=== PATIENT | male | born 1960 | race Caucasian/White ===

== ENCOUNTER 2018-04-18 18:48 | Emergency (ER) | payer OTHER ==
--- OUTSIDE RECORDS SUMMARY | 2018-04-18 18:50 | XMS REPORT ---
:1960 [facility] Lam [address] [place] [id number] Care Team Providers Name Role Phone Unavailable Unavailable Unavailable Payers Payer Name Policy Type Policy Number Effective Date Expiration Date Problems This patient has no known problems. Allergies, Adverse Reactions, Alerts Allergy Allergy Status Severity Reaction(s) Onset Inactive Treating Comments Name Type Date Date Clinician No Known DA Active U 2018-02 Allergies -11 00:00:0 0 No Known DA Active U 2015-02 Allergies - 00:00:0 0 Medications This patient has no known medications.
[2018-04-18 19:52] LABS: Absolute Lymphocytes (CBC) 0.9 K/uL (0.7-4.9); Absolute Monocytes 0.6 K/uL (0.1-1.3); Absolute Neutrophil 1.5 K/uL (1.8-8.0); Basophils % 0.6 % (0-1.3); Hematocrit 43.5 % (39.6-49.0); Lymphocytes % 29.4 % (15.3-44.8); MPV 7.9 fL (7.6-11.3); Monocytes % 19.5 % (3.3-12.3)
[2018-04-18 19:55] LABS: Protime INR 1.61
[2018-04-18 20:22] LABS: ALT/SGPT 40 U/L (12-78); AST/SGOT 34 U/L (15-37); Albumin 3.8 g/dL (3.4-5.0); Alkaline Phosphatase 79 U/L (45-117); BUN Blood Urea Nitrogen 19 mg/dL (7-18); Bicarbonate 28 mmol/L (21-32); Bilirubin Direct 0.2 mg/dL (0-0.2); Bilirubin Total 0.5 mg/dL (0.2-1.0); Glucose Level 102 mg/dL (74-106); Magnesium 1.8 mg/dL (1.8-2.4); NT PRO-BNP 240 pg/mL (<125); Protein, Total 6.9 g/dL (6.4-8.2); Sodium Level 144 mmol/L (136-145); Troponin (Emerg Dept Use Only) < 0.02 ng/mL (0.0-0.045)
--- NOTE | 2018-04-18 20:25 | RAD REPORT ---
EXAM DESCRIPTION: Ry Pemberton (2 Views)04/18/2018 7:57 pm CLINICAL HISTORY: Cough COMPARISON: April 15, 2017 FINDINGS: The lungs appear clear of acute infiltrate. The heart is normal size IMPRESSION: No acute abnormalities displayed
--- NOTE | 2018-04-18 21:13 | EDPHYS ---
Physician Documentation [facility] Name: Shlomo Humphrey Age: 57 yrs Sex: Male : 1960 Arrival Date: 04/18/2018 Time: 18:52 Bed 24 Private MD: Edenilson NAVARRO ED Physician Rayshawn Carrera HPI: 04/18 19:35 This 57 yrs old Male presents to ER via Ambulatory with complaints of cp Productive Cough. 19:35 The patient or guardian reports cough, that is intermittent, with productive sputum, cp that is purulent, with small amount blood. Onset: The symptoms/episode began/occurred 4 day(s) ago. Severity of symptoms: in the emergency department the symptoms are unchanged, despite home interventions. Associated signs and symptoms: Pertinent negatives: chest pain, diarrhea, fever, sore throat, vomiting. Patient reports he was seen by PCP Saturday for similar symptoms and diagnosed with influenza. Patient was given RX for Zithromax if symptoms got worse and cough syrup. Patient concerned today after noticing small amount of blood in sputum after several episodes of coughing. Historical: - Allergies: 18:56 No Known Allergies; sv - Home Meds: 19:14 losartan-hydrochlorothiazide 50-12.5 mg Oral tab 1 tab once daily [Active]; metoprolol mg2 tartrate 25 mg Oral tab 1 tab once daily [Active]; Xarelto 20 mg Oral tab 1 tab once daily [Active]; - PMHx: 18:56 Atrial Fib; Hypertension; sv - PSHx: 18:56 Heart Ablation; Cholecystectomy; sv - Immunization history:: Flu vaccine status is unknown. - Social history:: Smoking status: unknown. - Ebola Screening: : No symptoms or risks identified at this time. ROS: 19:40 Constitutional: Negative for body aches, chills, fever, poor PO intake. cp 19:40 Eyes: Negative for injury, pain, redness, and discharge. cp 19:40 ENT: Negative for drainage from ear(s), ear pain, sore throat, difficulty swallowing, difficulty handling secretions. 19:40 Cardiovascular: Negative for chest pain, edema, palpitations. 19:40 Respiratory: Positive for cough, colored sputum with small amount of blood, Negative for shortness of breath, wheezing. 19:40 Abdomen/GI: Negative for abdominal pain, nausea, vomiting, and diarrhea, black/tarry stool, rectal bleeding. 19:40 Back: Negative for pain at rest, pain with movement, radiated pain. 19:40 : Negative for urinary symptoms. 19:40 Skin: Negative for cellulitis, rash. 19:40 Neuro: Negative for altered mental status, headache, weakness. 19:40 All other systems are negative. Exam: 19:46 Constitutional: The patient appears in no acute distress, alert, awake, cp non-diaphoretic, non-toxic, well developed, well nourished. 19:46 Head/Face: Normocephalic, atraumatic. cp 19:46 Eyes: Periorbital structures: appear normal, Conjunctiva: normal, no exudate, no injection, Sclera: no appreciated abnormality, Lids and lashes: appear normal, bilaterally. 19:46 ENT: External ear(s): are unremarkable, Ear canal(s): are normal, clear, TM's: bulging, is not appreciated, bilaterally, dullness, bilaterally, erythema, is not appreciated, bilaterally, Nose: is normal, Mouth: Lips: moist, Oral mucosa: moist, Posterior pharynx: Airway: no evidence of obstruction, patent, Tonsils: are normal in appearance, swelling, is not appreciated, erythema, that is mild, exudate, is not appreciated. 19:46 Neck: ROM/movement: is normal, is supple, without pain, no range of motions limitations, no meningismus, no nuchal rigidity. 19:46 Chest/axilla: Inspection: normal, Palpation: is normal, no crepitus, no tenderness. 19:46 Cardiovascular: Rate: normal, Rhythm: regular, Heart sounds: murmur, not appreciated, rub, not appreciated, gallop, not appreciated, Edema: is not appreciated, JVD: is not appreciated. 19:46 Respiratory: the patient does not display signs of respiratory distress, Respirations: normal, no use of accessory muscles, no retractions, no splinting, no tachypnea, labored breathing, is not present, Breath sounds: bronchial sounds, that are mild, are heard diffusely, decreased breath sounds, are not appreciated, stridor, is not appreciated, + upper airway congestion. wheezing: is not appreciated. 19:46 Abdomen/GI: Inspection: abdomen appears normal, Palpation: abdomen is soft and non-tender, in all quadrants. 19:46 Back: pain, is absent, ROM is normal. 19:46 Skin: cellulitis, is not appreciated, no rash present. 19:46 Neuro: Orientation: to person, place \T\ time. Mentation: is normal, Cerebellar function: is grossly normal, Motor: moves all fours, strength is normal, Sensation: is normal. 19:48 ECG was reviewed by the Attending Physician. cp Vital Signs: 18:57 BP 127 / 78; Pulse 64; Resp 18; Temp 98.1; Pulse Ox 99% ; Weight 113.4 kg; Height 5 ft. sv 10 in. (177.80 cm); Pain 0/10; 20:14 BP 111 / 94; Pulse 68; Resp 18; Pulse Ox 100% on R/A; Pain 0/10; mg2 18:57 Body Mass Index 35.87 (113.40 kg, 177.80 cm) sv MDM: 19:10 Patient medically screened. cp 20:00 Differential Diagnosis: Bronchitis Influenza Otitis Media Viral Syndrome Pneumonia. cp 21:10 Data reviewed: vital signs, nurses notes, lab test result(s), EKG, radiologic studies, cp plain films. 21:10 Test interpretation: by ED physician or midlevel provider: ECG, plain radiologic cp studies. Counseling: I had a detailed discussion with the patient and/or guardian regarding: the historical points, exam findings, and any diagnostic results supporting the discharge/admit diagnosis, lab results, radiology results, to return to the emergency department if symptoms worsen or persist or if there are any questions or concerns that arise at home. Response to treatment: the patient's symptoms have mildly improved after treatment, and as a result, I will discharge patient. ED course: VSS. Chest xray negative for pneumonia. Patient has prescribed Zithromax to take at home. Will discharge to home for continued monitoring. 04/18 19:32 Order name: Basic Metabolic Panel cp 04/18 19:32 Order name: CBC with Diff cp 04/18 19:32 Order name: LFT's cp 04/18 19:32 Order name: Magnesium cp 04/18 19:32 Order name: NT PRO-BNP cp 04/18 19:32 Order name: PT-INR cp 04/18 19:32 Order name: Troponin (emerg Dept Use Only) cp 04/18 20:06 Order name: Protime (+INR); Complete Time: 20:51 EDMS 04/18 20:51 Interpretation: Abnormal: PT 19.1. cp 04/18 20:12 Order name: CBC with Automated Diff; Complete Time: 20:51 EDMS 04/18 20:51 Interpretation: Normal except: WBC 3.1; PLT 149; MN% 19.5; NEUT A 1.5. cp 04/18 20:22 Order name: Basic Metabolic Panel; Complete Time: 20:51 EDMS 04/18 20:51 Interpretation: Normal except: BUN 19; GFR 63. cp 04/18 20:22 Order name: Liver (Hepatic) Function; Complete Time: 20:51 EDMS 04/18 20:22 Order name: Troponin (Emerg Dept Use Only); Complete Time: 20:51 EDMS 04/18 20:22 Order name: NT PRO-BNP; Complete Time: 20:51 EDMS 04/18 20:52 Interpretation: Abnormal: NT PRO-BNP 240. cp 04/18 20:22 Order name: Magnesium; Complete Time: 20:51 EDMS 04/18 19:32 Order name: EKG; Complete Time: 19:33 cp 04/18 19:32 Order name: Cardiac monitoring; Complete Time: 19:50 cp 04/18 19:32 Order name: EKG - Nurse/Tech; Complete Time: 19:50 cp 04/18 19:32 Order name: IV Saline Lock; Complete Time: 19:50 cp 04/18 19:32 Order name: Labs collected and sent; Complete Time: 19:51 cp 04/18 19:32 Order name: O2 Per Protocol; Complete Time: 19:51 cp 04/18 19:32 Order name: O2 Sat Monitoring; Complete Time: 19:51 cp 04/18 19:32 Order name: XRAY Chest Pa And Lat (2 Views) cp 04/18 20:26 Order name: RAD; Complete Time: 20:51 EDMS 04/18 20:52 Interpretation: Report reviewed. cp EC:48 Rate is 55 beats/min. Rhythm is regular. KS interval is normal. QRS interval is normal. cp QT interval is normal. Interpreted by me. Reviewed by me. Administered Medications: No medications were administered Disposition: 04/19 03:29 Co-signature as Attending Physician, Rayshawn Carrera MD. Disposition: 04/18/18 21:12 Discharged to Home. Impression: Acute bronchitis. - Condition is Stable. - Discharge Instructions: Acute Bronchitis, Adult. - Prescriptions for Guaifenesin AC 10- 100 mg/5 mL Oral Liquid - take 10 milliliters by ORAL route every 4 hours As needed; 180 milliliter. - Medication Reconciliation Form, Thank You Letter, Antibiotic Education, Prescription Opioid Use form. - Follow up: Edenilson NAVARRO; When: 2 - 3 days; Reason: Recheck today's complaints. - Problem is new. - Symptoms have improved. Signatures: Dispatcher [employer] EDMS Tania Ricci RN RN sv Isrrael Parra, LOS PA cp Rayshawn Carrera MD MD gs Gardose, Michele RN RN mg2 Corrections: (The following items were deleted from the chart) 04/18 21:29 21:12 04/18/2018 21:12 Discharged to Home. Impression: Acute bronchitis. Condition is mg2 Stable. Forms are Medication Reconciliation Form, Thank You Letter, Antibiotic Education, Prescription Opioid Use. Follow up: Edenilson NAVARRO; When: 2 - 3 days; Reason: Recheck today's complaints. Problem is new. Symptoms have improved. cp
--- NOTE | 2018-04-18 21:13 | ER ---
Nurse's Notes [facility] Name: Shlomo Humphrey Age: 57 yrs Sex: Male : 1960 Arrival Date: 04/18/2018 Time: 18:52 Bed 24 Private MD: Edenilson NAVARRO Diagnosis: Acute bronchitis Presentation: 04/18 18:53 Presenting complaint: Patient states: productive cough with intermittent blood streaked sv phlegm has increased over about 2 days. Seen his PCP and prescribed meds yesterday, tested flu positive. Denies SOB. Has had a CXR within this week. Transition of care: patient was not received from another setting of care. Onset of symptoms was April 14, 2018. Care prior to arrival: None. 18:53 Method Of Arrival: Ambulatory sv 18:53 Acuity: EBER 3 sv 19:13 Risk Assessment: Do you want to hurt yourself or someone else? Patient reports no mg2 desire to harm self or others. Initial Sepsis Screen: Does the patient meet any 2 criteria? No. Patient's initial sepsis screen is negative. Does the patient have a suspected source of infection? No. Patient's initial sepsis screen is negative. Triage Assessment: 18:58 General: Appears in no apparent distress. comfortable, Behavior is calm, cooperative, sv appropriate for age. Pain: Denies pain. Neuro: Level of Consciousness is awake, alert, obeys commands, Oriented to person, place, time, situation, Moves all extremities. Full function. Respiratory: Reports cough that is productive, Airway is patent Respiratory effort is even, unlabored, Respiratory pattern is regular, symmetrical. 19:15 Respiratory: Onset: The symptoms/episode began/occurred at an unknown time. the patient mg2 has mild shortness of breath. Historical: - Allergies: 18:56 No Known Allergies; sv - Home Meds: 19:14 losartan-hydrochlorothiazide 50-12.5 mg Oral tab 1 tab once daily [Active]; metoprolol mg2 tartrate 25 mg Oral tab 1 tab once daily [Active]; Xarelto 20 mg Oral tab 1 tab once daily [Active]; - PMHx: 18:56 Atrial Fib; Hypertension; sv - PSHx: 18:56 Heart Ablation; Cholecystectomy; sv - Immunization history:: Flu vaccine status is unknown. - Social history:: Smoking status: unknown. - Ebola Screening: : No symptoms or risks identified at this time. Screenin:12 Abuse screen: Denies threats or abuse. Denies injuries from another. Nutritional mg2 screening: No deficits noted. Tuberculosis screening: No symptoms or risk factors identified. Fall Risk None identified. Assessment: 19:09 General: Appears in no apparent distress. comfortable, Behavior is calm, cooperative. mg2 Pain: Denies pain. Neuro: Level of Consciousness is awake, alert, obeys commands, Oriented to person, place, time, situation. Cardiovascular: Capillary refill < 3 seconds Patient's skin is warm and dry. Respiratory: Airway is patent Respiratory effort is even, unlabored, Respiratory pattern is regular, symmetrical. Respiratory: Reports cough that is productive, with blood-streaked sputum. GI: No signs and/or symptoms were reported involving the gastrointestinal system. : No signs and/or symptoms were reported regarding the genitourinary system. EENT: No signs and/or symptoms were reported regarding the EENT system. Derm: Skin is intact, is healthy with good turgor, Skin is pink, warm \T\ dry. normal. Musculoskeletal: Circulation, motion, and sensation intact. Capillary refill < 3 seconds. 19:55 Cardiovascular: Rhythm is regular. mg2 19:55 Respiratory: Breath sounds are clear. mg2 19:56 Reassessment: patient sent to [facility]. mg2 Vital Signs: 18:57 BP 127 / 78; Pulse 64; Resp 18; Temp 98.1; Pulse Ox 99% ; Weight 113.4 kg; Height 5 ft. sv 10 in. (177.80 cm); Pain 0/10; 20:14 BP 111 / 94; Pulse 68; Resp 18; Pulse Ox 100% on R/A; Pain 0/10; mg2 18:57 Body Mass Index 35.87 (113.40 kg, 177.80 cm) sv ED Course: 18:52 Patient arrived in ED. sb2 18:52 Edenilson NAVARRO is Private Physician. sb2 18:56 Triage completed. sv 18:58 Arm band placed on. sv 19:05 Bry Dial, DHEERAJ is Primary Nurse. mg2 19:10 Isrrael Parra PA is PHCP. cp 19:10 Rayshawn Carrera MD is Attending Physician. cp 19:13 No provider procedures requiring assistance completed. mg2 19:14 Patient has correct armband on for positive identification. Bed in low position. Call mg2 light in reach. 19:30 Inserted saline lock: 20 gauge in right antecubital area, using aseptic technique. macho 21:11 Edenilson NAVARRO is Referral Physician. cp 21:27 IV discontinued, intact, bleeding controlled, No redness/swelling at site. Pressure mg2 dressing applied. Administered Medications: No medications were administered Outcome: 21:12 Discharge ordered by MD. cp 21:27 Discharged to home ambulatory. mg2 21: Condition: stable 21:27 Discharge instructions given to patient, Instructed on discharge instructions, follow up and referral plans. medication usage, Demonstrated understanding of instructions, follow-up care, medications, Prescriptions given X 1. 21:29 Patient left the ED. mg2 Signatures: Tania Ricci RN RN Isrrael Cortez PA PA cp Antunez, Elena, RN RN ea Billeau, Sheri sb2 Bry Dial RN RN mg2 Corrections: (The following items were deleted from the chart) 18:58 18:53 Presenting complaint: Patient states: productive cough with intermittent blood sv streaked phlegm has increased over about 2 days. Seen his PCP and prescribed meds yesterday, tested flu positive. sv 18:58 18:57 Pulse 64bpm; Resp 18bpm; Pulse Ox 99%; Temp 98.1F; 113.4 kg; Height 5 ft. 10 in.; sv BMI: 35.8; Pain 0/10; sv 19:01 18:53 Presenting complaint: Patient states: productive cough with intermittent blood sv streaked phlegm has increased over about 2 days. Seen his PCP and prescribed meds yesterday, tested flu positive. Denies SOB. sv 21: 19:55 Cardiovascular: Rhythm is mg2 mg2 : 19:13 Patient did not have IV access during this emergency room visit. mg2 mg2
--- NOTE | 2018-04-21 07:59 | EKG ---
Test Date: 2018-04-18 Test Time: 19:40:27 Sheriff Sergeant: 24 MEASUREMENT RESULTS: Intervals: Rate: 55 WY: 190 QRSD: 74 QT: 410 QTc: 392 Dewitt: P: 58 WY: 190 QRS: 58 T: 63 INTERPRETIVE STATEMENTS: Sinus bradycardia Otherwise normal ECG Compared to ECG 06/14/2016 22:31:24 Sinus rhythm no longer present Electronically Signed On 04-21-18 07:54:41 MEDICAL AFFAIRS LEADER by Jani Avalos
== END 2018-04-18 21:29 | disposition home or self-care (01) ==
LOC: ER 18:48
DX: J20.9 Acute bronchitis, unspecified (principal); I10 Essential (primary) hypertension; I48.91 Unspecified atrial fibrillation; Z79.01 Long term (current) use of anticoagulants
CPT/HCPCS: 36415; 71046; 80048; 80076; 83735; 83880; 84484; 85025; 85610; 93005; 99283

== ENCOUNTER 2019-05-30 16:03 | Emergency (ER) | payer OTHER ==
--- OUTSIDE RECORDS SUMMARY | 2019-05-30 16:04 | XMS REPORT ---
:1960 [facility] [address] [place] [address] Dr. Lam [address] [place] [id number] Care Team Providers Name Role Phone Unavailable [...]
--- NOTE | 2019-05-30 17:03 | RAD REPORT ---
EXAM DESCRIPTION: CT - Head Brain Wo Cont - 05/30/2019 4:50 pm CLINICAL HISTORY: Headache COMPARISON: December 2018 TECHNIQUE: Computed axial tomography of the head was obtained. IV contrast was not requested. All CT scans are performed using dose optimization technique as appropriate and may include automated exposure control or mA/KV adjustment according to patient size. FINDINGS: An intracranial bleed is not seen . The ventricles are normal in caliber. No extra-axial fluid collection is noted. Fluid within the sinuses/ mastoids is not seen. IMPRESSION: No acute intracranial abnormality is seen. If patient's symptoms persist MRI of the bra in would be recommended.
[2019-05-30 17:07] LABS: Absolute Lymphocytes (CBC) 1.3 K/uL (0.7-4.9); Basophils % 0.5 % (0-1.3); Hematocrit 44.9 % (39.6-49.0); Lymphocytes % 20.4 % (15.3-44.8); MPV 7.7 fL (7.6-11.3); RBC Red Blood Cell Count 5.04 M/uL (4.33-5.43)
[2019-05-30 17:24] LABS: Potassium 3.7 mmol/L (3.5-5.1)
[2019-05-30 17:47] LABS: Blood Morphology Comment NOT SEEN (NOT SEEN); Platelet Estimate ADEQ; White Blood Cell Scan OK
--- NOTE | 2019-05-30 17:58 | ER ---
Nurse's Notes [facility] Name: Shlomo Humphrey Age: 58 yrs Sex: Male : 1960 Arrival Date: 05/30/2019 Time: 16:05 Bed 5 Private MD: Wally Bhatia R Diagnosis: Headache;Anxiety disorder, unspecified Presentation: 05/29 16:14 Chief complaint: Patient states: my head didn't feel right, i havent felt right for tw2 over a week, it just feels like i jerked my brain too hard, its weird feeling, i feel numbness in the back of my head and it feels sore, i am just concerned something is wrong, earlier this morning i got lightheaded but it went away, i have been trying to straighten up or clean my house, i am under stress that's why i take that one medicine, well i guess it feels like a light headache. Coronavirus screen: The patient has NOT traveled to a country currently being monitored by the CDC within the last 14 days. Proceed with normal triage procedures. Ebola Screen: Patient denies travel to an Ebola-affected area in the 21 days before illness onset. Initial Sepsis Screen: Does the patient meet any 2 criteria? No. Patient's initial sepsis screen is negative. Does the patient have a suspected source of infection? No. Patient's initial sepsis screen is negative. Risk Assessment: Do you want to hurt yourself or someone else? Patient reports no desire to harm self or others. 16:14 Method Of Arrival: Ambulatory tw2 16:14 Acuity: EBER 2 tw2 Triage Assessment: 16:17 General: Appears in no apparent distress. Behavior is anxious. Pain: Complains of pain tw2 in right parietal area. Neuro: Reports headache parietal area, occipital area. Historical: - Allergies: 16:13 No Known Allergies; tw2 - Home Meds: 16:13 losartan-hydrochlorothiazide 50-12.5 mg Oral tab 1 tab once daily [Active]; metoprolol tw2 tartrate 25 mg Oral tab 1 tab once daily [Active]; atorvastatin 20 mg oral tab 1 tab once daily [Active]; losartan 50 mg oral tab 1 tab once daily [Active]; alprazolam 0.25 mg Oral TbDL 1 tab prn [Active]; - PMHx: 16:13 Atrial Fib; Hypertension; tw2 - PSHx: 16:13 Heart Ablation; Cholecystectomy; Hernia repair; perforated ear drums; tw2 - Immunization history:: Adult Immunizations. - Social history:: Smoking status: . - Family history:: not pertinent. - Hospitalizations: : No recent hospitalization is reported. Screenin:15 Abuse screen: Denies threats or abuse. Denies injuries from another. Nutritional bp screening: No deficits noted. Tuberculosis screening: No symptoms or risk factors identified. Fall Risk None identified. Assessment: 16:15 General: SEE TRIAGE NOTE. bp 16:56 Reassessment: PT RETURNED FROM CT. bp 17:57 Reassessment: ALL CURRENT ORDERS COMPLETED, RESULTS PENDING. VS STABLE, NO FOCAL NEURO bp DEFICITS NOTED. 18:26 Reassessment: PT D/C HOME AMBULATORY, DX WITH ANXIETY. bp Vital Signs: 16:14 BP 123 / 79; Pulse 74; Resp 17; Temp 97.8(TE); Pulse Ox 99% on R/A; Weight 113.4 kg tw2 (R); Height 5 ft. 11 in. (180.34 cm); Pain 1/10; 16:42 BP 139 / 76; Pulse 63; Resp 17; Pulse Ox 95% ; bp 17:56 BP 140 / 84; Pulse 61; Resp 16; Pulse Ox 96% ; bp 16:14 Body Mass Index 34.87 (113.40 kg, 180.34 cm) tw2 Renay Coma Score: 17:56 Eye Response: spontaneous(4). Verbal Response: oriented(5). Motor Response: obeys rn commands(6). Total: 15. ED Course: 16:05 Patient arrived in ED. ag5 16:06 Wally Bhatia MD is Private Physician. ag5 16:15 Patient has correct armband on for positive identification. Bed in low position. Call bp light in reach. Side rails up X2. 16:17 Triage completed. tw2 16:17 Arm band placed on. tw2 16:19 Rigo Escudero MD is Attending Physician. rn 16:19 Rashad Gore, DHEERAJ is Primary Nurse. bp 16:40 Inserted saline lock: 20 gauge in right forearm, using aseptic technique. Blood bp collected. 16:50 CT Head Brain wo Cont In Process Unspecified. EDMS 17:58 Tyrell Jean MD is Referral Physician. rn 18:26 No provider procedures requiring assistance completed. IV discontinued, intact, bp bleeding controlled, No redness/swelling at site. Pressure dressing applied. Administered Medications: No medications were administered Outcome: 17:58 Discharge ordered by . rn 18:26 Discharged to home ambulatory. bp 18:26 Condition: stable 18:26 Discharge instructions given to patient, Instructed on discharge instructions, follow up and referral plans. Demonstrated understanding of instructions, follow-up care. 18:28 Patient left the ED. bp Signatures: Dispatcher [employer] EDMS Rigo Escudero MD MD rn Maria Esther Richard RN RN tw2 Rashad Gore RN RN bp Park Weber ag5
--- NOTE | 2019-05-30 17:58 | EDPHYS ---
Physician Documentation [facility] Name: Shlomo Humphrey Age: 58 yrs Sex: Male : 1960 Arrival Date: 05/30/2019 Time: 16:05 Bed 5 Private MD: Wally Bahtia R ED Physician Rigo Escudero HPI: 05/29 16:38 This 58 yrs old Male presents to ER via Ambulatory with complaints of Doesn't rn Feel Right, headache. 16:38 The patient complains of pain to the right occipital area. The patient describes the rn headache as aching. Onset: The symptoms/episode began/occurred 1 week(s) ago. Associated signs and symptoms: Pertinent negatives: altered mental status, fever, neck stiffness, rash, vision changes, vision loss, vomiting, weakness, vertigo. Severity of symptoms: At its worst the pain was very mild, in the emergency department the pain is unchanged. Headache History: Denies prior headaches. The symptoms are alleviated by nothing. the symptoms are aggravated by nothing. The patient has not experienced similar symptoms in the past. Reports 1 week intermittent headache, reports is 1/10, no trauma, no previous headache, + head injury when young but no issues since. No focal neurological complaint. No vomiting. No chest pain. Reports pain right occipital region, reports anxiety about situation, and would like imaging of brain to make sure is ok. . Historical: - Allergies: 16:13 No Known Allergies; tw2 - Home Meds: 16:13 losartan-hydrochlorothiazide 50-12.5 mg Oral tab 1 tab once daily [Active]; metoprolol tw2 tartrate 25 mg Oral tab 1 tab once daily [Active]; atorvastatin 20 mg oral tab 1 tab once daily [Active]; losartan 50 mg oral tab 1 tab once daily [Active]; alprazolam 0.25 mg Oral TbDL 1 tab prn [Active]; - PMHx: 16:13 Atrial Fib; Hypertension; tw2 - PSHx: 16:13 Heart Ablation; Cholecystectomy; Hernia repair; perforated ear drums; tw2 - Immunization history:: Adult Immunizations. - Social history:: Smoking status: . - Family history:: not pertinent. - Hospitalizations: : No recent hospitalization is reported. ROS: 16:38 Constitutional: Negative for fever, chills, and weight loss, Eyes: Negative for injury, rn pain, redness, and discharge, Neck: Negative for injury, pain, and swelling, Cardiovascular: Negative for chest pain, palpitations, and edema, Respiratory: Negative for shortness of breath, cough, wheezing, and pleuritic chest pain, Abdomen/GI: Negative for abdominal pain, nausea, vomiting, diarrhea, and constipation, MS/Extremity: Negative for injury and deformity, Skin: Negative for injury, rash, and discoloration, Neuro: Negative for weakness, numbness, tingling, and seizure. Exam: 16:38 Constitutional: This is a well developed, well nourished patient who is awake, alert, rn and in no acute distress. Ambulatory to room without dififculty or assistance. Head/Face: Normocephalic, atraumatic. Eyes: Pupils equal round and reactive to light, extra-ocular motions intact. Lids and lashes normal. Conjunctiva and sclera are non-icteric and not injected. Cornea within normal limits. Periorbital areas with no swelling, redness, or edema. Cardiovascular: Regular rate and rhythm. No pulse deficits. Respiratory: Lungs have equal breath sounds bilaterally, clear to auscultation. No increased work of breathing, no retractions or nasal flaring. Abdomen/GI: soft, non-tender MS/ Extremity: Pulses equal, no cyanosis. Neurovascular intact. Full, normal range of motion. Equal circumference. Neuro: Awake and alert, GCS 15, oriented to person, place, time, and situation. Cranial nerves II-XII grossly intact. Motor strength 5/5 in all extremities. Sensory grossly intact. Cerebellar exam normal. Normal gait. 17:07 ECG was reviewed by the Attending Physician. rn Vital Signs: 16:14 BP 123 / 79; Pulse 74; Resp 17; Temp 97.8(TE); Pulse Ox 99% on R/A; Weight 113.4 kg tw2 (R); Height 5 ft. 11 in. (180.34 cm); Pain 1/10; 16:42 BP 139 / 76; Pulse 63; Resp 17; Pulse Ox 95% ; bp 17:56 BP 140 / 84; Pulse 61; Resp 16; Pulse Ox 96% ; bp 16:14 Body Mass Index 34.87 (113.40 kg, 180.34 cm) tw2 Tutor Key Coma Score: 17:56 Eye Response: spontaneous(4). Verbal Response: oriented(5). Motor Response: obeys rn commands(6). Total: 15. MDM: 16:19 Patient medically screened. rn 16:55 ED course: Pt reports intermittent headache that lasts for seconds, and only 1/10. . rn 17:56 Differential diagnosis: hypertensive headache, intracerebral hemorrhage, migraine, rn subarachnoid bleed, tension headache, vasomotor headache, anxiety. Data reviewed: vital signs, nurses notes, lab test result(s), EKG, radiologic studies, CT scan, and as a result, I will discharge patient. Counseling: I had a detailed discussion with the patient and/or guardian regarding: the historical points, exam findings, and any diagnostic results supporting the discharge/admit diagnosis, lab results, radiology results, the need for outpatient follow up, to return to the emergency department if symptoms worsen or persist or if there are any questions or concerns that arise at home. Response to treatment: the patient's symptoms have markedly improved after treatment, the patient's condition has returned to base line, the patient is now symptom free, and as a result, I will discharge patient. Special discussion: I discussed with the patient/guardian in detail that at this point there is no indication for admission to the hospital. It is understood, however, that if the symptoms persist or worsen the patient needs to return immediately for re-evaluation. Special discussion: Based on the history and exam findings, there is no indication for further emergent testing or inpatient evaluation. I discussed with the patient/guardian the need to see the neurologist for further evaluation of the symptoms. I discussed with the patient/guardian the need to see the primary care provider for further evaluation of the symptoms. ED course: No acute findings on ct, symptoms are seconds in length, and intermittent, ekg and bloodwork ok. feels better. Recommend neuro f/u if headaches persist and pcp f/u for BP management. . 05/29 16:27 Order name: CBC with Diff rn 05/29 16:27 Order name: Basic Metabolic Panel; Complete Time: 17:44 rn 05/29 16:27 Order name: IV Start; Complete Time: 16:41 rn 05/29 16:27 Order name: CT Head Brain wo Cont; Complete Time: 17:23 rn 05/29 16:27 Order name: EKG; Complete Time: 16:28 rn 05/29 17:13 Order name: CBC Smear Scan EDCO 05/29 16:27 Order name: EKG - Nurse/Tech; Complete Time: 16:41 rn EC: Rate is 70 beats/min. Rhythm is regular. QRS Harrison is Normal. PA interval is normal. QRS rn interval is normal. QT interval is normal. No Q waves. T waves are Normal. No ST changes noted. Clinical impression: Normal ECG. Interpreted by me. Reviewed by me. Administered Medications: No medications were administered Disposition: 05/30/19 17:58 Discharged to Home. Impression: Headache, Anxiety disorder, unspecified. - Condition is Stable. - Discharge Instructions: General Headache Without Cause, Hypertension, Generalized Anxiety Disorder. - Medication Reconciliation Form, Thank You Letter, Antibiotic Education, Prescription Opioid Use form. - Follow up: Tyrell Jean MD; When: As needed; Reason: Recheck today's complaints, Re-evaluation by your physician. - Problem is new. - Symptoms have improved. Signatures: Dispatcher [employer] [facility] Rigo Escudero MD MD rn Wise, Tara, RN RN tw2 Rashad Gore RN RN bp Corrections: (The following items were deleted from the chart) 18:28 17:58 05/30/2019 17:58 Discharged to Home. Impression: Headache; Anxiety disorder, bp unspecified. Condition is Stable. Forms are Medication Reconciliation Form, Thank You Letter, Antibiotic Education, Prescription Opioid Use. Follow up: Tyrell Jean; When: As needed; Reason: Recheck today's complaints, Re-evaluation by your physician. Problem is new. Symptoms have improved. rn
[2019-05-30 18:40] VITALS: TEMP 97.8
[2019-05-30 18:43] VITALS: BP 140/84; O2SAT 96
--- NOTE | 2019-05-31 06:26 | EKG ---
Test Date: 2019-05-30 Test Time: 16:46:34 Regional Engineer: MANN MEASUREMENT RESULTS: Intervals: Rate: 70 SD: 184 QRSD: 86 QT: 398 QTc: 429 [place]: P: 41 SD: 184 QRS: 43 T: 55 INTERPRETIVE STATEMENTS: Normal sinus rhythm Normal ECG Compared to ECG 04/18/2018 19:40:27 Sinus bradycardia no longer present Electronically Signed On 05-31-19 06:26:13 CDT by Vishal Ram
== END 2019-05-30 18:28 | disposition home or self-care (01) ==
LOC: ER 16:03
DX: F41.9 Anxiety disorder, unspecified (principal); I10 Essential (primary) hypertension; I48.91 Unspecified atrial fibrillation
CPT/HCPCS: 36415; 70450; 80048; 85025; 93005; 99283

== ENCOUNTER 2019-08-26 12:43 | Emergency (ER) | payer OTHER ==
--- OUTSIDE RECORDS SUMMARY | 2019-08-26 13:05 | XMS REPORT | Clinical Summary ---
:1960 Author Organization [facility] Address [address] [place] [address] Care Team Providers Name Role Phone Wally Pang MD Primary Care Provider Allergies No Known Allergies Medications Medication Sig Dispensed Refills Start Date End Date Status losartan-hydrochlorothi TK 1 T PO D 0 05/24/2018 Active azide (HYZAAR) 50-12.5 mg per tablet rivaroxaban (XARELTO) TK 1 T PO QD WF 0 12/31/2017 Active 20 mg tablet aspirin (ECOTRIN) 81 MG Take 81 mg by 0 Active enteric coated tablet mouth daily. Active Problems Problem Noted Date Acute pancreatitis 06/23/2018 Social History Tobacco Use Types Packs/Day Years Used Date Never Smoker Smokeless Tobacco: Never Used Alcohol Use Drinks/Week oz/Week Comments No Alcohol Habits Answer Date Recorded How often do you have a drink containing alcohol? Never 06/23/2018 How many drinks containing alcohol do you have on a typical Not asked day when you are drinking? How often do you have six or more drinks on one occasion? No t asked Sex Assigned at Date Recorded Not on file Job Start Date Occupation Industry Not on file Not on file Not on file Travel History Travel Start Travel End No recent travel history available. Last Filed Vital Signs Not on file Plan of Treatment Health Maintenance Due Date Last Done Comments COLONOSCOPY SCREENING 2008 SHINGLES VACCINES (#1) 2008 INFLUENZA VACCINE 10/24/2019 Results Not on fileafter 08/25/2018 Advance Directives For more information, please contact: [phone] Type Date Recorded Patient Dead Mail Checker Explanati on Advance Directives, Living Will 06/23/2018 1:10 PM and Medical Power of Air Conditioning Mechan[employer] Industrial Code Status Date Activated Date Inactivated Comments Full Code 06/23/2018 3:47 PM 06/26/2018 3:54 PM Code Status decision reached by: Patient
--- OUTSIDE RECORDS SUMMARY | 2019-08-26 13:05 | XMS REPORT | Continuity of Care Document ---
:1960 Author Organization [facility] Address [address] [place] [address] Care Team Providers Name Role Phone Poly CARIAS Primary Care Physician Payers Payer Name Policy Type Policy Number Effective Date Expiration Date S ource Problems Condition Condition Condition Status Onset Resolution Last Treating Co mments Source Name Details Category Date Date Treatment Clinician Date Acute Acute Disease Active [place] [facility] Allergies, Adverse Reactions, Alerts Allergy Allergy Status Severity Reaction(s) Onset Inactive Treating Comm ents Source Name Type Date Date Clinician No Known DA Active U 2017-03 [facility] Allergie 05-05 [facility] 00:00: [address] No Known DA Active U 2014-03 [facility] Allergie 04-25 [facility] 00:00: [address] Social History Social Habit Start Date Stop Date Quantity Comments Source History [facility] Meth odist Alcohol Std Drinks History [facility] odist Alcohol Binge Sex Assigned At [facility] ethodist Alcohol intake 2018-06-23 2018-06-23 [facility] non-drinker of alcohol (finding) History SDOH 2018-06-23 2018-06-23 1 [place] [facility] Alcohol Frequency 00:00:00 00:00:00 Smoking Status Start Date Stop Date Source Never smoker [place] Methodis t Medications Ordered Filled Start Stop Current Ordering Indication Dosage Frequency Signature Comments Components Source Medication Medication Date Date Medication? Clinician (SIG) Name Name aspirin Yes 81mg QD Take 81 mg [place] (ECOTRIN) 4-04 by mouth Method i 81 MG 11:53: daily. st enteric 58 coated tablet losartan-hy Yes TK 1 T PO [place] drochloroth 3-02 D Method[facility] iazide 00:00: st (HYZAAR) 00 50-12.5 mg per tablet rivaroxaban 2017-03 Yes TK 1 T PO [place] (XARELTO) 0-09 QD [facility] 20 mg 00:00: st tablet 00 Procedures This patient has no known procedures. Plan of Care Planned Activity Planned Date Details Comments Source Future Scheduled 2019-10-24 INFLUENZA VACCINE [facility] 00:00:00 [code = INFLUENZA VACCINE] Future Scheduled 2008 COLONOSCOPY SCREENING [place] [facility] 00:00:00 [code = COLONOSCOPY SCREENING] Future Scheduled 2008 SHINGLES VACCINES Maximino but[facility] 00:00:00 (#1) [code = SHINGLES VACCINES (#1)] Results This patient has no known results.
[2019-08-26 15:55] LABS: BUN Blood Urea Nitrogen 18 mg/dL (7-18); Bicarbonate 29 mmol/L (21-32); Glucose Level 95 mg/dL (74-106); Potassium 3.9 mmol/L (3.5-5.1); Sodium Level 140 mmol/L (136-145)
[2019-08-26 16:06] LABS: Absolute Lymphocytes (CBC) 1.3 K/uL (0.7-4.9); Hematocrit 43.6 % (39.6-49.0); Lymphocytes % 20.2 % (15.3-44.8); RBC Red Blood Cell Count 4.82 M/uL (4.33-5.43)
--- NOTE | 2019-08-26 16:18 | EDPHYS ---
Physician Documentation [facility] Name: Shlomo Humphrey Age: 59 yrs Sex: Male : 1960 Arrival Date: 08/26/2019 Time: 12:45 Bed 18 Private MD: Wally Bhatia R ED Physician Sathya Giron HPI: 08/25 16:00 This 59 yrs old Male presents to ER via Ambulatory with complaints of Rectal jmm Bleeding. 16:00 The patient presents to the emergency department with bleeding from the rectum/anus. jmm Onset: The symptoms/episode began/occurred gradually, 6 day(s) ago. Modifying factors: The symptoms are alleviated by The symptoms are aggravated by bowel movement. This is a 59 year old male with a history of atrial fib, htn that presents to the ED with complaints of rectal bleeding with bowel movements, denies weakness, shortness of breath. Symptoms began this past . . Historical: - Allergies: 12:58 No Known Allergies; sv - Home Meds: 12:58 losartan 50 mg Oral tab 1 tab once daily [Active]; hydrochlorothiazide 25 mg Oral tab 1 sv tab once daily [Active]; aspirin 81 mg Oral chew 1 tab once daily [Active]; metoprolol succinate 25 mg oral Tb24 1 tab once daily [Active]; atorvastatin 20 mg Oral tab 1 tab once daily [Active]; Proctozone-HC 2.5 % rectal crea [Active]; - PMHx: 12:58 Atrial Fib; Hypertension; sv - PSHx: 12:58 Heart Ablation; Cholecystectomy; Hernia repair; perforated ear drums; sv - Immunization history:: Adult Immunizations. - Social history:: Smoking status: Patient denies any tobacco usage or history of. ROS: 16:00 Constitutional: Negative for fever, chills, and weight loss, Cardiovascular: Negative jmm for chest pain, palpitations, and edema, Respiratory: Negative for shortness of breath, cough, wheezing, and pleuritic chest pain. 16:00 Abdomen/GI: Positive for rectal bleeding. 16:00 All other systems are negative. Exam: 16:00 Constitutional: This is a well developed, well nourished patient who is awake, alert, jmm and in no acute distress. Head/Face: atraumatic. Eyes: EOMI, no conjunctival erythema appreciated ENT: Moist Mucus Membranes Neck: Trachea midline, Supple Chest/axilla: Normal chest wall appearance and motion. Cardiovascular: Regular rate and rhythm. No edema appreciated Respiratory: Normal respirations, no respiratory distress appreciated Abdomen/GI: Non distended, soft 16:00 Skin: General appearance color normal MS/ Extremity: Moves all extremities, no obvious deformities appreciated, no edema noted to the lower extremities Neuro: Awake and alert, normal gait Psych: Behavior is normal, Mood is normal, Patient is cooperative and pleasant 16:00 Abdomen/GI: Inspection: abdomen appears normal, Bowel sounds: normal, Palpation: abdomen is soft and non-tender, in all quadrants, Rectal exam: hemorrhoid(s), external, with associated bleeding, with inflammation. Vital Signs: 13:00 BP 112 / 76; Pulse 71; Resp 16; Temp 99.8; Pulse Ox 96% ; Weight 119.29 kg; Height 5 sv ft. 11 in. (180.34 cm); 16:04 BP 110 / 60; Pulse 64; Resp 15 S; Pulse Ox 95% on R/A; ca1 13:00 Body Mass Index 36.68 (119.29 kg, 180.34 cm) sv MDM: 15:15 Patient medically screened. [facility] 16:16 Data reviewed: vital signs, nurses notes. Counseling: I had a detailed discussion with teresita the patient and/or guardian regarding: the historical points, exam findings, and any diagnostic results supporting the discharge/admit diagnosis, lab results, the need for outpatient follow up, to return to the emergency department if symptoms worsen or persist or if there are any questions or concerns that arise at home. ED course: No active bleeding appreciated, H/H normal. Patient is advised to return to the ED. Patient understood and agrees with the plan of care. . 08/25 15:16 Order name: CBC with Diff [facility] 08/25 15:16 Order name: BMP; Complete Time: 16:16 [facility] 08/25 15:02 Order name: Gown patient; Complete Time: 15:04 [facility] Administered Medications: No medications were administered Disposition: 08/26 09:08 Co-signature as Attending Physician, Sathya Giron MD I agree with the assessment and kdr plan of care. Disposition: 08/26/19 16:17 Discharged to Home. Impression: Hemorrhoids and perianal venous thrombosis. - Condition is Stable. - Discharge Instructions: Hemorrhoids, How to Take a Sitz Bath. - Prescriptions for Colace 100 mg Oral Tablet - take 1 tablet by ORAL route every 12 hours; 14 tablet. - Medication Reconciliation Form, Thank You Letter, Antibiotic Education, Prescription Opioid Use form. - Follow up: Franko Person MD; When: 2 - 3 days; Reason: Recheck today's complaints, Continuance of care, Re-evaluation by your physician. Signatures: Dispatcher [employer] EDTania Cagle, RN RN sv Sathya Giron MD MD kdr Mickail, Joel, PA PA [facility] Berkley Nevarez RN RN ca1 Corrections: (The following items were deleted from the chart) 08/25 16:42 16:17 08/26/2019 16:17 Discharged to Home. Impression: Hemorrhoids and perianal venous ca1 thrombosis. Condition is Stable. Forms are Medication Reconciliation Form, Thank You Letter, Antibiotic Education, Prescription Opioid Use. Follow up: Franko Person; When: 2 - 3 days; Reason: Recheck today's complaints, Continuance of care, Re-evaluation by your physician. anthony
--- NOTE | 2019-08-26 16:18 | ER ---
Nurse's Notes [facility] Name: Shlomo Humphrey Age: 59 yrs Sex: Male : 1960 Arrival Date: 08/26/2019 Time: 12:45 Bed 18 Private MD: Wally Bhatia R Diagnosis: Hemorrhoids and perianal venous thrombosis Presentation: 08/25 12:55 Chief complaint: Patient states: s/p BM about an hour ago and started having rectal sv bleeding Hx hemorrhoids. Reports has had the bleeding since and saw Dr Bhatia. Coronavirus screen: Proceed with normal triage. Patient denies a cough. Patient denies shortness of breath or difficulty breathing. Patient denies measured and/or subjective temperature greater than 100.4F prior to today's visit. Patient denies travel on a cruise ship or to a country the [facility] currently lists as an affected area. Patient denies contact with known and/or suspected case of COVID-19. Ebola Screen: No symptoms or risks identified at this time. Risk Assessment: Do you want to hurt yourself or someone else? Patient reports no desire to harm self or others. Onset of symptoms was August 26, 2019. 12:55 Method Of Arrival: Ambulatory sv 12:55 Acuity: EBER 3 sv 13:00 Initial Sepsis Screen: Does the patient meet any 2 criteria? No. Patient's initial sv sepsis screen is negative. Does the patient have a suspected source of infection? No. Patient's initial sepsis screen is negative. Triage Assessment: 13:00 General: Appears in no apparent distress. uncomfortable, Behavior is calm, cooperative, sv appropriate for age. Pain: Complains of pain in anus. Neuro: Level of Consciousness is awake, alert, obeys commands, Oriented to person, place, time, situation, Gait is steady. Respiratory: Respiratory effort is even, unlabored. Historical: - Allergies: 12:58 No Known Allergies; sv - Home Meds: 12:58 losartan 50 mg Oral tab 1 tab once daily [Active]; hydrochlorothiazide 25 mg Oral tab 1 sv tab once daily [Active]; aspirin 81 mg Oral chew 1 tab once daily [Active]; metoprolol succinate 25 mg oral Tb24 1 tab once daily [Active]; atorvastatin 20 mg Oral tab 1 tab once daily [Active]; Proctozone-HC 2.5 % rectal crea [Active]; - PMHx: 12:58 Atrial Fib; Hypertension; sv - PSHx: 12:58 Heart Ablation; Cholecystectomy; Hernia repair; perforated ear drums; sv - Immunization history:: Adult Immunizations. - Social history:: Smoking status: Patient denies any tobacco usage or history of. Screenin:06 Abuse screen: Denies threats or abuse. Denies injuries from another. Nutritional ca1 screening: No deficits noted. Tuberculosis screening: No symptoms or risk factors identified. Fall Risk None identified. Assessment: 15:06 General: Appears in no apparent distress. comfortable, Behavior is calm, cooperative, ca1 appropriate for age. Pain: Denies pain. Neuro: Level of Consciousness is awake, alert, obeys commands, Oriented to person, place, time, situation. Cardiovascular: Heart tones S1 S2 present Capillary refill < 3 seconds Patient's skin is warm and dry. Respiratory: Airway is patent Respiratory effort is even, unlabored, Respiratory pattern is regular, symmetrical, Breath sounds are clear bilaterally. GI: Abdomen is round non-distended, Bowel sounds present X 4 quads. Abd is soft and non tender X 4 quads. : No signs and/or symptoms were reported regarding the genitourinary system. EENT: No signs and/or symptoms were reported regarding the EENT system. Derm: Skin is intact, is healthy with good turgor, Skin is pink, warm \T\ dry. Musculoskeletal: Circulation, motion, and sensation intact. Capillary refill < 3 seconds. 16:04 Reassessment: Patient appears in no apparent distress at this time. Patient and/or ca1 family updated on plan of care and expected duration. Pain level reassessed. Patient is alert, oriented x 3, equal unlabored respirations, skin warm/dry/pink. 16:23 Reassessment: Patient appears in no apparent distress at this time. Patient is alert, ca1 oriented x 3, equal unlabored respirations, skin warm/dry/pink. Vital Signs: 13:00 BP 112 / 76; Pulse 71; Resp 16; Temp 99.8; Pulse Ox 96% ; Weight 119.29 kg; Height 5 sv ft. 11 in. (180.34 cm); 16:04 BP 110 / 60; Pulse 64; Resp 15 S; Pulse Ox 95% on R/A; ca1 13:00 Body Mass Index 36.68 (119.29 kg, 180.34 cm) sv ED Course: 12:45 Patient arrived in ED. ag5 12:45 Wally Bhatia MD is Private Physician. 5 12:56 Triage completed. sv 13:00 Arm band placed on. sv 14:49 Berkley Nevarez RN is Primary Nurse. ca1 15:01 [facility] Hogue [facility] 15:01 Sathya Giron MD is Attending Physician. [facility] 15:06 Patient has correct armband on for positive identification. Placed in gown. Bed in low ca1 position. Call light in reach. Side rails up X 1. Pulse ox on. NIBP on. Warm blanket given. 15:06 No provider procedures requiring assistance completed. ca1 15:36 Initial lab(s) drawn, by me, sent to lab. Inserted saline lock: 20 gauge in right ca1 antecubital area, using aseptic technique. Blood collected. 16:17 Franko Person MD is Referral Physician. [facility] 16:23 IV discontinued, intact, bleeding controlled, No redness/swelling at site. Pressure ca1 dressing applied. Administered Medications: No medications were administered Outcome: 16:17 Discharge ordered by MD. [facility] 16:42 Discharged to home ambulatory. ca1 16:42 Condition: stable 16:42 Discharge instructions given to patient, Instructed on discharge instructions, follow up and referral plans. medication usage, Demonstrated understanding of instructions, follow-up care, medications, Prescriptions given X 1. 16:42 Patient left the ED. [facility] Signatures: Tania Ricci RN RN Valeriy Hogue PA PA [facility] Berkley Nevarez RN RN [facility] [place] ag5 Corrections: (The following items were deleted from the chart) 13:01 13:00 Pulse 71bpm; Resp 16bpm; Pulse Ox 96%; Temp 99.8F; 119.29 kg; Height 5 ft. 11 sv in.; BMI: 36.6; sv
[2019-08-26 16:53] VITALS: TEMP 99.8
[2019-08-26 16:54] VITALS: BP 110/60; O2SAT 95
[2019-08-26 16:56] LABS: Blood Morphology Comment NOT SEEN (NOT SEEN); Platelet Estimate ADEQ; Urine White Blood Cell Casts OK
== END 2019-08-26 16:42 | disposition home or self-care (01) ==
LOC: ER 12:43
DX: K64.5 Perianal venous thrombosis (principal); I10 Essential (primary) hypertension; I48.91 Unspecified atrial fibrillation; Z79.82 Long term (current) use of aspirin
CPT/HCPCS: 36415; 80048; 85025; 99284

== ENCOUNTER 2022-05-25 13:51 | Emergency (ER) | payer OTHER ==
--- OUTSIDE RECORDS SUMMARY | 2022-05-25 13:58 | XMS REPORT | Continuity of Care Document ---
:1960 Author Organization [facility] t Address [address] [place] [address] Care Team Providers Name Role Phone Poly CARIAS, Wally Primary Care Physician [phone] Yandel Fernandez Attending Clinician Unavailable Duek Singh Attending Clinician Tanner Jaffe Attending Clinician Brian Saenz Attending Clinician Rayshawn Leon Admitting Clinician Unavailable Tanner Jaffe Admitting Clinician Brian Saenz Admitting Clinician Payers Payer Name Policy Type Policy Number Effective Date Expiration Date S ource Problems Condition Condition Condition Status Onset Resolution Last Treating Co mments Source Name Details Category Date Date Treatment Clinician Date Acute Acute Disease Active Methodi pancreatit pancreatit 06-23 [facility]: Hospita 00 l LOWER GI LOWER GI Diagnosis Active 2015-04-05 Memoria BLEED BLEED 03-31 21:58:00 l Active 00:00: Jose Manuel 03/31/2015 [facility] BILIARY BILIARY Diagnosis Active 2015-03-29 Memoria DYSKINESIA DYSKINESIA 03-26 11:22:00 l Active 00:00: Jose Manuel 03/26/2015 [facility] ACUTE ACUTE Diagnosis Active 2015-03-26 Mem oria CHOLECYSTI CHOLECYSTI 1-02 17:41:00 l TIS(ER TIS(ER 00:00: Jose Manuel EVAL) EVAL) 00 Active 03/26/2015 [facility] Atrial Atrial Problem Resolve 2021-12-02 Mem oria fibrillati fibrillati d 04:47:44 l on on Jose Manuel (disorder) (disorder) Resolved Problem 12/02/2021 [facility] Acute Acute Problem Resolve 2021-12-02 Mem oria cholecysti cholecysti d 04:47:44 l tis tis [place] (disorder) (disorder) Resolved Problem 12/02/2021 [facility] Gastric Gastric Problem Resolve 2021-12-02 M emoria reflux reflux d 04:47:44 l (finding) (finding) Herm michael Resolved Problem 12/02/2021 [facility] Placement Placement Problem Resolve 2021-12-02 Memoria of stents of stents d 04:47:44 l in in Jose Manuel coronary coronary artery artery (procedure (procedure ) ) Resolved Problem 12/02/2021 [facility] Coronary Coronary Problem Active 2022-04-16 Memoria arterioscl arterioscl 12:00:49 l erosis erosis [place] (disorder) (disorder) Active Problem 04/16/2022 [facility] [place] Dizziness Dizziness Problem Active 2022-04-16 Memoria (finding) (finding) 12:00:49 l Active Jose Manuel Problem 04/16/2022 [facility] [place] Hypertensi Hypertens Problem Active 2022-04-16 Memoria ve mily 12:00:49 l disorder, disorder, Herm michael systemic systemic arterial arterial (disorder) (disorder) Active Problem 04/16/2022 [facility] [place] Problem Active 2022-04-16 Memoria dness edness 12:00:49 l (finding) (finding) Herm michael Active Problem 04/16/2022 [facility] [place] GASTROINTE GASTROINT Diagnosis Active 2015-04-[address] HEMORR EST HEMORR 21:58:00 l NOS NOS Active Osvaldo n [facility] Allergies, Adverse Reactions, Alerts Allergy Allergy Status Severity Reaction(s) Onset Inactive Treating Comm ents Source Name Type Date Date Clinician No Known DA Active U 2017-03 [facility] s 00:[facility]: [address] No Known DA Active U 2017-03 [facility] [place] 00:00: [address] No Known DA Active U 2014-03 [facility] [place] 00:[facility]: [address] No Known No Known Active Memori a Medicati Medicati l on on [place] Allergie Allergie s s Social History Social Habit Start Date Stop Date Quantity Comments Source History [facility] Drinks [facility] SD[facility] Tobacco use and 2018-06-23 2018-06-23 Smokeless tobacco [facility] exposure 00:00:00 00:00:00 non-user Hospital Alcohol intake 2018-06-23 2018-06-23 Current [facility] 00:00:00 00:00:00 non-drinker of Hospital alcohol (finding) History SDOH 2018-06-23 2018-06-23 1 [facility] Frequency 00:00:00 00:00:00 Hospita l Social History 2015-03-27 2015-03-27 [facility] 00:43:06 00:43:06 Sex Ass[birth year] At [birth year] [facility] 00:00:[facility] 00:[facility]:00 Hospital Smoking Status Start Date Stop Date Source Tobacco smoking status 2022-04-13 19:06:32 2022-04-13 [facility]:06[facility] Medications Ordered Filled Start Stop Current Ordering Indication Dosage Frequency Signature Comments Components Source Medication Medication Date Date Medication? Clinician (SIG) Name Name magnesium Yes 0 Memoria citrate 1-20 Refill(s) l oral tablet 19:23: Osvaldo n 00 calcium 0 Yes 2,001 mg, Memor ia acetate 1-20 PO, 0 l 19:23: Refill(s) Jose Manuel magnesium Yes 0 Memoria citrate 1-20 Refill(s) l oral tablet 19:23: Osvaldo n 00 calcium Yes 2,001 mg, Memor ia acetate 1-20 PO, 0 l 19:23: Refill(s) Jose Manuel 1 0 Yes 0 Memoria oral 1-20 Refill(s) l capsule 19:22: Jose Manuel 00 1 Yes 0 Memoria oral 1-20 Refill(s) l capsule 19:22: [place] 00 amitriptyli 2021-03 Yes TAKE 1 Celio yennifer ne 10 mg 1-10 TABLET BY l oral tablet 16:47: MOUTH Elida nn 00 EVERY DAY AT BEDTIME FOR 30 DAYS amitriptyli 2021-03 Yes TAKE 1 Celio yennifer ne 10 mg 1-10 TABLET BY l oral tablet 16:47: MOUTH Elida nn 00 EVERY DAY AT BEDTIME FOR 30 DAYS metoprolol Yes 50 mg = 1 Me moria succinate 9-07 cap, PO, l 50 mg oral 14:45: Daily, 0 Her carias capsule, 00 Refill(s) extended release metoprolol Yes 50 mg = 1 Me moria succinate 9-07 cap, PO, l 50 mg oral 14:45: Daily, 0 Her carias capsule, 00 Refill(s) extended release atorvastati Yes TAKE 1 Celio yennifer n 20 mg 9-07 TABLET BY l oral tablet 14:25: MOUTH Elida nn 00 EVERY DAY IN THE MORNING tadalafil 5 Yes TAKE 1 Celio yennifer mg oral 9-07 TABLET BY l tablet 14:25: MOUTH [place] 00 EVERY MORNING atorvastati Yes TAKE 1 Celio yennifer n 20 mg 9-07 TABLET BY l oral tablet 14:25: MOUTH Elida nn 00 EVERY DAY IN THE MORNING tadalafil 5 Yes TAKE 1 Celio yennifer mg oral 9-07 TABLET BY l tablet 14:25: MOUTH [place] 00 EVERY MORNING aspirin Yes 81mg QD Take 81 mg Meth oneyda (ECOTRIN) 4-[address] 81 MG 11:53: daily. Hospita enteric 58 l coated tablet aspirin Yes 81mg QD Take 81 mg Meth oneyda (ECOTRIN) 4-[address] 81 MG 11:53: daily. Hospita enteric 58 l coated tablet losartan-hy Yes TK 1 T PO M ethodi drochloroth 3-[address] iazide 00:00: Hospita (HYZAAR) 00 l 50-12.5 mg per tablet losartan-hy Yes TK 1 T PO M ethodi drochloroth 3-[address] iazide 00:00: Hospita (HYZAAR) 00 l 50-12.5 mg per tablet rivaroxaban 2017-03 Yes TK 1 T PO M ethodi (XARELTO) 0-[address] 20 mg 00:00: Hospita tablet 00 l rivaroxaban 2017-03 Yes TK 1 T PO M ethodi (XARELTO) 0-[address] 20 mg 00:00: Hospita tablet 00 l POLYETHYLEN Yes 17 gm, PO, Memoria E GLYCOL 1-08 BID, PRN l [id number] 142 18:43: Constipati Her carias MG/ML Oral 00 on, X 31 Solution day, # [Miralax] 1054 gm, 0 Refill(s) POLYETHYLEN Yes 17 gm, PO, Memoria E GLYCOL 1-08 BID, PRN l [id number] 142 18:43: Constipati Her carias MG/ML Oral 00 on, X 31 Solution day, # [Miralax] 1054 gm, 0 Refill(s) pantoprazol No Notes: Celio yennifer e -08 Tablet l 15:00: should not Jose Manuel 00 be chewed or crushed. (Same as: Protonix) Lopressor No Notes: Memori a 08 (Same as: l 15:00: Lopressor) Jose Manuel 00 12.5mg=1/4 X 50 mg tab. Hydrochloro No 1 tab, Celio yennifer thiazide 08 Route: PO, l 12.5 MG / 15:00: Drug Form: rmann Losartan 00 TAB, Potassium Dosing 50 MG Oral Weight Tablet 110.455, kg, Daily, Start date: 04/01/15 9:00:00, Duration: 30 day, Stop date: 04/30/15 9:00:00 Amiodarone No Notes: Memor ia 08 (Same as: l 15:00: Cordarone) Jose Manuel 00 hydrochloro No Notes: Celio yennifer thiazide 25 -08 (Same as: l mg oral 15:00: Hydrodiuri Herm michael tablet 00 l) With food. Cozaar No Notes: Memoria 1-08 (Same as: l 15:00: Cozaar) [place] 00 pantoprazol No Notes: Cleio yennifer e 1-08 Tablet l 15:00: should not [place] 00 be chewed or crushed. (Same as: Protonix) Lopressor No Notes: Memori a 1-08 (Same as: l 15:00: Lopressor) [place] 00 12.5mg=1/4 X 50 mg tab. Hydrochloro No 1 tab, Celio yennifer thiazide -08 Route: PO, l 12.5 MG / 15:00: Drug Form: He rmann Losartan 00 TAB, Potassium Dosing 50 MG Oral Weight Tablet 110.455, kg, Daily, Start date: 04/01/15 9:00:00, Duration: 30 day, Stop date: 04/30/15 9:00:00 Amiodarone No Notes: Memor ia 1-08 (Same as: l 15:00: Cordarone) Jose Manuel 00 hydrochloro No Notes: Celio yennifer thiazide 25 1-08 (Same as: l mg oral 15:00: Hydrodiuri Herm michael tablet 00 l) With food. Cozaar No Notes: Memoria 1-08 (Same as: l 15:00: Cozaar) Jose Manuel 00 Miralax No Notes: Memoria 1-08 Dissolve l 03:50: in 8 oz of Jose Manuel 00 water or juice. (Same as: Miralax) Miralax No Notes: Memoria 1-08 Dissolve l 03:50: in 8 oz of [place] 00 water or juice. (Same as: Miralax) tramadol No Notes: Not Mem oria hydrochlori 1-08 to exceed l de 50 MG 03:35: 400mg/day. Her carias Oral Tablet 00 (Same As: Ultram) tramadol No Notes: Not Mem oria hydrochlori 1-08 to exceed l de 50 MG 03:35: 400mg/day. Her carias Oral Tablet 00 (Same As: Ultram) docusate No Notes: Memoria sodium 100 1-08 (Same as: l mg oral 03:34: Colace) Jose Manuel capsule 00 (Do Not Crush) docusate No Notes: Memoria sodium 100 1-08 (Same as: l mg oral 03:34: Colace) [place] capsule 00 (Do Not Crush) Acetaminoph No Notes: Do M emoria en 04-01 not exceed l 03:22: 4 gm/day. [place] 00 (Same as: Tylenol) Docusate No Notes: Memoria - (Same as: l 03:22: Colace) Jose Manuel 00 (Do Not Crush) Acetaminoph No Notes: Do M emoria en 04-01 not exceed l 03:22: 4 gm/day. Jose Manuel 00 (Same as: Tylenol) Docusate No Notes: Memoria - (Same as: l 03:22: Colace) Jose Manuel 00 (Do Not Crush) tramadol Yes 50 mg = 1 Celio yennifer hydrochlori 1-04 tab, PO, l de 50 MG 23:31: Q6H, PRN Elida nn Oral Tablet 00 Pain Score 1-3, not to exceed 400 mg/day, X 7 day, # 30 tab, 0 Refill(s) docusate Yes 100 mg = 1 Mem oria sodium 100 1-04 cap, PO, l mg oral 23:31: BID, PRN Osvaldo n capsule 00 Constipati on, -with plenty of water -take while using pain medication s, # 14 cap, 0 Refill(s) metoprolol Yes 12.5 mg = Me moria tartrate 25 1-04 0.5 tab, l mg oral 23:31: PO, Daily, Herm michael tablet 00 # 15 tab, 1 Refill(s) tramadol Yes 50 mg = 1 Celio yennifer hydrochlori 1-04 tab, PO, l de 50 MG 23:31: Q6H, PRN Elida nn Oral Tablet 00 Pain Score 1-3, not to exceed 400 mg/day, X 7 day, # 30 tab, 0 Refill(s) docusate Yes 100 mg = 1 Mem oria sodium 100 1-04 cap, PO, l mg oral 23:31: BID, PRN Osvaldo n capsule 00 Constipati on, -with plenty of water -take while using pain medication s, # 14 cap, 0 Refill(s) metoprolol Yes 12.5 mg = Me moria tartrate 25 03-28 0.5 tab, l mg oral 23:31: PO, Daily, michael # 15 tab, 1 Refill(s) Acetaminoph No Notes: Do M emoria en 03-28 not exceed l 20:00: 4 gm/day. (Same as: Tylenol) Acetaminoph No Notes: Do M emoria en 03-28 not exceed l 20:00: 4 gm/day. (Same as: Tylenol) Tramadol No Notes: Not Mem oria 03-28 to exceed l 18:00: 400mg/day. (Same As: Ultram) Tramadol No Notes: Not Mem oria 03-28 to exceed l 18:00: 400mg/day. Jose Manuel (Same As: Ultram) Tramadol No 50 mg, 1 Memor ia 03-28 tab, l 15:22: Route: PO, Drug form: TAB, Q6H, Dosing Weight 110, kg, PRN Pain Score 1-3, Start date: 03/28/15 9:22:00, Duration: 30 day, Stop date: 04/27/15 9:21:00 Tramadol No 50 mg, 1 Memor ia 03-28 tab, l 15:22: Route: PO, Drug form: TAB, Q6H, Dosing Weight 110, kg, PRN Pain Score 1-3, Start date: 03/28/15 9:22:00, Duration: 30 day, Stop date: 04/27/15 9:21:00 Promethazin No Notes: Do M emoria e 03-28 not give l 15:09: IV push. (Same as: Phenergan) Ondansetron No Notes: Celio yennifer 03-28 (Same as: l 15:09: Zofran) MEDICATION WASTE Product Size: 4 mg Product Wasted: _0__ mg Oxycodone No Notes: Memori a 1-04 (Same as: l 15:09: Roxicodone Jose Manuel ) Naloxone No Notes: Memoria 1-04 Same as l 15:09: Narcan Jose Manuel Flumazenil No Notes: Memor ia 1-04 (Same as: l 15:09: Romazicon) Jose Manuel Hydromorpho No Notes: Celio yennifer ne 1-04 Same as: l 15:09: Dilaudid [place] 00 Metoprolol No Notes: Memor ia 1-04 (Same as: l 15:09: Lopressor) Jose Manuel 00 Push over 2 minutes Labetalol No 10 mg, 2 Celio yennifer 1-04 mL, Route: l 15:09: IVP, Drug [place] 00 form: INJ, Q5Min, Dosing Weight 110, kg, PRN Elevated BP, Start date: 03/28/15 9:09:00, Duration: 5 doses or times, Stop date: Limited # of times Promethazin No Notes: Do M emoria e 03-28 not give l 15:09: IV push. Jose Manuel 00 (Same as: Phenergan) Ondansetron No Notes: Celio yennifer 1-04 (Same as: l 15:09: Zofran) [place] 00 MEDICATION WASTE Product Size: 4 mg Product Wasted: _0__ mg Oxycodone No Notes: Memori a 1-04 (Same as: l 15:09: Roxicodone [place] 00 ) Naloxone No Notes: Memoria 1-04 Same as l 15:09: Narcan [place] Flumazenil No Notes: Memor ia 1-04 (Same as: l 15:09: Romazicon) [place] Hydromorpho No Notes: Celio yennifer ne 1-04 Same as: l 15:09: Dilaudid Jose Manuel 00 Metoprolol No Notes: Memor ia 1-04 (Same as: l 15:09: Lopressor) Jose Manuel 00 Push over 2 minutes Labetalol No 10 mg, 2 Celio yennifer 1-04 mL, Route: l 15:09: IVP, Drug [place] 00 form: INJ, Q5Min, Dosing Weight 110, kg, PRN Elevated BP, Start date: 03/28/15 9:09:00, Duration: 5 doses or times, Stop date: Limited # of times metoprolol No Notes: Memor ia tartrate -04 (Same as: l 15:00: Lopressor) Jose Manuel 00 12.5mg=1/4 X 50 mg tab. metoprolol No Notes: Memor ia tartrate - (Same as: l 15:00: Lopressor) [place] 00 12.5mg=1/4 X 50 mg tab. Ancef No 2 gm, Memoria 03-28 Route: IV, l 13:44: ONCE, Jose Manuel 00 Dosing Weight 110, kg, Start date: 03/28/15 7:44:00, Duration: 1 doses or times, Stop date: 03/28/15 7:44:00, Surgical Prophylaxi s Only; For patients < 120 kg Ancef No 2 gm, Memoria 03-28 Route: IV, l 13:44: ONCE, Jose Manuel 00 Dosing Weight 110, kg, Start date: 03/28/15 7:44:00, Duration: 1 doses or times, Stop date: 03/28/15 7:44:00, Surgical Prophylaxi s Only; For patients < 120 kg Docusate No Notes: Memoria 1-03 (Same as: l 23:04: Colace) Jose Manuel 00 (Do Not Crush) Docusate No Notes: Memoria 1-03 (Same as: l 23:04: Colace) [place] 00 (Do Not Crush) Xarelto No Notes: Memoria 1-03 (Same as: l 23:00: Xarelto) Jose Manuel 00 Administer with food Xarelto No Notes: Memoria 1-03 (Same as: l 23:00: Xarelto) [place] 00 Administer with food Microzide No Notes: Memori a 1-03 (Same as: l 15:00: Microzide) [place] 00 With food. pantoprazol No Notes: Celio yennifer e 1-03 Tablet l 15:00: should not Jose Manuel 00 be chewed or crushed. (Same as: Protonix) Hydrochloro No 1 tab, Celio yennifer thiazide 1-03 Route: PO, l 12.5 MG / 15:00: Drug Form: He rmann Losartan 00 TAB, Potassium Dosing 50 MG Oral Weight Tablet 110, kg, Daily, Start date: 03/27/15 9:00:00, Duration: 30 day, Stop date: 04/25/15 9:00:00 Aspirin No Notes: Do Memor ia 1-03 not crush l 15:00: or chew. [place] 00 (Same As: Ecotrin) Amiodarone No Notes: Memor ia 1-03 (Same as: l 15:00: Cordarone) [place] 00 Cozaar No Notes: Memoria 1-03 (Same as: l 15:00: Cozaar) Microzide No Notes: Memori a 1-03 (Same as: l 15:00: Microzide) [place] 00 With food. pantoprazol No Notes: Celio yennifer e 1-03 Tablet l 15:00: should not be chewed or crushed. (Same as: Protonix) Hydrochloro No 1 tab, Celio yennifer thiazide 1-03 Route: PO, l 12.5 MG / 15:00: Drug Form: Pardeep rmann Losartan 00 TAB, Potassium Dosing 50 MG Oral Weight Tablet 110, kg, Daily, Start date: 03/27/15 9:00:00, Duration: 30 day, Stop date: 04/25/15 9:00:00 Aspirin No Notes: Do Memor ia 1-03 not crush l 15:00: or chew. [place] 00 (Same As: Ecotrin) Amiodarone No Notes: Memor ia 1-03 (Same as: l 15:00: Cordarone) Cozaar No Notes: Memoria 1-03 (Same as: l 15:00: Cozaar) AMIODarone Yes 200 mg = 1 M emoria 200 mg oral 1-03 tab, PO, l tablet 00:39: Daily, # Jose Manuel 00 90 tab, 3 Refill(s) pantoprazol 2016-0 Yes 40 mg = 1 M emoria e 40 mg 1-03 tab, PO, l oral 00:39: Daily, # Jose Manuel enteric 00 30 tab, 1 coated Refill(s) tablet Hydrochloro 2016-0 Yes 1 tab, PO, Memoria thiazide 03-27 Daily, # l 12.5 MG / 00:39: 30 tab, 0 Her carias Losartan 00 Refill(s) Potassium 50 MG Oral Tablet Aspirin Yes 81 mg, PO, Celio yennifer 03-27 Daily, 0 l 00:39: Refill(s) [place] 00 rivaroxaban Yes 20 mg = 1 M emoria 20 MG Oral -03 tab, PO, l Tablet 00:39: QPM, # 30 Osvaldo n [Xarelto] 00 tab, 3 Refill(s) aspirin Yes 81 mg, PO, Celio yennifer 03-27 Daily, 0 l 00:39: Refill(s) [place] 00 aspirin 2015- Yes 81 mg, PO, Celio yennifer 03-27 Daily, 0 l 00:39: Refill(s) [place] AMIODarone Yes 200 mg = 1 M emoria 200 mg oral -03 tab, PO, l tablet 00:39: Daily, # [place] 00 90 tab, 3 Refill(s) pantoprazol 2016 Yes 40 mg = 1 M emoria e 40 mg -03 tab, PO, l oral 00:39: Daily, # Jose Manuel enteric 00 30 tab, 1 coated Refill(s) tablet Hydrochloro 20160 Yes 1 tab, PO, Memoria thiazide 03-27 Daily, # l 12.5 MG / 00:39: 30 tab, 0 Her carias Losartan 00 Refill(s) Potassium 50 MG Oral Tablet Aspirin Yes 81 mg, PO, Celio yennifer 03-27 Daily, 0 l 00:39: Refill(s) Jose Manuel 00 rivaroxaban 0 Yes 20 mg = 1 M emoria 20 MG Oral -03 tab, PO, l Tablet 00:39: QPM, # 30 Osvaldo n [Xarelto] 00 tab, 3 Refill(s) tramadol No Notes: Not Mem oria hydrochlori 03-26 to exceed l de 50 MG 23:40: 400mg/day. Her carias Oral Tablet 00 (Same As: Ultram) Tylenol No Notes: Do Memor ia 03-26 not exceed l 23:40: 4 gm/day. Jose Manuel (Same as: Tylenol) tramadol No Notes: Not Mem oria hydrochlori 03-26 to exceed l de 50 MG 23:40: 400mg/day. Her carias Oral Tablet 00 (Same As: Ultram) Tylenol No Notes: Do Memor ia 03-26 not exceed l 23:40: 4 gm/day. Jose Manuel 00 (Same as: Tylenol) Zofran No Notes: Memoria 03-26 (Same as: l 23:38: Zofran) [place] 00 MEDICATION WASTE Product Size: 4 mg Product Wasted: 0 mg Lovenox No Notes: Memoria 03-26 (Same as: l 23:38: Lovenox) [place] 00 Zofran No Notes: Memoria 03-26 (Same as: l 23:38: Zofran) Jose Manuel 00 MEDICATION WASTE Product Size: 4 mg Product Wasted: 0 mg Lovenox No Notes: Memoria 03-26 (Same as: l 23:38: Lovenox) Jose Manuel 00 D5W 1/2NS + No Notes: Celio yennifer KCL 20mEq/L 03-26 PREMIX IV l 1000ml 15:36: - Do Not [place] (Premix) 00 Alter 1,000 mL D5W 1/2NS + No Notes: Celio yennifer KCL 20mEq/L 1- PREMIX IV l 1000ml 15:36: - Do Not [place] (Premix) 00 Alter 1,000 mL Vital Signs Vital Name Observation Time Observation Value Comments Source Systolic (mm Hg) 2022-04-13 19:06:00 Celio rial Jose Manuel Diastolic (mm Hg) 2022-04-13 19:06:00 [facility] orial Jose Manuel Heart Rate 2022-04-13 19:06:00 [facility] Height 2022-04-13 19:06:00 5 [ft_i] [facility] Weight 2022-04-13 19:06:00 [facility] BMI Calculated 2022-04-13 19:06:00 Memori al Jose Manuel Systolic (mm Hg) 2022-02-01 16:36:00 Celio rial Jose Manuel Diastolic (mm Hg) 2022-02-01 16:36:00 Mem orial [place] Heart Rate 2022-02-01 16:36:00 [facility] [place] Height 2022-02-01 16:36:00 5 [ft_i] [facility] Jose Manuel Weight 2022-02-01 16:36:00 [facility] Jose Manuel BMI Calculated 2022-02-01 16:36:00 Memori al Jose Manuel Systolic (mm Hg) 2021-11-29 14:20:00 Celio rial Jose Manuel Diastolic (mm Hg) 2021-11-29 14:20:00 Mem orial [place] Heart Rate 2021-11-29 14:20:00 [facility] [place] Respitory Rate 2021-11-29 14:20:00 Memori al [place] Height 2021-11-29 14:20:00 177.8 cm [facility] [place] Weight 2021-11-29 14:20:00 [facility] [place] BMI Calculated 2021-11-29 14:20:00 Memori al [place] Respitory Rate 2015-04-01 17:35:00 Memori al Jose Manuel Systolic (mm Hg) 2015-04-01 17:35:00 Celio rial [place] Diastolic (mm Hg) 2015-04-01 17:35:00 Mem orial Jose Manuel Heart Rate 2015-04-01 17:35:00 [facility] Jose Manuel Temperature Oral (F) 2015-04-01 17:35:00 97.6 F [facility] [place] Respitory Rate 2015-04-01 13:27:00 Memori al Jose Manuel Heart Rate 2015-04-01 13:27:00 [facility] [place] Temperature Oral (F) 2015-04-01 13:27:00 97.0 F [facility] Jose Manuel Systolic (mm Hg) 2015-04-01 13:27:00 Celio rial Jose Manuel Diastolic (mm Hg) 2015-04-01 13:27:00 Mem orial [place] Heart Rate 2015-04-01 10:33:00 [facility] [place] Systolic (mm Hg) 2015-04-01 10:33:00 Celio rial Jose Manuel Diastolic (mm Hg) 2015-04-01 10:33:00 Mem orial [place] Respitory Rate 2015-04-01 10:33:00 Memori al Jose Manuel Temperature Oral (F) 2015-04-01 10:33:00 97.3 F [facility] Jose Manuel BMI Calculated 2015-04-01 02:39:00 Memori al Jose Manuel Height 2015-04-01 02:39:00 180.34 cm [facility] Jose Manuel Weight 2015-04-01 02:39:00 [facility] [place] Systolic (mm Hg) 2015-03-28 21:13:00 Celio rial [place] Diastolic (mm Hg) 2015-03-28 21:13:00 Mem orial [place] Respitory Rate 2015-03-28 21:13:00 Memori al [place] Heart Rate 2015-03-28 21:13:00 [facility] Jose Manuel Respitory Rate 2015-03-28 21:10:00 Memori al Jose Manuel Systolic (mm Hg) 2015-03-28 21:10:00 Celio rial Jose Manuel Diastolic (mm Hg) 2015-03-28 21:10:00 Mem orial [place] Heart Rate 2015-03-28 21:10:00 [facility] Jose Manuel Temperature Oral (F) 2015-03-28 21:10:00 96.3 F [facility] Jose Manuel Respitory Rate 2015-03-28 17:49:00 Memori al Jose Manuel Systolic (mm Hg) 2015-03-28 17:38:00 Celio rial Jose Manuel Diastolic (mm Hg) 2015-03-28 17:38:00 Mem orial [place] Heart Rate 2015-03-28 17:38:00 [facility] [place] Temperature Oral (F) 2015-03-28 17:38:00 96.3 F [facility] Jose Manuel Weight 2015-03-28 12:08:00 [facility] Jose Manuel BMI Calculated 2015-03-28 12:08:00 Memori al Jose Manuel Height 2015-03-28 12:08:00 180.34 cm [facility] [place] Temperature Oral (F) 2015-03-28 08:49:00 98.8 F [facility] [place] Weight 2015-03-27 00:32:00 [facility] [place] BMI Calculated 2015-03-27 00:32:00 Memori al [place] Height 2015-03-27 00:32:00 180.34 cm [facility] [place] BMI Calculated 2015-03-26 15:12:00 Memori al Jose Manuel Weight 2015-03-26 15:12:00 [facility] Jose Manuel Height 2015-03-26 15:12:00 180.34 cm [facility] Procedures Procedure Date / Time Performing Clinician Source Performed Heart procedure [facility] Cholecystectomy [facility] Ear excision [facility] Tonsillectomy [facility] Catheter ablation for [facility] filemon cardiac arrhythmia [facility] [place] [facility] Plan of Care Planned Activity Planned Date Details Comments Source Future Scheduled 2022-03-08 COVID-19 VACCINE (#1) [facility] Test 02:19:08 [code = COVID-19 VACCINE (#1)] Future Scheduled 2022-03-08 COLONOSCOPY SCREENING [facility] Test 02:19:08 [code = COLONOSCOPY SCREENING] Future Scheduled 2022-03-08 SHINGLES VACCINES (1 [facility] Test 02:19:08 of 2) [code = SHINGLES VACCINES (1 of 2)] Future Scheduled 2022-03-08 [facility]ACCINE [facility] 02:19:08 [code = INFLUENZA VACCINE] Future Scheduled 2022-03-08 COVID-19 VACCINE (#1) [facility] Test 02:19:08 [code = COVID-19 VACCINE (#1)] Future Scheduled 2022-03-08 COLONOSCOPY SCREENING [facility] Test 02:19:08 [code = COLONOSCOPY SCREENING] Future Scheduled 2022-03-08 SHINGLES VACCINES (1 [facility] Test 02:19:08 of 2) [code = SHINGLES VACCINES (1 of 2)] Future Scheduled 2022-03-08 INFLUENZA VACCINE [facility] 02:19:08 [code = INFLUENZA VACCINE] Encounters Start End Encounter Admission Attending Care Care Encounter Source Date/Time Date/Time Type Type Clinicians Facility Department ID 2022-08-09 2022-08-09 Outpatient KILLIAN DAILY [id number] Memoria 09:45:00 09:45:00 05 chano Richard 2022-08-09 2022-08-09 Outpatient KILLIAN DAILY [id number] Memoria 09:45:00 09:45:00 05 chano Richard 2022-06-01 2022-06-01 Outpatient KILLIAN DAILY [id number] Memoria 10:30:00 10:30:00 03 chano Rcihard 2022-06-01 2022-06-01 Outpatient MHIE MHIE [id number] Memoria 10:30:00 10:30:00 03 chano Richard 2022-04-26 2022-04-26 Outpatient TEJAL Jose [facility] [id number] [facility] 11:57:00 11:57:00 Yandel Bennett [facility] 2022-04-13 2022-04-14 Outpatient MHIE MNA [id number] Memoria 19:15:00 05:59:59 Neurology 04 chano Christinaann 2022-04-13 2022-04-14 Outpatient MHIE MNA [id number] Memoria 19:15:00 05:59:59 Neurology 04 l Mignon Christinaann 2022-04-13 2022-04-13 Outpatient GLORIA Singh MISCHER [id number] 13:15:00 23:59:59 [facility] Brunilda Abdul 2022-04-13 2022-04-13 Outpatient MHIE MHIE [id number] Memoria 13:15:00 13:15:00 04 chano Cressona 2022-02-01 2022-02-02 Outpatient nullFlavo MNA [id number] Memoria 16:30:00 05:59:59 r Neurology 02 l Mignon Christinaann 2022-02-01 2022-02-02 Outpatient nullFlavo MNA [id number] Memoria 16:30:00 05:59:59 r Neurology 02 chano Christinaann 2022-02-01 2022-02-01 Outpatient GLORIA Singh CHANDLERSCHER [id number] 10:30:00 23:59:59 [facility] Scottie Franko 2022-02-01 2022-02-01 Outpatient MHIE MHIE [id number] Memoria 10:30:00 10:30:00 02 chano ChristinaCressona 2021-11-29 2021-11-30 Outpatient nullFlavo MNA [id number] Memoria 14:00:00 04:59:59 r Neurology 01 l [place] Jose Manuel 2021-11-29 2021-11-30 Outpatient nullFlavo MNA [id number] Memoria 14:00:00 04:59:59 r Neurology 01 l [place] Jose Manuel 2021-11-29 2021-11-29 Outpatient HERNAN SinghSCHCHARLI MISCHER [id number] 09:00:00 23:59:59 [facility] Franko 2021-11-29 2021-11-29 Outpatient KILLIAN BENITEZ [id number] Memoria 09:00:00 09:00:00 01 l Jose Manuel 2018-01-17 2018-01-17 Ambulatory nullFlavo MNA [id number] Memoria 14:00:00 14:00:00 Pre-Reg r Neurology 00 l Mignon Richard 2018-01-17 2018-01-17 Ambulatory nullFlavo MNA [id number] Memoria 14:00:00 14:00:00 Pre-Reg r Neurology 00 l Walthallnu Richard 2018-01-17 2018-01-17 [id number] 09:00:00 09:00:00 [facility] 00 Franko 2015-04-01 2015-04-01 OBS nullFlavo [facility] [id number] Memoria 02:27:00 19:50:00 Observatio r Jose Manuel 07 l n Patient Hospital [facility] 2015-04-01 2015-04-01 OBS nullFlavo [facility] [id number] Memoria 02:27:00 19:50:00 Observatio r Jose Manuel 07 l n Patient [facility] 2015-03-31 2015-04-01 Outpatient Ld [facility] [id number] 20:27:00 13:50:00 [facility] 2015-03-26 2015-03-29 OBS nullFlavo [facility] [id number] Memoria 15:12:00 00:09:00 Observatio r [place] 02 l n Patient [facility] 2015-03-26 2015-03-29 OBS nullFlavo [facility] [id number] Memoria 15:12:00 00:09:00 Observatio r [place] 02 l n Patient [facility] 2015-03-26 2015-03-28 Outpatient Letty [facility] [id number] 09:12:00 18:09:00 Brian 02 Ahmed Results Test Description Test Time Test Comments Results Result [facility] e Comments - CT 2022-04-26 ORBIT/SELLA/IAC WO 00:00:00 [facility] [place] D[place]II ST[place]Y : 1960 Sex: M Name: DANII STALEY [facility] Lyman : 1960 Age/S: 61 / M [address] [place] [address] Blvd Unit #: [id number] Loc: [place] [address] Phys: Yandel Fernandez MD Acct: [id number] Dis Date: Status: REG CLI PHONE #: [phone] Exam Date: 04/26/2022 1229 FAX #: [phone] Reason: 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 EXAMS: CPT CODE: [id number] CT ORBIT/SELLA/[place] [id number] PROCEDURE INFORMATION: Exam: CT Temporal Bones Without Contrast. Exam date and time: 04/26/2022 12:13 PM Age: 61 years old Clinical indication: Chronic serous otitis media, right ear; Additional info: H65.21, chronic serous otitis media, right ear. TECHNIQUE: Imaging protocol: Computed tomography of the temporal bones without contrast. Radiation optimization: All CT scans at this facility use at least one of these dose optimization techniques: automated exposure control; mA and/or kV adjustment per patient size (includes targeted exams where dose is matched to clinical indication); or iterative reconstruction. Other protocol: This patient has received 0 known CTs and 0 known cardiac nuclear medicine studies in the 12 months prior to the current study. COMPARISON: No relevant prior studies available. FINDINGS: Right inner ear: Normal. Right ossicles and middle ear: Normal. The middle ear ossicles are intact. Right external auditory canal: Normal. Right facial nerve canal: Normal. Right jugular foramen: No jugular dehiscence. Right carotid canal: No aberrant carotid canal. Right mastoid air cells: There is suspected right partial mastoidectomy. There is normal pneumatization of the mastoid air cells mastoid bowl and middle ear cavity. Left inner ear: Normal. Left ossicles and middle ear: Normal. The middle ear ossicles are intact. Left external auditory canal: Normal. Left facial nerve canal: Normal. Left jugular foramen: No jugular dehiscence. Left carotid canal: No aberrant carotid canal. Left mastoid air cells: There is a left mastoidectomy. There is normal pneumatization of mastoid air cells and mastoid bowl. Nasal cavity: There is left nasal septal deviation without nasal polyposis. There is minimal bari bullosa right middle turbinate. Bones/joints: There is limited evaluation of the brain parenchyma as the study is performed in a bone algorithm. There is no obvious CP angle mass. Soft tissues: Unremarkable. PAGE 1 Signed Report (CONTINUED) Name: DANII STALEY [facility] : 1960 Age/S: 61 / M [address] [place] [address] Bl Unit #: [id number] Loc: [place] [address] Phys: Yandel Fernandez MD Acct: [id number] Dis Date: Status: REG CLI PHONE #: [phone] Exam Date: 04/26/2022 1229 FAX #: [phone] Reason: 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 EXAMS: CPT CODE: [id number] CT ORBIT/SELLA/[place] [address] (Continued) IMPRESSION: There is normal pneumatization of bilateral middle ear cavity, antrum and mastoid air cells with a left mastoidectomy and and suspected right. at 1312 Reported and signed by: Tl Dacosta M.D. CC: Yandel Fernandez MD; Rayshawn Leon MD Technologist:Juliann Alberto, RT(MR)(CT) CTDI: DLP: Trnscb Date/Time: 04/26/2022 (131) [email or web address] Orig Print D/T: S: 04/26/2022 (131) PAGE 2 Signed Report HEMATOLOGY 2022-02-01 17:23:00 Test Item Value Reference Range Interpretation Comme nts Segs (test code = Segs) 64.2 [facility]weocndIDRFMYYNCZ2101-92-11 17:23:00 Test Item Value Reference Range Interpretation Comments Lymphocytes (test code = Lymphocytes) 21.6 [facility] HospitalJmngeaeLPBUASVITB3514-44-55 17:23:00 Test Item Value Reference Range Interpretation Comments Monocytes (test code = Monocytes) 10.1 [facility] HospitalLrvkuboWVBELPDLQQ8836-39-02 17:23:00 Test Item Value Reference Range Interpretation Comments Eosinophils (test code = Eosinophils) 3.0 [facility] HospitalYzezmtlFFITVYTBDC9520-44-37 17:23:00 Test Item Value Reference Range Interpretation Comments Basophils (test code = Basophils) 1.1 [facility] HospitalTobxkoaTGCSZPYRZA7531-17-54 17:23:00 Test Item Value Reference Range Interpretation Comments Diff Comment (test code = Diff SEE COMMENT Comment) [facility]icsPrfisgxFVRDQYKID9605-73-31 17:23:00 Test Item Value Reference Range Interpretation Comments TSH (test code = TSH) 2.01 0.40-4.50 [facility]icsXndgtveETNQADMGU5171-03-81 17:23:00 Test Item Value Reference Range Interpretation Comments Vitamin B12 Lvl (test code = Vitamin 938 534-5174 B12 Lvl) [facility] HospitalIqvyffvXXWPTDJJOA3096-88-08 17:23:00 Test Item Value Reference Range Interpretation Comments Sed Rate (test code = Sed Rate) 2 [facility] HospitalFpbbcuiQYLBLCTLCR5397-74-82 17:23:00 Test Item Value Reference Range Interpretation Comments WBC X 10x3 (test code = WBC X 10x3) 7.0 3.8-10.8 [facility] HospitalWmynwyvXNZVLGHMBT2980-78-59 17:23:00 Test Item Value Reference Range Interpretation Comments RBC X 10x6 (test code = RBC X 10x6) 5.48 4.20-5.80 [facility] HospitalHgoqoarHAKDCGUEII3173-47-19 17:23:00 Test Item Value Reference Range Interpretation Comments Hgb (test code = Hgb) 16.5 13.2-17.1 [facility] HospitalOnobysbHVYXOQJAYL7449-62-02 17:23:00 Test Item Value Reference Range Interpretation Comments Hct (test code = Hct) 48.7 38.5-50.0 [facility] HospitalNitinscSRAONOYVWF6853-53-12 17:23:00 Test Item Value Reference Range Interpretation Comments MCV (test code = MCV) 88.9 80.0-100.0 [facility] HospitalKmngpfvJNSVDKTBFP5151-17-25 17:23:00 Test Item Value Reference Range Interpretation Comments MCH (test code = MCH) 30.1 pg 27.0-33.0 [facility] HospitalOebtqnbYKKVQIIXCF1728-95-15 17:23:00 Test Item Value Reference Range Interpretation Comments MCHC (test code = MCHC) 33.9 32.0-36.0 [facility] HospitalMvtrnhsBGHBTLJXCP3017-80-84 17:23:00 Test Item Value Reference Range Interpretation Comments RDW (test code = RDW) 13.2 11.0-15.0 [facility] HospitalChfanyrTAFYJBPOWK7396-13-64 17:23:00 Test Item Value Reference Range Interpretation Comments Platelet (test code = Platelet) 204 140-400 [facility] HospitalDegqjfkIIMRXWJMYS4599-89-91 17:23:00 Test Item Value Reference Range Interpretation Comments MPV (test code = MPV) 9.8 7.5-12.5 [facility] HospitalBvqbynfKNSHPXHMHJ2255-10-13 17:23:00 Test Item Value Reference Range Interpretation Comments Neutrophils # (test code = Neutrophils 4494 2410-4021 #) [facility] HospitalPhysibaVSRHYDBXBN0073-42-84 17:23:00 Test Item Value Reference Range Interpretation Comments Lymphocytes # (test code = Lymphocytes 7747 475-3471 #) [facility] HospitalOhheeufCQYMPZJOOG7970-14-42 17:23:00 Test Item Value Reference Range Interpretation Comments Monocytes # (test code = Monocytes #) 707 200-950 [facility] HospitalBkzgafxVLLPXCULIT9347-05-77 17:23:00 Test Item Value Reference Range Interpretation Comments Eosinophils # (test code = Eosinophils 210 15-500 #) [facility] HospitalAlrwsgcOLWJFJDTGS2719-99-91 17:23:00 Test Item Value Reference Range Interpretation Comments Basophils # (test code 77 See_Comment [Aut omated message] The = Basophils #) system which generated this result tra nsmitted reference range : <=200. The reference r rafat was not used to int erpret this result as normal/abnormal . [facility] HospitalLzviozkAPNWMDNOTU8940-04-10 17:23:00 Test Item Value Reference Range Interpretation Comments Basophils (test code = Basophils) 1.1 [facility] HospitalLppcgnrPRUQDUJPBI0298-45-64 17:23:00 Test Item Value Reference Range Interpretation Comments Diff Comment (test code = Diff SEE COMMENT Comment) [facility]icsBorkkxpFNRVVELYN1295-15-73 17:23:00 Test Item Value Reference Range Interpretation Comments TSH (test code = TSH) 2.01 0.40-4.50 [facility] AustinZwychqmKBYSHGGND5878-77-18 17:23:00 Test Item Value Reference Range Interpretation Comments Vitamin B12 Lvl (test code = Vitamin 875 018-0590 B12 Lvl) [facility] HospitalUotbmxuTODPXJLEUA8440-09-34 17:23:00 Test Item Value Reference Range Interpretation Comments Sed Rate (test code = Sed Rate) 2 [facility] HospitalMxhakawMCUGRKQHRD0919-96-12 17:23:00 Test Item Value Reference Range Interpretation Comments WBC X 10x3 (test code = WBC X 10x3) 7.0 3.8-10.8 [facility] HospitalKbdrbceAJSYTSYDHU7800-85-48 17:23:00 Test Item Value Reference Range Interpretation Comments RBC X 10x6 (test code = RBC X 10x6) 5.48 4.20-5.80 [facility] HospitalLfbxuksQWMGUETPHA2876-77-46 17:23:00 Test Item Value Reference Range Interpretation Comments Hgb (test code = Hgb) 16.5 13.2-17.1 [facility] HospitalRmhouemKJBZFQHYPM2382-97-47 17:23:00 Test Item Value Reference Range Interpretation Comments Hct (test code = Hct) 48.7 38.5-50.0 [facility] HospitalSwxwhtoZOAJHKXPIK8011-95-91 17:23:00 Test Item Value Reference Range Interpretation Comments MCV (test code = MCV) 88.9 80.0-100.0 [facility] HospitalZlmrxgjUAPHQWAMFX1752-63-39 17:23:00 Test Item Value Reference Range Interpretation Comments MCH (test code = MCH) 30.1 pg 27.0-33.0 [facility] HospitalLqtimbiJRFGYVPWQH3077-02-58 17:23:00 Test Item Value Reference Range Interpretation Comments MCHC (test code = MCHC) 33.9 32.0-36.0 [facility] HospitalNkdnljuLNZJRQUMWH9418-34-53 17:23:00 Test Item Value Reference Range Interpretation Comments RDW (test code = RDW) 13.2 11.0-15.0 [facility] HospitalNmhmxvoOQFHUTFOBA3471-97-47 17:23:00 Test Item Value Reference Range Interpretation Comments Platelet (test code = Platelet) 204 140-400 [facility] HospitalGxzuyzoFNNXHFOGCP5019-77-98 17:23:00 Test Item Value Reference Range Interpretation Comments MPV (test code = MPV) 9.8 7.5-12.5 [facility] HospitalOjmyipeWGHQNBGUYW1026-14-47 17:23:00 Test Item Value Reference Range Interpretation Comments Neutrophils # (test code = Neutrophils 4494 5621-3981 #) [facility] HospitalCcfqprcWUMQMAGGEW1768-51-69 17:23:00 Test Item Value Reference Range Interpretation Comments Lymphocytes # (test code = Lymphocytes 7921 437-1661 #) [facility] HospitalTwmuuuxKKMFNFAQJJ7897-27-57 17:23:00 Test Item Value Reference Range Interpretation Comments Monocytes # (test code = Monocytes #) 707 200-950 [facility] HospitalZzvhjupUOGWBCUWHC9974-26-30 17:23:00 Test Item Value Reference Range Interpretation Comments Eosinophils # (test code = Eosinophils 210 15-500 #) [facility] HospitalVoutapbQRCPXRIDIR0330-02-14 17:23:00 Test Item Value Reference Range Interpretation Comments Basophils # (test code 77 See_Comment [Aut omated message] The = Basophils #) system which generated this result tra nsmitted reference range : <=200. The reference r rafat was not used to int erpret this result as normal/abnormal . [facility] HospitalQiageuvQYQEJVSKVB4853-32-13 17:23:00 Test Item Value Reference Range Interpretation Comments Segs (test code = Segs) 64.2 [facility] HospitalZjkmztdJADLZNNYOK2531-94-78 17:23:00 Test Item Value Reference Range Interpretation Comments Lymphocytes (test code = Lymphocytes) 21.6 [facility] HospitalWvzauzsTEZWNRHDLB9624-55-99 17:23:00 Test Item Value Reference Range Interpretation Comments Monocytes (test code = Monocytes) 10.1 [facility] HospitalPooxrvgSWPPAHVGAJ0525-89-19 17:23:00 Test Item Value Reference Range Interpretation Comments Eosinophils (test code = Eosinophils) 3.0 [facility] HospitalVdbqqgvDCOBZMGMBD7432-62-50 12:10:00 Test Item Value Reference Range Interpretation Comments Hct (test code = Hct) 35.8 42.0-54.0 [facility] HospitalUaflfygQYXCIRJLZZ6776-03-57 12:10:00 Test Item Value Reference Range Interpretation Comments Hgb (test code = Hgb) 11.9 14.0-18.0 [facility] HospitalZlptrizVGMFIPBDDA2697-39-98 12:10:00 Test Item Value Reference Range Interpretation Comments RBC (test code = RBC) 3.99 4.70-6.10 [facility] HospitalHiohfugRSAKPLRTJP1169-77-08 12:10:00 Test Item Value Reference Range Interpretation Comments WBC (test code = WBC) 4.6 3.7-10.4 [facility] HospitalFsrmpleJPJZSPMQQP1368-12-91 12:10:00 Test Item Value Reference Range Interpretation Comments MCHC (test code = MCHC) 33.2 32.0-36.0 [facility] HospitalCjwbnkdYSHHWVPCAL4520-05-02 12:10:00 Test Item Value Reference Range Interpretation Comments MPV (test code = MPV) 7.3 7.4-10.4 [facility] HospitalRvsiytvFCUKJFLNCC9092-26-42 12:10:00 Test Item Value Reference Range Interpretation Comments Platelet (test code = Platelet) 215 133-450 [facility] HospitalOfxovqnFKLCMYMLFK2116-81-72 12:10:00 Test Item Value Reference Range Interpretation Comments RDW (test code = RDW) 14.0 11.5-14.5 [facility] HospitalTzlbipeKNGCDZPERN6157-79-42 12:10:00 Test Item Value Reference Range Interpretation Comments MCH (test code = MCH) 29.9 pg 27.0-31.0 [facility] HospitalExqcdliMEHDECBMBQ6615-89-44 12:10:00 Test Item Value Reference Range Interpretation Comments MCV (test code = MCV) 89.9 80.0-94.0 [facility] HospitalAgqjfarPEYDPBLOKG9946-39-31 12:10:00 Test Item Value Reference Range Interpretation Comments RBC Morph (test code = Normal (04/01/15 6:10 AM) RBC Morph) [facility] HospitalVoucxseGETSCVZYRQ8032-33-99 12:10:00 Test Item Value Reference Range Interpretation Comments Segs (test code = Segs) 63.3 45.0-75.0 [facility] HospitalZdjinuxFEISGQZKEJ2320-12-98 12:10:00 Test Item Value Reference Range Interpretation Comments Plt Morph (test code = Normal (04/01/15 6:10 AM) Plt Morph) [facility] HospitalHssvkynFRIMCTXORM2641-47-53 12:10:00 Test Item Value Reference Range Interpretation Comments Lymphocytes (test code = Lymphocytes) 21.2 20.0-40.0 [facility] HospitalOvbosqxDLYQPKYGWM6919-86-34 12:10:00 Test Item Value Reference Range Interpretation Comments Eosinophils (test code = 3.3 See_Comment [A utomated message] The Eosinophils) system which ge nerated this result tra nsmitted reference range : <=4.0. The reference r rafat was not used to int erpret this result as normal/abnormal . [facility] HospitalJkcwbbuWCISHKPJUA8221-24-32 12:10:00 Test Item Value Reference Range Interpretation Comments Monocytes (test code = Monocytes) 11.5 2.0-12.0 [facility] HospitalVumutdaENZCXEAOYQ3999-21-03 12:10:00 Test Item Value Reference Range Interpretation Comments Basophils (test code = 0.7 See_Comment [Aut omated message] The Basophils) system which ge nerated this result tra nsmitted reference range : <=1.0. The reference r rafat was not used to int erpret this result as normal/abnormal . [facility] HospitalIxhyoruVPYLMBFQTY8920-82-78 12:10:00 Test Item Value Reference Range Interpretation Comments Lymphocytes # (test code = Lymphocytes 1.0 1.0-5.5 #) [facility] HospitalAhimavuPLTWMESPGL1101-43-38 12:10:00 Test Item Value Reference Range Interpretation Comments Monocytes # (test code 0.5 See_Comment [Aut omated message] The = Monocytes #) system which generated this result tra nsmitted reference range : <=0.8. The reference r rafat was not used to int erpret this result as normal/abnormal . [facility] HospitalBfrakybFAVBFJMLRG3955-68-45 12:10:00 Test Item Value Reference Range Interpretation Comments Eosinophils # (test code 0.1 See_Comment [A utomated message] The = Eosinophils #) system whic h generated this result tra nsmitted reference range : <=0.5. The reference r rafat was not used to int erpret this result as normal/abnormal . [facility] HospitalVoyxjkjWRRDNXSLES9686-02-82 12:10:00 Test Item Value Reference Range Interpretation Comments Segs-Bands # (test code = Segs-Bands #) 2.9 1.5-8.1 [facility] HospitalBczvzgwXHGJBAIRBB1510-25-75 12:10:00 Test Item Value Reference Range Interpretation Comments Hct (test code = Hct) 35.8 42.0-54.0 [facility] HospitalEmsmypuBOCYCAIAGG3004-25-88 12:10:00 Test Item Value Reference Range Interpretation Comments Hgb (test code = Hgb) 11.9 14.0-18.0 [facility] HospitalKffppiwRQAZJABYJC6472-72-08 12:10:00 Test Item Value Reference Range Interpretation Comments RBC (test code = RBC) 3.99 4.70-6.10 [facility] HospitalCarzusrLBDNYTTOTC1900-23-67 12:10:00 Test Item Value Reference Range Interpretation Comments WBC (test code = WBC) 4.6 3.7-10.4 [facility] HospitalJijgoufXNXPYZWHYD9013-73-61 12:10:00 Test Item Value Reference Range Interpretation Comments MCHC (test code = MCHC) 33.2 32.0-36.0 [facility] HospitalMhsorogMLFAFNZEQE6393-29-29 12:10:00 Test Item Value Reference Range Interpretation Comments MPV (test code = MPV) 7.3 7.4-10.4 [facility] HospitalSgbcfllCEBANQHQNE8308-01-13 12:10:00 Test Item Value Reference Range Interpretation Comments Platelet (test code = Platelet) 215 133-450 [facility] HospitalPntwgboWRJJGHAIKU1014-20-33 12:10:00 Test Item Value Reference Range Interpretation Comments RDW (test code = RDW) 14.0 11.5-14.5 [facility] HospitalKrklvooXVKYLJNOTM5084-09-46 12:10:00 Test Item Value Reference Range Interpretation Comments MCH (test code = MCH) 29.9 pg 27.0-31.0 [facility] HospitalGtscnjhKINNBIYIEW6166-69-43 12:10:00 Test Item Value Reference Range Interpretation Comments MCV (test code = MCV) 89.9 80.0-94.0 [facility] HospitalJzzbwwrRLTMRYKWLR1746-59-98 12:10:00 Test Item Value Reference Range Interpretation Comments RBC Morph (test code = Normal (04/01/15 6:10 AM) RBC Morph) [facility] HospitalIcqxvifQJPKBMSPVB8339-78-45 12:10:00 Test Item Value Reference Range Interpretation Comments Segs (test code = Segs) 63.3 45.0-75.0 [facility] HospitalNygovwfFHYQKHFNKZ2083-96-56 12:10:00 Test Item Value Reference Range Interpretation Comments Plt Morph (test code = Normal (04/01/15 6:10 AM) Plt Morph) [facility] HospitalBzwdhjkJZHLSKGAUO7233-44-98 12:10:00 Test Item Value Reference Range Interpretation Comments Lymphocytes (test code = Lymphocytes) 21.2 20.0-40.0 [facility] HospitalRjbjdcwCUQSAWYSTY7452-80-90 12:10:00 Test Item Value Reference Range Interpretation Comments Eosinophils (test code = 3.3 See_Comment [A utomated message] The Eosinophils) system which ge nerated this result tra nsmitted reference range : <=4.0. The reference r rafat was not used to int erpret this result as normal/abnormal . [facility] HospitalVagnbwpWXEQUGJNRK4154-44-36 12:10:00 Test Item Value Reference Range Interpretation Comments Monocytes (test code = Monocytes) 11.5 2.0-12.0 [facility] HospitalQytiahiUUAIFWTIZE1112-89-19 12:10:00 Test Item Value Reference Range Interpretation Comments Basophils (test code = 0.7 See_Comment [Aut omated message] The Basophils) system which ge nerated this result tra nsmitted reference range : <=1.0. The reference r rafat was not used to int erpret this result as normal/abnormal . [facility] HospitalCnbbjbqBGBUXPWABX1454-45-65 12:10:00 Test Item Value Reference Range Interpretation Comments Lymphocytes # (test code = Lymphocytes 1.0 1.0-5.5 #) [facility] HospitalVkciffrYOEXNWKDUF9670-02-22 12:10:00 Test Item Value Reference Range Interpretation Comments Monocytes # (test code 0.5 See_Comment [Aut omated message] The = Monocytes #) system which generated this result tra nsmitted reference range : <=0.8. The reference r rafat was not used to int erpret this result as normal/abnormal . [facility] HospitalYlcgmvgFACAMHKMYA8658-42-37 12:10:00 Test Item Value Reference Range Interpretation Comments Eosinophils # (test code 0.1 See_Comment [A utomated message] The = Eosinophils #) system whic h generated this result tra nsmitted reference range : <=0.5. The reference r rafat was not used to int erpret this result as normal/abnormal . [facility] HospitalEjwvezcPJORUKGZVP6462-35-92 12:10:00 Test Item Value Reference Range Interpretation Comments Segs-Bands # (test code = Segs-Bands #) 2.9 1.5-8.1 [facility] HospitalYajihpmYNLMIEUPLP3214-89-09 03:53:00 Test Item Value Reference Range Interpretation Comments Hgb (test code = Hgb) 12.0 14.0-18.0 [facility] HospitalGjnwdruWHCDISPVWP8146-37-67 03:53:00 Test Item Value Reference Range Interpretation Comments Hct (test code = Hct) 37.1 42.0-54.0 [facility] HospitalAfjdzsyWWRWVELERG8302-65-81 03:53:00 Test Item Value Reference Range Interpretation Comments Hgb (test code = Hgb) 12.0 14.0-18.0 [facility] HospitalZojqqbgKSISIFAIGO3062-49-06 03:53:00 Test Item Value Reference Range Interpretation Comments Hct (test code = Hct) 37.1 42.0-54.0 [place] 263656-01-04 09:46:00 Test Item Value Reference Range Interpretation Comments eGFR (test code = eGFR) 82 [facility]2016-01-04 09:46:00 Test Item Value Reference Range Interpretation Comments CO2 (test code = CO2) 26 24-32 [facility]2016-01-04 09:46:00 Test Item Value Reference Range Interpretation Comments Calcium Lvl (test code = Calcium Lvl) 8.1 8.5-10.5 [facility]2016-01-04 09:46:00 Test Item Value Reference Range Interpretation Comments Glucose Lvl (test code = Glucose Lvl) 97 70-99 [facility]2016-01-04 09:46:00 Test Item Value Reference Range Interpretation Comments Potassium Lvl (test code = Potassium 3.8 3.5-5.1 Lvl) [facility]2016-01-04 09:46:00 Test Item Value Reference Range Interpretation Comments Chloride Lvl (test code = Chloride Lvl) 107 95-109 [facility]2016-01-04 09:46:00 Test Item Value Reference Range Interpretation Comments BUN (test code = BUN) 14 7-22 [facility]2016-01-04 09:46:00 Test Item Value Reference Range Interpretation Comments Sodium Lvl (test code = Sodium Lvl) 141 135-145 [facility]2016-01-04 09:46:00 Test Item Value Reference Range Interpretation Comments Creatinine Lvl (test code = Creatinine 1.02 0.50-1.40 Lvl) [facility]2016-01-04 09:46:00 Test Item Value Reference Range Interpretation Comments AGAP (test code = AGAP) 11.8 10.0-20.0 [facility]2016-01-04 09:46:00 Test Item Value Reference Range Interpretation Comments Phosphorus (test code = Phosphorus) 3.3 2.5-4.5 [facility]2016-01-04 09:46:00 Test Item Value Reference Range Interpretation Comments Magnesium Lvl (test code = Magnesium 2.0 1.8-2.4 Lvl) [facility]WD[facility]YPZ9491[facility] 09:46:00 Test Item Value Reference Range Interpretation Comments Segs-Bands # (test code = Segs-Bands #) 2.3 1.5-8.1 [facility]WqetfkzZEHPMSPRGD7320-52-46 09:46:00 Test Item Value Reference Range Interpretation Comments Lymphocytes # (test code = Lymphocytes 1.2 1.0-5.5 #) [facility]MstesdnFQVKREBMZY7374-69-88 09:46:00 Test Item Value Reference Range Interpretation Comments Basophils (test code = 0.7 See_Comment [Aut omated message] The Basophils) system which ge nerated this result tra nsmitted reference range : <=1.0. The reference r rafat was not used to int erpret this result as normal/abnormal . [facility] HospitalCedxuxqAEBFREBSJP3108-05-02 09:46:00 Test Item Value Reference Range Interpretation Comments Eosinophils # (test code 0.1 See_Comment [A utomated message] The = Eosinophils #) system whic h generated this result tra nsmitted reference range : <=0.5. The reference r rafat was not used to int erpret this result as normal/abnormal . [facility] HospitalKzfplowHUFBTPMCGF7544-91-44 09:46:00 Test Item Value Reference Range Interpretation Comments Monocytes # (test code 0.4 See_Comment [Aut omated message] The = Monocytes #) system which generated this result tra nsmitted reference range : <=0.8. The reference r rafat was not used to int erpret this result as normal/abnormal . [facility] HospitalQlqskqwZXTKDUNRRP4989-56-69 09:46:00 Test Item Value Reference Range Interpretation Comments Lymphocytes (test code = Lymphocytes) 28.4 20.0-40.0 [facility] HospitalJxfkruhUUBALEPJLG4704-85-57 09:46:00 Test Item Value Reference Range Interpretation Comments Monocytes (test code = Monocytes) 11.0 2.0-12.0 [facility] HospitalRmjefccEWXVQNYNNT7309-86-49 09:46:00 Test Item Value Reference Range Interpretation Comments Eosinophils (test code = 3.4 See_Comment [A utomated message] The Eosinophils) system which ge nerated this result tra nsmitted reference range : <=4.0. The reference r rafat was not used to int erpret this result as normal/abnormal . [facility] HospitalJvflzlqAHZMZQEMWG5053-53-69 09:46:00 Test Item Value Reference Range Interpretation Comments Segs (test code = Segs) 56.5 45.0-75.0 [facility] HospitalUjhkapcYILOEMUURR5563-13-48 09:46:00 Test Item Value Reference Range Interpretation Comments MCH (test code = MCH) 29.7 pg 27.0-31.0 [facility] HospitalAeegarcMRGNGRWXYJ4236-07-73 09:46:00 Test Item Value Reference Range Interpretation Comments MCV (test code = MCV) 90.0 80.0-94.0 [facility] HospitalJbpvnsiMMMPCXRHUT1698-68-29 09:46:00 Test Item Value Reference Range Interpretation Comments Hct (test code = Hct) 39.2 42.0-54.0 [facility] HospitalEhivpzgJNDKWHTFJY4570-23-42 09:46:00 Test Item Value Reference Range Interpretation Comments Hgb (test code = Hgb) 12.9 14.0-18.0 [facility] HospitalFtpvqqpNCGVLKYPTH9546-19-47 09:46:00 Test Item Value Reference Range Interpretation Comments RBC (test code = RBC) 4.35 4.70-6.10 [facility] HospitalCuxkrinDWJZQWPSBQ6680-71-56 09:46:00 Test Item Value Reference Range Interpretation Comments MPV (test code = MPV) 7.7 7.4-10.4 [facility] HospitalGstjhduLOAMCDEBYP0360-53-63 09:46:00 Test Item Value Reference Range Interpretation Comments Platelet (test code = Platelet) 172 133-450 [facility] HospitalPxhlwxbAVRZQFHTFA4162-37-46 09:46:00 Test Item Value Reference Range Interpretation Comments MCHC (test code = MCHC) 32.9 32.0-36.0 [facility] HospitalXdhngmrNFGSJCAERF6747-78-59 09:46:00 Test Item Value Reference Range Interpretation Comments RDW (test code = RDW) 13.9 11.5-14.5 [facility] HospitalBrhedxdJNVXEVPHBW1473-44-24 09:46:00 Test Item Value Reference Range Interpretation Comments WBC (test code = WBC) 4.1 3.7-10.4 [facility]2016-01-04 09:46:00 Test Item Value Reference Range Interpretation Comments eGFR (test code = eGFR) 82 [facility]2016-01-04 09:46:00 Test Item Value Reference Range Interpretation Comments CO2 (test code = CO2) 26 24-32 [facility]2016-01-04 09:46:00 Test Item Value Reference Range Interpretation Comments Calcium Lvl (test code = Calcium Lvl) 8.1 8.5-10.5 [facility]2016-01-04 09:46:00 Test Item Value Reference Range Interpretation Comments Glucose Lvl (test code = Glucose Lvl) 97 70-99 [facility]2016-01-04 09:46:00 Test Item Value Reference Range Interpretation Comments Potassium Lvl (test code = Potassium 3.8 3.5-5.1 Lvl) [facility]2016-01-04 09:46:00 Test Item Value Reference Range Interpretation Comments Chloride Lvl (test code = Chloride Lvl) 107 95-109 [facility]2016-01-04 09:46:00 Test Item Value Reference Range Interpretation Comments BUN (test code = BUN) 14 7-22 [facility]2016-01-04 09:46:00 Test Item Value Reference Range Interpretation Comments Sodium Lvl (test code = Sodium Lvl) 141 135-145 [facility]2016-01-04 09:46:00 Test Item Value Reference Range Interpretation Comments Creatinine Lvl (test code = Creatinine 1.02 0.50-1.40 Lvl) [facility]2016-01-04 09:46:00 Test Item Value Reference Range Interpretation Comments AGAP (test code = AGAP) 11.8 10.0-20.0 [facility]2016-01-04 09:46:00 Test Item Value Reference Range Interpretation Comments Phosphorus (test code = Phosphorus) 3.3 2.5-4.5 [facility]2016-01-04 09:46:00 Test Item Value Reference Range Interpretation Comments Magnesium Lvl (test code = Magnesium 2.0 1.8-2.4 Lvl) [facility]180[facility] 09:46:00 Test Item Value Reference Range Interpretation Comments Segs-Bands # (test code = Segs-Bands #) 2.3 1.5-8.1 [facility] HospitalSomycbiIXUGDOBAQM6791-03-98 09:46:00 Test Item Value Reference Range Interpretation Comments Lymphocytes # (test code = Lymphocytes 1.2 1.0-5.5 #) [facility] HospitalXfwcemrYFVFSKFTBQ1258-64-63 09:46:00 Test Item Value Reference Range Interpretation Comments Basophils (test code = 0.7 See_Comment [Aut omated message] The Basophils) system which ge nerated this result tra nsmitted reference range : <=1.0. The reference r rafat was not used to int erpret this result as normal/abnormal . [facility] HospitalPcrvngoDFADKTJZPX2898-01-82 09:46:00 Test Item Value Reference Range Interpretation Comments Eosinophils # (test code 0.1 See_Comment [A utomated message] The = Eosinophils #) system whic h generated this result tra nsmitted reference range : <=0.5. The reference r rafat was not used to int erpret this result as normal/abnormal . [facility] HospitalSaptodjYTGHRYUBBO7109-02-12 09:46:00 Test Item Value Reference Range Interpretation Comments Monocytes # (test code 0.4 See_Comment [Aut omated message] The = Monocytes #) system which generated this result tra nsmitted reference range : <=0.8. The reference r rafat was not used to int erpret this result as normal/abnormal . [facility] HospitalAvkrxxqAGGKAFZGOW1714-26-76 09:46:00 Test Item Value Reference Range Interpretation Comments Lymphocytes (test code = Lymphocytes) 28.4 20.0-40.0 [facility] HospitalKgvvosfMVKRMLECTW2141-84-96 09:46:00 Test Item Value Reference Range Interpretation Comments Monocytes (test code = Monocytes) 11.0 2.0-12.0 [facility] HospitalEkkflypHRJCDSWAIP1466-26-24 09:46:00 Test Item Value Reference Range Interpretation Comments Eosinophils (test code = 3.4 See_Comment [A utomated message] The Eosinophils) system which ge nerated this result tra nsmitted reference range : <=4.0. The reference r rafat was not used to int erpret this result as normal/abnormal . [facility] HospitalErqhwnzVSHMSCLUZS8852-90-32 09:46:00 Test Item Value Reference Range Interpretation Comments Segs (test code = Segs) 56.5 45.0-75.0 [facility]XpbvhriLMKZCJAZOF2753-79-30 09:46:00 Test Item Value Reference Range Interpretation Comments MCH (test code = MCH) 29.7 pg 27.0-31.0 [facility]QurhrdwNGSXSLEMUS3579-80-63 09:46:00 Test Item Value Reference Range Interpretation Comments MCV (test code = MCV) 90.0 80.0-94.0 [facility] HospitalEwxfqtqGGSLZQSMGS1018-68-27 09:46:00 Test Item Value Reference Range Interpretation Comments Hct (test code = Hct) 39.2 42.0-54.0 [facility] HospitalXiaprqdWMITSKCIHZ6065-12-09 09:46:00 Test Item Value Reference Range Interpretation Comments Hgb (test code = Hgb) 12.9 14.0-18.0 [facility] HospitalOasjqgrKICFVZOIQB6815-09-39 09:46:00 Test Item Value Reference Range Interpretation Comments RBC (test code = RBC) 4.35 4.70-6.10 [facility] HospitalXzgcgchDGNYGNNHIA4463-08-54 09:46:00 Test Item Value Reference Range Interpretation Comments MPV (test code = MPV) 7.7 7.4-10.4 [facility] HospitalLqzkzazSNWPSOOYAC5664-06-11 09:46:00 Test Item Value Reference Range Interpretation Comments Platelet (test code = Platelet) 172 133-450 [facility] HospitalGauztokJAMWPNFHEE2846-76-84 09:46:00 Test Item Value Reference Range Interpretation Comments MCHC (test code = MCHC) 32.9 32.0-36.0 [facility] HospitalJumwfmhRPJLZXJAGP1643-22-24 09:46:00 Test Item Value Reference Range Interpretation Comments RDW (test code = RDW) 13.9 11.5-14.5 [facility]DcvuubaVSLGJBFATO9615-02-04 09:46:00 Test Item Value Reference Range Interpretation Comments WBC (test code = WBC) 4.1 3.7-10.4 [facility] WOBHL2814-04-25 08:13:00 Test Item Value Reference Range Interpretation Comments Phosphorus (test code = Phosphorus) 3.3 2.5-4.5 [facility] XNRUK5848-99-02 08:13:00 Test Item Value Reference Range Interpretation Comments Magnesium Lvl (test code = Magnesium 1.8 1.8-2.4 Lvl) [facility]2016-01-03 08:13:00 Test Item Value Reference Range Interpretation Comments BUN (test code = BUN) 13 7-22 [place] 263656-01-03 08:13:00 Test Item Value Reference Range Interpretation Comments Glucose Lvl (test code = Glucose Lvl) 98 70-99 [place] 263656-01-03 08:13:00 Test Item Value Reference Range Interpretation Comments Potassium Lvl (test code = Potassium 3.7 3.5-5.1 Lvl) [facility]2016-01-03 08:13:00 Test Item Value Reference Range Interpretation Comments Sodium Lvl (test code = Sodium Lvl) 140 135-145 [facility]2016-01-03 08:13:00 Test Item Value Reference Range Interpretation Comments Creatinine Lvl (test code = Creatinine 0.95 0.50-1.40 Lvl) [facility]2016-01-03 08:13:00 Test Item Value Reference Range Interpretation Comments CO2 (test code = CO2) 27 24-32 [facility]2016-01-03 08:13:00 Test Item Value Reference Range Interpretation Comments Chloride Lvl (test code = Chloride Lvl) 105 95-109 [facility]2016-01-03 08:13:00 Test Item Value Reference Range Interpretation Comments eGFR (test code = eGFR) 89 [facility]2016-01-03 08:13:00 Test Item Value Reference Range Interpretation Comments AGAP (test code = AGAP) 11.7 10.0-20.0 [facility]2016-01-03 08:13:00 Test Item Value Reference Range Interpretation Comments Calcium Lvl (test code = Calcium Lvl) 8.4 8.5-10.5 [facility] HospitalAuuusdiOKEOFHFMPC6352-97-13 08:13:00 Test Item Value Reference Range Interpretation Comments Basophils (test code = 0.7 See_Comment [Aut omated message] The Basophils) system which ge nerated this result tra nsmitted reference range : <=1.0. The reference r rafat was not used to int erpret this result as normal/abnormal . [facility] HospitalJojvxgmRPYTRMGGGY0815-18-36 08:13:00 Test Item Value Reference Range Interpretation Comments Monocytes (test code = Monocytes) 12.9 2.0-12.0 [facility] HospitalLevhhsqDCZIJYLBXP0140-70-36 08:13:00 Test Item Value Reference Range Interpretation Comments Segs-Bands # (test code = Segs-Bands #) 3.4 1.5-8.1 [facility] HospitalUihhpyuFQYTQSVRVD3688-70-13 08:13:00 Test Item Value Reference Range Interpretation Comments Eosinophils (test code = 1.7 See_Comment [A utomated message] The Eosinophils) system which ge nerated this result tra nsmitted reference range : <=4.0. The reference r rafat was not used to int erpret this result as normal/abnormal . [facility] HospitalDtcxsycROUZNCRABM7672-45-82 08:13:00 Test Item Value Reference Range Interpretation Comments Segs (test code = Segs) 65.8 45.0-75.0 [facility] HospitalHlcgammCECFEPZLKW8058-15-49 08:13:00 Test Item Value Reference Range Interpretation Comments Lymphocytes (test code = Lymphocytes) 18.9 20.0-40.0 [facility] HospitalNohysmyTQOFFOKGQX4764-45-54 08:13:00 Test Item Value Reference Range Interpretation Comments Monocytes # (test code 0.7 See_Comment [Aut omated message] The = Monocytes #) system which generated this result tra nsmitted reference range : <=0.8. The reference r rafat was not used to int erpret this result as normal/abnormal . [facility] HospitalQsfqftqQFANIFWUTA8962-42-72 08:13:00 Test Item Value Reference Range Interpretation Comments Eosinophils # (test code 0.1 See_Comment [A utomated message] The = Eosinophils #) system whic h generated this result tra nsmitted reference range : <=0.5. The reference r rafat was not used to int erpret this result as normal/abnormal . [facility] HospitalEhsiqrbPGFZLIDREV8997-71-66 08:13:00 Test Item Value Reference Range Interpretation Comments Lymphocytes # (test code = Lymphocytes 1.0 1.0-5.5 #) [facility] HospitalSuwkldiRBIOAEEWMQ4838-56-65 08:13:00 Test Item Value Reference Range Interpretation Comments Hgb (test code = Hgb) 13.0 14.0-18.0 [facility] HospitalGkdkvvkYWRXNIOQDE2921-16-88 08:13:00 Test Item Value Reference Range Interpretation Comments Hct (test code = Hct) 39.4 42.0-54.0 [facility] HospitalEmyagjeDPKSLTMCYP0738-94-72 08:13:00 Test Item Value Reference Range Interpretation Comments MPV (test code = MPV) 7.8 7.4-10.4 [facility] HospitalNinkamqXWSQCFQSAI9667-59-28 08:13:00 Test Item Value Reference Range Interpretation Comments RDW (test code = RDW) 14.2 11.5-14.5 [facility] HospitalSaewqmiHZXOSNOPZX7015-89-32 08:13:00 Test Item Value Reference Range Interpretation Comments Platelet (test code = Platelet) 168 133-450 [facility] HospitalUdhoophFWNIARLYWZ6060-02-56 08:13:00 Test Item Value Reference Range Interpretation Comments MCHC (test code = MCHC) 32.8 32.0-36.0 [facility] HospitalEmbqjmgENXUPHTEIR4464-54-38 08:13:00 Test Item Value Reference Range Interpretation Comments MCV (test code = MCV) 90.1 80.0-94.0 [facility] HospitalQlexsbeCHFHQIDJUV7672-25-67 08:13:00 Test Item Value Reference Range Interpretation Comments MCH (test code = MCH) 29.6 pg 27.0-31.0 [facility] HospitalRuhjzfpNSIXHOUOBG6332-90-84 08:13:00 Test Item Value Reference Range Interpretation Comments WBC (test code = WBC) 5.1 3.7-10.4 [facility] HospitalDspedqtQYWOSDBHMW4530-39-43 08:13:00 Test Item Value Reference Range Interpretation Comments RBC (test code = RBC) 4.38 4.70-6.10 [facility]2016-01-03 08:13:00 Test Item Value Reference Range Interpretation Comments Phosphorus (test code = Phosphorus) 3.3 2.5-4.5 [facility]2016-01-03 08:13:00 Test Item Value Reference Range Interpretation Comments Magnesium Lvl (test code = Magnesium 1.8 1.8-2.4 Lvl) [facility]2016-01-03 08:13:00 Test Item Value Reference Range Interpretation Comments BUN (test code = BUN) 13 7-22 [facility]2016-01-03 08:13:00 Test Item Value Reference Range Interpretation Comments Glucose Lvl (test code = Glucose Lvl) 98 70-99 [facility]2016-01-03 08:13:00 Test Item Value Reference Range Interpretation Comments Potassium Lvl (test code = Potassium 3.7 3.5-5.1 Lvl) [facility]2016-01-03 08:13:00 Test Item Value Reference Range Interpretation Comments Sodium Lvl (test code = Sodium Lvl) 140 135-145 [place] 263656-01-03 08:13:00 Test Item Value Reference Range Interpretation Comments Creatinine Lvl (test code = Creatinine 0.95 0.50-1.40 Lvl) [facility]2016-01-03 08:13:00 Test Item Value Reference Range Interpretation Comments CO2 (test code = CO2) 27 24-32 [place] 263656-01-03 08:13:00 Test Item Value Reference Range Interpretation Comments Chloride Lvl (test code = Chloride Lvl) 105 95-109 [place] 263656-01-03 08:13:00 Test Item Value Reference Range Interpretation Comments eGFR (test code = eGFR) 89 [facility]2016-01-03 08:13:00 Test Item Value Reference Range Interpretation Comments AGAP (test code = AGAP) 11.7 10.0-20.0 [facility]2016-01-03 08:13:00 Test Item Value Reference Range Interpretation Comments Calcium Lvl (test code = Calcium Lvl) 8.4 8.5-10.5 [facility] HospitalLxodvmiCOBWTFWGNT7924-88-21 08:13:00 Test Item Value Reference Range Interpretation Comments Basophils (test code = 0.7 See_Comment [Aut omated message] The Basophils) system which ge nerated this result tra nsmitted reference range : <=1.0. The reference r rafat was not used to int erpret this result as normal/abnormal . [facility] HospitalMogatpiTICILZPADF2919-36-31 08:13:00 Test Item Value Reference Range Interpretation Comments Monocytes (test code = Monocytes) 12.9 2.0-12.0 [facility] HospitalYkifynvUTTRXVYORB1967-72-12 08:13:00 Test Item Value Reference Range Interpretation Comments Segs-Bands # (test code = Segs-Bands #) 3.4 1.5-8.1 [facility] HospitalReyzuowCZICLXHWLB6910-89-67 08:13:00 Test Item Value Reference Range Interpretation Comments Eosinophils (test code = 1.7 See_Comment [A utomated message] The Eosinophils) system which ge nerated this result tra nsmitted reference range : <=4.0. The reference r rafat was not used to int erpret this result as normal/abnormal . [facility] HospitalReoozbeAUOUBEKFAF8917-69-86 08:13:00 Test Item Value Reference Range Interpretation Comments Segs (test code = Segs) 65.8 45.0-75.0 [facility] HospitalDazjksgSLUKFLKNST0948-07-04 08:13:00 Test Item Value Reference Range Interpretation Comments Lymphocytes (test code = Lymphocytes) 18.9 20.0-40.0 [facility] HospitalNprmvabMGKPVIGSRZ8765-04-17 08:13:00 Test Item Value Reference Range Interpretation Comments Monocytes # (test code 0.7 See_Comment [Aut omated message] The = Monocytes #) system which generated this result tra nsmitted reference range : <=0.8. The reference r rafat was not used to int erpret this result as normal/abnormal . [facility] HospitalNryzyfrVVZFDBJCTE5767-08-37 08:13:00 Test Item Value Reference Range Interpretation Comments Eosinophils # (test code 0.1 See_Comment [A utomated message] The = Eosinophils #) system whic h generated this result tra nsmitted reference range : <=0.5. The reference r rafat was not used to int erpret this result as normal/abnormal . [facility] HospitalZlnlbbjJIHPLGIESA9490-03-00 08:13:00 Test Item Value Reference Range Interpretation Comments Lymphocytes # (test code = Lymphocytes 1.0 1.0-5.5 #) [facility] HospitalAradpceMDTVGUWWNI0097-63-42 08:13:00 Test Item Value Reference Range Interpretation Comments Hgb (test code = Hgb) 13.0 14.0-18.0 [facility] HospitalPscykuxZTFKKEEOCA0540-79-78 08:13:00 Test Item Value Reference Range Interpretation Comments Hct (test code = Hct) 39.4 42.0-54.0 [facility] HospitalRahvtyyXUDYRRJCSX2777-08-69 08:13:00 Test Item Value Reference Range Interpretation Comments MPV (test code = MPV) 7.8 7.4-10.4 [facility] HospitalMatxmrtHCOZXKRKVD7009-92-64 08:13:00 Test Item Value Reference Range Interpretation Comments RDW (test code = RDW) 14.2 11.5-14.5 [facility] HospitalEvcgekuDRNXCVMAPO1826-36-94 08:13:00 Test Item Value Reference Range Interpretation Comments Platelet (test code = Platelet) 168 133-450 [facility] HospitalCbpoookAUPABTMZWB9141-30-64 08:13:00 Test Item Value Reference Range Interpretation Comments MCHC (test code = MCHC) 32.8 32.0-36.0 [facility] HospitalHinsnqwTJAALCKBHH7438-31-10 08:13:00 Test Item Value Reference Range Interpretation Comments MCV (test code = MCV) 90.1 80.0-94.0 [facility] HospitalWsqoxbyNHFXOILXQY3646-12-04 08:13:00 Test Item Value Reference Range Interpretation Comments MCH (test code = MCH) 29.6 pg 27.0-31.0 [facility] HospitalRlcmpqvILLYEPSKSF6081-77-52 08:13:00 Test Item Value Reference Range Interpretation Comments WBC (test code = WBC) 5.1 3.7-10.4 [facility] HospitalIbikpvsNYQMUFYDQZ4673-45-91 08:13:00 Test Item Value Reference Range Interpretation Comments RBC (test code = RBC) 4.38 4.70-6.10 [facility] AND [id number] 18:52:00 Test Item Value Reference Range Interpretation Comments Micro? (test code = Not Indicated *NA*(03/26/15 Micro?) 12:52 PM) [facility] AND [id number] 18:52:00 Test Item Value Reference Range Interpretation Comments UA Bili (test code = Negative *NA*(03/26/15 UA Bili) 12:52 PM) [facility] AND [id number] 18:52:00 Test Item Value Reference Range Interpretation Comments UA Nitrite (test code Negative (03/26/15 12:52 = UA Nitrite) PM) [facility] AND [id number] 18:52:00 Test Item Value Reference Range Interpretation Comments UA Leuk Est (test Negative (03/26/15 12:52 code = UA Leuk Est) PM) [facility] AND [id number] 18:52:00 Test Item Value Reference Range Interpretation Comments UA Urobilinogen (test code = UA 0.2 0.1-1.0 Urobilinogen) [facility] AND [id number] 18:52:00 Test Item Value Reference Range Interpretation Comments UA Blood (test code = Negative (03/26/15 12:52 UA Blood) PM) [facility] AND [id number] 18:52:00 Test Item Value Reference Range Interpretation Comments UA pH (test code = UA pH) 6.0 1 5.0-8.0 [facility] AND [id number] 18:52:00 Test Item Value Reference Range Interpretation Comments UA Protein (test code = UA Negative mg/dL Protein) [facility] AND [id number] 18:52:00 Test Item Value Reference Range Interpretation Comments UA Glucose (test code = UA Negative mg/dL Glucose) [facility] AND [id number] 18:52:00 Test Item Value Reference Range Interpretation Comments UA Ketones (test code = UA Trace mg/dL Ketones) [facility] AND [id number] 18:52:00 Test Item Value Reference Range Interpretation Comments UA Turbidity (test code = Clear (03/26/15 12:52 UA Turbidity) PM) [facility] AND [id number] 18:52:00 Test Item Value Reference Range Interpretation Comments UA Spec Grav (test code = UA Spec 1.010 1 Grav) [facility] AND [id number] 18:52:00 Test Item Value Reference Range Interpretation Comments UA Color (test code = Yellow *NA*(03/26/15 UA Color) 12:52 PM) [facility] [facility] AND [id number] 18:52:00 Test Item Value Reference Range Interpretation Comments Micro? (test code = Not Indicated *NA*(03/26/15 Micro?) 12:52 PM) [facility] AND [id number] 18:52:00 Test Item Value Reference Range Interpretation Comments UA Bili (test code = Negative *NA*(03/26/15 UA Bili) 12:52 PM) [facility] AND [id number] 18:52:00 Test Item Value Reference Range Interpretation Comments UA Nitrite (test code Negative (03/26/15 12:52 = UA Nitrite) PM) [facility] AND [id number] 18:52:00 Test Item Value Reference Range Interpretation Comments UA Leuk Est (test Negative (03/26/15 12:52 code = UA Leuk Est) PM) [facility] AND [id number] 18:52:00 Test Item Value Reference Range Interpretation Comments UA Urobilinogen (test code = UA 0.2 0.1-1.0 Urobilinogen) [facility] AND [id number] 18:52:00 Test Item Value Reference Range Interpretation Comments UA Blood (test code = Negative (03/26/15 12:52 UA Blood) PM) [facility] AND [id number] 18:52:00 Test Item Value Reference Range Interpretation Comments UA pH (test code = UA pH) 6.0 1 5.0-8.0 [facility] AND [id number] 18:52:00 Test Item Value Reference Range Interpretation Comments UA Protein (test code = UA Negative mg/dL Protein) [facility] AND [id number] 18:52:00 Test Item Value Reference Range Interpretation Comments UA Glucose (test code = UA Negative mg/dL Glucose) [facility] AND [id number] 18:52:00 Test Item Value Reference Range Interpretation Comments UA Ketones (test code = UA Trace mg/dL Ketones) [facility] AND [id number] 18:52:00 Test Item Value Reference Range Interpretation Comments UA Turbidity (test code = Clear (03/26/15 12:52 UA Turbidity) PM) [facility] AND [id number] 18:52:00 Test Item Value Reference Range Interpretation Comments UA Spec Grav (test code = UA Spec 1.010 1 Grav) [facility] AND [id number] 18:52:00 Test Item Value Reference Range Interpretation Comments UA Color (test code = Yellow *NA*(03/26/15 UA Color) 12:52 PM) [facility] [id number] 16:36:00 Test Item Value Reference Range Interpretation Comments Antibody Scrn (test Negative (03/26/15 10:36 code = Antibody Scrn) AM) [facility] [id number] 16:36:00 Test Item Value Reference Range Interpretation Comments ABO/Rh (test code = ABO/Rh) O POS [facility] [id number] 16:36:00 Test Item Value Reference Range Interpretation Comments ALT (test code = ALT) 26 See_Comment [Auto mated message] The system which ge nerated this result transmit nurys reference range : <=65. The reference range was not used to interpr et this result as sujey l/abnormal. [facility]2016-01-02 16:36:00 Test Item Value Reference Range Interpretation Comments AST (test code = AST) 19 See_Comment [Auto mated message] The system which ge nerated this result transmit nurys reference range : <=37. The reference range was not used to interpr et this result as sujey l/abnormal. [place] [id number] 16:36:00 Test Item Value Reference Range Interpretation Comments Bili Total (test code = Bili Total) 1.5 0.2-1.3 [facility]2016-01-02 16:36:00 Test Item Value Reference Range Interpretation Comments Alk Phos (test code = Alk Phos) 74 39-136 [facility]2016-01-02 16:36:00 Test Item Value Reference Range Interpretation Comments Bili Direct (test code 0.3 See_Comment [Aut omated message] The = Bili Direct) system which generated this result tra nsmitted reference range : <=0.3. The reference r rafat was not used to int erpret this result as sujey l/abnormal. [facility]2016-01-02 16:36:00 Test Item Value Reference Range Interpretation Comments Total Protein (test code = Total 7.2 6.4-8.4 Protein) [facility]2016-01-02 16:36:00 Test Item Value Reference Range Interpretation Comments Albumin Lvl (test code = Albumin Lvl) 3.9 3.5-5.0 [place] [id number] 16:36:00 Test Item Value Reference Range Interpretation Comments Bili Indirect (test 1.2 See_Comment [Automa nurys message] The code = Bili Indirect) system which generated this result tra nsmitted reference range : <=1.0. The reference r rafat was not used to int erpret this result as normal/abnormal . [place] [id number] 16:36:00 Test Item Value Reference Range Interpretation Comments A/G Ratio (test code = A/G Ratio) 1.2 0.7-1.6 [facility]2016-01-02 16:36:00 Test Item Value Reference Range Interpretation Comments Globulin (test code = Globulin) 3.3 2.0-4.0 [facility]2016-01-02 16:36:00 Test Item Value Reference Range Interpretation Comments Lipase Lvl (test code = Lipase Lvl) 178 73-393 [facility]2016-01-02 16:36:00 Test Item Value Reference Range Interpretation Comments eGFR (test code = eGFR) 71 [facility]2016-01-02 16:36:00 Test Item Value Reference Range Interpretation Comments Calcium Lvl (test code = Calcium Lvl) 9.2 8.5-10.5 [facility]2016-01-02 16:36:00 Test Item Value Reference Range Interpretation Comments CO2 (test code = CO2) 32 24-32 [facility]2016-01-02 16:36:00 Test Item Value Reference Range Interpretation Comments Chloride Lvl (test code = Chloride Lvl) 101 95-109 [facility]2016-01-02 16:36:00 Test Item Value Reference Range Interpretation Comments Potassium Lvl (test code = Potassium 3.7 3.5-5.1 Lvl) [facility]2016-01-02 16:36:00 Test Item Value Reference Range Interpretation Comments Sodium Lvl (test code = Sodium Lvl) 139 135-145 [facility]2016-01-02 16:36:00 Test Item Value Reference Range Interpretation Comments Creatinine Lvl (test code = Creatinine 1.15 0.50-1.40 Lvl) [facility]2016-01-02 16:36:00 Test Item Value Reference Range Interpretation Comments BUN (test code = BUN) 16 7-22 [facility]2016-01-02 16:36:00 Test Item Value Reference Range Interpretation Comments Glucose Lvl (test code = Glucose Lvl) 105 70-99 [facility]2016-01-02 16:36:00 Test Item Value Reference Range Interpretation Comments AGAP (test code = AGAP) 9.7 10.0-20.0 [id number] 16:36:00 Test Item Value Reference Range Interpretation Comments PTT (test code = PTT) 36.8 s 22.9-35.8 [id number] 16:36:00 Test Item Value Reference Range Interpretation Comments INR (test code = INR) 1.31 0.85-1.17 [id number] 16:36:00 Test Item Value Reference Range Interpretation Comments PT (test code = PT) 16.6 s 12.0-14.7 [facility]MbyvinzMVASLYVESQ6019-17-23 16:36:00 Test Item Value Reference Range Interpretation Comments RDW (test code = RDW) 14.3 11.5-14.5 [facility] HospitalUzdkmdjUDBTBNGTUK4518-04-31 16:36:00 Test Item Value Reference Range Interpretation Comments Platelet (test code = Platelet) 167 133-450 [facility] Hospit[id number] 16:36:00 Test Item Value Reference Range Interpretation Comments MPV (test code = MPV) 7.6 7.4-10.4 [facility] Hos[id number] 16:36:00 Test Item Value Reference Range Interpretation Comments MCV (test code = MCV) 90.5 80.0-94.0 [facility] HospitalNaqxtlvWHAGQRKFFF5645-98-81 16:36:00 Test Item Value Reference Range Interpretation Comments Hgb (test code = Hgb) 14.4 14.0-18.0 [facility] Hos[id number] 16:36:00 Test Item Value Reference Range Interpretation Comments Hct (test code = Hct) 43.5 42.0-54.0 [facility] HospitalIuyntvxPTWFVNMHLK4347-30-66 16:36:00 Test Item Value Reference Range Interpretation Comments MCH (test code = MCH) 30.0 pg 27.0-31.0 [facility] Hospit[id number] 16:36:00 Test Item Value Reference Range Interpretation Comments MCHC (test code = MCHC) 33.1 32.0-36.0 [facility] HospitalPccmifmNMQPYNWLOJ1805-92-53 16:36:00 Test Item Value Reference Range Interpretation Comments RBC (test code = RBC) 4.80 4.70-6.10 [facility] HospitalTqudiscYKDEMNSANJ7711-08-94 16:36:00 Test Item Value Reference Range Interpretation Comments WBC (test code = WBC) 6.0 3.7-10.4 [facility] Hospit[id number] 16:36:00 Test Item Value Reference Range Interpretation Comments Monocytes (test code = Monocytes) 11.9 2.0-12.0 [facility] HospitalBzfhbmpBZLALAMSNU8230-03-17 16:36:00 Test Item Value Reference Range Interpretation Comments Lymphocytes (test code = Lymphocytes) 14.9 20.0-40.0 [facility] H[id number] 16:36:00 Test Item Value Reference Range Interpretation Comments Segs (test code = Segs) 71.5 45.0-75.0 [facility] HospitalNlycxzoCSAFMGXBDT8707-79-04 16:36:00 Test Item Value Reference Range Interpretation Comments Lymphocytes # (test code = Lymphocytes 0.9 1.0-5.5 #) [facility] H[id number] 16:36:00 Test Item Value Reference Range Interpretation Comments Monocytes # (test code 0.7 See_Comment [Aut omated message] The = Monocytes #) system which generated this result tra nsmitted reference range : <=0.8. The reference r rafat was not used to int erpret this result as normal/abnormal . [facility] HospitalOldizdtVPCQRBCSRH0973-51-11 16:36:00 Test Item Value Reference Range Interpretation Comments Eosinophils # (test code 0.1 See_Comment [A utomated message] The = Eosinophils #) system wh h generated this result tra nsmitted reference range : <=0.5. The reference r rafat was not used to int erpret this result as normal/abnormal . [facility] Hos[id number] 16:36:00 Test Item Value Reference Range Interpretation Comments Eosinophils (test code = 1.2 See_Comment [A utomated message] The Eosinophils) system which ge nerated this result tra nsmitted reference range : <=4.0. The reference r rafat was not used to int erpret this result as normal/abnormal . [facility] H[id number] 16:36:00 Test Item Value Reference Range Interpretation Comments Basophils (test code = 0.5 See_Comment [Aut omated message] The Basophils) system which ge nerated this result tra nsmitted reference range : <=1.0. The reference r rafat was not used to int erpret this result as normal/abnormal . [facility] Hospit[id number] 16:36:00 Test Item Value Reference Range Interpretation Comments Segs-Bands # (test code = Segs-Bands #) 4.3 1.5-8.1 [id number] 16:36:00 Test Item Value Reference Range Interpretation Comments CDC HIV 4th GEN (test Negative (03/26/15 10:36 code = CDC HIV 4th AM) GEN) [facility] [id number] 16:36:00 Test Item Value Reference Range Interpretation Comments [place]-Hep C Ab (test Negative *NA*(03/26/15 code = [place]-Hep C 10:36 AM) Ab) [facility] [employer] [id number] 16:36:00 Test Item Value Reference Range Interpretation Comments Antibody Scrn (test Negative (03/26/15 10:36 code = Antibody Scrn) AM) [facility] [employer] [id number] 16:36:00 Test Item Value Reference Range Interpretation Comments ABO/Rh (test code = ABO/Rh) O POS [facility] [place] [id number] 16:36:00 Test Item Value Reference Range Interpretation Comments ALT (test code = ALT) 26 See_Comment [Auto mated message] The system which ge nerated this result transmit nurys reference range : <=65. The reference range was not used to interpr et this result as sujey l/abnormal. [facility] [place] [id number] 16:36:00 Test Item Value Reference Range Interpretation Comments AST (test code = AST) 19 See_Comment [Auto mated message] The system which ge nerated this result transmit nurys reference range : <=37. The reference range was not used to interpr et this result as sujey l/abnormal. [facility] [place] [id number] 16:36:00 Test Item Value Reference Range Interpretation Comments Bili Total (test code = Bili Total) 1.5 0.2-1.3 [facility] [place] [id number] 16:36:00 Test Item Value Reference Range Interpretation Comments Alk Phos (test code = Alk Phos) 74 39-136 [facility] [place] [id number] 16:36:00 Test Item Value Reference Range Interpretation Comments Bili Direct (test code 0.3 See_Comment [Aut omated message] The = Bili Direct) system which generated this result tra nsmitted reference range : <=0.3. The reference r rafat was not used to int erpret this result as sujey l/abnormal. [facility]2016-01-02 16:36:00 Test Item Value Reference Range Interpretation Comments Total Protein (test code = Total 7.2 6.4-8.4 Protein) [facility]2016-01-02 16:36:00 Test Item Value Reference Range Interpretation Comments Albumin Lvl (test code = Albumin Lvl) 3.9 3.5-5.0 [facility]2016-01-02 16:36:00 Test Item Value Reference Range Interpretation Comments Bili Indirect (test 1.2 See_Comment [Automa nurys message] The code = Bili Indirect) system which generated this result tra nsmitted reference range : <=1.0. The reference r rafat was not used to int erpret this result as normal/abnormal . [facility]2016-01-02 16:36:00 Test Item Value Reference Range Interpretation Comments A/G Ratio (test code = A/G Ratio) 1.2 0.7-1.6 [place] [id number] 16:36:00 Test Item Value Reference Range Interpretation Comments Globulin (test code = Globulin) 3.3 2.0-4.0 [facility]2016-01-02 16:36:00 Test Item Value Reference Range Interpretation Comments Lipase Lvl (test code = Lipase Lvl) 178 73-393 [facility]2016-01-02 16:36:00 Test Item Value Reference Range Interpretation Comments eGFR (test code = eGFR) 71 [facility]2016-01-02 16:36:00 Test Item Value Reference Range Interpretation Comments Calcium Lvl (test code = Calcium Lvl) 9.2 8.5-10.5 [facility]2016-01-02 16:36:00 Test Item Value Reference Range Interpretation Comments CO2 (test code = CO2) 32 24-32 [facility]2016-01-02 16:36:00 Test Item Value Reference Range Interpretation Comments Chloride Lvl (test code = Chloride Lvl) 101 95-109 [facility]2016-01-02 16:36:00 Test Item Value Reference Range Interpretation Comments Potassium Lvl (test code = Potassium 3.7 3.5-5.1 Lvl) [facility]2016-01-02 16:36:00 Test Item Value Reference Range Interpretation Comments Sodium Lvl (test code = Sodium Lvl) 139 135-145 [facility]2016-01-02 16:36:00 Test Item Value Reference Range Interpretation Comments Creatinine Lvl (test code = Creatinine 1.15 0.50-1.40 Lvl) [facility]2016-01-02 16:36:00 Test Item Value Reference Range Interpretation Comments BUN (test code = BUN) 16 7-22 [facility]2016-01-02 16:36:00 Test Item Value Reference Range Interpretation Comments Glucose Lvl (test code = Glucose Lvl) 105 70-99 [facility]2016-01-02 16:36:00 Test Item Value Reference Range Interpretation Comments AGAP (test code = AGAP) 9.7 10.0-20.0 [facility] HospitalGmqfoseIAMPRHSQTJ8226-10-02 16:36:00 Test Item Value Reference Range Interpretation Comments PTT (test code = PTT) 36.8 s 22.9-35.8 [facility] HospitalPxwhgvqHFZFAXNOOY9014-70-32 16:36:00 Test Item Value Reference Range Interpretation Comments INR (test code = INR) 1.31 0.85-1.17 [facility] Hospit[id number] 16:36:00 Test Item Value Reference Range Interpretation Comments PT (test code = PT) 16.6 s 12.0-14.7 [facility] HospitalVqgzxkbTROELUYWHB1780-97-54 16:36:00 Test Item Value Reference Range Interpretation Comments RDW (test code = RDW) 14.3 11.5-14.5 [facility] HospitalTtwokiaQKBNUCGXEC9924-60-27 16:36:00 Test Item Value Reference Range Interpretation Comments Platelet (test code = Platelet) 167 133-450 [facility] HospitalWmnpubvIAGVRPYBFC2197-00-26 16:36:00 Test Item Value Reference Range Interpretation Comments MPV (test code = MPV) 7.6 7.4-10.4 [facility] HospitalSvzioirJBFMKKEMLX6505-30-33 16:36:00 Test Item Value Reference Range Interpretation Comments MCV (test code = MCV) 90.5 80.0-94.0 [facility] HospitalKbgnretPLSAMHBOQD9485-63-46 16:36:00 Test Item Value Reference Range Interpretation Comments Hgb (test code = Hgb) 14.4 14.0-18.0 [facility] HospitalOylufjcJSNKSHVSHT9359-81-76 16:36:00 Test Item Value Reference Range Interpretation Comments Hct (test code = Hct) 43.5 42.0-54.0 [facility] HospitalMyglzjgHDKWMOTHCP9422-07-49 16:36:00 Test Item Value Reference Range Interpretation Comments MCH (test code = MCH) 30.0 pg 27.0-31.0 [facility] HospitalEzpdniwZFUYAYCWNO1078-29-18 16:36:00 Test Item Value Reference Range Interpretation Comments MCHC (test code = MCHC) 33.1 32.0-36.0 [facility] HospitalVeilyftUSRWVNYPEM9810-84-51 16:36:00 Test Item Value Reference Range Interpretation Comments RBC (test code = RBC) 4.80 4.70-6.10 [facility] HospitalEnxfmuaZEWLXFPYYJ6484-76-38 16:36:00 Test Item Value Reference Range Interpretation Comments WBC (test code = WBC) 6.0 3.7-10.4 [facility] HospitalDnopbckTJERWNZANV2734-64-10 16:36:00 Test Item Value Reference Range Interpretation Comments Monocytes (test code = Monocytes) 11.9 2.0-12.0 [facility] HospitalNrljpdvLYRWXHIRSD4887-26-41 16:36:00 Test Item Value Reference Range Interpretation Comments Lymphocytes (test code = Lymphocytes) 14.9 20.0-40.0 [facility] HospitalXkmrepzJOSXSRUIED5020-28-17 16:36:00 Test Item Value Reference Range Interpretation Comments Segs (test code = Segs) 71.5 45.0-75.0 [facility] HospitalBmpebikPZLBWOYQCL7243-35-39 16:36:00 Test Item Value Reference Range Interpretation Comments Lymphocytes # (test code = Lymphocytes 0.9 1.0-5.5 #) [facility] HospitalPwwtzcoPNWAKJRADR4264-66-79 16:36:00 Test Item Value Reference Range Interpretation Comments Monocytes # (test code 0.7 See_Comment [Aut omated message] The = Monocytes #) system which generated this result tra nsmitted reference range : <=0.8. The reference r rafat was not used to int erpret this result as normal/abnormal . [facility] HospitalFicsidnLGWYPIVQNJ4365-14-89 16:36:00 Test Item Value Reference Range Interpretation Comments Eosinophils # (test code 0.1 See_Comment [A utomated message] The = Eosinophils #) system whic h generated this result tra nsmitted reference range : <=0.5. The reference r rafat was not used to int erpret this result as normal/abnormal . [facility] HospitalEiixisdXARHGNGHYJ3847-79-98 16:36:00 Test Item Value Reference Range Interpretation Comments Eosinophils (test code = 1.2 See_Comment [A utomated message] The Eosinophils) system which ge nerated this result tra nsmitted reference range : <=4.0. The reference r rafat was not used to int erpret this result as normal/abnormal . [facility] HospitalYwahxerQLUMBMZSUZ5830-32-49 16:36:00 Test Item Value Reference Range Interpretation Comments Basophils (test code = 0.5 See_Comment [Aut omated message] The Basophils) system which ge nerated this result tra nsmitted reference range : <=1.0. The reference r rafat was not used to int erpret this result as normal/abnormal . [facility] HospitalGiklicwQZTQMIDPJQ8078-13-76 16:36:00 Test Item Value Reference Range Interpretation Comments Segs-Bands # (test code = Segs-Bands #) 4.3 1.5-8.1 [facility]xbxWJXBTKDREE3849-29-89 16:36:00 Test Item Value Reference Range Interpretation Comments CDC HIV 4th GEN (test Negative (03/26/15 10:36 code = CDC HIV 4th AM) GEN) [facility]WfdkelkKKSHFQZJOH1007-33-26 16:36:00 Test Item Value Reference Range Interpretation Comments [place]-Hep C Ab (test Negative *NA*(03/26/15 code = [place]-Hep C 10:36 AM) Ab) [facility]
--- NOTE | 2022-05-25 14:48 | RAD REPORT ---
EXAM DESCRIPTION: Ry Pemberton (2 Views)05/25/2022 2:40 pm CLINICAL HISTORY: Chest pain COMPARISON: 2019 FINDINGS: The lungs appear clear of acute infiltrate. The heart is normal size IMPRESSION: No acute abnormalities displayed
--- NOTE | 2022-05-25 15:30 | ER ---
Nurse's Notes [facility] Name: Shlomo Humphrey Age: 61 yrs Sex: Male : 1960 Arrival Date: 05/25/2022 Time: 13:53 Bed Treatment Private MD: Ramonita Jarrett Diagnosis: right sided chest pain Presentation: 05/25 14:01 Chief complaint: Patient states: Pt c/o pain to right collar bone when taking a deep ld1 breath since 0230 this morning. Pt reports having tubes put in right ear last week. Coronavirus screen: At this time, the client does not indicate any symptoms associated with coronavirus-19. Ebola Screen: No symptoms or risks identified at this time. Initial Sepsis Screen: Does the patient meet any 2 criteria? No. Patient's initial sepsis screen is negative. Does the patient have a suspected source of infection? No. Patient's initial sepsis screen is negative. Risk Assessment: Do you want to hurt yourself or someone else? Patient reports no desire to harm self or others. Onset of symptoms was May 25, 2022. 14:01 Method Of Arrival: Ambulatory ld1 14:01 Acuity: EBER 3 ld1 Triage Assessment: 14:01 General: Appears in no apparent distress. comfortable, Behavior is calm, cooperative, ld1 appropriate for age. Pain: Complains of pain in right supraclavicular area and right clavicle Pain does not radiate. Pain currently is 5 out of 10 on a pain scale. Quality of pain is described as throbbing, Pain began suddenly. EENT: No signs and/or symptoms were reported regarding the EENT system. Neuro: Level of Consciousness is awake, alert, obeys commands, Oriented to person, place, time, situation. Cardiovascular: Capillary refill < 3 seconds Patient's skin is warm and dry. Respiratory: Airway is patent Respiratory effort is even, unlabored. GI: Abdomen is round non-distended. Historical: - Allergies: 14: No Known Allergies; ld1 - PMHx: 14: Atrial Fib; Hypertension; pleurisy; ld1 - PSHx: 14:01 Heart surgery; Cholecystectomy; ld1 - Immunization history:: Adult Immunizations up to date, Client reports having NOT received the Covid vaccine. - Social history:: Smoking status: Patient denies any tobacco usage or history of. Patient/guardian denies using alcohol. Screenin:47 [facility] ED Fall Risk Assessment (Adult) History of falling in the last 3 months, mb9 including since admission No falls in past 3 months (0 pts) Confusion or Disorientation No (0 pts) Intoxicated or Sedated No (0 pts) Impaired Gait No (0 pts) Mobility Assist Device Used No (0 pt) Altered Elimination No (0 pt) Score/Fall Risk Level 0 - 2 = Low Risk Oriented to surroundings, Maintained a safe environment, Educated pt \T\ family on fall prevention, incl call for assistance when getting out of bed. Abuse screen: Denies threats or abuse. Nutritional screening: No deficits noted. Tuberculosis screening: No symptoms or risk factors identified. Assessment: 14:18 General: Appears in no apparent distress. Behavior is calm, cooperative, appropriate mb9 for age. Pain: Complains of pain in right clavicle Pain radiates to chest Pain currently is 0 out of 10 on a pain scale. Quality of pain is described as sharp, Pain began suddenly. Neuro: Level of Consciousness is awake, alert, obeys commands, Oriented to person, place, time, situation, Appropriate for age. Cardiovascular: Heart tones S1 S2 present Capillary refill < 3 seconds is brisk Rhythm is regular. Respiratory: Reports cough that is non-productive, Airway is patent Respiratory effort is even, unlabored, Respiratory pattern is regular, symmetrical, Breath sounds are clear bilaterally. GI: No signs and/or symptoms were reported involving the gastrointestinal system. Derm: Skin is pink, warm \T\ dry. Musculoskeletal: Range of motion: intact in all extremities. 15:54 Reassessment: No changes from previously documented assessment. Patient and/or family mb9 updated on plan of care and expected duration. Pain level reassessed. Patient is alert, oriented x 3, equal unlabored respirations, skin warm/dry/pink. Patient states feeling better. Patient states symptoms have improved. Vital Signs: 14:01 BP 157 / 92; Pulse 66; Resp 18; Temp 97.9(O); Pulse Ox 97% on R/A; Weight 120.2 kg; ld1 Height 5 ft. 10 in. (177.80 cm); Pain 5/10; 15:46 BP 153 / 91; Pulse 78; Resp 18; Pulse Ox 100% on R/A; mb9 14:01 Body Mass Index 38.02 (120.20 kg, 177.80 cm) ld1 ED Course: 13:53 Patient arrived in ED. am2 13:53 Ramonita Jarrett DO is Private Physician. am2 13:58 Yariel Chairez DO is Attending Physician. ms3 14:01 Arm band placed on right wrist. ld1 14:04 Triage completed. ld1 14:14 Blessing Patel, RN is Primary Nurse. mb9 15:47 No provider procedures requiring assistance completed. Patient did not have IV access mb9 during this emergency room visit. Administered Medications: 15:46 Drug: Ibuprofen 600 mg Route: PO; mb9 Medication: 15:47 VIS not applicable for this client. mb9 Outcome: 15:30 Discharge ordered by MD. ms3 15:47 Discharged to home ambulatory. mb9 15:47 Condition: stable 15:47 Discharge instructions given to patient, Instructed on discharge instructions, follow up and referral plans. Demonstrated understanding of instructions, follow-up care, medications, Prescriptions given X 1. 15:55 Patient left the ED. mb9 Signatures: Xin Brown am2 Yariel Chairez DO DO ms3 Azul Michel RN RN ld1 Blessing Patel, DHEERAJ RN mb9 Corrections: (The following items were deleted from the chart) 14:05 14:01 Chief complaint: Patient states: Pt c/o pain to right collar bone when taking a ld1 deep breath since 0230 this morning. ld1
--- NOTE | 2022-05-25 15:30 | EDPHYS ---
Physician Documentation [facility] Name: Shlomo Humphrey Age: 61 yrs Sex: Male : 1960 Arrival Date: 05/25/2022 Time: 13:53 Bed Treatment Private MD: Ramonita Jarrett ED Physician Yariel Chairez HPI: 05/25 14:21 This 61 yrs old Male presents to ER via Ambulatory with complaints of Chest Pain - ms3 right side when taking a deep breath. 14:21 61-year-old male with past medical history of atrial fibrillation, hypertension, ms3 pleurisy presents for pain with breathing and located in his right upper anterior chest. Patient denies tenderness palpation. Patient states he does not have pain unless he takes a deep breath. Patient denies shortness of breath, nausea, vomiting.. Historical: - Allergies: 14:01 No Known Allergies; ld1 - PMHx: 14:01 Atrial Fib; Hypertension; pleurisy; ld1 - PSHx: 14:01 Heart surgery; Cholecystectomy; ld1 - Immunization history:: Adult Immunizations up to date, Client reports having NOT received the Covid vaccine. - Social history:: Smoking status: Patient denies any tobacco usage or history of. Patient/guardian denies using alcohol. ROS: 14:21 Constitutional: Negative for fever, and chills. Neck: Negative for injury, pain, and ms3 swelling. 14:21 Respiratory: Negative for shortness of breath, cough, wheezing, and pleuritic chest pain, Abdomen/GI: Negative for abdominal pain, nausea, vomiting, diarrhea, and constipation, MS/Extremity: Negative for injury and deformity, Skin: Negative for injury, rash, and discoloration. 14:21 Cardiovascular: Positive for chest pain. 14:21 All other systems are negative. Exam: 14:21 Constitutional: This is a well developed, well nourished patient who is awake, alert, ms3 and in no acute distress. Head/Face: Normocephalic, atraumatic. Neck: Trachea midline, no cervical lymphadenopathy. Supple, full range of motion without nuchal rigidity, or vertebral point tenderness. No Meningismus. Chest/axilla: Normal chest wall appearance and motion. Nontender with no deformity. Cardiovascular: Regular rate and rhythm with a normal S1 and S2. No gallops, murmurs, or rubs. Normal PMI, no JVD. No pulse deficits. Respiratory: Lungs have equal breath sounds bilaterally, clear to auscultation and percussion. No rales, rhonchi or wheezes noted. No increased work of breathing, no retractions or nasal flaring. Abdomen/GI: Soft, non-tender, with normal bowel sounds. No distension or tympany. No guarding or rebound. No evidence of tenderness throughout. Skin: Warm, dry with normal turgor. Normal color with no rashes, no lesions, and no evidence of cellulitis. MS/ Extremity: Pulses equal, no cyanosis. Neurovascular intact. Full, normal range of motion. Vital Signs: 14:01 BP 157 / 92; Pulse 66; Resp 18; Temp 97.9(O); Pulse Ox 97% on R/A; Weight 120.2 kg; ld1 Height 5 ft. 10 in. (177.80 cm); Pain 5/10; 15:46 BP 153 / 91; Pulse 78; Resp 18; Pulse Ox 100% on R/A; mb9 14:01 Body Mass Index 38.02 (120.20 kg, 177.80 cm) ld1 MDM: 14:20 Patient medically screened. ms3 14:21 Differential diagnosis: pleurisy, pneumonia, pneumothorax. ms3 15:30 Data reviewed: vital signs, nurses notes, and as a result, I will discharge patient. ms3 Independent interpretation of the following test(s) in the Emergency Department X-Ray: My interpretation is X-ray image reviewed by me: Negative. Counseling: I had a detailed discussion with the patient and/or guardian regarding: the historical points, exam findings, and any diagnostic results supporting the discharge/admit diagnosis, radiology results, the need for outpatient follow up, to return to the emergency department if symptoms worsen or persist or if there are any questions or concerns that arise at home. ED course: Patient states pain is improved at this time. Patient to follow-up with primary care physician in 2 to 3 days for reevaluation. Patient stands agrees to plan. All questions were answered. Return precautions discussed include shortness of breath, diaphoresis, vomiting, worsening symptoms, or any other concerns. 05/25 14:21 Order name: Chest Pa And Lat (2 Views) XRAY ms3 05/25 14:49 Order name: RAD; Complete Time: 15:22 EDMS Administered Medications: 15:46 Drug: Ibuprofen 600 mg Route: PO; mb9 Disposition Summary: 05/25/22 15:30 Discharge Ordered Location: Home ms3 Condition: Stable ms3 Diagnosis - right sided chest pain ms3 Discharge Instructions: - Discharge Summary Sheet ms3 - Chest Wall Pain, [id number] ms3 Forms: - Medication Reconciliation Form ms3 - Thank You Letter ms3 - Antibiotic Education ms3 - Prescription Opioid Use ms3 Prescriptions: - Ibuprofen 600 mg Oral Tablet - take 1 tablet by ORAL route every 6 hours As needed take with food; 30 tablet; ms3 Refills: 0, Product Selection Permitted Signatures: Dispatcher [employer] EDMS Yariel Chairez DO DO ms3 Azul Michel, RN RN ld1 Blessing Patel RN RN mb9
[2022-05-25] MEDS ORDERED: IBUPROFEN 400 MG TAB ONE (15:49)
[2022-05-25] MEDS ORDERED: IBUPROFEN 200 MG TAB PO ONE (15:49)
[2022-05-25 16:23] VITALS: TEMP 97.9
[2022-05-25 16:24] VITALS: BP 153/91; O2SAT 100
== END 2022-05-25 15:55 | disposition home or self-care (01) ==
LOC: ER 13:51
DX: R07.89 Other chest pain (principal); I10 Essential (primary) hypertension; I48.91 Unspecified atrial fibrillation
CPT/HCPCS: 71046; 99283

== ENCOUNTER 2022-09-06 13:32 | Emergency (ER) | payer OTHER ==
--- OUTSIDE RECORDS SUMMARY | 2022-09-06 13:42 | XMS REPORT | Continuity of Care Document ---
:1960 Author Organization [facility] t Address [address] [place] [place] [address] Care Team Providers Name Role Phone Poly CARIAS, Wally Primary Care Physician [phone] Duke Singh Attending Clinician Yandel Fernandez Attending Clinician Unavailable Tanner Jaffe Attending Clinician Brian Saenz Attending [...] BLEED BLEED 03-31 21:58:00 l Active 00:00: Odell 03/31/2015 00 [facility] BILIARY BILIARY Diagnosis Active 2015-03-29 Memoria DYSKINESIA DYSKINESIA 03-26 11:22:00 l Active 00:00: Odell 03/26/2015 00 [facility] ACUTE ACUTE Diagnosis Active 2015-2015-03-26 Mem oria CHOLECYSTI CHOLECYSTI - 17:41:00 l TIS(ER TIS(ER 00:00: Jose Manuel EVAL) EVAL) 00 Active 03/26/2015 [facility] Atrial Atrial Problem Resolve 2021-12-02 Me moria fibrillati fibrillati d 04:47:44 l on on Odell (disorder) (disorder) Resolved Problem 12/02/2021 [facility] Acute Acute Problem Resolve 2021-12-02 Celio yennifer cholecysti cholecysti d 04:47:44 l tis tis Odell (disorder) (disorder) Resolved Problem 12/02/2021 [facility] Gastric Gastric Problem Resolve 2021-12-02 M emoria reflux reflux d 04:47:44 l (finding) (finding) Herm michael Resolved Problem 12/02/2021 [facility] Placement Placement Problem Resolve 2021-12-02 Memoria of stents of stents d 04:47:44 l in in Odell coronary coronary artery artery (procedure (procedure ) ) Resolved Problem 12/02/2021 [facility] GASTROINTE GASTROINT Diagnosis Active 2015-04-[address] HEMORR EST HEMORR 21:58:00 l NOS NOS Active Osvaldo n [facility] Coronary Coronary Problem Active 2022-08-11 Memoria arterioscl arterioscl 22:41:58 l erosis erosis Jose Manuel (disorder) (disorder) Active Problem 08/11/2022 [facility] [place] Dizziness Problem Active 2022-08-11 [facility] moria (finding) Dizziness 22:41:58 l (finding) Jose Manuel Active Problem 08/11/2022 [facility] [place] Hypertensi Hypertens Problem Active 2022-08-11 Memoria ve mily 22:41:58 l disorder, disorder, Herm michael systemic systemic arterial arterial (disorder) (disorder) Active Problem 08/11/2022 [facility] [place] Problem Active 2022-08-11 M emoria dness [place] 22:41:58 l (finding) dness Jose Manuel (finding) Active Problem 08/11/2022 [facility] [place] Allergies, Adverse Reactions, Alerts Allergy Allergy Status Severity Reaction(s) Onset Inactive Treating Comm ents Source Name Type Date Date Clinician No Known DA Active U 2017-03 [facility] 00:[facility]: [address] No Known DA Active U 2017-03 [facility] 05[facility]05 Clear s 00:00: [address] No Known DA Active U 2014-03 [facility]ie 04-25 [facility] 00:[facility]: [address] No Known No Known Active Memori a Medicati Medicati l on on Jose Manuel Allergie Allergie s s Social History Social Habit Start Date Stop Date Quantity Comments Source History [facility] History [facility] History of Social 2018-11-09 2018-11-[address] function 00:00:00 00:00:00 Hospital Tobacco use and 2018-06-23 2018-06-23 Smokeless [facility] exposure 00:00:00 00:00:00 tobacco non-user Hospital History SDOH 2018-06-23 2018-06-23 1 [facility] Frequency 00:00:00 00:00:00 Hospita l Alcohol intake 2018-06-23 2018-06-23 Current [facility] 00:00:00 00:00:00 non-drinker of Hospital alcohol (finding) Social History 2015-03-27 2015-03-27 [facility] filemon 00:43:06 00:43:06 Sex [birth year] [facility] 00:00:[facility]00:00 Hospital Smoking Status Start Date Stop Date Source Tobacco smoking status 2022-04-13 19:06:32 2022-04-13 19:06:32 M bandar Richard Never smoked tobacco [facility] Medications Ordered Filled Start Stop Current Ordering Indication Dosage Frequency Signature Comments Components Source Medication Medication Date Date Medication? Clinician (SIG) Name Name magnesium Yes 0 Memoria citrate 1-20 Refill(s) l oral tablet 19:23: Osvaldo n 00 calcium Yes 2,001 mg, Memor ia acetate 1-20 PO, 0 l 19:23: Refill(s) Odell magnesium Yes 0 Memoria citrate 1-20 Refill(s) l oral tablet 19:23: Osvaldo n calcium Yes 2,001 mg, Memor ia acetate 1-20 PO, 0 l 19:23: Refill(s) Odell magnesium Yes 0 Memoria citrate 1-20 Refill(s) l oral tablet 19:23: Osvaldo n calcium Yes 2,001 mg, Memor ia acetate 1-20 PO, 0 l 19:23: Refill(s) Jose Manuel Yes 0 Memoria oral 1-20 Refill(s) l capsule 19:22: Jose Manuel Yes 0 Memoria oral 1-20 Refill(s) l capsule 19:22: Jose Manuel Yes 0 Memoria oral 1-20 Refill(s) l capsule 19:22: Odell amitriptyli 2021-03 Yes TAKE 1 Celio yennifer [...] 50 mg = 1 Me moria succinate -07 cap, PO, l 50 mg oral 14:45: Daily, 0 Her carias capsule, 00 Refill(s) extended release metoprolol Yes 50 mg = 1 Me moria succinate 9-07 cap, PO, l 50 mg oral 14:45: Daily, 0 Her carias capsule, 00 Refill(s) extended release metoprolol Yes 50 mg = 1 Me moria succinate -07 cap, PO, l 50 mg oral 14:45: Daily, 0 Her carias capsule, 00 Refill(s) extended release atorvastati Yes TAKE 1 Celio yennifer n 20 mg 9-07 TABLET BY l oral tablet 14:25: MOUTH Elida nn 00 EVERY DAY IN THE MORNING tadalafil 5 Yes TAKE 1 Celio yennifer mg oral 9-07 TABLET BY l tablet 14:25: MOUTH Odell 00 EVERY MORNING atorvastati Yes TAKE 1 Celio yennifer n 20 mg 9-07 TABLET BY l oral tablet 14:25: MOUTH Elida nn 00 EVERY DAY IN THE MORNING tadalafil 5 Yes TAKE 1 Celio yennifer mg oral 9-07 TABLET BY l tablet 14:25: MOUTH Jose Manuel 00 EVERY MORNING atorvastati Yes TAKE 1 Celio yennifer n 20 mg 9-07 TABLET BY l oral tablet 14:25: MOUTH Elida nn 00 EVERY DAY IN THE MORNING tadalafil 5 Yes TAKE 1 Celio yennifer mg oral 9-07 TABLET BY l tablet 14:25: MOUTH Odell 00 EVERY MORNING aspirin Yes 81mg QD [...] Refill(s) pantoprazol No Notes: Celio yennifer e 1-08 Tablet l 15:00: should not Odell 00 be chewed or crushed. (Same as: Protonix) pantoprazol No Notes: Celio yennifer e 1-08 Tablet l 15:00: should not Jose Manuel 00 be chewed or crushed. (Same as: Protonix) Lopressor No Notes: Memori a -08 (Same as: l 15:00: Lopressor) Jose Manuel 00 12.5mg=1/4 X 50 mg tab. Hydrochloro No 1 tab, Celio yennifer thiazide 08 Route: PO, l 12.5 MG / 15:00: Drug Form: He rmann Losartan 00 TAB, Potassium Dosing 50 MG Oral Weight Tablet 110.455, kg, Daily, Start date: 04/01/15 9:00:00, Duration: 30 day, Stop date: 04/30/15 9:00:00 Amiodarone No Notes: Memor ia -08 (Same as: l 15:00: Cordarone) Odell 00 hydrochloro No Notes: Celio yennifer thiazide 25 1-08 (Same as: l mg oral 15:00: Hydrodiuri Herm michael tablet 00 l) With food. Cozaar No Notes: Memoria 1-08 (Same as: l 15:00: Cozaar) Odell 00 Lopressor No Notes: Memori a 1-08 (Same as: l 15:00: Lopressor) Jose Manuel 00 12.5mg=1/4 X 50 mg tab. Hydrochloro No 1 tab, Celio yennifer thiazide 1-08 Route: PO, l 12.5 MG / 15:00: Drug Form: He rmann Losartan 00 TAB, Potassium Dosing 50 MG Oral Weight Tablet 110.455, kg, Daily, Start date: 04/01/15 9:00:00, Duration: 30 day, Stop date: 04/30/15 9:00:00 Amiodarone No Notes: Memor ia 1-08 (Same as: l 15:00: Cordarone) Jose Manuel hydrochloro No Notes: Celio yennifer thiazide 25 1-08 (Same as: l mg oral 15:00: Hydrodiuri Herm michael tablet 00 l) With food. Cozaar No Notes: Memoria 1-08 (Same as: l 15:00: Cozaar) Odell 00 pantoprazol No Notes: Celio yennifer e 1-08 Tablet l 15:00: should not Odell 00 be chewed or crushed. (Same as: Protonix) Lopressor No Notes: Memori a 1-08 (Same as: l 15:00: Lopressor) Jose Manuel 00 12.5mg=1/4 X 50 mg tab. Hydrochloro No 1 tab, Celio yennifer thiazide 1-08 Route: PO, l 12.5 MG / 15:00: [...] Memoria 1-08 (Same as: l 15:00: Cozaar) Odell 00 Miralax No Notes: Memoria 1-08 Dissolve l 03:50: in 8 oz of Odell 00 water or juice. (Same as: Miralax) Miralax No Notes: Memoria 1-08 Dissolve l 03:50: in 8 oz of Odell 00 water or juice. (Same as: Miralax) [...] Jose Manuel capsule 00 (Do Not Crush) Acetaminoph No Notes: Do M emoria en 1-08 not exceed l 03:22: 4 gm/day. Odell 00 (Same as: Tylenol) Docusate No Notes: Memoria 1-08 (Same as: l 03:22: Colace) Jose Manuel 00 (Do Not Crush) Acetaminoph No Notes: Do M emoria en 04-01 not exceed l 03:22: 4 gm/day. Odell (Same as: Tylenol) Docusate No Notes: Memoria 04-01 (Same as: l 03:22: Colace) Jose Manuel 00 (Do Not Crush) Acetaminoph No Notes: Do M emoria en 04-01 not exceed l 03:22: 4 gm/day. Odell (Same as: Tylenol) Docusate No Notes: Memoria 04-01 (Same as: l 03:22: Colace) Odell (Do Not Crush) tramadol Yes 50 mg [...] s, # 14 cap, 0 Refill(s) metoprolol 2016-0 Yes 12.5 mg = Me moria tartrate [...] tablet 00 # 15 tab, 1 Refill(s) Acetaminoph No [...] 18:00: 400mg/day. (Same As: Ultram) Tramadol No 50 mg, 1 Memor ia 04 tab, l 15:22: Route: PO, Jose Manuel Drug form: TAB, Q6H, Dosing Weight 110, kg, PRN Pain Score 1-3, Start date: 03/28/15 9:22:00, Duration: 30 day, Stop date: 04/27/15 9:21:00 Tramadol 0 No 50 mg, 1 Memor ia 1-04 tab, l 15:22: Route: PO, Jose Manuel 00 Drug form: TAB, Q6H, Dosing Weight 110, kg, PRN Pain Score 1-3, Start date: 03/28/15 9:22:00, Duration: 30 day, Stop date: 04/27/15 9:21:00 Tramadol No 50 mg, 1 Memor ia 1-04 tab, l 15:22: Route: PO, Drug form: TAB, Q6H, Dosing Weight 110, kg, PRN Pain Score 1-3, Start date: 03/28/15 9:22:00, Duration: 30 day, Stop date: 04/27/15 9:21:00 Promethazin No Notes: Do M emoria e 03-28 not give l 15:09: IV push. (Same as: Phenergan) Ondansetron No Notes: Celio yennifer - (Same as: l 15:09: Zofran) MEDICATION WASTE Product Size: 4 mg Product Wasted: _0__ mg Oxycodone No Notes: Memori a - (Same as: l 15:09: Roxicodone ) Naloxone No Notes: Memoria - Same as l 15:09: Narcan Flumazenil No Notes: Memor ia -04 (Same as: l 15:09: Romazicon) Hydromorpho No Notes: Celio yennifer ne - Same as: l 15:09: Dilaudid Metoprolol No Notes: Memor ia -04 (Same as: l 15:09: Lopressor) Push over 2 minutes Labetalol No 10 mg, 2 Celio yennifer 1-04 mL, Route: l 15:09: IVP, Drug Jose Manuel 00 form: INJ, Q5Min, Dosing Weight 110, kg, PRN Elevated BP, Start date: 03/28/15 9:09:00, Duration: 5 doses or times, Stop date: Limited # of times Promethazin No Notes: Do Luis emoria e 03-28 not give l 15:09: IV push. Jose Manuel 00 (Same as: Phenergan) Ondansetron No Notes: Celio yennifer 1-04 (Same as: l 15:09: Zofran) 00 MEDICATION WASTE Product Size: 4 mg Product Wasted: _0__ mg Oxycodone No Notes: Memori a - (Same as: l 15:09: Roxicodone ) Naloxone No Notes: Memoria 03-28 Same as l 15:09: Narcan Flumazenil No Notes: Memor ia 1-04 (Same as: l 15:09: Romazicon) Hydromorpho No Notes: Celio yennifer ne - Same as: l 15:09: Dilaudid Metoprolol No Notes: Memor ia 1-04 (Same as: l 15:09: Lopressor) Push over 2 minutes Labetalol No 10 mg, 2 Celio yennifer 1-04 mL, Route: l 15:09: IVP, Drug form: INJ, Q5Min, Dosing Weight 110, kg, PRN Elevated BP, Start date: 03/28/15 9:09:00, Duration: 5 doses or times, Stop date: Limited # of times Promethazin No Notes: Do Luis emoria e 03-28 not give l 15:09: IV push. Odell 00 (Same as: Phenergan) Ondansetron No Notes: Celio yennifer 1-04 (Same as: l 15:09: Zofran) 00 MEDICATION WASTE Product Size: 4 mg Product Wasted: _0__ mg Oxycodone No Notes: Memori a -04 (Same as: l 15:09: Roxicodone ) Naloxone No Notes: Memoria 1-04 Same as l 15:09: Narcan Flumazenil No Notes: Memor ia 1-04 (Same as: l 15:09: Romazicon) Hydromorpho No Notes: Celio yennifer ne 1-04 Same as: l 15:09: Dilaudid Metoprolol No Notes: Memor ia 1-04 (Same as: l 15:09: Lopressor) Push over 2 minutes Labetalol No 10 mg, 2 Celio yennifer 1-04 mL, Route: l 15:09: IVP, Drug form: INJ, Q5Min, Dosing Weight 110, kg, PRN Elevated BP, Start date: 03/28/15 9:09:00, Duration: 5 doses or times, Stop date: Limited # of times metoprolol No Notes: Memor ia tartrate 1-04 (Same as: l 15:00: Lopressor) Jose Manuel 00 12.5mg=1/4 X 50 mg tab. metoprolol No Notes: Memor ia tartrate 1-04 (Same as: l 15:00: Lopressor) Jose Manuel 00 12.5mg=1/4 X 50 mg tab. metoprolol No Notes: Memor ia tartrate 1-04 (Same as: l 15:00: Lopressor) Odell 00 12.5mg=1/4 X 50 mg tab. Ancef No 2 gm, Memoria 104 Route: IV, l 13:44: ONCE, Dosing Weight 110, kg, Start date: 03/28/15 7:44:00, Duration: 1 doses or times, Stop date: 03/28/15 7:44:00, Surgical Prophylaxi s Only; For patients < 120 kg Ancef 0 No 2 gm, Memoria 1-04 Route: IV, l 13:44: ONCE, Jose Manuel 00 Dosing Weight 110, kg, Start date: 03/28/15 7:44:00, Duration: 1 doses or times, Stop date: 03/28/15 7:44:00, Surgical Prophylaxi s Only; For patients < 120 kg Ancef 2016-0 No 2 gm, Memoria 1- Route: IV, l 13:44: ONCE, Odell 00 Dosing Weight 110, kg, Start date: 03/28/15 7:44:00, Duration: 1 doses or times, Stop date: 03/28/15 7:44:00, Surgical Prophylaxi s Only; For patients < 120 kg Docusate No Notes: Memoria 1-03 (Same as: l 23:04: Colace) Odell (Do Not Crush) Docusate No Notes: Memoria 1-03 (Same as: l 23:04: Colace) Jose Manuel (Do Not Crush) Docusate No Notes: Memoria 1-03 (Same as: l 23:04: Colace) Jose Manuel (Do Not Crush) Xarelto No Notes: Memoria 1-03 (Same as: l 23:00: Xarelto) Jose Manuel Administer with food Xarelto No Notes: Memoria 1-03 (Same as: l 23:00: Xarelto) Jose Manuel Administer with food Xarelto No Notes: Memoria 1-03 (Same as: l 23:00: Xarelto) Jose Manuel Administer with food Microzide No Notes: Memori a 1-03 (Same as: l 15:00: Microzide) Odell 00 With food. pantoprazol No Notes: Celio yennifer e 1-03 Tablet l 15:00: should not Jose Manuel 00 be chewed or crushed. (Same as: Protonix) Hydrochloro No 1 tab, Celio yennifer thiazide - Route: PO, l 12.5 MG / 15:00: Drug Form: He rmann Losartan 00 TAB, Potassium Dosing 50 MG Oral Weight Tablet 110, kg, Daily, Start date: 03/27/15 9:00:00, Duration: 30 day, Stop date: 04/25/15 9:00:00 Aspirin No Notes: Do Memor ia 1-03 not crush l 15:00: or chew. Jose Manuel 00 (Same As: Ecotrin) Amiodarone No Notes: Memor ia 1-03 (Same as: l 15:00: Cordarone) Jose Manuel 00 Cozaar No Notes: Memoria 1-03 (Same as: l 15:00: Cozaar) Odell 00 Microzide No Notes: Memori a 1-03 (Same as: l 15:00: Microzide) Odell 00 With food. pantoprazol No Notes: Celio [...] 1-03 not crush l 15:00: or chew. Jose Manuel (Same As: Ecotrin) Amiodarone No Notes: Memor ia 1-03 (Same as: l 15:00: Cordarone) Jose Manuel 00 Cozaar No Notes: Memoria 1-03 (Same as: l 15:00: Cozaar) Jose Manuel 00 Microzide No Notes: Memori a 1-03 (Same as: l 15:00: Microzide) Jose Manuel 00 With food. pantoprazol No Notes: Celio [...] 1-03 not crush l 15:00: or chew. Jose Manuel (Same As: Ecotrin) Amiodarone 2016-0 No Notes: Memor ia 1-03 (Same as: l 15:00: Cordarone) Cozaar [id number] No Notes: Memoria 03-27 (Same as: l 15:00: Cozaar) aspirin 2015-0 Yes 81 mg, PO, Celio yennifer 03-27 Daily, 0 l 00:39: Refill(s) AMIODarone 2015- Yes 200 mg = 1 M emoria 200 mg oral 1-03 tab, PO, l tablet 00:39: Daily, # Odell 00 90 tab, 3 Refill(s) pantoprazol Yes 40 mg = 1 M emoria e 40 mg -03 tab, PO, l oral 00:39: Daily, # Odell enteric 00 30 tab, 1 coated Refill(s) tablet Hydrochloro 2015-0 Yes 1 tab, PO, Memoria thiazide 03-27 Daily, # l 12.5 MG / 00:39: 30 tab, 0 Her carias Losartan 00 Refill(s) Potassium 50 MG Oral Tablet Aspirin Yes 81 mg, PO, Celio yennifer 03-27 Daily, 0 l 00:39: Refill(s) rivaroxaban Yes 20 mg = 1 M emoria 20 MG Oral 1-03 tab, PO, l Tablet 00:39: QPM, # 30 Osvaldo n [Xarelto] 00 tab, 3 Refill(s) AMIODarone Yes 200 mg = 1 M emoria 200 mg oral -03 tab, PO, l tablet 00:39: Daily, # Odell 00 90 tab, 3 Refill(s) pantoprazol Yes 40 mg = 1 M emoria e 40 mg -03 tab, PO, l oral 00:39: Daily, # Odell enteric 00 30 tab, 1 coated Refill(s) tablet Hydrochloro 2016-0 Yes 1 tab, PO, Memoria thiazide 03-27 Daily, # l 12.5 MG / 00:39: 30 tab, 0 Her carias Losartan 00 Refill(s) Potassium 50 MG Oral Tablet Aspirin Yes 81 mg, PO, Celio yennifer 03 Daily, 0 l 00:39: Refill(s) rivaroxaban Yes 20 mg = 1 M emoria 20 MG Oral 1-03 tab, PO, l Tablet 00:39: QPM, # 30 Osvaldo n [Xarelto] 00 tab, 3 Refill(s) aspirin Yes 81 mg, PO, Celio yennifer -03 Daily, 0 l 00:39: Refill(s) Jose Manuel 00 aspirin Yes 81 mg, PO, Celio yennifer 03 Daily, 0 l 00:39: Refill(s) Odell 00 AMIODarone Yes 200 mg = 1 M emoria 200 mg oral 03 tab, PO, l tablet 00:39: Daily, # Jose Manuel 00 90 tab, 3 Refill(s) pantoprazol Yes 40 mg = 1 M emoria e 40 mg - tab, PO, l oral 00:39: Daily, # Jose Manuel enteric 00 30 tab, 1 coated Refill(s) tablet Hydrochloro Yes 1 tab, PO, Memoria thiazide 03 Daily, # l 12.5 MG / 00:39: 30 tab, 0 Her carias Refill(s) Potassium 50 MG Oral Tablet Aspirin Yes 81 mg, PO, Celio yennifer 03-27 Daily, 0 l 00:39: Refill(s) rivaroxaban Yes 20 mg = 1 M [...] 03-26 not exceed l 23:40: 4 gm/day. Odell (Same as: Tylenol) Zofran No Notes: Memoria 03-26 (Same as: l 23:38: Zofran) Jose Manuel 00 MEDICATION WASTE Product Size: 4 mg Product Wasted: 0 mg Lovenox No Notes: Memoria 03-26 (Same as: l 23:38: Lovenox) Jose Manuel Zofran No Notes: Memoria 03-26 (Same as: l 23:38: Zofran) Jose Manuel 00 MEDICATION WASTE Product Size: 4 mg Product Wasted: 0 mg Lovenox No Notes: Memoria 03-26 (Same as: l 23:38: Lovenox) Odell Zofran No Notes: Memoria 03-26 (Same as: l 23:38: Zofran) Jose Manuel 00 MEDICATION WASTE Product Size: 4 mg Product Wasted: 0 mg Lovenox No Notes: Memoria 03-26 (Same as: l 23:38: Lovenox) Jose Manuel 00 D5W 1/2NS + No Notes: Celio yennifer KCL 20mEq/L 1-02 PREMIX IV l 1000ml 15:36: - Do Not Jose Manuel (Premix) 00 Alter 1,000 mL D5W 1/2NS + No Notes: Celio yennifer KCL 20mEq/L 1-02 PREMIX IV l 1000ml 15:36: - Do Not Jose Manuel (Premix) 00 Alter 1,000 mL D5W 1/2NS + No Notes: Celio yennifer KCL 20mEq/L 1-02 PREMIX IV l 1000ml 15:36: - Do Not Jose Manuel (Premix) 00 Alter 1,000 mL Vital Signs Vital Name Observation Time Observation Value Comments Source Systolic (mm Hg) 2022-04-13 19:06:00 Celio rial Odell Diastolic (mm Hg) 2022-04-13 19:06:00 Mem orial Odell Heart Rate 2022-04-13 19:06:00 [facility] Jose Manuel Height 2022-04-13 19:06:00 5 [ft_i] [facility] [place] Weight 2022-04-13 19:06:00 [facility] Jose Manuel BMI Calculated 2022-04-13 19:06:00 Memori al Jose Manuel Systolic (mm Hg) 2022-02-01 16:36:00 Celio rial Jose Manuel Diastolic (mm Hg) 2022-02-01 16:36:00 Mem orial Jose Manuel Heart Rate 2022-02-01 16:36:00 [facility] Odell Height 2022-02-01 16:36:00 5 [ft_i] [facility] [place] Weight 2022-02-01 16:36:00 [facility] [place] BMI Calculated 2022-02-01 16:36:00 Memori al [place] Systolic (mm Hg) 2021-11-29 14:20:00 Celio rial Odell Diastolic (mm Hg) 2021-11-29 14:20:00 Mem orial Jose Manuel Heart Rate 2021-11-29 14:20:00 [facility] Jose Manuel Respitory Rate 2021-11-29 14:20:00 Memori al Jose Manuel Height 2021-11-29 14:20:00 177.8 cm [facility] [place] Weight 2021-11-29 14:20:00 [facility] Jose Manuel BMI Calculated 2021-11-29 14:20:00 Memori al Jose Manuel Respitory Rate 2015-04-01 17:35:00 Memori al Jose Manuel Systolic (mm Hg) 2015-04-01 17:35:00 Celio rial Odell Diastolic (mm Hg) 2015-04-01 17:35:00 Mem orial Odell Heart Rate 2015-04-01 17:35:00 [facility] Jose Manuel Temperature Oral (F) 2015-04-01 17:35:00 97.6 F [facility] Jose Manuel Respitory Rate 2015-04-01 13:27:00 Memori al Od[place] Heart Rate 2015-04-01 13:27:00 [facility] Jose Manuel Temperature Oral (F) 2015-04-01 13:27:00 97.0 F [facility] [place] Systolic (mm Hg) 2015-04-01 13:27:00 Celio rial Jose Manuel Diastolic (mm Hg) 2015-04-01 13:27:00 Mem orial Odell Heart Rate 2015-04-01 10:33:00 [facility] [place] Systolic (mm Hg) 2015-04-01 10:33:00 Celio rial Odell Diastolic (mm Hg) 2015-04-01 10:33:00 Mem orial Jose Manuel Respitory Rate 2015-04-01 10:33:00 Memori al Jose Manuel Temperature Oral (F) 2015-04-01 10:33:00 97.3 F [facility] Jose Manuel BMI Calculated 2015-04-01 02:39:00 Memori al Jose Manuel Height 2015-04-01 02:39:00 180.34 cm [facility] [place] Weight 2015-04-01 02:39:00 [facility] [place] Systolic (mm Hg) 2015-03-28 21:13:00 Celio rial Jose Manuel Diastolic (mm Hg) 2015-03-28 21:13:00 Mem orial Odell Respitory Rate 2015-03-28 21:13:00 Memori al Jose Manuel Heart Rate 2015-03-28 21:13:00 [facility] Jose Manuel Respitory Rate 2015-03-28 21:10:00 Memori al Jose Manuel Systolic (mm Hg) 2015-03-28 21:10:00 Celio rial Odell Diastolic (mm Hg) 2015-03-28 21:10:00 Mem orial Jose Manuel Heart Rate 2015-03-28 21:10:00 [facility] [place]ell Temperature Oral (F) 2015-03-28 21:10:00 96.3 F [facility] [place] Respitory Rate 2015-03-28 17:49:00 Memori al [place]ell Systolic (mm Hg) 2015-03-28 17:38:00 Celio rial Jose Manuel Diastolic (mm Hg) 2015-03-28 17:38:00 Mem orial Odell Heart Rate 2015-03-28 17:38:00 [facility] Jose Manuel Temperature Oral (F) 2015-03-28 17:38:00 96.3 F [facility] Jose Manuel Weight 2015-03-28 12:08:00 [facility] [place] BMI Calculated 2015-03-28 12:08:00 Memori al Jose Manuel Height 2015-03-28 12:08:00 180.34 cm [facility] [place]ell Temperature Oral (F) 2015-03-28 08:49:00 98.8 F [facility] Jose Manuel Weight 2015-03-27 00:32:00 [facility] Jose Manuel BMI Calculated 2015-03-27 00:32:00 Mckay lomeli Jose Manuel Height 2015-03-27 00:32:00 180.34 cm [facility] Jose Manuel BMI Calculated 2015-03-26 15:12:00 Mckay lomeli Odell Weight 2015-03-26 15:12:00 [facility] [place] Height 2015-03-26 15:12:00 180.34 cm [facility] Jose Manuel Procedures Procedure Date / Time Performing Clinician Source Performed Heart procedure [facility] Jose Manuel Cholecystectomy [facility] Jose Manuel [facility] Odell Catheter ablation for [facility] ermann cardiac arrhythmia Bilateral inguinal hernia [facility] al Jose Manuel repair Plan of Care Planned Activity Planned Date Details Comments Source Future Scheduled 2022-09-06 [facility] Test 13:35:33 malignant neoplasm of colon (procedure) [code = 320966420] Future Scheduled 2022-09-06 [facility] Test 13:35:33 malignant neoplasm of colon (procedure) [code = 510445955] Future Scheduled 2022-09-06 [facility] Test 13:35:33 malignant neoplasm of colon (procedure) [code = 754014767] Future Scheduled 2022-09-06 COVID-19 VACCINE (#1) [facility] Test 13:35:33 [code = COVID-19 VACCINE (#1)] Future Scheduled 2022-09-06 [facility] Test 13:35:33 malignant neoplasm of colon (procedure) [code = 116832480] Future Scheduled 2022-09-06 [facility] Test 13:35:33 malignant neoplasm of colon (procedure) [code = 038288512] Future Scheduled 2022-09-06 SHINGLES VACCINES (1 [facility] 13:35:33 of 2) [code = SHINGLES VACCINES (1 of 2)] Future Scheduled 2022-09-06 INFLUENZA VACCINE [facility] 13:35:33 [code = INFLUENZA VACCINE] Future Scheduled 2022-03-08 COVID-19 VACCINE (#1) [facility] Test 02:19:08 [code = COVID-19 VACCINE (#1)] Future Scheduled 2022-03-08 COLONOSCOPY SCREENING [facility] Test 02:19:08 [code = COLONOSCOPY SCREENING] Future Scheduled 2022-03-08 SHINGLES VACCINES (1 Met [facility] Test 02:19:08 of 2) [code = SHINGLES VACCINES (1 of 2)] Future Scheduled 2022-03-08 INFLUENZA VACCINE Method [facility] Test 02:19:08 [code = INFLUENZA VACCINE] Future Scheduled 2022-03-08 COVID-19 VACCINE (#1) [facility] Test 02:19:08 [code = COVID-19 VACCINE (#1)] Future Scheduled 2022-03-08 COLONOSCOPY SCREENING [facility] Test 02:19:08 [code = COLONOSCOPY SCREENING] Future Scheduled 2022-03-08 SHINGLES VACCINES (1 Met [facility] Test 02:19:08 of 2) [code = SHINGLES VACCINES (1 of 2)] Future Scheduled 2022-03-08 INFLUENZA VACCINE [facility] Test 02:19:08 [code = INFLUENZA VACCINE] Encounters Start End Encounter Admission Attending Care Care Encounter Source Date/Time Date/Time Type Type Clinicians Facility Department ID 2022-08-09 2022-08-09 Ambulatory IE GISEL [id number] Memoria 14:45:00 14:45:00 Pre-Reg Neurology 05 l Mignon Richard 2022-08-09 2022-08-09 Outpatient IE BENITEZ [id number] Memoria 09:45:00 09:45:00 05 chano ChristinaJose Manuel 2022-08-09 2022-08-09 Outpatient IE BENITEZ [id number] Memoria 09:45:00 09:45:00 05 chano Jose Manuel 2022-08-09 2022-08-09 [id number] 09:45:00 09:45:00 [facility] Abdul 2022-06-01 2022-06-01 Ambulatory MHIE MNA [id number] Memoria 16:30:00 16:30:00 Pre-Reg Neurology 03 chano Mignon Richard 2022-06-01 2022-06-01 Outpatient IE BENITEZ [id number] Memoria 10:30:00 10:30:00 03 chano Richard 2022-06-01 2022-06-01 Outpatient IE BENITEZ [id number] Memoria 10:30:00 10:30:00 03 chano Richard 2022-06-01 2022-06-01 Outpatient BELIA SinghSDSCHER MHMISCHER [id number] 10:30:00 10:30:00 [facility] 03 Franko 2022-04-26 2022-04-26 Outpatient TEJAL Jose [facility] [id number] [facility] 11:57:00 11:57:[address] [place] [address] 2022-04-13 2022-04-14 Outpatient MHIE MNA [id number] Memoria 19:15:00 05:59:59 Neurology 04 l Mginon Christinaann 2022-04-13 2022-04-14 Outpatient MHIE MNA [id number] Memoria 19:15:00 05:59:59 Neurology 04 chano Christinaann 2022-04-13 2022-04-13 Outpatient BELIA SinghMISCHER MHMISCHER [id number] 13:15:00 23:59:59 [facility] 04 Franko 2022-04-13 2022-04-13 Outpatient MHIE MHIE [id number] Memoria 13:15:00 13:15:00 04 chano Richard 2022-02-01 2022-02-02 Outpatient nullFlavo MNA [id number] [facility] 16:30:00 05:59:59 r Neurology 02 chano Bradford Jose Manuel 2022-02-01 2022-02-02 Outpatient nullFlavo MNA [id number] [facility] 16:30:00 05:59:59 r Neurology 02 chano Bradford Jose Manuel 2022-02-01 2022-02-01 Outpatient HERNAN SinghSCHER MHMISCHER [id number] 10:30:00 23:59:59 [facility] 02 Franko 2022-02-01 2022-02-01 Outpatient MHIE MHIE [id number] Memoria 10:30:00 10:30:00 02 chano Odell 2021-11-29 2021-11-30 Outpatient nullFlavo MNA [id number] [facility] 14:00:00 04:59:59 r Neurology 01 l Bradford Jose Manuel 2021-11-29 2021-11-30 Outpatient nullFlavo MNA [id number] [facility] 14:00:00 04:59:59 r Neurology 01 l Mignon Richard 2021-11-29 2021-11-29 [facility] [id number] 09:00:00 23:59:59 [facility] Franko 2021-11-29 2021-11-29 Outpatient BENITEZ BENITEZ [id number] Memoria 09:00:00 09:00:00 01 l Jose Manuel 2018-01-17 2018-01-17 Ambulatory nullFlavo MNA [id number] [facility] 14:00:00 14:00:00 Pre-Reg r Neurology 00 l Mignon Richard 2018-01-17 2018-01-17 Ambulatory nullFlavo MNA [id number] [facility] 14:00:00 14:00:00 Pre-Reg r Neurology 00 l Mignon Richard 2018-01-17 2018-01-17 [facility] [id number] 09:00:00 09:00:00 [facility] Franko 2015-04-01 2015-04-01 OBS nullFlavo [facility] [id number] Memoria 02:27:00 19:50:00 Observatio r Odell 07 l n Patient [facility] 2015-04-01 2015-04-01 OBS nullFlavo [facility] [id number] Memoria 02:27:00 19:50:00 Observatio r Jose Manuel 07 l n Patient [facility] 2015-03-31 2015-04-01 Outpatient Ld [facility] [id number] 20:27:00 13:50:00 [facility]2015-03-26 2015-03-29 OBS nullFlavo [facility] [id number] Memoria 15:12:00 00:09:00 Observatio r Jose Manuel 02 l n Patient [facility] 2015-03-26 2015-03-29 OBS nullFlavo [facility] [id number] Memoria 15:12:00 00:09:00 Observatio r Odell 02 l n Patient [facility] 2015-03-26 2015-03-28 Outpatient Letty [facility] [id number] 09:12:00 18:09:00 Brian 02 Ahmed Results Test Description Test Time Test Comments Results Result [facility] e Comments - [place] 2022-04-26 ORBIT/SELLA/IAC WO 00:00:00 [facility] MAGNUS TEIXEIRAName: DANII STALEY : 1960 Sex: M Name: DANII STALEY [facility] [place] : 1960 Age/S: 61 / M [address] [place] [address] Unit #: [id number] Loc: [place] [address] Phys: Yandel Fernandez MD Acct: [id number] Dis Date: Status: REG CLI PHONE #: [phone] Exam Date: 04/26/2022 1229 FAX #: [phone] Reason: 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 EXAMS: CPT CODE: [id number] CT ORBIT/SELLA/I[place] [address] PROCEDURE INFORMATION: Exam: CT Temporal Bones Without [...] 1 Signed Report (CONTINUED) Name: DANII STALEY [facility] : 1960 Age/S: 61 / M [address] [place] [address] Blvd Unit #: [id number] Loc: [place] [address] Phys: Yandel Fernandez MD Acct: [id number] Dis Date: Status: REG CLI PHONE #: [phone] Exam Date: 04/26/2022 1229 FAX #: [phone] Reason: 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 EXAMS: CPT CODE: [id number] CT ORBIT/SELLA/[place] [address] (Continued) IMPRESSION: There is normal pneumatization of bilateral middle ear cavity, antrum and mastoid air cells with a left mastoidectomy and and suspected right. at 1312 Reported and signed by: Tl Dacosta M.D. CC: Yandel Fernandez MD; Rayshawn Leon MD Technologist:RT Smiley(MR)(CT) CTDI: DLP: Trnscb Date/Time: 04/26/2022 (1312) [email or web address] Orig Print D/T: S: 04/26/2022 (1312) PAGE 2 Signed Report HEMATOLOGY 2022-02-01 17:23:00 Test Item Value Reference Range Interpretation Comme nts Monocytes # (test code = Monocytes #) 707 200-950 [facility]KhbzdeuPGHSZWTMPL0412-57-65 17:23:00 Test Item Value Reference Range Interpretation Comments Eosinophils # (test code = Eosinophils 210 15-500 #) [facility] CenterLfqngdwWLJXDFIFKR3274-31-33 17:23:00 Test Item Value Reference Range Interpretation Comments Basophils # (test code 77 See_Comment [Aut omated message] The = Basophils #) system which generated this result tra nsmitted reference range : <=200. The reference r rafat was not used to int erpret this result as normal/abnormal . [facility] CenterCdbikdrJXGXYUDDVS4365-61-29 17:23:00 Test Item Value Reference Range Interpretation Comments Segs (test code = Segs) 64.2 [facility] CenterOtuifzoGFWPDMYWHZ2345-48-45 17:23:00 Test Item Value Reference Range Interpretation Comments Lymphocytes (test code = Lymphocytes) 21.6 [facility] CenterNsapbobPEMCEMONFI7961-09-27 17:23:00 Test Item Value Reference Range Interpretation Comments Monocytes (test code = Monocytes) 10.1 [facility] CenterWhkmuhaRQOLPDLUWX5994-81-65 17:23:00 Test Item Value Reference Range Interpretation Comments Eosinophils (test code = Eosinophils) 3.0 [facility] CenterGngtvafLMUGSTXKND7682-63-68 17:23:00 Test Item Value Reference Range Interpretation Comments Basophils (test code = Basophils) 1.1 [facility] CenterOqhohawXIZTSVNKGC9560-84-00 17:23:00 Test Item Value Reference Range Interpretation Comments Diff Comment (test code = Diff SEE COMMENT Comment) [facility]udaEfsudprEELYNEHFO7678-27-03 17:23:00 Test Item Value Reference Range Interpretation Comments TSH (test code = TSH) 2.01 0.40-4.50 [facility] BudaSxihhhkFKJNAWVRL1557-20-21 17:23:00 Test Item Value Reference Range Interpretation Comments Vitamin B12 Lvl (test code = Vitamin [phone] B12 Lvl) [facility] CenterAnglvkgIXFMLDVXBN4350-10-47 17:23:00 Test Item Value Reference Range Interpretation Comments Sed Rate (test code = Sed Rate) 2 [facility] CenterJcukjlqSZEGJLJBKQ1907-45-02 17:23:00 Test Item Value Reference Range Interpretation Comments WBC X 10x3 (test code = WBC X 10x3) 7.0 3.8-10.8 [facility] CenterIgbdhhkFIBUFQEOMH9845-09-70 17:23:00 Test Item Value Reference Range Interpretation Comments RBC X 10x6 (test code = RBC X 10x6) 5.48 4.20-5.80 [facility] CenterAlgvivoSJPYKZTLAX2448-03-69 17:23:00 Test Item Value Reference Range Interpretation Comments Hgb (test code = Hgb) 16.5 13.2-17.1 [facility] CenterWsjakzsUMAKACEUDH3444-47-66 17:23:00 Test Item Value Reference Range Interpretation Comments Hct (test code = Hct) 48.7 38.5-50.0 [facility] CenterXdaavufRCCZFQLDDX3944-18-79 17:23:00 Test Item Value Reference Range Interpretation Comments MCV (test code = MCV) 88.9 80.0-100.0 [facility] CenterRgnqqedKQQWZOHIGV3629-16-51 17:23:00 Test Item Value Reference Range Interpretation Comments MCH (test code = MCH) 30.1 pg 27.0-33.0 [facility] CenterSfzqpdxJYGDGDZVTZ0180-47-38 17:23:00 Test Item Value Reference Range Interpretation Comments MCHC (test code = MCHC) 33.9 32.0-36.0 [facility] CenterMpfnrjaVXOOZQIRWD2693-48-27 17:23:00 Test Item Value Reference Range Interpretation Comments RDW (test code = RDW) 13.2 11.0-15.0 [facility] CenterFwfdylbSEKIKVDIYK1662-55-55 17:23:00 Test Item Value Reference Range Interpretation Comments Platelet (test code = Platelet) 204 140-400 [facility] CenterAduyqqsSYVPKUAPJZ3245-78-66 17:23:00 Test Item Value Reference Range Interpretation Comments MPV (test code = MPV) 9.8 7.5-12.5 [facility] CenterZpfhkmqXHRZINGMSN4728-33-47 17:23:00 Test Item Value Reference Range Interpretation Comments Neutrophils # (test code = Neutrophils 4494 4502-2095 #) [facility] CenterNvpvaleDZYBCGPDSQ2639-82-33 17:23:00 Test Item Value Reference Range Interpretation Comments Lymphocytes # (test code = Lymphocytes 9861 501-8203 #) [facility] CenterTpjljnjGAAHGAXPQQ2306-83-54 17:23:00 Test Item Value Reference Range Interpretation Comments Monocytes # (test code = Monocytes #) 707 200-950 [facility] CenterYsazfbdWLFSPPLJLW4797-80-84 17:23:00 Test Item Value Reference Range Interpretation Comments Eosinophils # (test code = Eosinophils 210 15-500 #) [facility] CenterFyxowgjDXNWQLDNUO7260-33-61 17:23:00 Test Item Value Reference Range Interpretation Comments Basophils # (test code 77 See_Comment [Aut omated message] The = Basophils #) system which generated this result tra nsmitted reference range : <=200. The reference r rafat was not used to int erpret this result as normal/abnormal . [facility] CenterWsustrsNTCBPMGNSZ2600-80-85 17:23:00 Test Item Value Reference Range Interpretation Comments Segs (test code = Segs) 64.2 [facility] CenterHyyglaaOSAMIMNRTH2075-92-03 17:23:00 Test Item Value Reference Range Interpretation Comments Lymphocytes (test code = Lymphocytes) 21.6 [facility] CenterIlhfhitFYTHCGDCXQ7319-11-11 17:23:00 Test Item Value Reference Range Interpretation Comments Monocytes (test code = Monocytes) 10.1 [facility] CenterMlelzpeORCWDTUAPL4329-74-55 17:23:00 Test Item Value Reference Range Interpretation Comments Eosinophils (test code = Eosinophils) 3.0 [facility] CenterIlnlcitVANUCPQPKJ2496-46-79 17:23:00 Test Item Value Reference Range Interpretation Comments Eosinophils # (test code = Eosinophils 210 15-500 #) [facility] CenterWwrgfskESOYQCUNPS0855-72-81 17:23:00 Test Item Value Reference Range Interpretation Comments Basophils # (test code 77 See_Comment [Aut omated message] The = Basophils #) system which generated this result tra nsmitted reference range : <=200. The reference r rafat was not used to int erpret this result as normal/abnormal . [facility] CenterSfceouwVKOHMINKGR2549-86-19 17:23:00 Test Item Value Reference Range Interpretation Comments Segs (test code = Segs) 64.2 [facility] CenterDmzapioAHURWVNFXR1970-33-61 17:23:00 Test Item Value Reference Range Interpretation Comments Lymphocytes (test code = Lymphocytes) 21.6 [facility] CenterQkjrohiJNZHDJBVLW4005-13-06 17:23:00 Test Item Value Reference Range Interpretation Comments Monocytes (test code = Monocytes) 10.1 [facility] CenterFopwsdqGSBCRLFQAQ0465-50-55 17:23:00 Test Item Value Reference Range Interpretation Comments Eosinophils (test code = Eosinophils) 3.0 [facility] CenterVraagpxMKWRNMXZSA2606-21-08 17:23:00 Test Item Value Reference Range Interpretation Comments Basophils (test code = Basophils) 1.1 [facility] CenterHkuyqhuRZNGYWSHHH4838-76-74 17:23:00 Test Item Value Reference Range Interpretation Comments Diff Comment (test code = Diff SEE COMMENT Comment) [facility]udaGsszucxDQARQEETW8974-68-31 17:23:00 Test Item Value Reference Range Interpretation Comments TSH (test code = TSH) 2.01 0.40-4.50 [facility] BudaYjaypubXHKBBAPQC1490-67-63 17:23:00 Test Item Value Reference Range Interpretation Comments Vitamin B12 Lvl (test code = Vitamin 668 765-4942 B12 Lvl) [facility] CenterGbdqzmiYKXSILIAPR1047-72-22 17:23:00 Test Item Value Reference Range Interpretation Comments Sed Rate (test code = Sed Rate) 2 [facility] CenterYzsbvovPZPTCCYNIB0704-83-35 17:23:00 Test Item Value Reference Range Interpretation Comments WBC X 10x3 (test code = WBC X 10x3) 7.0 3.8-10.8 [facility] CenterKwfnzazGWSZITMSEN2841-56-02 17:23:00 Test Item Value Reference Range Interpretation Comments RBC X 10x6 (test code = RBC X 10x6) 5.48 4.20-5.80 [facility] CenterSmlagtmGUGOPZYZIE4479-54-41 17:23:00 Test Item Value Reference Range Interpretation Comments Hgb (test code = Hgb) 16.5 13.2-17.1 [facility] CenterTfaxllyDBPRVHATTJ8156-19-46 17:23:00 Test Item Value Reference Range Interpretation Comments Hct (test code = Hct) 48.7 38.5-50.0 [facility] CenterFbjxjghBJRDLVFXQC7739-60-97 17:23:00 Test Item Value Reference Range Interpretation Comments MCV (test code = MCV) 88.9 80.0-100.0 [facility] CenterHdbgovoOBOGSQSYCT0975-29-93 17:23:00 Test Item Value Reference Range Interpretation Comments MCH (test code = MCH) 30.1 pg 27.0-33.0 [place] 756332-11-10 17:23:00 Test Item Value Reference Range Interpretation Comments MCHC (test code = MCHC) 33.9 32.0-36.0 [place] 756332-11-10 17:23:00 Test Item Value Reference Range Interpretation Comments RDW (test code = RDW) 13.2 11.0-15.0 [facility] CenterLadjtkqLXSQCDKJRM1515-25-90 17:23:00 Test Item Value Reference Range Interpretation Comments Platelet (test code = Platelet) 204 140-400 [facility] CenterUnqlhkfIVWEOKRUEM7755-33-10 17:23:00 Test Item Value Reference Range Interpretation Comments MPV (test code = MPV) 9.8 7.5-12.5 [facility] CenterIuodvyiUOTLFMHRKX4800-91-99 17:23:00 Test Item Value Reference Range Interpretation Comments Neutrophils # (test code = Neutrophils 4494 2329-1332 #) [facility] CenterVqsprpgFZHOZVDZBM2478-81-88 17:23:00 Test Item Value Reference Range Interpretation Comments Lymphocytes # (test code = Lymphocytes 4989 396-4658 #) [facility] CenterRployusPRLHOCXOWT7521-31-95 17:23:00 Test Item Value Reference Range Interpretation Comments Monocytes # (test code = Monocytes #) 707 200-950 [facility] CenterTrzqlmrLKVRAVCPTX0988-84-11 17:23:00 Test Item Value Reference Range Interpretation Comments Basophils (test code = Basophils) 1.1 [facility] CenterLjpqxuqDYHMCUGWTM5987-28-50 17:23:00 Test Item Value Reference Range Interpretation Comments Diff Comment (test code = Diff SEE COMMENT Comment) [facility] BudaVmtagvoDCFNDVKEB2949-58-77 17:23:00 Test Item Value Reference Range Interpretation Comments TSH (test code = TSH) 2.01 0.40-4.50 [facility] BudaOltwojsQDZIIDSMN4453-63-48 17:23:00 Test Item Value Reference Range Interpretation Comments Vitamin B12 Lvl (test code = Vitamin 601 634-4607 B12 Lvl) [facility] CenterKmozqzgWPHBANOWNO9465-78-35 17:23:00 Test Item Value Reference Range Interpretation Comments Sed Rate (test code = Sed Rate) 2 [facility] CenterUisxixkVIUGNDYKXF7522-57-57 17:23:00 Test Item Value Reference Range Interpretation Comments WBC X 10x3 (test code = WBC X 10x3) 7.0 3.8-10.8 [facility] CenterTvfwfmmPBXQYPVRFP1878-70-48 17:23:00 Test Item Value Reference Range Interpretation Comments RBC X 10x6 (test code = RBC X 10x6) 5.48 4.20-5.80 [facility] CenterAnkegzjXOJXWWQWPJ0902-32-94 17:23:00 Test Item Value Reference Range Interpretation Comments Hgb (test code = Hgb) 16.5 13.2-17.1 [facility] CenterXqxeeuuJARWFQLPCQ6006-38-51 17:23:00 Test Item Value Reference Range Interpretation Comments Hct (test code = Hct) 48.7 38.5-50.0 [facility] CenterRotpneaCDRUBLKQRZ2500-70-22 17:23:00 Test Item Value Reference Range Interpretation Comments MCV (test code = MCV) 88.9 80.0-100.0 [facility] CenterHtbfncdIMLCEUYRXJ5892-84-49 17:23:00 Test Item Value Reference Range Interpretation Comments MCH (test code = MCH) 30.1 pg 27.0-33.0 [facility] CenterElgbqdbEJNBYKEPNV7618-65-69 17:23:00 Test Item Value Reference Range Interpretation Comments MCHC (test code = MCHC) 33.9 32.0-36.0 [facility] CenterSfvpoxrSQPMDXGRWR6225-02-25 17:23:00 Test Item Value Reference Range Interpretation Comments RDW (test code = RDW) 13.2 11.0-15.0 [facility] CenterAchnlrbFXRDMFZZYI6299-58-75 17:23:00 Test Item Value Reference Range Interpretation Comments Platelet (test code = Platelet) 204 140-400 [facility] CenterKxoxknsCEIHXOIHWY0825-70-77 17:23:00 Test Item Value Reference Range Interpretation Comments MPV (test code = MPV) 9.8 7.5-12.5 [facility] CenterWplowxpUNVAJUGHVT5598-02-45 17:23:00 Test Item Value Reference Range Interpretation Comments Neutrophils # (test code = Neutrophils 4494 7933-3980 #) [facility] CenterVvuydzmKQOUBNFOMJ9338-25-04 17:23:00 Test Item Value Reference Range Interpretation Comments Lymphocytes # (test code = Lymphocytes 5307 495-1115 #) [facility] CenterLyrctgnMWJALJTNPL8724-51-34 12:10:00 Test Item Value Reference Range Interpretation Comments Hct (test code = Hct) 35.8 42.0-54.0 [facility] CenterFhlhyopJNAWJLODMG8220-24-47 12:10:00 Test Item Value Reference Range Interpretation Comments Hgb (test code = Hgb) 11.9 14.0-18.0 [facility] CenterMzrvcqbPVQBPTMDOZ9565-95-92 12:10:00 Test Item Value Reference Range Interpretation Comments RBC (test code = RBC) 3.99 4.70-6.10 [facility] CenterOsfgspoPSXTSXVENJ8620-09-84 12:10:00 Test Item Value Reference Range Interpretation Comments WBC (test code = WBC) 4.6 3.7-10.4 [facility] CenterUetyfgpKWIUQBVZKI4444-09-80 12:10:00 Test Item Value Reference Range Interpretation Comments MCHC (test code = MCHC) 33.2 32.0-36.0 [facility] CenterCmsjwkaKKPKQTTVHO5835-96-67 12:10:00 Test Item Value Reference Range Interpretation Comments MPV (test code = MPV) 7.3 7.4-10.4 [facility] CenterZbjiitlHVQFBZCQPK4247-29-70 12:10:00 Test Item Value Reference Range Interpretation Comments Platelet (test code = Platelet) 215 133-450 [facility] CenterQhamcmtNBIXIOYUMI4327-47-00 12:10:00 Test Item Value Reference Range Interpretation Comments RDW (test code = RDW) 14.0 11.5-14.5 [facility] CenterHolqtzaOZRGLEMNCK9498-84-03 12:10:00 Test Item Value Reference Range Interpretation Comments MCH (test code = MCH) 29.9 pg 27.0-31.0 [facility] CenterTftqroaMSAEPCQTPE7084-64-44 12:10:00 Test Item Value Reference Range Interpretation Comments MCV (test code = MCV) 89.9 80.0-94.0 [facility] CenterStzoofvVDKEZGATKG0664-78-72 12:10:00 Test Item Value Reference Range Interpretation Comments RBC Morph (test code = Normal (04/01/15 6:10 AM) RBC Morph) [facility] CenterYradwbgIVURDJMSXL2072-95-87 12:10:00 Test Item Value Reference Range Interpretation Comments Segs (test code = Segs) 63.3 45.0-75.0 [facility] CenterQiukbloHJOGSATNRY9139-41-55 12:10:00 Test Item Value Reference Range Interpretation Comments Plt Morph (test code = Normal (04/01/15 6:10 AM) Plt Morph) [facility] CenterPhaqbanUVTQMCPRRB6010-78-38 12:10:00 Test Item Value Reference Range Interpretation Comments Lymphocytes (test code = Lymphocytes) 21.2 20.0-40.0 [facility] CenterQwpjrfaMYXIJJBOHQ1774-01-73 12:10:00 Test Item Value Reference Range Interpretation Comments Eosinophils (test code = 3.3 See_Comment [A utomated message] The Eosinophils) system which ge nerated this result tra nsmitted reference range : <=4.0. The reference r rafat was not used to int erpret this result as normal/abnormal . [facility] CenterAgamqtuQPXIAPMJWZ6653-41-83 12:10:00 Test Item Value Reference Range Interpretation Comments Monocytes (test code = Monocytes) 11.5 2.0-12.0 [facility] CenterFhcfrdbPNDNGWVVSS3713-90-61 12:10:00 Test Item Value Reference Range Interpretation Comments Basophils (test code = 0.7 See_Comment [Aut omated message] The Basophils) system which ge nerated this result tra nsmitted reference range : <=1.0. The reference r rafat was not used to int erpret this result as normal/abnormal . [facility] CenterLenmrnwZJNMWRTOEH0333-72-56 12:10:00 Test Item Value Reference Range Interpretation Comments Lymphocytes # (test code = Lymphocytes 1.0 1.0-5.5 #) [facility] CenterUqsseauIYJZUTFQQE7429-25-16 12:10:00 Test Item Value Reference Range Interpretation Comments Monocytes # (test code 0.5 See_Comment [Aut omated message] The = Monocytes #) system which generated this result tra nsmitted reference range : <=0.8. The reference r rafat was not used to int erpret this result as normal/abnormal . [facility] CenterTounkyuSNTPTWMCXW8821-19-09 12:10:00 Test Item Value Reference Range Interpretation Comments Eosinophils # (test code 0.1 See_Comment [A utomated message] The = Eosinophils #) system whic h generated this result tra nsmitted reference range : <=0.5. The reference r rafat was not used to int erpret this result as normal/abnormal . [facility] CenterSsxxlisVUSVKCYJPA6361-38-86 12:10:00 Test Item Value Reference Range Interpretation Comments Segs-Bands # (test code = Segs-Bands #) 2.9 1.5-8.1 [facility] CenterPjthswgKUETDMPMEP6109-88-57 12:10:00 Test Item Value Reference Range Interpretation Comments Hct (test code = Hct) 35.8 42.0-54.0 [facility] CenterQpaxnimRRHVUTWATM3520-61-79 12:10:00 Test Item Value Reference Range Interpretation Comments Hgb (test code = Hgb) 11.9 14.0-18.0 [facility] CenterSohcaccQBQRIUSPFR9665-25-41 12:10:00 Test Item Value Reference Range Interpretation Comments RBC (test code = RBC) 3.99 4.70-6.10 [facility] CenterFtgawthAWGXWRPOOS4070-33-67 12:10:00 Test Item Value Reference Range Interpretation Comments WBC (test code = WBC) 4.6 3.7-10.4 [facility] CenterUqpbvgaBQGMYWNKPZ3077-57-85 12:10:00 Test Item Value Reference Range Interpretation Comments MCHC (test code = MCHC) 33.2 32.0-36.0 [facility] CenterBgedkdtLBMRZQFIMD3967-18-76 12:10:00 Test Item Value Reference Range Interpretation Comments MPV (test code = MPV) 7.3 7.4-10.4 [facility] CenterXfbihkdFAXQFWVTLK8062-36-18 12:10:00 Test Item Value Reference Range Interpretation Comments Platelet (test code = Platelet) 215 133-450 [facility] CenterUvwtijhSNWURNLWZR8870-46-52 12:10:00 Test Item Value Reference Range Interpretation Comments RDW (test code = RDW) 14.0 11.5-14.5 [facility] CenterQzrduxyUNYTWWBXNZ2176-20-57 12:10:00 Test Item Value Reference Range Interpretation Comments MCH (test code = MCH) 29.9 pg 27.0-31.0 [facility] CenterPnzyemnSCDEPXKZCB4309-91-84 12:10:00 Test Item Value Reference Range Interpretation Comments MCV (test code = MCV) 89.9 80.0-94.0 [facility] CenterOhfuwzpJTOFPXLICU1908-46-43 12:10:00 Test Item Value Reference Range Interpretation Comments RBC Morph (test code = Normal (04/01/15 6:10 AM) RBC Morph) [facility] CenterUgsuxicXUNGZYXJNP8999-24-03 12:10:00 Test Item Value Reference Range Interpretation Comments Segs (test code = Segs) 63.3 45.0-75.0 [facility] CenterVoeidjxWKGXEKFRTU4485-96-96 12:10:00 Test Item Value Reference Range Interpretation Comments Plt Morph (test code = Normal (04/01/15 6:10 AM) Plt Morph) [facility] CenterRopsnmxMVVMTQUJCW1424-88-12 12:10:00 Test Item Value Reference Range Interpretation Comments Lymphocytes (test code = Lymphocytes) 21.2 20.0-40.0 [facility] CenterLmtlsiuQTBUAAXPGZ1892-34-11 12:10:00 Test Item Value Reference Range Interpretation Comments Eosinophils (test code = 3.3 See_Comment [A utomated message] The Eosinophils) system which ge nerated this result tra nsmitted reference range : <=4.0. The reference r rafat was not used to int erpret this result as normal/abnormal . [facility] CenterNttufqfTRFDSZUJRJ4545-78-67 12:10:00 Test Item Value Reference Range Interpretation Comments Monocytes (test code = Monocytes) 11.5 2.0-12.0 [facility] CenterBalteoqJACYTKHSDL6112-21-14 12:10:00 Test Item Value Reference Range Interpretation Comments Basophils (test code = 0.7 See_Comment [Aut omated message] The Basophils) system which ge nerated this result tra nsmitted reference range : <=1.0. The reference r rafat was not used to int erpret this result as normal/abnormal . [facility] CenterMdfxyolHCSSSLNRXI8713-10-26 12:10:00 Test Item Value Reference Range Interpretation Comments Lymphocytes # (test code = Lymphocytes 1.0 1.0-5.5 #) [facility] CenterNbvtoswHDQYRAVKJO1161-40-63 12:10:00 Test Item Value Reference Range Interpretation Comments Monocytes # (test code 0.5 See_Comment [Aut omated message] The = Monocytes #) system which generated this result tra nsmitted reference range : <=0.8. The reference r rafat was not used to int erpret this result as normal/abnormal . [facility] CenterVtaejubNZKCHSPLWX8098-16-77 12:10:00 Test Item Value Reference Range Interpretation Comments Eosinophils # (test code 0.1 See_Comment [A utomated message] The = Eosinophils #) system whic h generated this result tra nsmitted reference range : <=0.5. The reference r rafat was not used to int erpret this result as normal/abnormal . [facility] CenterNativiqDIACPAOLGZ3532-01-70 12:10:00 Test Item Value Reference Range Interpretation Comments Segs-Bands # (test code = Segs-Bands #) 2.9 1.5-8.1 [facility] CenterQivwqzgCFXYSAUQVU4736-08-01 12:10:00 Test Item Value Reference Range Interpretation Comments Hct (test code = Hct) 35.8 42.0-54.0 [facility] CenterFlvgdfeZOIBQISFRH5275-58-60 12:10:00 Test Item Value Reference Range Interpretation Comments Hgb (test code = Hgb) 11.9 14.0-18.0 [facility] CenterYaaxumeXDMICCPINS4079-46-17 12:10:00 Test Item Value Reference Range Interpretation Comments RBC (test code = RBC) 3.99 4.70-6.10 [facility] CenterNffzzxdZEJBNLXYJU1015-49-67 12:10:00 Test Item Value Reference Range Interpretation Comments WBC (test code = WBC) 4.6 3.7-10.4 [facility] CenterUwtgbhaQQZPTPQASK7166-95-72 12:10:00 Test Item Value Reference Range Interpretation Comments MCHC (test code = MCHC) 33.2 32.0-36.0 [facility] CenterPlkkyhvTIHGZUFAKB6778-87-64 12:10:00 Test Item Value Reference Range Interpretation Comments MPV (test code = MPV) 7.3 7.4-10.4 [facility] CenterDapchoeGQSZWWWCND2801-46-52 12:10:00 Test Item Value Reference Range Interpretation Comments Platelet (test code = Platelet) 215 133-450 [facility] CenterHwkeibeZMRDGXSAXQ5604-29-45 12:10:00 Test Item Value Reference Range Interpretation Comments RDW (test code = RDW) 14.0 11.5-14.5 [facility] CenterCfjswjzRPGEWNTTOH1948-74-49 12:10:00 Test Item Value Reference Range Interpretation Comments MCH (test code = MCH) 29.9 pg 27.0-31.0 [facility] CenterTzuakpaXSLRTRUVCI3016-97-52 12:10:00 Test Item Value Reference Range Interpretation Comments MCV (test code = MCV) 89.9 80.0-94.0 [facility] CenterAjiiunbEPUTWHKRVL9942-14-18 12:10:00 Test Item Value Reference Range Interpretation Comments RBC Morph (test code = Normal (04/01/15 6:10 AM) RBC Morph) [facility] CenterYxusmdvVXUTTAOWJJ1307-37-26 12:10:00 Test Item Value Reference Range Interpretation Comments Segs (test code = Segs) 63.3 45.0-75.0 [facility] CenterCjrdmemKREKTHOOKY2343-71-03 12:10:00 Test Item Value Reference Range Interpretation Comments Plt Morph (test code = Normal (04/01/15 6:10 AM) Plt Morph) [facility] CenterZtswzwfLMBOFWBVOT3220-16-92 12:10:00 Test Item Value Reference Range Interpretation Comments Lymphocytes (test code = Lymphocytes) 21.2 20.0-40.0 [facility] CenterYyakqfrFBLBYBOVWE2759-21-94 12:10:00 Test Item Value Reference Range Interpretation Comments Eosinophils (test code = 3.3 See_Comment [A utomated message] The Eosinophils) system which ge nerated this result tra nsmitted reference range : <=4.0. The reference r rafat was not used to int erpret this result as normal/abnormal . [facility] CenterBeuyjmvLNDVHKRYJN0844-43-88 12:10:00 Test Item Value Reference Range Interpretation Comments Monocytes (test code = Monocytes) 11.5 2.0-12.0 [facility] CenterPypqphqRBLGGHMKEF8500-28-25 12:10:00 Test Item Value Reference Range Interpretation Comments Basophils (test code = 0.7 See_Comment [Aut omated message] The Basophils) system which ge nerated this result tra nsmitted reference range : <=1.0. The reference r rafat was not used to int erpret this result as normal/abnormal . [facility] CenterQyekviiMMYHKABRQC2143-53-80 12:10:00 Test Item Value Reference Range Interpretation Comments Lymphocytes # (test code = Lymphocytes 1.0 1.0-5.5 #) [facility] CenterXdaesmvENWUQJPCUF8093-68-50 12:10:00 Test Item Value Reference Range Interpretation Comments Monocytes # (test code 0.5 See_Comment [Aut omated message] The = Monocytes #) system which generated this result tra nsmitted reference range : <=0.8. The reference r rafat was not used to int erpret this result as normal/abnormal . [facility] CenterFhexmvrIHSPPYLESH5572-18-86 12:10:00 Test Item Value Reference Range Interpretation Comments Eosinophils # (test code 0.1 See_Comment [A utomated message] The = Eosinophils #) system whic h generated this result tra nsmitted reference range : <=0.5. The reference r rafat was not used to int erpret this result as normal/abnormal . [facility] CenterIegjmwrIKECNLOSVZ1794-32-82 12:10:00 Test Item Value Reference Range Interpretation Comments Segs-Bands # (test code = Segs-Bands #) 2.9 1.5-8.1 [facility] CenterHuzzxkrOUSNMSIKPP8613-61-57 03:53:00 Test Item Value Reference Range Interpretation Comments Hgb (test code = Hgb) 12.0 14.0-18.0 [facility] CenterKtoinzyHYINRZCSOR5211-92-97 03:53:00 Test Item Value Reference Range Interpretation Comments Hct (test code = Hct) 37.1 42.0-54.0 [facility] CenterNvywawiCWVXKCAKOW0345-70-16 03:53:00 Test Item Value Reference Range Interpretation Comments Hgb (test code = Hgb) 12.0 14.0-18.0 [facility] CenterEuacirfERJXOFGNAA1010-55-52 03:53:00 Test Item Value Reference Range Interpretation Comments Hct (test code = Hct) 37.1 42.0-54.0 [facility] CenterEveomcqKHSNZSLACI1952-43-55 03:53:00 Test Item Value Reference Range Interpretation Comments Hgb (test code = Hgb) 12.0 14.0-18.0 [facility] CenterBafwkanTVTNLWFXZD2344-60-87 03:53:00 Test Item Value Reference Range Interpretation Comments Hct (test code = Hct) 37.1 42.0-54.0 [facility]2016-01-04 09:46:00 Test Item Value Reference Range Interpretation Comments eGFR (test code = eGFR) 82 [facility]2016-01-04 09:46:00 Test Item Value Reference Range Interpretation Comments CO2 (test code = CO2) 26 24-32 [facility]2016-01-04 09:46:00 Test Item Value Reference Range Interpretation Comments Calcium Lvl (test code = Calcium Lvl) 8.1 8.5-10.5 [facility]2016-01-04 09:46:00 Test Item Value Reference Range Interpretation Comments Glucose Lvl (test code = Glucose Lvl) 97 70-99 [facility]2016-01-04 09:46:00 Test Item Value Reference Range Interpretation Comments Potassium Lvl (test code = Potassium 3.8 3.5-5.1 Lvl) [facility]2016-01-04 09:46:00 Test Item Value Reference Range Interpretation Comments Chloride Lvl (test code = Chloride Lvl) 107 95-109 [facility]2016-01-04 09:46:00 Test Item Value Reference Range Interpretation Comments BUN (test code = BUN) 14 7-22 [facility]2016-01-04 09:46:00 Test Item Value Reference Range Interpretation Comments Sodium Lvl (test code = Sodium Lvl) 141 135-145 [facility]2016-01-04 09:46:00 Test Item Value Reference Range Interpretation Comments Creatinine Lvl (test code = Creatinine 1.02 0.50-1.40 Lvl) [facility]2016-01-04 09:46:00 Test Item Value Reference Range Interpretation Comments AGAP (test code = AGAP) 11.8 10.0-20.0 [facility]2016-01-04 09:46:00 Test Item Value Reference Range Interpretation Comments Phosphorus (test code = Phosphorus) 3.3 2.5-4.5 [facility]2016-01-04 09:46:00 Test Item Value Reference Range Interpretation Comments Magnesium Lvl (test code = Magnesium 2.0 1.8-2.4 Lvl) [facility] CenterNzlyxueLXGRWFTTFT8841-08-06 09:46:00 Test Item Value Reference Range Interpretation Comments Segs-Bands # (test code = Segs-Bands #) 2.3 1.5-8.1 [place] 073496-01-04 09:46:00 Test Item Value Reference Range Interpretation Comments Lymphocytes # (test code = Lymphocytes 1.2 1.0-5.5 #) [facility] CenterSaxrjrcOTLNWVOVRP6979-82-58 09:46:00 Test Item Value Reference Range Interpretation Comments Basophils (test code = 0.7 See_Comment [Aut omated message] The Basophils) system which ge nerated this result tra nsmitted reference range : <=1.0. The reference r rafat was not used to int erpret this result as normal/abnormal . [facility] CenterMptkqomVASDOBEWQL8083-42-57 09:46:00 Test Item Value Reference Range Interpretation Comments Eosinophils # (test code 0.1 See_Comment [A utomated message] The = Eosinophils #) system whic h generated this result tra nsmitted reference range : <=0.5. The reference r rafat was not used to int erpret this result as normal/abnormal . [facility] CenterHzqwmhkTNOTRFQYSS5037-48-75 09:46:00 Test Item Value Reference Range Interpretation Comments Monocytes # (test code 0.4 See_Comment [Aut omated message] The = Monocytes #) system which generated this result tra nsmitted reference range : <=0.8. The reference r rafat was not used to int erpret this result as normal/abnormal . [facility] CenterFlmhrgbWXVAHZZCPU2826-44-06 09:46:00 Test Item Value Reference Range Interpretation Comments Lymphocytes (test code = Lymphocytes) 28.4 20.0-40.0 [facility] CenterQufhblpMQRYAACPZB4000-31-76 09:46:00 Test Item Value Reference Range Interpretation Comments Monocytes (test code = Monocytes) 11.0 2.0-12.0 [facility] CenterNkjxyddAGUEMNBBJB0103-93-47 09:46:00 Test Item Value Reference Range Interpretation Comments Eosinophils (test code = 3.4 See_Comment [A utomated message] The Eosinophils) system which ge nerated this result tra nsmitted reference range : <=4.0. The reference r rafat was not used to int erpret this result as normal/abnormal . [facility] CenterTluggwdUGGCAYMLTH7695-70-64 09:46:00 Test Item Value Reference Range Interpretation Comments Segs (test code = Segs) 56.5 45.0-75.0 [facility] CenterTyenqwdYFCFKDYUMJ3223-96-67 09:46:00 Test Item Value Reference Range Interpretation Comments MCH (test code = MCH) 29.7 pg 27.0-31.0 [facility] CenterWyxmbbtOJDITAFXRH2067-45-62 09:46:00 Test Item Value Reference Range Interpretation Comments MCV (test code = MCV) 90.0 80.0-94.0 [facility] CenterInrnsyjFQLGMEHMLW3515-80-67 09:46:00 Test Item Value Reference Range Interpretation Comments Hct (test code = Hct) 39.2 42.0-54.0 [facility] CenterEkqzdcmWOHRYOEZSS2070-55-53 09:46:00 Test Item Value Reference Range Interpretation Comments Hgb (test code = Hgb) 12.9 14.0-18.0 [facility] CenterWynfgjlYHVHBAJGIH8595-27-03 09:46:00 Test Item Value Reference Range Interpretation Comments RBC (test code = RBC) 4.35 4.70-6.10 [facility] CenterMnsbspcJDFDZEPDAD6977-06-12 09:46:00 Test Item Value Reference Range Interpretation Comments MPV (test code = MPV) 7.7 7.4-10.4 [facility] CenterLmiirfqEPZMVRXAMZ1298-12-95 09:46:00 Test Item Value Reference Range Interpretation Comments Platelet (test code = Platelet) 172 133-450 [facility] CenterTtylpliTOZEFXCYYC8664-26-96 09:46:00 Test Item Value Reference Range Interpretation Comments MCHC (test code = MCHC) 32.9 32.0-36.0 [facility] CenterQktyofgSDZBKUVXZN3556-48-89 09:46:00 Test Item Value Reference Range Interpretation Comments RDW (test code = RDW) 13.9 11.5-14.5 [facility] CenterNhbebyqCLLDRZQBKL9600-68-13 09:46:00 Test Item Value Reference Range Interpretation Comments WBC (test code = WBC) 4.1 3.7-10.4 [facility]2016-01-04 09:46:00 Test Item Value Reference Range Interpretation Comments eGFR (test code = eGFR) 82 [facility]2016-01-04 09:46:00 Test Item Value Reference Range Interpretation Comments CO2 (test code = CO2) 26 24-32 [facility]2016-01-04 09:46:00 Test Item Value Reference Range Interpretation Comments Calcium Lvl (test code = Calcium Lvl) 8.1 8.5-10.5 [facility]2016-01-04 09:46:00 Test Item Value Reference Range Interpretation Comments Glucose Lvl (test code = Glucose Lvl) 97 70-99 [facility]2016-01-04 09:46:00 Test Item Value Reference Range Interpretation Comments Potassium Lvl (test code = Potassium 3.8 3.5-5.1 Lvl) [facility]2016-01-04 09:46:00 Test Item Value Reference Range Interpretation Comments Chloride Lvl (test code = Chloride Lvl) 107 95-109 [facility]2016-01-04 09:46:00 Test Item Value Reference Range Interpretation Comments BUN (test code = BUN) 14 7-22 [facility]2016-01-04 09:46:00 Test Item Value Reference Range Interpretation Comments Sodium Lvl (test code = Sodium Lvl) 141 135-145 [facility]2016-01-04 09:46:00 Test Item Value Reference Range Interpretation Comments Creatinine Lvl (test code = Creatinine 1.02 0.50-1.40 Lvl) [facility]2016-01-04 09:46:00 Test Item Value Reference Range Interpretation Comments AGAP (test code = AGAP) 11.8 10.0-20.0 [facility]2016-01-04 09:46:00 Test Item Value Reference Range Interpretation Comments Phosphorus (test code = Phosphorus) 3.3 2.5-4.5 [facility]2016-01-04 09:46:00 Test Item Value Reference Range Interpretation Comments Magnesium Lvl (test code = Magnesium 2.0 1.8-2.4 Lvl) [facility] CenterRhmapphAPNGPMJBSP0597-89-12 09:46:00 Test Item Value Reference Range Interpretation Comments Segs-Bands # (test code = Segs-Bands #) 2.3 1.5-8.1 [facility] CenterZmtloqdNMAOPYAYNW0495-78-55 09:46:00 Test Item Value Reference Range Interpretation Comments Lymphocytes # (test code = Lymphocytes 1.2 1.0-5.5 #) [facility] CenterVnxxqdnLFXCNFFTWR2814-69-69 09:46:00 Test Item Value Reference Range Interpretation Comments Basophils (test code = 0.7 See_Comment [Aut omated message] The Basophils) system which ge nerated this result tra nsmitted reference range : <=1.0. The reference r rafat was not used to int erpret this result as normal/abnormal . [facility] CenterAplbohhJQXPSLOAUN8774-12-15 09:46:00 Test Item Value Reference Range Interpretation Comments Eosinophils # (test code 0.1 See_Comment [A utomated message] The = Eosinophils #) system whic h generated this result tra nsmitted reference range : <=0.5. The reference r rafat was not used to int erpret this result as normal/abnormal . [facility] CenterPjgixsnZSPJPVNZIA5619-21-96 09:46:00 Test Item Value Reference Range Interpretation Comments Monocytes # (test code 0.4 See_Comment [Aut omated message] The = Monocytes #) system which generated this result tra nsmitted reference range : <=0.8. The reference r rafat was not used to int erpret this result as normal/abnormal . [facility] CenterZdwntmnMFOGCCKNDX2822-42-03 09:46:00 Test Item Value Reference Range Interpretation Comments Lymphocytes (test code = Lymphocytes) 28.4 20.0-40.0 [facility] CenterRjjtezkQEWYRXXMCX5434-94-77 09:46:00 Test Item Value Reference Range Interpretation Comments Monocytes (test code = Monocytes) 11.0 2.0-12.0 [facility] CenterJvcmskjFUPDOATBGX2817-37-82 09:46:00 Test Item Value Reference Range Interpretation Comments Eosinophils (test code = 3.4 See_Comment [A utomated message] The Eosinophils) system which ge nerated this result tra nsmitted reference range : <=4.0. The reference r rafat was not used to int erpret this result as normal/abnormal . [facility] CenterSkdutaaJXNMKRPWIU3645-10-89 09:46:00 Test Item Value Reference Range Interpretation Comments Segs (test code = Segs) 56.5 45.0-75.0 [facility] CenterXasdvhxPBGAQCRRCC1625-00-43 09:46:00 Test Item Value Reference Range Interpretation Comments MCH (test code = MCH) 29.7 pg 27.0-31.0 [facility] CenterGfvohjlQPMFTLSKNC9307-79-84 09:46:00 Test Item Value Reference Range Interpretation Comments MCV (test code = MCV) 90.0 80.0-94.0 [facility] CenterWgugedmAFNDDNBUAT0116-35-23 09:46:00 Test Item Value Reference Range Interpretation Comments Hct (test code = Hct) 39.2 42.0-54.0 [facility] CenterPtvbbqeUOVECIUWVA3613-68-08 09:46:00 Test Item Value Reference Range Interpretation Comments Hgb (test code = Hgb) 12.9 14.0-18.0 [facility] CenterVsmjllcWQXBDPIIIH4191-30-14 09:46:00 Test Item Value Reference Range Interpretation Comments RBC (test code = RBC) 4.35 4.70-6.10 [facility] CenterRpmuqxmAASWRKMYUN1870-06-93 09:46:00 Test Item Value Reference Range Interpretation Comments MPV (test code = MPV) 7.7 7.4-10.4 [facility] CenterWtgpijxENTQJVXAPE8060-17-52 09:46:00 Test Item Value Reference Range Interpretation Comments Platelet (test code = Platelet) 172 133-450 [facility] CenterRbysqdyIYYGWBLKTC0950-88-25 09:46:00 Test Item Value Reference Range Interpretation Comments MCHC (test code = MCHC) 32.9 32.0-36.0 [facility] CenterGgtzsfcWASEUBHYMT9549-97-26 09:46:00 Test Item Value Reference Range Interpretation Comments RDW (test code = RDW) 13.9 11.5-14.5 [facility] CenterVpnhfybMVWJYFKJGZ3941-07-30 09:46:00 Test Item Value Reference Range Interpretation Comments WBC (test code = WBC) 4.1 3.7-10.4 [facility]2016-01-04 09:46:00 Test Item Value Reference Range Interpretation Comments eGFR (test code = eGFR) 82 [facility]2016-01-04 09:46:00 Test Item Value Reference Range Interpretation Comments CO2 (test code = CO2) 26 24-32 [facility]2016-01-04 09:46:00 Test Item Value Reference Range Interpretation Comments Calcium Lvl (test code = Calcium Lvl) 8.1 8.5-10.5 [facility]2016-01-04 09:46:00 Test Item Value Reference Range Interpretation Comments Glucose Lvl (test code = Glucose Lvl) 97 70-99 [facility]2016-01-04 09:46:00 Test Item Value Reference Range Interpretation Comments Potassium Lvl (test code = Potassium 3.8 3.5-5.1 Lvl) [facility]2016-01-04 09:46:00 Test Item Value Reference Range Interpretation Comments Chloride Lvl (test code = Chloride Lvl) 107 95-109 [facility]2016-01-04 09:46:00 Test Item Value Reference Range Interpretation Comments BUN (test code = BUN) 14 7-22 [facility]2016-01-04 09:46:00 Test Item Value Reference Range Interpretation Comments Sodium Lvl (test code = Sodium Lvl) 141 135-145 [facility]2016-01-04 09:46:00 Test Item Value Reference Range Interpretation Comments Creatinine Lvl (test code = Creatinine 1.02 0.50-1.40 Lvl) [facility]2016-01-04 09:46:00 Test Item Value Reference Range Interpretation Comments AGAP (test code = AGAP) 11.8 10.0-20.0 [facility]2016-01-04 09:46:00 Test Item Value Reference Range Interpretation Comments Phosphorus (test code = Phosphorus) 3.3 2.5-4.5 [facility]2016-01-04 09:46:00 Test Item Value Reference Range Interpretation Comments Magnesium Lvl (test code = Magnesium 2.0 1.8-2.4 Lvl) [facility] CenterLmgcwleXWRGBUGQLY2752-31-26 09:46:00 Test Item Value Reference Range Interpretation Comments Segs-Bands # (test code = Segs-Bands #) 2.3 1.5-8.1 [facility] CenterRvqeeneUIJMIYXGVQ3477-05-32 09:46:00 Test Item Value Reference Range Interpretation Comments Lymphocytes # (test code = Lymphocytes 1.2 1.0-5.5 #) [facility] CenterGprxlrqVGEVUGRZXI3599-59-51 09:46:00 Test Item Value Reference Range Interpretation Comments Basophils (test code = 0.7 See_Comment [Aut omated message] The Basophils) system which ge nerated this result tra nsmitted reference range : <=1.0. The reference r rafat was not used to int erpret this result as normal/abnormal . [facility] CenterSedkwyfZRCNFUKXTY8279-49-11 09:46:00 Test Item Value Reference Range Interpretation Comments Eosinophils # (test code 0.1 See_Comment [A utomated message] The = Eosinophils #) system whic h generated this result tra nsmitted reference range : <=0.5. The reference r rafat was not used to int erpret this result as normal/abnormal . [facility] CenterEalbeheWHPDFHOWLB2448-63-20 09:46:00 Test Item Value Reference Range Interpretation Comments Monocytes # (test code 0.4 See_Comment [Aut omated message] The = Monocytes #) system which generated this result tra nsmitted reference range : <=0.8. The reference r rafat was not used to int erpret this result as normal/abnormal . [facility] CenterDzfzqwqLERMABIGYG6853-68-26 09:46:00 Test Item Value Reference Range Interpretation Comments Lymphocytes (test code = Lymphocytes) 28.4 20.0-40.0 [facility] CenterLbtlljhMPFTCDOFKC0205-11-54 09:46:00 Test Item Value Reference Range Interpretation Comments Monocytes (test code = Monocytes) 11.0 2.0-12.0 [facility] CenterJstfbmbNGDAJMXVKS8616-42-47 09:46:00 Test Item Value Reference Range Interpretation Comments Eosinophils (test code = 3.4 See_Comment [A utomated message] The Eosinophils) system which ge nerated this result tra nsmitted reference range : <=4.0. The reference r rafat was not used to int erpret this result as normal/abnormal . [facility] CenterPbwjmigEBBJYDJTMQ4744-91-73 09:46:00 Test Item Value Reference Range Interpretation Comments Segs (test code = Segs) 56.5 45.0-75.0 [facility] CenterOpwzucfKVYUIKVKYF7595-69-26 09:46:00 Test Item Value Reference Range Interpretation Comments MCH (test code = MCH) 29.7 pg 27.0-31.0 [facility] CenterKfrshalRGDQHNJJHV6804-17-52 09:46:00 Test Item Value Reference Range Interpretation Comments MCV (test code = MCV) 90.0 80.0-94.0 [facility] CenterXjuwfkjDCPUHMSKQZ3046-06-03 09:46:00 Test Item Value Reference Range Interpretation Comments Hct (test code = Hct) 39.2 42.0-54.0 [facility] CenterHgtavbuCUBEZLHXFU8269-08-51 09:46:00 Test Item Value Reference Range Interpretation Comments Hgb (test code = Hgb) 12.9 14.0-18.0 [facility] CenterCzyvfiaQVHWSYFNRB9424-59-46 09:46:00 Test Item Value Reference Range Interpretation Comments RBC (test code = RBC) 4.35 4.70-6.10 [facility] CenterUbsnnrcTYISLQDHZU6110-09-12 09:46:00 Test Item Value Reference Range Interpretation Comments MPV (test code = MPV) 7.7 7.4-10.4 [facility] CenterLvrwsruUSEDXJDYYM2166-71-72 09:46:00 Test Item Value Reference Range Interpretation Comments Platelet (test code = Platelet) 172 133-450 [facility] CenterUewtfdgNWUJJCKJAM1469-29-98 09:46:00 Test Item Value Reference Range Interpretation Comments MCHC (test code = MCHC) 32.9 32.0-36.0 [facility] CenterYrbmnygTRMYKSUUXR7814-65-57 09:46:00 Test Item Value Reference Range Interpretation Comments RDW (test code = RDW) 13.9 11.5-14.5 [facility]WsnqrzwYQEZOVBMMR6867-73-27 09:46:00 Test Item Value Reference Range Interpretation Comments WBC (test code = WBC) 4.1 3.7-10.4 [facility] AGLMK3735-81-58 08:13:00 Test Item Value Reference Range Interpretation Comments Phosphorus (test code = Phosphorus) 3.3 2.5-4.5 [facility] MHHSQ0532-89-49 08:13:00 Test Item Value Reference Range Interpretation Comments Magnesium Lvl (test code = Magnesium 1.8 1.8-2.4 Lvl) [facility]2016-01-03 08:13:00 Test Item Value Reference Range Interpretation Comments BUN (test code = BUN) 13 7-22 [place] [id number] 08:13:00 Test Item Value Reference Range Interpretation Comments Glucose Lvl (test code = Glucose Lvl) 98 70-99 [facility]2016-01-03 08:13:00 Test Item Value Reference Range Interpretation Comments Potassium Lvl (test code = Potassium 3.7 3.5-5.1 Lvl) [facility]2016-01-03 08:13:00 Test Item Value Reference Range Interpretation Comments Sodium Lvl (test code = Sodium Lvl) 140 135-145 [place] [id number] 08:13:00 Test Item Value Reference Range Interpretation Comments Creatinine Lvl (test code = Creatinine 0.95 0.50-1.40 Lvl) [facility]2016-01-03 08:13:00 Test Item Value Reference Range Interpretation Comments CO2 (test code = CO2) 27 24-32 [place] 903466-01-03 08:13:00 Test Item Value Reference Range Interpretation Comments Chloride Lvl (test code = Chloride Lvl) 105 95-109 [facility]2016-01-03 08:13:00 Test Item Value Reference Range Interpretation Comments eGFR (test code = eGFR) 89 [facility]2016-01-03 08:13:00 Test Item Value Reference Range Interpretation Comments AGAP (test code = AGAP) 11.7 10.0-20.0 [facility]2016-01-03 08:13:00 Test Item Value Reference Range Interpretation Comments Calcium Lvl (test code = Calcium Lvl) 8.4 8.5-10.5 [facility]vtrnpxIIZISMIIKI5998[facility]37-[facility]:13:00 Test Item Value Reference Range Interpretation Comments Basophils (test code = 0.7 See_Comment [Aut omated message] The Basophils) system which ge nerated this result tra nsmitted reference range : <=1.0. The reference r rafat was not used to int erpret this result as normal/abnormal . [facility] CenterDspwigoRLUMOGZOLO3521-74-66 08:13:00 Test Item Value Reference Range Interpretation Comments Monocytes (test code = Monocytes) 12.9 2.0-12.0 [facility] CenterSbkftudVIPYJYZEGA4117-78-63 08:13:00 Test Item Value Reference Range Interpretation Comments Segs-Bands # (test code = Segs-Bands #) 3.4 1.5-8.1 [facility] CenterEjxoqigVVYVIXTGEK2884-09-81 08:13:00 Test Item Value Reference Range Interpretation Comments Eosinophils (test code = 1.7 See_Comment [A utomated message] The Eosinophils) system which ge nerated this result tra nsmitted reference range : <=4.0. The reference r rafat was not used to int erpret this result as normal/abnormal . [facility] CenterFkdzktgOFZRYXABAL8180-47-85 08:13:00 Test Item Value Reference Range Interpretation Comments Segs (test code = Segs) 65.8 45.0-75.0 [facility] CenterNncdinpOMATXALXVY3214-79-37 08:13:00 Test Item Value Reference Range Interpretation Comments Lymphocytes (test code = Lymphocytes) 18.9 20.0-40.0 [facility] CenterMdwrxxkZNVFCLPQUA6141-89-21 08:13:00 Test Item Value Reference Range Interpretation Comments Monocytes # (test code 0.7 See_Comment [Aut omated message] The = Monocytes #) system which generated this result tra nsmitted reference range : <=0.8. The reference r rafat was not used to int erpret this result as normal/abnormal . [facility] CenterFcytllpGDJBHMLLEH7450-66-52 08:13:00 Test Item Value Reference Range Interpretation Comments Eosinophils # (test code 0.1 See_Comment [A utomated message] The = Eosinophils #) system whic h generated this result tra nsmitted reference range : <=0.5. The reference r rafat was not used to int erpret this result as normal/abnormal . [facility] CenterGqtixigPHJGHQLNAK7490-97-97 08:13:00 Test Item Value Reference Range Interpretation Comments Lymphocytes # (test code = Lymphocytes 1.0 1.0-5.5 #) [facility] CenterIorktjbPCLMPHNNDV8971-06-57 08:13:00 Test Item Value Reference Range Interpretation Comments Hgb (test code = Hgb) 13.0 14.0-18.0 [facility] CenterGlbzaonLFLDCHCORG2320-44-08 08:13:00 Test Item Value Reference Range Interpretation Comments Hct (test code = Hct) 39.4 42.0-54.0 [facility] CenterWftmwsuGULRZRVNGK6782-94-68 08:13:00 Test Item Value Reference Range Interpretation Comments MPV (test code = MPV) 7.8 7.4-10.4 [place] 073496-01-03 08:13:00 Test Item Value Reference Range Interpretation Comments RDW (test code = RDW) 14.2 11.5-14.5 [facility] CenterDkovefbMDIGACOTUC2514-59-86 08:13:00 Test Item Value Reference Range Interpretation Comments Platelet (test code = Platelet) 168 133-450 [facility] CenterEaqmbmcINQWGBMHBM4457-58-48 08:13:00 Test Item Value Reference Range Interpretation Comments MCHC (test code = MCHC) 32.8 32.0-36.0 [facility] CenterKuezokhJDDNNQLQCM3426-37-36 08:13:00 Test Item Value Reference Range Interpretation Comments MCV (test code = MCV) 90.1 80.0-94.0 [facility] CenterMnrlujcFAYLMVOKUW8953-61-29 08:13:00 Test Item Value Reference Range Interpretation Comments MCH (test code = MCH) 29.6 pg 27.0-31.0 [facility] CenterZnpiqgbSHTLNABRDJ0126-14-66 08:13:00 Test Item Value Reference Range Interpretation Comments WBC (test code = WBC) 5.1 3.7-10.4 [facility] CenterOubeuxmJAZJZKGFVL9872-85-56 08:13:00 Test Item Value Reference Range Interpretation Comments RBC (test code = RBC) 4.38 4.70-6.10 [facility]2016-01-03 08:13:00 Test Item Value Reference Range Interpretation Comments Phosphorus (test code = Phosphorus) 3.3 2.5-4.5 [facility]2016-01-03 08:13:00 Test Item Value Reference Range Interpretation Comments Magnesium Lvl (test code = Magnesium 1.8 1.8-2.4 Lvl) [facility]2016-01-03 08:13:00 Test Item Value Reference Range Interpretation Comments BUN (test code = BUN) 13 7-22 [facility]2016-01-03 08:13:00 Test Item Value Reference Range Interpretation Comments Glucose Lvl (test code = Glucose Lvl) 98 70-99 [facility]2016-01-03 08:13:00 Test Item Value Reference Range Interpretation Comments Potassium Lvl (test code = Potassium 3.7 3.5-5.1 Lvl) [facility]2016-01-03 08:13:00 Test Item Value Reference Range Interpretation Comments Sodium Lvl (test code = Sodium Lvl) 140 135-145 [place] 903466-01-03 08:13:00 Test Item Value Reference Range Interpretation Comments Creatinine Lvl (test code = Creatinine 0.95 0.50-1.40 Lvl) [facility]2016-01-03 08:13:00 Test Item Value Reference Range Interpretation Comments CO2 (test code = CO2) 27 24-32 [place] 903466-01-03 08:13:00 Test Item Value Reference Range Interpretation Comments Chloride Lvl (test code = Chloride Lvl) 105 95-109 [place] 903466-01-03 08:13:00 Test Item Value Reference Range Interpretation Comments eGFR (test code = eGFR) 89 [facility]2016-01-03 08:13:00 Test Item Value Reference Range Interpretation Comments AGAP (test code = AGAP) 11.7 10.0-20.0 [facility]2016-01-03 08:13:00 Test Item Value Reference Range Interpretation Comments Calcium Lvl (test code = Calcium Lvl) 8.4 8.5-10.5 [facility] CenterQugaqwyJESESRPTXE6221-89-08 08:13:00 Test Item Value Reference Range Interpretation Comments Basophils (test code = 0.7 See_Comment [Aut omated message] The Basophils) system which ge nerated this result tra nsmitted reference range : <=1.0. The reference r rafat was not used to int erpret this result as normal/abnormal . [facility] CenterCeipbskFKGZHCBLTL1710-91-21 08:13:00 Test Item Value Reference Range Interpretation Comments Monocytes (test code = Monocytes) 12.9 2.0-12.0 [facility] CenterObvbyeqWOXAONKZRR4071-16-39 08:13:00 Test Item Value Reference Range Interpretation Comments Segs-Bands # (test code = Segs-Bands #) 3.4 1.5-8.1 [facility] CenterHcbrlqfPHTEFKBIYD3212-56-82 08:13:00 Test Item Value Reference Range Interpretation Comments Eosinophils (test code = 1.7 See_Comment [A utomated message] The Eosinophils) system which ge nerated this result tra nsmitted reference range : <=4.0. The reference r rafat was not used to int erpret this result as normal/abnormal . [facility] CenterKfpeyvkSGZQJSDDSB6338-06-46 08:13:00 Test Item Value Reference Range Interpretation Comments Segs (test code = Segs) 65.8 45.0-75.0 [facility] CenterMxseimyWQPLXYYGGP6226-31-30 08:13:00 Test Item Value Reference Range Interpretation Comments Lymphocytes (test code = Lymphocytes) 18.9 20.0-40.0 [facility] CenterEfedoniXYJXSJDWCY9841-67-30 08:13:00 Test Item Value Reference Range Interpretation Comments Monocytes # (test code 0.7 See_Comment [Aut omated message] The = Monocytes #) system which generated this result tra nsmitted reference range : <=0.8. The reference r rafat was not used to int erpret this result as normal/abnormal . [facility] CenterZpkspuvURXBQYEFVU5779-68-38 08:13:00 Test Item Value Reference Range Interpretation Comments Eosinophils # (test code 0.1 See_Comment [A utomated message] The = Eosinophils #) system whic h generated this result tra nsmitted reference range : <=0.5. The reference r rafat was not used to int erpret this result as normal/abnormal . [facility] CenterXxhhbkyKETLIRGTEW8452-88-47 08:13:00 Test Item Value Reference Range Interpretation Comments Lymphocytes # (test code = Lymphocytes 1.0 1.0-5.5 #) [facility] CenterSgqzmpaIWRFWNKYAT1066-27-20 08:13:00 Test Item Value Reference Range Interpretation Comments Hgb (test code = Hgb) 13.0 14.0-18.0 [facility] CenterSraiqkjZYOEYFFQQR2237-54-94 08:13:00 Test Item Value Reference Range Interpretation Comments Hct (test code = Hct) 39.4 42.0-54.0 [facility] CenterAyuatywFUZNRLZRAS9815-80-86 08:13:00 Test Item Value Reference Range Interpretation Comments MPV (test code = MPV) 7.8 7.4-10.4 [facility] CenterXhwbfleKUKFSBKESB1425-59-52 08:13:00 Test Item Value Reference Range Interpretation Comments RDW (test code = RDW) 14.2 11.5-14.5 [facility] CenterZdbiguaCQDMPNTDAH0426-21-38 08:13:00 Test Item Value Reference Range Interpretation Comments Platelet (test code = Platelet) 168 133-450 [facility] CenterAshztlpGDFTFHELZZ1149-54-86 08:13:00 Test Item Value Reference Range Interpretation Comments MCHC (test code = MCHC) 32.8 32.0-36.0 [facility] CenterRdnnkmhTRYBHXBDIL8185-36-55 08:13:00 Test Item Value Reference Range Interpretation Comments MCV (test code = MCV) 90.1 80.0-94.0 [facility] CenterFtmcgwuWHBZBQNBMN7907-56-99 08:13:00 Test Item Value Reference Range Interpretation Comments MCH (test code = MCH) 29.6 pg 27.0-31.0 [facility] CenterIoibwdmWPSBYHUCNL6790-04-28 08:13:00 Test Item Value Reference Range Interpretation Comments WBC (test code = WBC) 5.1 3.7-10.4 [facility] CenterAagbihwQMGUKGFSEB3022-68-30 08:13:00 Test Item Value Reference Range Interpretation Comments RBC (test code = RBC) 4.38 4.70-6.10 [facility]2016-01-03 08:13:00 Test Item Value Reference Range Interpretation Comments Phosphorus (test code = Phosphorus) 3.3 2.5-4.5 [facility]2016-01-03 08:13:00 Test Item Value Reference Range Interpretation Comments Magnesium Lvl (test code = Magnesium 1.8 1.8-2.4 Lvl) [facility]2016-01-03 08:13:00 Test Item Value Reference Range Interpretation Comments BUN (test code = BUN) 13 7-22 [facility]2016-01-03 08:13:00 Test Item Value Reference Range Interpretation Comments Glucose Lvl (test code = Glucose Lvl) 98 70-99 [facility]2016-01-03 08:13:00 Test Item Value Reference Range Interpretation Comments Potassium Lvl (test code = Potassium 3.7 3.5-5.1 Lvl) [facility]2016-01-03 08:13:00 Test Item Value Reference Range Interpretation Comments Sodium Lvl (test code = Sodium Lvl) 140 135-145 [facility]2016-01-03 08:13:00 Test Item Value Reference Range Interpretation Comments Creatinine Lvl (test code = Creatinine 0.95 0.50-1.40 Lvl) [facility]2016-01-03 08:13:00 Test Item Value Reference Range Interpretation Comments CO2 (test code = CO2) 27 24-32 [place] 903466-01-03 08:13:00 Test Item Value Reference Range Interpretation Comments Chloride Lvl (test code = Chloride Lvl) 105 95-109 [place] 903466-01-03 08:13:00 Test Item Value Reference Range Interpretation Comments eGFR (test code = eGFR) 89 [facility]2016-01-03 08:13:00 Test Item Value Reference Range Interpretation Comments AGAP (test code = AGAP) 11.7 10.0-20.0 [facility]2016-01-03 08:13:00 Test Item Value Reference Range Interpretation Comments Calcium Lvl (test code = Calcium Lvl) 8.4 8.5-10.5 [facility] CenterNopokkaXPMBHKZQLH8692-36-93 08:13:00 Test Item Value Reference Range Interpretation Comments Basophils (test code = 0.7 See_Comment [Aut omated message] The Basophils) system which ge nerated this result tra nsmitted reference range : <=1.0. The reference r rafat was not used to int erpret this result as normal/abnormal . [facility] CenterEflbfdqMGJFKMKTBF3914-06-13 08:13:00 Test Item Value Reference Range Interpretation Comments Monocytes (test code = Monocytes) 12.9 2.0-12.0 [facility] CenterOsyfuuxGTVGXPXGJX3548-18-25 08:13:00 Test Item Value Reference Range Interpretation Comments Segs-Bands # (test code = Segs-Bands #) 3.4 1.5-8.1 [facility] CenterBscwwspRLVEUDTAGM3812-48-60 08:13:00 Test Item Value Reference Range Interpretation Comments Eosinophils (test code = 1.7 See_Comment [A utomated message] The Eosinophils) system which ge nerated this result tra nsmitted reference range : <=4.0. The reference r rafat was not used to int erpret this result as normal/abnormal . [place] 073496-01-03 08:13:00 Test Item Value Reference Range Interpretation Comments Segs (test code = Segs) 65.8 45.0-75.0 [facility] CenterMyzevkkPANGBXKLWC3759-00-40 08:13:00 Test Item Value Reference Range Interpretation Comments Lymphocytes (test code = Lymphocytes) 18.9 20.0-40.0 [facility] CenterBwvamiyNXEZHDOFUN5415-87-59 08:13:00 Test Item Value Reference Range Interpretation Comments Monocytes # (test code 0.7 See_Comment [Aut omated message] The = Monocytes #) system which generated this result tra nsmitted reference range : <=0.8. The reference r rafat was not used to int erpret this result as normal/abnormal . [facility] CenterFynjxupINLWPUYGGQ4138-87-25 08:13:00 Test Item Value Reference Range Interpretation Comments Eosinophils # (test code 0.1 See_Comment [A utomated message] The = Eosinophils #) system whic h generated this result tra nsmitted reference range : <=0.5. The reference r rafat was not used to int erpret this result as normal/abnormal . [facility] CenterCnzkctyZQXYTVDPAG2951-70-97 08:13:00 Test Item Value Reference Range Interpretation Comments Lymphocytes # (test code = Lymphocytes 1.0 1.0-5.5 #) [facility] CenterBfdkhcdWQKIFGJYIV9430-22-08 08:13:00 Test Item Value Reference Range Interpretation Comments Hgb (test code = Hgb) 13.0 14.0-18.0 [facility] CenterGibxgviVKEEQXBQUP3557-21-11 08:13:00 Test Item Value Reference Range Interpretation Comments Hct (test code = Hct) 39.4 42.0-54.0 [facility] CenterEhjqnjyAMVZBBSJJX0622-45-77 08:13:00 Test Item Value Reference Range Interpretation Comments MPV (test code = MPV) 7.8 7.4-10.4 [facility] CenterYpzgzpaFQKQNCWEKR1071-40-62 08:13:00 Test Item Value Reference Range Interpretation Comments RDW (test code = RDW) 14.2 11.5-14.5 [facility] CenterZcairhhQOXQFSQUTP4521-89-36 08:13:00 Test Item Value Reference Range Interpretation Comments Platelet (test code = Platelet) 168 133-450 [facility] CenterOqeuwrhFRXGBBUFSD8599-46-25 08:13:00 Test Item Value Reference Range Interpretation Comments MCHC (test code = MCHC) 32.8 32.0-36.0 [facility] CenterActpwpaBLUJOLNGBN2187-94-10 08:13:00 Test Item Value Reference Range Interpretation Comments MCV (test code = MCV) 90.1 80.0-94.0 [facility] CenterSoiezliQPWVZFFZEQ2290-06-81 08:13:00 Test Item Value Reference Range Interpretation Comments MCH (test code = MCH) 29.6 pg 27.0-31.0 [facility] CenterVubwuvgBEQAPPWEQH2199-80-96 08:13:00 Test Item Value Reference Range Interpretation Comments WBC (test code = WBC) 5.1 3.7-10.4 [facility] CenterZcsctuqKHZJCXYNYB8637-38-00 08:13:00 Test Item Value Reference Range Interpretation Comments RBC (test code = RBC) 4.38 4.70-6.10 [facility] AND [id number] 18:52:00 Test Item Value Reference Range Interpretation Comments Micro? (test code = Not Indicated *NA*(03/26/15 Micro?) 12:52 PM) [facility] AND [id number] 18:52:00 Test Item Value Reference Range Interpretation Comments UA Bili (test code = Negative *NA*(03/26/15 UA Bili) 12:52 PM) [facility] AND [id number] 18:52:00 Test Item Value Reference Range Interpretation Comments UA Nitrite (test code Negative (03/26/15 12:52 = UA Nitrite) PM) [facility] AND [id number] 18:52:00 Test Item Value Reference Range Interpretation Comments UA Leuk Est (test Negative (03/26/15 12:52 code = UA Leuk Est) PM) [facility] AND [id number] 18:52:00 Test Item Value Reference Range Interpretation Comments UA Urobilinogen (test code = UA 0.2 0.1-1.0 Urobilinogen) [facility] AND [id number] 18:52:00 Test Item Value Reference Range Interpretation Comments UA Blood (test code = Negative (03/26/15 12:52 UA Blood) PM) [facility] AND [id number] 18:52:00 Test Item Value Reference Range Interpretation Comments UA pH (test code = UA pH) 6.0 1 5.0-8.0 [facility] AND [id number] 18:52:00 Test Item Value Reference Range Interpretation Comments UA Protein (test code = UA Negative mg/dL Protein) [facility] AND [id number] 18:52:00 Test Item Value Reference Range Interpretation Comments UA Glucose (test code = UA Negative mg/dL Glucose) [facility] AND [id number] 18:52:00 Test Item Value Reference Range Interpretation Comments UA Ketones (test code = UA Trace mg/dL Ketones) [facility] AND [id number] 18:52:00 Test Item Value Reference Range Interpretation Comments UA Turbidity (test code = Clear (03/26/15 12:52 UA Turbidity) PM) [facility] AND [id number] 18:52:00 Test Item Value Reference Range Interpretation Comments UA Spec Grav (test code = UA Spec 1.010 1 Grav) [facility] AND [id number] 18:52:00 Test Item Value Reference Range Interpretation Comments UA Color (test code = Yellow *NA*(03/26/15 UA Color) 12:52 PM) [facility] AND [id number] 18:52:00 Test Item Value Reference Range Interpretation Comments Micro? (test code = Not Indicated *NA*(03/26/15 Micro?) 12:52 PM) [facility] AND [id number] 18:52:00 Test Item Value Reference Range Interpretation Comments UA Bili (test code = Negative *NA*(03/26/15 UA Bili) 12:52 PM) [facility] AND [id number] 18:52:00 Test Item Value Reference Range Interpretation Comments UA Nitrite (test code Negative (03/26/15 12:52 = UA Nitrite) PM) [facility] AND [id number] 18:52:00 Test Item Value Reference Range Interpretation Comments UA Leuk Est (test Negative (03/26/15 12:52 code = UA Leuk Est) PM) [facility] AND [id number] 18:52:00 Test Item Value Reference Range Interpretation Comments UA Urobilinogen (test code = UA 0.2 0.1-1.0 Urobilinogen) [facility] AND [id number] 18:52:00 Test Item Value Reference Range Interpretation Comments UA Blood (test code = Negative (03/26/15 12:52 UA Blood) PM) [facility] AND [id number] 18:52:00 Test Item Value Reference Range Interpretation Comments UA pH (test code = UA pH) 6.0 1 5.0-8.0 [facility] AND [id number] 18:52:00 Test Item Value Reference Range Interpretation Comments UA Protein (test code = UA Negative mg/dL Protein) [facility] AND [id number] 18:52:00 Test Item Value Reference Range Interpretation Comments UA Glucose (test code = UA Negative mg/dL Glucose) [facility] AND [id number] 18:52:00 Test Item Value Reference Range Interpretation Comments UA Ketones (test code = UA Trace mg/dL Ketones) [facility] AND [id number] 18:52:00 Test Item Value Reference Range Interpretation Comments UA Turbidity (test code = Clear (03/26/15 12:52 UA Turbidity) PM) [facility] AND [id number] 18:52:00 Test Item Value Reference Range Interpretation Comments UA Spec Grav (test code = UA Spec 1.010 1 Grav) [facility] AND [id number] 18:52:00 Test Item Value Reference Range Interpretation Comments UA Color (test code = Yellow *NA*(03/26/15 UA Color) 12:52 PM) [facility] AND [id number] 18:52:00 Test Item Value Reference Range Interpretation Comments Micro? (test code = Not Indicated *NA*(03/26/15 Micro?) 12:52 PM) [facility] AND [id number] 18:52:00 Test Item Value Reference Range Interpretation Comments UA Bili (test code = Negative *NA*(03/26/15 UA Bili) 12:52 PM) [facility] AND [id number] 18:52:00 Test Item Value Reference Range Interpretation Comments UA Nitrite (test code Negative (03/26/15 12:52 = UA Nitrite) PM) [facility] AND [id number] 18:52:00 Test Item Value Reference Range Interpretation Comments UA Leuk Est (test Negative (03/26/15 12:52 code = UA Leuk Est) PM) [facility] AND [id number] 18:52:00 Test Item Value Reference Range Interpretation Comments UA Urobilinogen (test code = UA 0.2 0.1-1.0 Urobilinogen) [facility] AND [id number] 18:52:00 Test Item Value Reference Range Interpretation Comments UA Blood (test code = Negative (03/26/15 12:52 UA Blood) PM) [facility] AND [id number] 18:52:00 Test Item Value Reference Range Interpretation Comments UA pH (test code = UA pH) 6.0 1 5.0-8.0 [facility] AND [id number] 18:52:00 Test Item Value Reference Range Interpretation Comments UA Protein (test code = UA Negative mg/dL Protein) [facility] AND [id number] 18:52:00 Test Item Value Reference Range Interpretation Comments UA Glucose (test code = UA Negative mg/dL Glucose) [facility] AND [id number] 18:52:00 Test Item Value Reference Range Interpretation Comments UA Ketones (test code = UA Trace mg/dL Ketones) [facility] AND [id number] 18:52:00 Test Item Value Reference Range Interpretation Comments UA Turbidity (test code = Clear (03/26/15 12:52 UA Turbidity) PM) [facility] AND [id number] 18:52:00 Test Item Value Reference Range Interpretation Comments UA Spec Grav (test code = UA Spec 1.010 1 Grav) [facility] AND [id number] 18:52:00 Test Item Value Reference Range Interpretation Comments UA Color (test code = Yellow *NA*(03/26/15 UA Color) 12:52 PM) [facility] [employer] [id number] 16:36:00 Test Item Value Reference Range Interpretation Comments Antibody Scrn (test Negative (03/26/15 10:36 code = Antibody Scrn) AM) [facility] [email or web address] [id number] 16:36:00 Test Item Value Reference Range Interpretation Comments ABO/Rh (test code = ABO/Rh) O POS [facility] [employer] [facility] [id number] 16:36:00 Test Item Value Reference Range Interpretation Comments ALT (test code = ALT) 26 See_Comment [Auto mated message] The system which ge nerated this result transmit nurys reference range : <=65. The reference range was not used to interpr et this result as sujey l/abnormal. [facility]2016-01-02 16:36:00 Test Item Value Reference Range Interpretation Comments AST (test code = AST) 19 See_Comment [Auto mated message] The system which ge nerated this result transmit nurys reference range : <=37. The reference range was not used to interpr et this result as sujey l/abnormal. [facility]2016-01-02 16:36:00 Test Item Value Reference Range Interpretation Comments Bili Total (test code = Bili Total) 1.5 0.2-1.3 [place] [id number] 16:36:00 Test Item Value Reference Range Interpretation Comments Alk Phos (test code = Alk Phos) 74 39-136 [facility]2016-01-02 16:36:00 Test Item Value Reference Range Interpretation Comments Bili Direct (test code 0.3 See_Comment [Aut omated message] The = Bili Direct) system which generated this result tra nsmitted reference range : <=0.3. The reference r rafat was not used to int erpret this result as sujey l/abnormal. [facility]2016-01-02 16:36:00 Test Item Value Reference Range Interpretation Comments Total Protein (test code = Total 7.2 6.4-8.4 Protein) [facility]2016-01-02 16:36:00 Test Item Value Reference Range Interpretation Comments Albumin Lvl (test code = Albumin Lvl) 3.9 3.5-5.0 [facility]2016-01-02 16:36:00 Test Item Value Reference Range Interpretation Comments Bili Indirect (test 1.2 See_Comment [Automa nurys message] The code = Bili Indirect) system which generated this result tra nsmitted reference range : <=1.0. The reference r rafat was not used to int erpret this result as normal/abnormal . [facility]2016-01-02 16:36:00 Test Item Value Reference Range Interpretation Comments A/G Ratio (test code = A/G Ratio) 1.2 0.7-1.6 [facility]2016-01-02 16:36:00 Test Item Value Reference Range Interpretation Comments Globulin (test code = Globulin) 3.3 2.0-4.0 [facility]2016-01-02 16:36:00 Test Item Value Reference Range Interpretation Comments Lipase Lvl (test code = Lipase Lvl) 178 73-393 [facility]2016-01-02 16:36:00 Test Item Value Reference Range Interpretation Comments eGFR (test code = eGFR) 71 [facility]2016-01-02 16:36:00 Test Item Value Reference Range Interpretation Comments Calcium Lvl (test code = Calcium Lvl) 9.2 8.5-10.5 [facility]2016-01-02 16:36:00 Test Item Value Reference Range Interpretation Comments CO2 (test code = CO2) 32 24-32 [facility]2016-01-02 16:36:00 Test Item Value Reference Range Interpretation Comments Chloride Lvl (test code = Chloride Lvl) 101 95-109 [facility]2016-01-02 16:36:00 Test Item Value Reference Range Interpretation Comments Potassium Lvl (test code = Potassium 3.7 3.5-5.1 Lvl) [facility]2016-01-02 16:36:00 Test Item Value Reference Range Interpretation Comments Sodium Lvl (test code = Sodium Lvl) 139 135-145 [facility]2016-01-02 16:36:00 Test Item Value Reference Range Interpretation Comments Creatinine Lvl (test code = Creatinine 1.15 0.50-1.40 Lvl) [facility]2016-01-02 16:36:00 Test Item Value Reference Range Interpretation Comments BUN (test code = BUN) 16 7-22 [facility]2016-01-02 16:36:00 Test Item Value Reference Range Interpretation Comments Glucose Lvl (test code = Glucose Lvl) 105 70-99 [facility]2016-01-02 16:36:00 Test Item Value Reference Range Interpretation Comments AGAP (test code = AGAP) 9.7 10.0-20.0 [facility]lBJGCUNCPEP0667-26-84 16:36:00 Test Item Value Reference Range Interpretation Comments PTT (test code = PTT) 36.8 s 22.9-35.8 [facility]ydxqpxWLXWEXOTOW5428-85-80 16:36:00 Test Item Value Reference Range Interpretation Comments INR (test code = INR) 1.31 0.85-1.17 [facility] CenterEgiyblxSCFDRJKCKP7429-11-72 16:36:00 Test Item Value Reference Range Interpretation Comments PT (test code = PT) 16.6 s 12.0-14.7 [facility] CenterRwtdilaMPYOVSVKDE2481-29-09 16:36:00 Test Item Value Reference Range Interpretation Comments RDW (test code = RDW) 14.3 11.5-14.5 [facility] CenterIolsshpWLZNJVTSCH1544-81-20 16:36:00 Test Item Value Reference Range Interpretation Comments Platelet (test code = Platelet) 167 133-450 [facility] CenterWxvbfkwUBZNEIBSYP2315-02-97 16:36:00 Test Item Value Reference Range Interpretation Comments MPV (test code = MPV) 7.6 7.4-10.4 [facility] CenterVsgmsxrMIPQGYMRPY7527-71-24 16:36:00 Test Item Value Reference Range Interpretation Comments MCV (test code = MCV) 90.5 80.0-94.0 [facility] CenterHwcalryJGGUBWWKRE3276-47-16 16:36:00 Test Item Value Reference Range Interpretation Comments Hgb (test code = Hgb) 14.4 14.0-18.0 [facility] CenterXedwmalLSCTIUZAIZ8898-08-17 16:36:00 Test Item Value Reference Range Interpretation Comments Hct (test code = Hct) 43.5 42.0-54.0 [facility] CenterPwtxtqfMCTQHMYSET2100-93-08 16:36:00 Test Item Value Reference Range Interpretation Comments MCH (test code = MCH) 30.0 pg 27.0-31.0 [facility] CenterJfcfanzHAINDMZEWI8703-51-28 16:36:00 Test Item Value Reference Range Interpretation Comments MCHC (test code = MCHC) 33.1 32.0-36.0 [facility] CenterYnffaozMTZIYUMMHS6477-03-73 16:36:00 Test Item Value Reference Range Interpretation Comments RBC (test code = RBC) 4.80 4.70-6.10 [facility] CenterVvqztesCFTBLWATLX9912-23-24 16:36:00 Test Item Value Reference Range Interpretation Comments WBC (test code = WBC) 6.0 3.7-10.4 [place] 073496-01-02 16:36:00 Test Item Value Reference Range Interpretation Comments Monocytes (test code = Monocytes) 11.9 2.0-12.0 [facility] CenterIcrcnftHNCQYZCWMD1271-66-85 16:36:00 Test Item Value Reference Range Interpretation Comments Lymphocytes (test code = Lymphocytes) 14.9 20.0-40.0 [facility] CenterKfnrynvKGHQKLQEFL1288-19-91 16:36:00 Test Item Value Reference Range Interpretation Comments Segs (test code = Segs) 71.5 45.0-75.0 [facility] CenterDzmvcdoETMHPVJLFK8550-28-18 16:36:00 Test Item Value Reference Range Interpretation Comments Lymphocytes # (test code = Lymphocytes 0.9 1.0-5.5 #) [facility] CenterJwndlcrMJXUIOHMKR2183-96-39 16:36:00 Test Item Value Reference Range Interpretation Comments Monocytes # (test code 0.7 See_Comment [Aut omated message] The = Monocytes #) system which generated this result tra nsmitted reference range : <=0.8. The reference r rafat was not used to int erpret this result as normal/abnormal . [facility] CenterWqwpmmyBOGOQGROTG2017-45-46 16:36:00 Test Item Value Reference Range Interpretation Comments Eosinophils # (test code 0.1 See_Comment [A utomated message] The = Eosinophils #) system [facility] generated this result tra nsmitted reference range : <=0.5. The reference r rafat was not used to int erpret this result as normal/abnormal . [facility] CenterRswfejsNMQRBEHMIH1720-45-77 16:36:00 Test Item Value Reference Range Interpretation Comments Eosinophils (test code = 1.2 See_Comment [A utomated message] The Eosinophils) system which ge nerated this result tra nsmitted reference range : <=4.0. The reference r rafat was not used to int erpret this result as normal/abnormal . [facility] CenterGrrgrjdMWGQNXNEXG4290-01-65 16:36:00 Test Item Value Reference Range Interpretation Comments Basophils (test code = 0.5 See_Comment [Aut omated message] The Basophils) system which ge nerated this result tra nsmitted reference range : <=1.0. The reference r rafat was not used to int erpret this result as normal/abnormal . [facility] CenterTlaqxahWKDKVCHEPS7139-80-08 16:36:00 Test Item Value Reference Range Interpretation Comments Segs-Bands # (test code = Segs-Bands #) 4.3 1.5-8.1 [facility]GgfuswiXCSFNTNGOP2485-98-02 16:36:00 Test Item Value Reference Range Interpretation Comments CDC HIV 4th GEN (test Negative (03/26/15 10:36 code = CDC HIV 4th AM) GEN) [facility]ieIsvhbhxUSNEFIDDVH6719-77-02 16:36:00 Test Item Value Reference Range Interpretation Comments Uriah-Hep C Ab (test Negative *NA*(03/26/15 code = Uriah-Hep C 10:36 AM) Ab) [facility] [employer] [id number] 16:36:00 Test Item Value Reference Range Interpretation Comments Antibody Scrn (test Negative (03/26/15 10:36 code = Antibody Scrn) AM) [facility] [employer] [id number] 16:36:00 Test Item Value Reference Range Interpretation Comments ABO/Rh (test code = ABO/Rh) O POS [facility] [employer] [id number] 16:36:00 Test Item Value Reference Range Interpretation Comments ALT (test code = ALT) 26 See_Comment [Auto mated message] The system which ge nerated this result transmit nurys reference range : <=65. The reference range was not used to interpr et this result as sujey l/abnormal. [employer] [id number] 16:36:00 Test Item Value Reference Range Interpretation Comments AST (test code = AST) 19 See_Comment [Auto mated message] The system which ge nerated this result transmit nurys reference range : <=37. The reference range was not used to interpr et this result as sujey l/abnormal. [employer] [id number] 16:36:00 Test Item Value Reference Range Interpretation Comments Bili Total (test code = Bili Total) 1.5 0.2-1.3 [facility] [employer] [id number] 16:36:00 Test Item Value Reference Range Interpretation Comments Alk Phos (test code = Alk Phos) 74 39-136 [facility] [employer] [id number] 16:36:00 Test Item Value Reference Range Interpretation Comments Bili Direct (test code 0.3 See_Comment [Aut omated message] The = Bili Direct) system which generated this result tra nsmitted reference range : <=0.3. The reference r rafat was not used to int erpret this result as sujey l/abnormal. [facility]2016-01-02 16:36:00 Test Item Value Reference Range Interpretation Comments Total Protein (test code = Total 7.2 6.4-8.4 Protein) [facility]2016-01-02 16:36:00 Test Item Value Reference Range Interpretation Comments Albumin Lvl (test code = Albumin Lvl) 3.9 3.5-5.0 [facility]2016-01-02 16:36:00 Test Item Value Reference Range Interpretation Comments Bili Indirect (test 1.2 See_Comment [Automa nurys message] The code = Bili Indirect) system which generated this result tra nsmitted reference range : <=1.0. The reference r rafat was not used to int erpret this result as normal/abnormal . [facility]2016-01-02 16:36:00 Test Item Value Reference Range Interpretation Comments A/G Ratio (test code = A/G Ratio) 1.2 0.7-1.6 [facility]2016-01-02 16:36:00 Test Item Value Reference Range Interpretation Comments Globulin (test code = Globulin) 3.3 2.0-4.0 [facility]2016-01-02 16:36:00 Test Item Value Reference Range Interpretation Comments Lipase Lvl (test code = Lipase Lvl) 178 73-393 [facility]2016-01-02 16:36:00 Test Item Value Reference Range Interpretation Comments eGFR (test code = eGFR) 71 [facility]2016-01-02 16:36:00 Test Item Value Reference Range Interpretation Comments Calcium Lvl (test code = Calcium Lvl) 9.2 8.5-10.5 [facility]2016-01-02 16:36:00 Test Item Value Reference Range Interpretation Comments CO2 (test code = CO2) 32 24-32 [facility]2016-01-02 16:36:00 Test Item Value Reference Range Interpretation Comments Chloride Lvl (test code = Chloride Lvl) 101 95-109 [facility]2016-01-02 16:36:00 Test Item Value Reference Range Interpretation Comments Potassium Lvl (test code = Potassium 3.7 3.5-5.1 Lvl) [facility]2016-01-02 16:36:00 Test Item Value Reference Range Interpretation Comments Sodium Lvl (test code = Sodium Lvl) 139 135-145 [facility]2016-01-02 16:36:00 Test Item Value Reference Range Interpretation Comments Creatinine Lvl (test code = Creatinine 1.15 0.50-1.40 Lvl) [facility]2016-01-02 16:36:00 Test Item Value Reference Range Interpretation Comments BUN (test code = BUN) 16 7-22 [facility]2016-01-02 16:36:00 Test Item Value Reference Range Interpretation Comments Glucose Lvl (test code = Glucose Lvl) 105 70-99 [facility]2016-01-02 16:36:00 Test Item Value Reference Range Interpretation Comments AGAP (test code = AGAP) 9.7 10.0-20.0 [facility] CenterBxcyhoiZTSJUSCZHF2466-56-48 16:36:00 Test Item Value Reference Range Interpretation Comments PTT (test code = PTT) 36.8 s 22.9-35.8 [facility] CenterEifjujgQIIATBJINP6232-35-92 16:36:00 Test Item Value Reference Range Interpretation Comments INR (test code = INR) 1.31 0.85-1.17 [facility] CenterQtnocucFYLYRBUCYW8927-77-76 16:36:00 Test Item Value Reference Range Interpretation Comments PT (test code = PT) 16.6 s 12.0-14.7 [facility] CenterQodvolwVGJMAKYXDB8469-83-97 16:36:00 Test Item Value Reference Range Interpretation Comments RDW (test code = RDW) 14.3 11.5-14.5 [facility] CenterYusehkvNUKSOHJVHY8543-15-94 16:36:00 Test Item Value Reference Range Interpretation Comments Platelet (test code = Platelet) 167 133-450 [facility] CenterZnwadifAVWIHQZCQR9607-34-94 16:36:00 Test Item Value Reference Range Interpretation Comments MPV (test code = MPV) 7.6 7.4-10.4 [facility] CenterSdzdfmrYRIXABSYIJ1713-94-82 16:36:00 Test Item Value Reference Range Interpretation Comments MCV (test code = MCV) 90.5 80.0-94.0 [facility] CenterOjjwjomNNUCEXZUWF5255-63-64 16:36:00 Test Item Value Reference Range Interpretation Comments Hgb (test code = Hgb) 14.4 14.0-18.0 [facility] CenterUfxityeGRELRQUDUM9435-94-01 16:36:00 Test Item Value Reference Range Interpretation Comments Hct (test code = Hct) 43.5 42.0-54.0 [facility] CenterGvlachhNCFPNVOOHX3177-51-84 16:36:00 Test Item Value Reference Range Interpretation Comments MCH (test code = MCH) 30.0 pg 27.0-31.0 [facility] CenterQtsruqpUSJYOEIDOD8064-79-58 16:36:00 Test Item Value Reference Range Interpretation Comments MCHC (test code = MCHC) 33.1 32.0-36.0 [facility] CenterQenbpljKVVSCAEAXM0794-93-79 16:36:00 Test Item Value Reference Range Interpretation Comments RBC (test code = RBC) 4.80 4.70-6.10 [facility] CenterGwihxxoARIHRLIBZC6580-14-53 16:36:00 Test Item Value Reference Range Interpretation Comments WBC (test code = WBC) 6.0 3.7-10.4 [facility] CenterLezeikvSLYSQDABTJ0957-91-87 16:36:00 Test Item Value Reference Range Interpretation Comments Monocytes (test code = Monocytes) 11.9 2.0-12.0 [facility] CenterAhkficxRRMYLMCPGA3280-10-46 16:36:00 Test Item Value Reference Range Interpretation Comments Lymphocytes (test code = Lymphocytes) 14.9 20.0-40.0 [facility] CenterKmqcvjeWYHMJIYSMZ4644-19-31 16:36:00 Test Item Value Reference Range Interpretation Comments Segs (test code = Segs) 71.5 45.0-75.0 [facility] CenterAlksvmsZNBYQDIAPS3126-69-75 16:36:00 Test Item Value Reference Range Interpretation Comments Lymphocytes # (test code = Lymphocytes 0.9 1.0-5.5 #) [facility] CenterMgutctzRUJJCTDIIA2970-85-34 16:36:00 Test Item Value Reference Range Interpretation Comments Monocytes # (test code 0.7 See_Comment [Aut omated message] The = Monocytes #) system which generated this result tra nsmitted reference range : <=0.8. The reference r rafat was not used to int erpret this result as normal/abnormal . [facility] CenterGariebxEYQXZVNTJO7161-00-16 16:36:00 Test Item Value Reference Range Interpretation Comments Eosinophils # (test code 0.1 See_Comment [A utomated message] The = Eosinophils #) system whic h generated this result tra nsmitted reference range : <=0.5. The reference r rafat was not used to int erpret this result as normal/abnormal . [facility]QfklnfhYCGWXSGYCG2140-20-28 16:36:00 Test Item Value Reference Range Interpretation Comments Eosinophils (test code = 1.2 See_Comment [A utomated message] The Eosinophils) system which ge nerated this result tra nsmitted reference range : <=4.0. The reference r rafat was not used to int erpret this result as normal/abnormal . [facility]ieEcezoncUDMEWFCDWP2086-28-82 16:36:00 Test Item Value Reference Range Interpretation Comments Basophils (test code = 0.5 See_Comment [Aut omated message] The Basophils) system which ge nerated this result tra nsmitted reference range : <=1.0. The reference r rafat was not used to int erpret this result as normal/abnormal . [facility] HospitalFqszlilADHQVCVWSA3385-24-53 16:36:00 Test Item Value Reference Range Interpretation Comments Segs-Bands # (test code = Segs-Bands #) 4.3 1.5-8.1 [facility] HospitalWytcsuyJHPVAITFDK0022-33-19 16:36:00 Test Item Value Reference Range Interpretation Comments CDC HIV 4th GEN (test Negative (03/26/15 10:36 code = CDC HIV 4th AM) GEN) [facility] HospitalKaylqboLFPIMVKMSR4982-03-12 16:36:00 Test Item Value Reference Range Interpretation Comments Uriah-Hep C Ab (test Negative *NA*(03/26/15 code = Uriah-Hep C 10:36 AM) Ab) [facility] [employer] [id number] 16:36:00 Test Item Value Reference Range Interpretation Comments Antibody Scrn (test Negative (03/26/15 10:36 code = Antibody Scrn) AM) [facility] [employer] [id number] 16:36:00 Test Item Value Reference Range Interpretation Comments ABO/Rh (test code = ABO/Rh) O POS [facility] [employer] [id number] 16:36:00 Test Item Value Reference Range Interpretation Comments ALT (test code = ALT) 26 See_Comment [Auto mated message] The system which ge nerated this result transmit nurys reference range : <=65. The reference range was not used to interpr et this result as sujey l/abnormal. [facility]2016-01-02 16:36:00 Test Item Value Reference Range Interpretation Comments AST (test code = AST) 19 See_Comment [Auto mated message] The system which ge nerated this result transmit nurys reference range : <=37. The reference range was not used to interpr et this result as sujey l/abnormal. [place] 903466-01-02 16:36:00 Test Item Value Reference Range Interpretation Comments Bili Total (test code = Bili Total) 1.5 0.2-1.3 [facility]2016-01-02 16:36:00 Test Item Value Reference Range Interpretation Comments Alk Phos (test code = Alk Phos) 74 39-136 [facility]2016-01-02 16:36:00 Test Item Value Reference Range Interpretation Comments Bili Direct (test code 0.3 See_Comment [Aut omated message] The = Bili Direct) system which generated this result tra nsmitted reference range : <=0.3. The reference r rafat was not used to int erpret this result as sujey l/abnormal. [facility]2016-01-02 16:36:00 Test Item Value Reference Range Interpretation Comments Total Protein (test code = Total 7.2 6.4-8.4 Protein) [facility]2016-01-02 16:36:00 Test Item Value Reference Range Interpretation Comments Albumin Lvl (test code = Albumin Lvl) 3.9 3.5-5.0 [place] 903466-01-02 16:36:00 Test Item Value Reference Range Interpretation Comments Bili Indirect (test 1.2 See_Comment [Automa nurys message] The code = Bili Indirect) system which generated this result tra nsmitted reference range : <=1.0. The reference r rafat was not used to int erpret this result as normal/abnormal . [place] 903466-01-02 16:36:00 Test Item Value Reference Range Interpretation Comments A/G Ratio (test code = A/G Ratio) 1.2 0.7-1.6 [facility]2016-01-02 16:36:00 Test Item Value Reference Range Interpretation Comments Globulin (test code = Globulin) 3.3 2.0-4.0 [facility]2016-01-02 16:36:00 Test Item Value Reference Range Interpretation Comments Lipase Lvl (test code = Lipase Lvl) 178 73-393 [facility]2016-01-02 16:36:00 Test Item Value Reference Range Interpretation Comments eGFR (test code = eGFR) 71 [facility]2016-01-02 16:36:00 Test Item Value Reference Range Interpretation Comments Calcium Lvl (test code = Calcium Lvl) 9.2 8.5-10.5 [facility]2016-01-02 16:36:00 Test Item Value Reference Range Interpretation Comments CO2 (test code = CO2) 32 24-32 [facility]2016-01-02 16:36:00 Test Item Value Reference Range Interpretation Comments Chloride Lvl (test code = Chloride Lvl) 101 95-109 [facility]2016-01-02 16:36:00 Test Item Value Reference Range Interpretation Comments Potassium Lvl (test code = Potassium 3.7 3.5-5.1 Lvl) [facility]2016-01-02 16:36:00 Test Item Value Reference Range Interpretation Comments Sodium Lvl (test code = Sodium Lvl) 139 135-145 [facility]2016-01-02 16:36:00 Test Item Value Reference Range Interpretation Comments Creatinine Lvl (test code = Creatinine 1.15 0.50-1.40 Lvl) [facility]2016-01-02 16:36:00 Test Item Value Reference Range Interpretation Comments BUN (test code = BUN) 16 7-22 [facility]2016-01-02 16:36:00 Test Item Value Reference Range Interpretation Comments Glucose Lvl (test code = Glucose Lvl) 105 70-99 [facility]2016-01-02 16:36:00 Test Item Value Reference Range Interpretation Comments AGAP (test code = AGAP) 9.7 10.0-20.0 [facility]YoymgmkDFCGLENTYU2472-54-92 16:36:00 Test Item Value Reference Range Interpretation Comments PTT (test code = PTT) 36.8 s 22.9-35.8 [facility] CenterUiotymvWURLQFQVIB2910-32-64 16:36:00 Test Item Value Reference Range Interpretation Comments INR (test code = INR) 1.31 0.85-1.17 [facility] CenterXhjvclfBJKNIZFKVK3627-27-82 16:36:00 Test Item Value Reference Range Interpretation Comments PT (test code = PT) 16.6 s 12.0-14.7 [facility] CenterKmgkjtzEYSLIXDUXH3930-36-04 16:36:00 Test Item Value Reference Range Interpretation Comments RDW (test code = RDW) 14.3 11.5-14.5 [facility] CenterTuqcjxfIXYJAZITSQ7427-53-85 16:36:00 Test Item Value Reference Range Interpretation Comments Platelet (test code = Platelet) 167 133-450 [facility] CenterBkaazeyUMEZEUCIRZ0225-74-35 16:36:00 Test Item Value Reference Range Interpretation Comments MPV (test code = MPV) 7.6 7.4-10.4 [facility] CenterMrneyjfEHGUFYQBIO5433-11-32 16:36:00 Test Item Value Reference Range Interpretation Comments MCV (test code = MCV) 90.5 80.0-94.0 [facility] CenterPlhparrXFMSDEKRQD8275-95-54 16:36:00 Test Item Value Reference Range Interpretation Comments Hgb (test code = Hgb) 14.4 14.0-18.0 [facility] CenterEjlmbwcLUOLNLWKFI9012-61-61 16:36:00 Test Item Value Reference Range Interpretation Comments Hct (test code = Hct) 43.5 42.0-54.0 [facility] CenterOxydozkEJTPKMZKAI7614-59-48 16:36:00 Test Item Value Reference Range Interpretation Comments MCH (test code = MCH) 30.0 pg 27.0-31.0 [facility] CenterQgyabocNIHOKTOTQJ8561-17-49 16:36:00 Test Item Value Reference Range Interpretation Comments MCHC (test code = MCHC) 33.1 32.0-36.0 [facility] CenterGlbhizdWHDBYPBUBB3966-42-25 16:36:00 Test Item Value Reference Range Interpretation Comments RBC (test code = RBC) 4.80 4.70-6.10 [facility] CenterVogachmDAIICBIDSP1094-78-79 16:36:00 Test Item Value Reference Range Interpretation Comments WBC (test code = WBC) 6.0 3.7-10.4 [facility] CenterTcqojqcMTWUNAKUEQ5077-35-27 16:36:00 Test Item Value Reference Range Interpretation Comments Monocytes (test code = Monocytes) 11.9 2.0-12.0 [facility] CenterLwhzsvlURAPGYXGMQ2310-42-97 16:36:00 Test Item Value Reference Range Interpretation Comments Lymphocytes (test code = Lymphocytes) 14.9 20.0-40.0 [facility] [id number] 16:36:00 Test Item Value Reference Range Interpretation Comments Segs (test code = Segs) 71.5 45.0-75.0 [id number] 16:36:00 Test Item Value Reference Range Interpretation Comments Lymphocytes # (test code = Lymphocytes 0.9 1.0-5.5 #) [facility] [id number] 16:36:00 Test Item Value Reference Range Interpretation Comments Monocytes # (test code 0.7 See_Comment [Aut omated message] The = Monocytes #) system which generated this result tra nsmitted reference range : <=0.8. The reference r rafat was not used to int erpret this result as normal/abnormal . [facility] [id number] 16:36:00 Test Item Value Reference Range Interpretation Comments Eosinophils # (test code 0.1 See_Comment [A utomated message] The = Eosinophils #) system wh h generated this result tra nsmitted reference range : <=0.5. The reference r rafat was not used to int erpret this result as normal/abnormal . [facility] [id number] 16:36:00 Test Item Value Reference Range Interpretation Comments Eosinophils (test code = 1.2 See_Comment [A utomated message] The Eosinophils) system which ge nerated this result tra nsmitted reference range : <=4.0. The reference r rafat was not used to int erpret this result as normal/abnormal . [facility] [id number] 16:36:00 Test Item Value Reference Range Interpretation Comments Basophils (test code = 0.5 See_Comment [Aut omated message] The Basophils) system which ge nerated this result tra nsmitted reference range : <=1.0. The reference r rafat was not used to int erpret this result as normal/abnormal . [facility] [id number] 16:36:00 Test Item Value Reference Range Interpretation Comments Segs-Bands # (test code = Segs-Bands #) 4.3 1.5-8.1 [id number] 16:36:00 Test Item Value Reference Range Interpretation Comments CDC HIV 4th GEN (test Negative (03/26/15 10:36 code = CDC HIV 4th AM) GEN) [id number] 16:36:00 Test Item Value Reference Range Interpretation Comments Uriah-Hep C Ab (test Negative *NA*(03/26/15 code = Uriah-Hep C 10:36 AM) Ab) [facility] Notes Date/Time Note Provider Source 2015-03-26 10:10:00-00:00 EXAM: Gall Bladder [facility] DATE: Mar 26, 2015 09:36:00 AM INDICATION: Abdominal pain, acute COMPARISON: Abdomen pelvis CT 03/26/2015. TECHNIQUE: Real-time graysca le and color Doppler imaging of the gallbladder right upper quadrant was done per. DISCUSSION: Gallbladder. Measures 11.3 c m in length and 5 cm in width consistent with mild hydrops. No gallstones are seen. There is layering sludge. The gallbladder wall measure 0.6 cm in thickness. Other areas measure 0.3 cm. Liver. Measures 15.2 cm in l ength. There are multiple hepatic cysts the largest measuring 5.4 x 4.8 x 5.0 cm that are simple in appearance. There is mild diffuse increased hepatic echotexture. CBD. Measures 0.2 cm and is normal. Main portal vein. Measures 0.9 cm with appropria te directional flow. IMPRESSION: 1. Hydropic gallbladder with sludge with areas of focal thickening measuring up to 0.6 cm. The differential includes a calculus cholecystitis and further evaluation with HIDA scan can be done. 2. Multiple hepatic cysts.
[2022-09-06 14:16] LABS: Absolute Lymphocytes (CBC) 1.4 K/uL (0.7-4.9); Hematocrit 45.6 % (39.6-49.0); Lymphocytes % 20.8 % (15.3-44.8); MCV 89.3 fL (80-100); RBC Red Blood Cell Count 5.11 M/uL (4.33-5.43)
--- NOTE | 2022-09-06 14:21 | RAD REPORT ---
EXAM DESCRIPTION: CT - Head Brain Wo Cont - 09/06/2022 2:14 pm CLINICAL HISTORY: HEADACHE Headache, drowsiness COMPARISON: Sinus Wo Cont dated 09/06/2022; Head Brain Wo Cont dated 05/30/2019 TECHNIQUE: All CT scans are performed using dose optimization technique as appropriate and may inclu de automated exposure control or mA/KV adjustment according to patient size. FINDINGS: No intracranial hemorrhage, hydrocephalus or extra-axial fluid collection.No areas of brai n edema or evidence of midline shift. The paranasal sinuses and mastoids are clear. The calvarium is intact. IMPRESSION: No acute intracranial abnormality.
--- NOTE | 2022-09-06 14:22 | RAD REPORT ---
EXAM DESCRIPTION: CT - Sinus Wo Cont - 09/06/2022 2:14 pm CLINICAL HISTORY: HEADACHE Headache, drowsiness, facial pain and swelling COMPARISON: Head Brain Wo Cont dated 05/30/2019; Head Brain Wo Cont dated 01/02/2019 TECHNIQUE: Axial 1 mm thick images of the paranasal sinuses were obtained. Coronal and sagittal refo rmatted images were reviewed. All CT scans are performed using dose optimization technique as appropriate and may include automated exposure control or mA/KV adjustment according to patient size. FINDINGS: The paranasal sinuses and mastoids are clear. The ostiomeatal units are patent. The frontal recesses are patent. No significant skull-base finding. IMPRESSION: Unremarkable examination.
--- NOTE | 2022-09-06 14:34 | EDPHYS ---
Physician Documentation [facility] Name: Shlomo Humphrey Age: 62 yrs Sex: Male : 1960 Arrival Date: 09/06/2022 Time: 13:32 Bed 16 Private MD: Ramonita Jarrett ED Physician Terra Dupree HPI: 09/06 13:53 This 62 yrs old Male presents to ER via Ambulatory with complaints of Headache, sp3 Dizziness. 13:53 62-year-old male with history of A-fib, hypertension, longstanding episodes of sp3 lightheadedness/headache now presents to the ED with slightly worsening headache over the weekend that comes and goes with coughing and sinus pressure. Patient has had this worked up with neurology, cardiology in the past and he states that there has been no resolution or etiology identified. He denies neck pain, chest pain, shortness of breath, numbness or tingling, abdominal pain, nausea, vomiting, diarrhea, fever, or any other signs or symptoms on ROS at this time. He has a mild cough other than that no other's URI symptoms.. Historical: - Allergies: 13:44 No Known Allergies; ll1 - PMHx: 13:44 Atrial Fib; Hypertension; pleurisy; ll1 - PSHx: 13:44 Cholecystectomy; heart surgery; Cholecystectomy; double hernia repair; ll1 - Immunization history:: Client reports having NOT received the Covid vaccine. - Social history:: Smoking status: Patient/guardian denies using tobacco, the patient reports quitting approximately 20 years ago. ROS: 13:54 Constitutional: Negative for fever, chills, and weight loss, Eyes: Negative for injury, sp3 pain, redness, and discharge, ENT: Negative for injury, pain, and discharge, Neck: Negative for injury, pain, and swelling, Cardiovascular: Negative for chest pain, palpitations, and edema, Abdomen/GI: Negative for abdominal pain, nausea, vomiting, diarrhea, and constipation, Back: Negative for injury and pain, MS/Extremity: Negative for injury and deformity, Skin: Negative for injury, rash, and discoloration, Psych: Negative for depression, anxiety, suicide ideation, homicidal ideation, and hallucinations, Allergy/Immunology: Negative for hives, rash, and allergies, Endocrine: Negative for neck swelling, polydipsia, polyuria, polyphagia, and marked weight changes. 13:54 All other systems are negative. Exam: 13:54 Constitutional: This is a well developed, well nourished patient who is awake, alert, sp3 and in no acute distress. Head/Face: Normocephalic, atraumatic. Eyes: Pupils equal round and reactive to light, extra-ocular motions intact. Lids and lashes normal. Conjunctiva and sclera are non-icteric and not injected. Cornea within normal limits. Periorbital areas with no swelling, redness, or edema. ENT: Nares patent. No nasal discharge, no septal abnormalities noted. External auditory canals are clear. Oropharynx with no redness, swelling, or masses, exudates, or evidence of obstruction, uvula midline. Mucous membranes moist. Neck: Trachea midline, no thyromegaly or masses palpated, and no cervical lymphadenopathy. Supple, full range of motion without nuchal rigidity, or vertebral point tenderness. No Meningismus. Chest/axilla: Normal chest wall appearance and motion. Nontender with no deformity. No lesions are appreciated. Cardiovascular: Regular rate and rhythm with a normal S1 and S2. No gallops, murmurs, or rubs. Normal PMI, no JVD. No pulse deficits. Respiratory: Lungs have equal breath sounds bilaterally, clear to auscultation and percussion. No rales, rhonchi or wheezes noted. No increased work of breathing, no retractions or nasal flaring. Abdomen/GI: Soft, non-tender, with normal bowel sounds. No distension or tympany. No guarding or rebound. No evidence of tenderness throughout. Back: No spinal tenderness. No costovertebral tenderness. Full range of motion. Skin: Warm, dry with normal turgor. Normal color with no rashes, no lesions, and no evidence of cellulitis. MS/ Extremity: Pulses equal, no cyanosis. Neurovascular intact. Full, normal range of motion. Neuro: Awake and alert, GCS 15, oriented to person, place, time, and situation. Cranial nerves II-XII grossly intact. Motor strength 5/5 in all extremities. Sensory grossly intact. Cerebellar exam normal. Normal gait. Psych: Awake, alert, with orientation to person, place and time. Behavior, mood, and affect are within normal limits. 14:04 ECG was reviewed by the Attending Physician. EKG demonstrates normal sinus rhythm at 80 sp3 bpm with normal intervals, normal QRS, normal axis, nonspecific inferior T wave abnormalities without any reciprocal changes or any evidence of ischemia. Vital Signs: 13:45 BP 140 / 93; Pulse 86; Resp 18; Temp 97.9; Pulse Ox 97% on R/A; Weight 113.4 kg; Height ll1 5 ft. 10 in. ; Pain 0/10; 14:21 BP 117 / 78; Pulse 75; Resp 18 S; Pulse Ox 95% on R/A; kc6 13:45 Body Mass Index 35.87 (113.40 kg, 177.8 cm) ll1 13:45 Pain Scale: Adult ll1 MDM: 13:46 Patient medically screened. sp3 13:55 Data reviewed: vital signs, nurses notes, lab test result(s), EKG, radiologic studies. sp3 ED course: 62-year-old male with PMH documented above now presents with episodic mild headache and sinus pressure. Will obtain CT scan of the head and sinuses and laboratory work-up including EKG and troponin. I am not highly suspicious for CVA, ACS, vascular pathology including dissection, any other concerning findings at this time. This appears to be an exacerbation of his longstanding disease process which is still unidentified. We will ensure no acute emergency, reassured patient and ensure that he follows back up with his normal team of physicians.. 14:32 ED course: Work-up was negative including CT scan of the head and sinuses as well as sp3 laboratory values. At this time we will reassure patient and safely discharge him home with continued treatment with this PCP.. 09/06 13:57 Order name: Basic Metabolic Panel; Complete Time: 14:32 sp3 09/06 13:57 Order name: CBC with Diff; Complete Time: 14:32 sp3 09/06 13:57 Order name: PT-INR; Complete Time: 14:32 sp3 09/06 13:57 Order name: Troponin HS; Complete Time: 14:32 sp3 09/06 13:57 Order name: CT Head Brain wo Cont; Complete Time: 14:32 sp3 09/06 13:57 Order name: CT Sinus Wo Cont; Complete Time: 14:32 sp3 09/06 13:57 Order name: EKG; Complete Time: 13:57 sp3 09/06 13:57 Order name: Cardiac monitoring; Complete Time: 14:04 sp3 09/06 13:57 Order name: EKG - Nurse/Tech; Complete Time: 14:04 sp3 09/06 13:57 Order name: IV Saline Lock; Complete Time: 14:15 sp3 09/06 13:57 Order name: Labs collected and sent; Complete Time: 14:04 sp3 09/06 13:57 Order name: O2 Sat Monitoring; Complete Time: 14:04 sp3 Administered Medications: No medications were administered Disposition Summary: 09/06/22 14:33 Discharge Ordered Location: Home sp3 Condition: Stable sp3 Diagnosis - Headache, lightheadedness sp3 Followup: sp3 - With: Private Physician - When: Upon discharge from the Emergency Department - Reason: Continuance of care Discharge Instructions: - Discharge Summary Sheet sp3 - General Headache Without Cause sp3 Forms: - Medication Reconciliation Form sp3 - Thank You Letter sp3 - Antibiotic Education sp3 - Prescription Opioid Use sp3 Signatures: Dispatcher [employer] Lesley Burgos RN RN ll1 Terra Dupree MD MD sp3
--- NOTE | 2022-09-06 14:34 | ER ---
Nurse's Notes [facility] Name: Shlomo Humphrey Age: 62 yrs Sex: Male : 1960 Arrival Date: 09/06/2022 Time: 13:32 Bed 16 Private MD: Ramonita Jarrett Diagnosis: Headache, lightheadedness Presentation: 09/06 13:45 Chief complaint: Patient states: VIRK and lightheaded after sneezing and coughing since ll1 last week. PCP informed, told to go get checked in ED. Coronavirus screen: Vaccine status: Patient reports being unvaccinated. Client denies travel out of the [place] in the last 14 days. congestion, cough unrelated to allergies, fatigue, Client presents with at least one sign or symptom that may indicate coronavirus-19. Standard/surgical mask placed on the client. Ebola Screen: Patient denies travel to an Ebola-affected area in the 21 days before illness onset. Initial Sepsis Screen: Does the patient meet any 2 criteria? No. Patient's initial sepsis screen is negative. Does the patient have a suspected source of infection? Yes: Productive cough/pneumonia. Risk Assessment: Do you want to hurt yourself or someone else? Patient reports no desire to harm self or others. Onset of symptoms was August 30, 2022. 13:45 Method Of Arrival: Ambulatory ll1 13:45 Acuity: EBER 3 ll1 Historical: - Allergies: 13:44 No Known Allergies; ll1 - PMHx: 13:44 Atrial Fib; Hypertension; pleurisy; ll1 - PSHx: 13:44 Cholecystectomy; heart surgery; Cholecystectomy; double hernia repair; ll1 - Immunization history:: Client reports having NOT received the Covid vaccine. - Social history:: Smoking status: Patient/guardian denies using tobacco, the patient reports quitting approximately 20 years ago. Screenin:45 [facility] ED Fall Risk Assessment (Adult) History of falling in the last 3 months, kc6 including since admission No falls in past 3 months (0 pts) Confusion or Disorientation No (0 pts) Intoxicated or Sedated No (0 pts) Impaired Gait No (0 pts) Mobility Assist Device Used No (0 pt) Altered Elimination No (0 pt) Score/Fall Risk Level 0 - 2 = Low Risk Oriented to surroundings, Maintained a safe environment, Educated pt \T\ family on fall prevention, incl call for assistance when getting out of bed, Assessed \T\ reinforced patient's understanding of fall precautions, Hourly rounding (assess needs \T\ fall precautionary measures) done. Abuse screen: Denies threats or abuse. Denies injuries from another. Nutritional screening: No deficits noted. Tuberculosis screening: No symptoms or risk factors identified. Assessment: 13:45 General: Appears in no apparent distress. comfortable, Behavior is calm, cooperative, kc6 appropriate for age. Neuro: Mcelroy Agitation-Sedation Scale (RASS): 0 - Alert and Calm Level of Consciousness is awake, alert, obeys commands, Oriented to person, place, time, situation, Appropriate for age Reports dizziness. Cardiovascular: Capillary refill < 3 seconds. Respiratory: Airway is patent Trachea midline Respiratory effort is even, unlabored, Respiratory pattern is regular, symmetrical. Derm: No signs and/or symptoms reported regarding the dermatologic system. Skin is intact, Skin is pink, warm \T\ dry. Vital Signs: 13:45 BP 140 / 93; Pulse 86; Resp 18; Temp 97.9; Pulse Ox 97% on R/A; Weight 113.4 kg; Height ll1 5 ft. 10 in. ; Pain 0/10; 14:21 BP 117 / 78; Pulse 75; Resp 18 S; Pulse Ox 95% on R/A; kc6 13:45 Body Mass Index 35.87 (113.40 kg, 177.8 cm) ll1 13:45 Pain Scale: Adult ll1 ED Course: 13:37 Patient arrived in ED. im 13:37 Ramonita Jarrett DO is Private Physician. im 13:39 Eleanor Najera, DHEERAJ is Primary Nurse. kc6 13:39 Terra Dupree MD is Attending Physician. sp3 13:44 Arm band placed on Patient placed in an exam room, on a stretcher. ll1 13:45 Patient has correct armband on for positive identification. Bed in low position. Call kc6 light in reach. Side rails up X 1. 13:46 Triage completed. ll1 14:16 CT Head Brain wo Cont In Process Unspecified. EDMS 14:16 CT Sinus Wo Cont In Process Unspecified. EDMS 14:46 No provider procedures requiring assistance completed. IV discontinued, intact, kc6 bleeding controlled, No redness/swelling at site. Pressure dressing applied. Administered Medications: No medications were administered Medication: 14:46 VIS not applicable for this client. kc6 Outcome: 14:33 Discharge ordered by . sp3 14:46 Discharged to home ambulatory. kc6 14:46 Condition: stable 14:46 Discharge instructions given to patient, Instructed on discharge instructions, follow up and referral plans. Demonstrated understanding of instructions, follow-up care. 14:46 Patient left the ED. kc6 Signatures: Dispatcher [employer] Lesley Burgos, RN RN ll1 Terra Dupree MD MD sp3 Eleanor Najera RN RN kc6 Magda Anton
[2022-09-06 14:51] VITALS: TEMP 97.9
[2022-09-06 14:52] VITALS: BP 117/78; O2SAT 95
--- NOTE | 2022-09-10 17:58 | EKG ---
Test Date: 2022-09-06 Test Time: 13:51:51 Actuarial Assistant: VIANCA MEASUREMENT RESULTS: Intervals: Rate: 80 CO: 182 QRSD: 80 QT: 362 QTc: 417 Welches: P: 39 CO: 182 QRS: 52 T: 53 INTERPRETIVE STATEMENTS: Normal sinus rhythm Normal ECG Compared to ECG 05/30/2019 16:46:34 No significant changes Electronically Signed On 09-10-22 17:52:51 CDT by Brian Franco
== END 2022-09-06 14:46 | disposition home or self-care (01) ==
LOC: ER 13:32
DX: R51.9 Headache, unspecified (principal); R42 Dizziness and giddiness; I10 Essential (primary) hypertension; I48.91 Unspecified atrial fibrillation
CPT/HCPCS: 36415; 70450; 70486; 80048; 84484; 85025; 85610; 93005; 99283

== ENCOUNTER 2022-11-26 12:56 | Emergency (ER) | payer OTHER ==
--- OUTSIDE RECORDS SUMMARY | 2022-11-26 13:05 | XMS REPORT | Continuity of Care Document ---
:1960 Author Organization [facility] t Address [address] [place] [address] Care Team Providers Name Role Phone PCP, PATIENT DOES NOT HAVE A Primary Care Physician UnavailDuke Gabriel Attending Clinician YOEL SHIN Attending Clinician Unavailable YOEL SHIN Attending Clinician Unavailable Yandel Fernandez Attending Clinician Unavailable Tanner Jaffe [...] Acute Disease Active Methodi pancreatit pancreatit 06-23 is is 00:00: Hospita 00 l LOWER GI LOWER GI Diagnosis Active 2015-04-05 Memoria BLEED BLEED 03-31 21:58:00 l Active 00:00: Jose Manuel 03/31/2015 00 [facility] BILIARY BILIARY Diagnosis Active 2015-03-29 Memoria DYSKINESIA DYSKINESIA 03-26 11:22:00 l Active 00:00: Jose Manuel 03/26/2015 00 [facility] ACUTE ACUTE Diagnosis Active 2015-0 2015-03-[address] [facility] oria CHOLECYSTI CHOLECYSTI - 17:41:00 l TIS(ER TIS(ER 00:00: Jose Manuel EVAL) EVAL) 00 Active 03/26/2015 [facility] Coronary Coronary Problem Active 2022-10-14 Memoria arterioscl arterioscl 12:17:49 l erosis erosis Jose Manuel (disorder) (disorder) Active Problem 10/14/[address] [facility] [place] Dizziness Dizziness Problem Active 2022-10-14 Memoria (finding) (finding) 12:17:49 l Active [place] Problem 10/14/[address] [facility] [place] Hypertensi Hypertens Problem Active 2022-10-14 Memoria ve mily 12:17:49 l disorder, disorder, Herm michael systemic systemic arterial arterial (disorder) (disorder) Active Problem 10/14/2022 [facility] [place] Problem Active 2022-10-14 Memoria dness edness 12:17:49 l (finding) (finding) Herm michael Active Problem 10/14/[address] [facility] [place] Headache Headache Problem Active 2022-10-14 Memoria (finding) (finding) 12:17:49 l Active [place] Problem 10/14/2022 [facility] [place] Migraine Migraine Problem Active 2022-10-14 Memoria variant variant 12:17:49 l with with [place] headache headache (disorder) (disorder) Active Problem 10/14/2022 [facility] [place] Atrial Atrial Problem Resolve 2021-12-02 Me moria fibrillati fibrillati d 04:47:44 l on on Jose Manuel (disorder) (disorder) Resolved Problem 12/02/2021 [facility] Acute Acute Problem Resolve 2021-12-02 Celio yennifer cholecysti cholecysti d 04:47:44 l tis tis [place] (disorder) (disorder) Resolved Problem 12/02/2021 [facility] Gastric Gastric Problem Resolve 2021-12-02 M emoria reflux reflux d 04:47:44 l (finding) (finding) Herm michael Resolved Problem 12/02/2021 [facility] Placement Placement Problem Resolve 2021-12-02 Memoria of stents of stents d 04:47:44 l in in [place] coronary coronary artery artery (procedure (procedure ) ) Resolved Problem 12/02/2021 [facility] GASTROINTE GASTROINT Diagnosis Active 2015-04-[address] HEMORR EST HEMORR 21:58:00 l NOS NOS Active Osvaldo n [facility] Allergies, Adverse Reactions, Alerts Allergy Allergy Status Severity Reaction(s) Onset Inactive Treating Comm ents Source Name Type Date Date Clinician No Known DA Active U 2017-03 [facility] [place] 00:[facility]: [address] No Known DA Active U 2017-03 [facility] Allergie 05-05 [place] 00:00: [address] No Known DA Active U 2014-03 [facility] Allergie 04-25 [place] [facility] 00:00: [address] NO KNOWN Drug Active Univers ALLERGIE Class ity of S [facility] No Known No Known Active Memori a Medicati Medicati l on on [place] Allergie Allergie s s Social History Social Habit Start Date Stop Date Quantity Comments Source History SDOH [facility] History SD[facility] History of Social 2018-11-09 2018-11-[address] function 00:00:00 00:00:00 Hospital Tobacco use and 2018-06-23 2018-06-23 Smokeless [facility] 00:00:00 00:00:00 tobacco non-user Hospital History SDOH 2018-06-23 2018-06-23 1 [facility] Frequency 00:00:00 00:00:00 Hospita l Alcohol intake 2018-06-23 2018-06-23 Current [facility] 00:[facility] 00:00:00 non-drinker of Hospital alcohol (finding) Social History 2015-03-27 2015-03-27 Vero colbert 00:43:06 00:43:06 Sex Ass[birth year] At [birth year] [facility] Smoking Status Start Date Stop Date Source Tobacco smoking status 2022-10-11 18:43:21 2022-10-11 18:43:21 [facility] [place] Never smoked tobacco [facility] Medications Ordered Filled Start Stop Current Ordering Indication Dosage Frequency Signature Comments Components Source Medication Medication Date Date Medication? Clinician (SIG) Name Name Harjit 20 Yes 20 mg = 1 Mem oria mg oral 7-21 tab, PO, l tablet 18:02: BID, # 60 Osvaldo n 00 tab, 3 Refill(s), Pharmacy: [id number], 177.8, cm, 10/11/22 14:35:00 CDT, Height, 116.364, kg, 10/11/22 14:35:00 CDT, Weight indomethaci Yes 25 mg = 1 M emoria n 25 mg 7-20 cap, PO, l oral 20:31: BID, # 60 Jose Manuel capsule 00 cap, 3 Refill(s), Pharmacy: [id number], 177.8, cm, 10/11/22 14:35:00 CDT, Height, 116.364, kg, 10/11/22 14:35:00 CDT, Weight Nurtec ODT Yes TAKE 1 Memor ia 75 mg oral 6-28 TABLET l tablet, 18:37: ORALLY Jose Manuel disintegrat 00 DAILY ing NEEDED FOR HEADACHE/M IGRAINE amitriptyli Yes TAKE 1 Celio yennifer ne 25 mg 6-28 TABLET BY l oral tablet 18:21: MOUTH Elida nn 00 EVERYDAY AT BEDTIME losartan 50 2022-0 Yes TAKE 1 Celio yennifer mg oral 6-28 TABLET BY l tablet 18:21: MOUTH Jose Manuel 00 EVERY DAY IN THE MORNING cetirizine 0 Yes 0 Memoria 6-28 Refill(s) l 18:20: [place] 00 magnesium 2022-0 Yes PO, 0 Memoria oxide 6-28 Refill(s) l 18:20: Jose Manuel 00 doxycycline 2022-0 Yes 100 mg = 1 Memoria monohydrate 6-28 cap, PO, l 100 mg oral 18:19: Q12H, # 20 Jose Manuel capsule 00 cap, 0 Refill(s) magnesium 2022-0 Yes 0 Memoria citrate 1-20 Refill(s) l oral tablet 19:23: Osvaldo n 00 calcium 2022-0 Yes 2,001 mg, Memor ia acetate 1-20 PO, 0 l 19:23: Refill(s) magnesium Yes 0 Memoria citrate 1-20 Refill(s) l oral tablet 19:23: calcium Yes 2,001 mg, Memor ia acetate 1-20 PO, 0 l 19:23: Refill(s) magnesium Yes 0 Memoria citrate 1-20 Refill(s) l oral tablet 19:23: calcium Yes 2,001 mg, Memor ia acetate 1-20 PO, 0 l 19:23: Refill(s) magnesium Yes 0 Memoria citrate 1-20 Refill(s) l oral tablet 19:23: calcium Yes 2,001 mg, Memor ia acetate 1-20 PO, 0 l 19:23: Refill(s) 1 Yes 0 Memoria oral 1-20 Refill(s) l capsule 19:22: Yes 0 Memoria oral 1-20 Refill(s) l capsule 19:22: Jose Manuel 00 0 Yes 0 Memoria oral 1-20 Refill(s) l capsule 19:22: Yes 0 Memoria oral 1-20 Refill(s) l capsule 19:22: [place] 00 amitriptyli 2021-03 Yes TAKE 1 Celio [...] 9-07 TABLET BY l tablet 14:25: MOUTH [place] 00 EVERY MORNING atorvastati Yes TAKE 1 Celio yennifer n 20 mg 9-07 TABLET BY l oral tablet 14:25: MOUTH Elida nn 00 EVERY DAY IN THE MORNING tadalafil 5 Yes TAKE 1 Celio yennifer mg oral 9-07 TABLET BY l tablet 14:25: MOUTH [place] 00 EVERY MORNING atorvastati Yes TAKE 1 Celio yennifer n 20 mg 9-07 TABLET BY l oral tablet 14:25: MOUTH Elida nn 00 EVERY DAY IN THE MORNING tadalafil 5 Yes TAKE 1 Celio yennifer mg oral 9-07 TABLET BY l tablet 14:25: MOUTH Jose Manuel 00 EVERY MORNING aspirin 2018- Yes 81mg QD Take 81 mg Meth oneyda (ECOTRIN) 4-[address] 81 MG 11:53: daily. Hospita enteric 58 l coated tablet aspirin 2018- Yes 81mg QD Take 81 mg Meth oneyda (ECOTRIN) 4-[address] 81 MG 11:53: daily. Hospita enteric 58 l coated tablet aspirin 2018-0 Yes 81mg QD Take 81 mg Meth oneyda (ECOTRIN) 4-[address] 81 MG 11:53: daily. Hospita enteric 58 l coated tablet aspirin 2018- Yes 81mg QD Take 81 mg Meth [...] carias MG/ML Oral 00 on, X 31 day, # [Miralax] 1054 gm, 0 Refill(s) [...] Hydrochloro No 1 tab, Celio yennifer thiazide 04-01 Route: PO, l 12.5 MG / 15:00: Drug Form: Pardeep rmann Losartan 00 TAB, Potassium Dosing 50 MG Oral Weight Tablet 110.455, kg, Daily, Start date: 04/01/15 9:00:00, Duration: 30 day, Stop date: 04/30/15 9:00:00 Amiodarone No Notes: Memor ia -08 (Same as: l 15:00: Cordarone) [place] 00 hydrochloro No Notes: Celio yennifer thiazide 25 -08 (Same as: l mg oral 15:00: Hydrodiuri Herm michael tablet 00 l) With food. Cozaar No Notes: Memoria 1-08 (Same as: l 15:00: Cozaar) [place] 00 pantoprazol No Notes: Celio yennifer e [...] ia 1-08 (Same as: l 15:00: Cordarone) [place] hydrochloro No Notes: Celio yennifer thiazide 25 1-08 (Same as: l mg oral 15:00: Hydrodiuri Herm michael tablet 00 l) With food. Cozaar No Notes: Memoria 1-08 (Same as: l 15:00: Cozaar) Jose Manuel 00 Lopressor No Notes: Memori a 1-08 [...] ia 1-08 (Same as: l 15:00: Cordarone) [place] 00 hydrochloro No Notes: Celio yennifer thiazide 25 1-08 (Same as: l mg oral 15:00: Hydrodiuri Herm michael tablet 00 l) With food. Cozaar No Notes: Memoria 1-08 (Same as: l 15:00: Cozaar) Jose Manuel 00 pantoprazol No Notes: Celio yennifer e 1-08 Tablet l 15:00: should not [place] 00 be chewed or crushed. (Same as: Protonix) Lopressor No Notes: Memori a 1-08 (Same as: l 15:00: Lopressor) [place] 00 12.5mg=1/4 X 50 mg tab. Hydrochloro [...] Memoria 1-08 (Same as: l 15:00: Cozaar) [place] 00 Miralax No Notes: Memoria 1-08 Dissolve l 03:50: in 8 oz of Jose Manuel 00 water or juice. (Same as: Miralax) Miralax No Notes: Memoria 1-08 Dissolve l 03:50: in 8 oz of [place] 00 water or juice. (Same as: Miralax) Miralax No Notes: Memoria 1-08 Dissolve l 03:50: in 8 oz of [place] 00 water or juice. (Same as: Miralax) Miralax No Notes: Memoria 1-08 Dissolve l 03:50: in 8 oz of [place] 00 water or juice. (Same as: Miralax) tramadol No Notes: Not Mem oria hydrochlori -08 to exceed l de 50 MG 03:35: [...] (Same as: l mg oral 03:34: Colace) [place] capsule 00 (Do Not Crush) docusate No Notes: Memoria sodium 100 1-08 (Same as: l mg oral 03:34: Colace) [place] capsule 00 (Do Not Crush) docusate No Notes: Memoria sodium 100 1-08 (Same as: l mg oral 03:34: Colace) [place] capsule 00 (Do Not Crush) docusate No Notes: Memoria sodium 100 1-08 (Same as: l mg oral 03:34: Colace) [place] capsule 00 (Do Not Crush) Acetaminoph No Notes: Do M emoria en 1-08 not exceed l 03:22: 4 gm/day. Jose Manuel 00 (Same as: Tylenol) Docusate No Notes: Memoria 1-08 (Same as: l 03:22: Colace) [place] 00 (Do Not Crush) Acetaminoph No Notes: Do M emoria en 1-08 not exceed l 03:22: 4 gm/day. [place] 00 (Same as: Tylenol) Docusate No Notes: Memoria 1-08 (Same as: l 03:22: Colace) Jose Manuel 00 (Do Not Crush) Acetaminoph No Notes: Do M emoria en 1-08 not exceed l 03:22: 4 gm/day. [place] 00 (Same as: Tylenol) Docusate No Notes: Memoria 1-08 (Same as: l 03:22: Colace) [place] 00 (Do Not Crush) Acetaminoph No Notes: Do M emoria en 04-01 not exceed l 03:22: 4 gm/day. [place] 00 (Same as: Tylenol) Docusate No Notes: Memoria 04-01 (Same as: l 03:22: Colace) (Do Not Crush) tramadol Yes 50 mg [...] 03-28 not exceed l 20:00: 4 gm/day. Jose Manuel 00 (Same as: Tylenol) Acetaminoph No Notes: Do M emoria en 03-28 not exceed l 20:00: 4 gm/day. [place] (Same as: Tylenol) Acetaminoph No Notes: Do M emoria en 03-28 not exceed l 20:00: 4 gm/day. [place] 00 (Same as: Tylenol) Acetaminoph No Notes: Do M emoria en 03-28 not exceed l 20:00: 4 gm/day. Jose Manuel 00 (Same as: Tylenol) Tramadol 2016-0 No Notes: Not Mem oria 1-04 to exceed l 18:00: 400mg/day. [place] 00 (Same As: Ultram) Tramadol 2016-0 No Notes: Not Mem oria 1-04 to exceed l 18:00: 400mg/day. [place] (Same As: Ultram) Tramadol 2016-0 No Notes: Not Mem oria 1-04 to exceed l 18:00: 400mg/day. [place] 00 (Same As: Ultram) Tramadol 2016-0 No Notes: Not Mem oria 1-04 to exceed l 18:00: 400mg/day. Jose Manuel 00 (Same As: Ultram) Tramadol 2016-0 No 50 mg, 1 Memor ia 1-04 tab, l 15:22: Route: PO, [place] 00 Drug form: TAB, Q6H, Dosing Weight 110, kg, PRN Pain Score 1-3, Start date: 03/28/15 9:22:00, Duration: 30 day, Stop date: 04/27/15 9:21:00 Tramadol 2016-0 No 50 mg, 1 Memor ia 1-04 tab, l 15:22: Route: PO, Drug form: TAB, Q6H, Dosing Weight 110, kg, PRN Pain Score 1-3, Start date: 03/28/15 9:22:00, Duration: 30 day, Stop date: 04/27/15 9:21:00 Tramadol 2016-0 No 50 mg, 1 Memor ia 1-04 tab, l 15:22: Route: PO, Drug form: TAB, Q6H, Dosing Weight 110, kg, PRN Pain Score 1-3, Start date: 03/28/15 9:22:00, Duration: 30 day, Stop date: 04/27/15 9:21:00 Tramadol 2016-0 No 50 mg, 1 Memor ia 1-04 tab, l 15:22: Route: PO, Jose Manuel 00 Drug form: TAB, Q6H, Dosing Weight 110, kg, PRN Pain Score 1-3, Start date: 03/28/15 9:22:00, Duration: 30 day, Stop date: 04/27/15 9:21:00 Promethazin 2016-0 No Notes: Do M emoria e 1-04 not give l 15:09: IV push. Jose Manuel 00 (Same as: Phenergan) Ondansetron No Notes: Celio yennifer 1-04 (Same as: l 15:09: Zofran) [place] 00 MEDICATION WASTE Product Size: 4 mg Product Wasted: _0__ mg Oxycodone No Notes: Memori a 1-04 (Same as: l 15:09: Roxicodone Jose Manuel 00 ) Naloxone No Notes: Memoria 03-28 Same [...] Promethazin No Notes: Do M emoria e 1- not give l 15:09: IV push. [place] 00 (Same as: Phenergan) Ondansetron No Notes: Celio yennifer 1-04 (Same as: l 15:09: Zofran) Jose Manuel 00 MEDICATION WASTE Product Size: 4 mg Product Wasted: _0__ mg Oxycodone No Notes: Memori a 1-04 (Same as: l 15:09: Roxicodone [place] 00 ) Naloxone No Notes: Memoria 1-04 Same as l 15:09: Narcan [place] 00 Flumazenil No Notes: Memor ia 1-04 (Same as: l 15:09: Romazicon) [place] 00 Hydromorpho No Notes: Celio yennifer ne 1-04 Same as: l 15:09: Dilaudid [place] 00 Metoprolol No Notes: Memor ia 1-04 (Same as: l 15:09: Lopressor) [place] 00 Push over 2 minutes Labetalol No 10 mg, 2 Celio yennifer 1-04 mL, Route: l 15:09: IVP, Drug [place] 00 form: INJ, Q5Min, Dosing Weight 110, kg, PRN Elevated BP, Start date: 03/28/15 9:09:00, Duration: 5 doses or times, Stop date: Limited # of times Promethazin No Notes: Do M emoria e 03-28 not give l 15:09: IV push. Jose Manuel (Same as: Phenergan) Ondansetron No Notes: Celio yennifer 1-04 (Same as: l 15:09: Zofran) Jose Manuel 00 MEDICATION WASTE Product Size: 4 mg Product Wasted: _0__ mg Oxycodone No Notes: Memori a 1-04 (Same as: l 15:09: Roxicodone ) Naloxone No Notes: Memoria 1-04 Same as l 15:09: Narcan Jose Manuel 00 Flumazenil No Notes: Memor ia 1-04 (Same as: l 15:09: Romazicon) [place] Hydromorpho No Notes: Celio yennifer ne 1-04 Same as: l 15:09: Dilaudid Jose Manuel Metoprolol No Notes: Memor ia 1-04 (Same as: l 15:09: Lopressor) [place] 00 Push over 2 minutes Labetalol No [...] yennifer 1-04 (Same as: l 15:09: Zofran) MEDICATION WASTE Product Size: 4 mg Product Wasted: _0__ mg Oxycodone No Notes: Memori a 1- (Same as: l 15:09: Roxicodone ) Naloxone No Notes: Memoria 1- Same as l 15:09: Narcan Flumazenil No Notes: Memor ia - (Same as: l 15:09: Romazicon) Hydromorpho No Notes: Celio yennifer ne - Same as: l 15:09: Dilaudid Metoprolol No Notes: Memor ia - (Same as: l 15:09: Lopressor) Push over 2 minutes Labetalol No 10 mg, 2 Celio yennifer 1-04 mL, Route: l 15:09: IVP, Drug form: INJ, Q5Min, Dosing Weight 110, kg, PRN Elevated BP, Start date: 03/28/15 9:09:00, Duration: 5 doses or times, Stop date: Limited # of times metoprolol No Notes: Memor ia tartrate - (Same as: l 15:00: Lopressor) 12.5mg=1/4 X 50 mg tab. metoprolol No Notes: Memor ia tartrate 1- (Same as: l 15:00: Lopressor) 12.5mg=1/4 X 50 mg tab. metoprolol No Notes: Memor ia tartrate 1- (Same as: l 15:00: Lopressor) 12.5mg=1/4 X 50 mg tab. metoprolol No Notes: Memor ia tartrate -04 (Same as: l 15:00: Lopressor) 12.5mg=1/4 X 50 mg tab. Ancef No 2 gm, Memoria 03-28 Route: IV, l 13:44: ONCE, [place] 00 Dosing Weight 110, kg, Start date: 03/28/15 7:44:00, Duration: 1 doses or times, Stop date: 03/28/15 7:44:00, Surgical Prophylaxi s Only; For patients < 120 kg Ancef 2016-0 No 2 gm, Memoria 1-04 Route: IV, l 13:44: ONCE, [place] 00 Dosing Weight 110, kg, Start date: 03/28/15 7:44:00, Duration: 1 doses or times, Stop date: 03/28/15 7:44:00, Surgical Prophylaxi s Only; For patients < 120 kg Ancef 2015-0 No 2 gm, Memoria 1-04 Route: IV, l 13:44: ONCE, [place] 00 Dosing Weight 110, kg, Start date: 03/28/15 7:44:00, Duration: 1 doses or times, Stop date: 03/28/15 7:44:00, Surgical Prophylaxi s Only; For patients < 120 kg Ancef 0 No 2 gm, Memoria 1 Route: IV, l 13:44: ONCE, Jose Manuel [...] Memoria 1-03 (Same as: l 23:04: Colace) [place] 00 (Do Not Crush) Docusate No Notes: Memoria 1-03 (Same as: l 23:04: Colace) Jose Manuel 00 (Do Not Crush) Xarelto No Notes: Memoria 1-03 (Same as: l 23:00: Xarelto) [place] 00 Administer with food Xarelto No Notes: Memoria 1-03 (Same as: l 23:00: Xarelto) [place] 00 Administer with food Xarelto No Notes: Memoria 1-03 (Same as: l 23:00: Xarelto) Jose Manuel 00 Administer with food Xarelto No Notes: Memoria 1-03 (Same as: l 23:00: Xarelto) [place] Administer with food Microzide No Notes: Memori a 1-03 (Same as: l 15:00: Microzide) Jose Manuel 00 With food. pantoprazol No Notes: Celio yennifer e 1-03 Tablet l 15:00: should not [place] 00 be chewed or crushed. (Same as: [...] ia 1-03 (Same as: l 15:00: Cordarone) [place] 00 Cozaar No Notes: Memoria 1-03 (Same as: l 15:00: Cozaar) [place] 00 Microzide No Notes: Memori a 1-03 [...] 30 day, Stop date: 04/25/15 9:00:00 Aspirin 0 No Notes: Do Memor ia 1-03 not crush l 15:00: or chew. Jose Manuel 00 (Same As: Ecotrin) Amiodarone No Notes: Memor ia 1-03 (Same as: l 15:00: Cordarone) [place] Cozaar No Notes: Memoria 1-03 (Same as: l 15:00: Cozaar) [place] Microzide No Notes: Memori a 1-03 (Same as: l 15:00: Microzide) [place] With food. pantoprazol No Notes: Celio yennifer e 1-03 Tablet l 15:00: should not [place] 00 be chewed or crushed. (Same as: [...] 1-03 not crush l 15:00: or chew. [place] (Same As: Ecotrin) Amiodarone No Notes: Memor ia 1-03 (Same as: l 15:00: Cordarone) [place] Cozaar No Notes: Memoria 1-03 (Same as: l 15:00: Cozaar) Jose Manuel Microzide No Notes: Memori a 1-03 (Same as: l 15:00: Microzide) Jose Manuel With food. pantoprazol No Notes: Celio yennifer [...] 9:00:00 Aspirin No Notes: Do Memor ia 03-27 not crush l 15:00: or chew. (Same As: Ecotrin) Amiodarone No Notes: Memor ia 03-27 (Same as: l 15:00: Cordarone) Cozaar No Notes: Memoria 03-27 (Same as: l 15:00: Cozaar) aspirin Yes 81 mg, PO, Celio yennifer 03-27 Daily, 0 l 00:39: Refill(s) AMIODarone Yes 200 mg = 1 M emoria 200 mg oral - tab, PO, l tablet 00:39: Daily, # [place] 00 90 tab, 3 Refill(s) pantoprazol Yes 40 mg = 1 M emoria e 40 mg - tab, PO, l oral 00:39: Daily, # [place] enteric 00 30 tab, 1 coated Refill(s) tablet Hydrochloro Yes 1 tab, PO, Memoria thiazide 03-27 [...] 03-27 Daily, 0 l 00:39: Refill(s) AMIODarone Yes 200 mg = 1 M emoria 200 mg oral 1-03 tab, PO, l tablet 00:39: Daily, # Jose Manuel 00 90 tab, 3 Refill(s) pantoprazol Yes 40 mg = 1 M emoria e 40 mg 1-03 tab, PO, l oral 00:39: Daily, # [place] enteric 00 30 tab, 1 coated Refill(s) tablet Hydrochloro 2015-0 Yes 1 tab, PO, Memoria thiazide 1-03 Daily, # l 12.5 MG / 00:39: 30 tab, 0 Her carias Losartan 00 Refill(s) Potassium 50 MG Oral Tablet Aspirin 2015- Yes 81 mg, PO, Celio yennifer 03-27 Daily, 0 l 00:39: Refill(s) rivaroxaban Yes 20 mg = 1 M emoria 20 MG Oral -03 tab, PO, l Tablet 00:39: QPM, # 30 Osvaldo n [Xarelto] 00 tab, 3 Refill(s) aspirin 2015- Yes 81 mg, PO, Celio yennifer 03-27 Daily, 0 l 00:39: Refill(s) AMIODarone 2015- Yes 200 mg = 1 M emoria 200 mg oral -03 tab, PO, l tablet 00:39: Daily, # [place] 00 90 tab, 3 Refill(s) pantoprazol Yes [...] 03-27 Daily, 0 l 00:39: Refill(s) rivaroxaban 2015- Yes 20 mg = 1 M emoria 20 MG Oral -03 tab, PO, l Tablet 00:39: QPM, # 30 Osvaldo n [Xarelto] 00 tab, 3 Refill(s) AMIODarone 2015- Yes 200 mg = 1 M emoria 200 mg oral -03 tab, PO, l tablet 00:39: Daily, # [place] 00 90 tab, 3 Refill(s) pantoprazol 2015-0 Yes 40 mg = 1 M emoria e 40 mg 1-03 tab, PO, l oral 00:39: Daily, # Jose Manuel enteric 00 30 tab, 1 coated Refill(s) tablet Hydrochloro 2016-0 Yes 1 tab, PO, Memoria thiazide 1-03 Daily, # l 12.5 MG / 00:39: 30 tab, 0 Her carias Losartan 00 Refill(s) Potassium 50 MG Oral Tablet Aspirin Yes 81 mg, PO, Celio yennifer 1-03 Daily, 0 l 00:39: Refill(s) rivaroxaban Yes 20 mg = 1 M emoria 20 MG Oral 03 tab, PO, l Tablet 00:39: QPM, # 30 Osvaldo n [Xarelto] 00 tab, 3 Refill(s) aspirin Yes 81 mg, PO, Celio yennifer 1 Daily, 0 l 00:39: Refill(s) tramadol No Notes: Not Mem oria hydrochlori 03-26 to exceed l de 50 MG 23:40: 400mg/day. Her carias Oral Tablet 00 (Same As: Ultram) Tylenol No Notes: Do Memor ia 03-26 not exceed l 23:40: 4 gm/day. (Same as: Tylenol) tramadol No Notes: Not Mem oria hydrochlori 03-26 to exceed l de 50 MG 23:40: 400mg/day. Her carias Oral Tablet 00 (Same As: Ultram) Tylenol No Notes: Do Memor ia 03-26 not exceed l 23:40: 4 gm/day. (Same as: Tylenol) tramadol No Notes: Not Mem oria hydrochlori 03-26 to exceed l de 50 MG 23:40: 400mg/day. Her carias Oral Tablet 00 (Same As: Ultram) Tylenol No Notes: Do Memor ia 03-26 not exceed l 23:40: 4 gm/day. (Same as: Tylenol) tramadol No Notes: Not Mem oria hydrochlori 03-26 to exceed l de 50 MG 23:40: 400mg/day. Her carias Oral Tablet 00 (Same As: Ultram) Tylenol No Notes: Do Memor ia 03-26 not exceed l 23:40: 4 gm/day. (Same as: Tylenol) Zofran No Notes: Memoria 03-26 (Same as: l 23:38: Zofran) [place] 00 MEDICATION WASTE Product Size: 4 mg Product Wasted: 0 mg Lovenox 2015-0 No Notes: Memoria 03-26 (Same as: l 23:38: Lovenox) [place] Zofran No Notes: Memoria 03-26 (Same as: l 23:38: Zofran) [place] 00 MEDICATION WASTE Product Size: 4 mg Product Wasted: 0 mg Lovenox 2015-0 No Notes: Memoria 03-26 (Same as: l 23:38: Lovenox) Jose Manuel Zofran No Notes: Memoria 03-26 (Same as: l 23:38: Zofran) [place] 00 MEDICATION WASTE Product Size: 4 mg Product Wasted: 0 mg Lovenox 2015-0 No Notes: Memoria 03-26 (Same as: l 23:38: Lovenox) Jose Manuel Zofran No Notes: Memoria 03-26 (Same as: l 23:38: Zofran) Jose Manuel 00 MEDICATION WASTE Product Size: 4 mg Product Wasted: 0 mg Lovenox 0 No Notes: Memoria 03-26 (Same as: l 23:38: Lovenox) [place] 00 D5W 1/2NS + No Notes: Celio yennifer KCL 20mEq/L 1-02 PREMIX IV l 1000ml 15:36: - Do Not [place] (Premix) 00 Alter 1,000 mL D5W 1/2NS + No Notes: Celio yenniefr KCL 20mEq/L 1-02 PREMIX IV l 1000ml 15:36: - Do Not Jose Manuel (Premix) 00 Alter 1,000 mL D5W 1/2NS + No Notes: Celio yeninfer KCL 20mEq/L 1-02 PREMIX IV l 1000ml 15:36: - Do Not Jose Manuel (Premix) 00 Alter 1,000 mL D5W 1/2NS + No Notes: Celio yennifer KCL 20mEq/L 1-02 PREMIX IV l 1000ml 15:36: - Do Not Jose Manuel (Premix) 00 Alter 1,000 mL Vital Signs Vital Name Observation Time Observation Value Comments Source Systolic (mm Hg) 2022-10-11 18:42:00 Celio rial [place] Diastolic (mm Hg) 2022-10-11 18:42:00 Mem orial [place] Heart Rate 2022-10-11 18:42:00 [facility] [place] Manuel Height 2022-10-11 18:42:00 5 [ft_i] [facility] [place] Weight 2022-10-11 18:42:00 [facility] BMI Calculated 2022-10-11 18:42:00 [facility] Systolic (mm Hg) 2022-09-19 18:10:00 [facility] Diastolic (mm Hg) 2022-09-19 18:10:00 [facility] Heart Rate 2022-09-19 18:10:00 [facility] Height 2022-09-19 18:10:00 5 [ft_i] [facility] Weight 2022-09-19 18:10:00 [facility] BMI Calculated 2022-09-19 18:10:00 [facility] Systolic (mm Hg) 2022-04-13 19:06:00 [facility] Diastolic (mm Hg) 2022-04-13 19:06:00 [facility] Heart Rate 2022-04-13 19:06:00 [facility] Height 2022-04-13 19:06:00 5 [ft_i] [facility] Weight 2022-04-13 19:06:00 [facility] BMI Calculated 2022-04-13 19:06:00 [facility] Systolic (mm Hg) 2022-02-01 16:36:00 [facility] Diastolic (mm Hg) 2022-02-01 16:36:00 [facility] Heart Rate 2022-02-01 16:36:00 [facility] Height 2022-02-01 16:36:00 5 [ft_i] [facility] Weight 2022-02-01 16:36:00 [facility] BMI Calculated 2022-02-01 16:36:00 [facility] Systolic (mm Hg) 2021-11-29 14:20:00 [facility] Diastolic (mm Hg) 2021-11-29 14:20:00 [facility] Heart Rate 2021-11-29 14:20:00 [facility] Respitory Rate 2021-11-29 14:20:00 [facility] Height 2021-11-29 14:20:00 177.8 cm [facility] Weight 2021-11-29 14:20:00 [facility] BMI Calculated 2021-11-29 14:20:00 [facility] Respitory Rate 2015-04-01 17:35:00 [facility] [place] Systolic (mm Hg) 2015-04-01 17:35:00 Celio rial [place] Diastolic (mm Hg) 2015-04-01 17:35:00 Mem orial Jose Manuel Heart Rate 2015-04-01 17:35:00 [facility] [place] Temperature Oral (F) 2015-04-01 17:35:00 97.6 F [facility] Respitory Rate 2015-04-01 13:27:00 [facility] [place] Heart Rate 2015-04-01 13:27:00 [facility] Temperature Oral (F) 2015-04-01 13:27:00 97.0 F [facility] Systolic (mm Hg) 2015-04-01 13:27:00 Celio [facility] [place] Diastolic (mm Hg) 2015-04-01 13:27:00 Mem [facility] [place] Heart Rate 2015-04-01 10:33:00 [facility] [place] Systolic (mm Hg) 2015-04-01 10:33:00 Celio [facility] [place] Diastolic (mm Hg) 2015-04-01 10:33:00 Mem orial Jose Manuel Respitory Rate 2015-04-01 10:33:00 [facility] [place] Temperature Oral (F) 2015-04-01 10:33:00 97.3 F [facility] BMI Calculated 2015-04-01 02:39:00 [facility] [place] Height 2015-04-01 02:39:00 180.34 cm [facility] Weight 2015-04-01 02:39:00 [facility] [place] Systolic (mm Hg) 2015-03-28 21:13:00 Celio rial Jose Manuel Diastolic (mm Hg) 2015-03-28 21:13:00 [facility] [place] Respitory Rate 2015-03-28 21:13:00 [facility] Heart Rate 2015-03-28 21:13:00 [facility] Respitory Rate 2015-03-28 21:10:00 [facility] Systolic (mm Hg) 2015-03-28 21:10:00 Celio [facility] [place] Diastolic (mm Hg) 2015-03-28 21:10:00 Mem [facility] [place] Heart Rate 2015-03-28 21:10:00 [facility] Temperature Oral (F) 2015-03-28 21:10:00 96.3 F [facility] [place] Respitory Rate 2015-03-28 17:49:00 [facility] [place] Systolic (mm Hg) 2015-03-28 17:38:00 Celio rial Jose Manuel Diastolic (mm Hg) 2015-03-28 17:38:00 Mem o[facility] Jose Manuel Heart Rate 2015-03-28 17:38:00 [facility] [place] Temperature Oral (F) 2015-03-28 17:38:00 96.3 F [facility] Weight 2015-03-28 12:08:00 [facility] BMI Calculated 2015-03-28 12:08:00 [facility] [place] Height 2015-03-28 12:08:00 180.34 cm [facility] Temperature Oral (F) 2015-03-28 08:49:00 98.8 F [facility] Weight 2015-03-27 00:32:00 [facility] BMI Calculated 2015-03-27 00:32:00 [facility] Height 2015-03-27 00:32:00 180.34 cm [facility] BMI Calculated 2015-03-26 15:12:00 [facility] Weight 2015-03-26 15:12:00 [facility] Height 2015-03-26 15:12:00 180.34 cm [facility] [place] Procedures Procedure Date / Time Performing Clinician Source Performed Heart procedure [facility] Cholecystectomy [facility] Ear excision [facility] [place] Tonsillectomy [facility] [place] Catheter ablation for [facility] cardiac arrhythmia Bilateral inguinal hernia [facility] repair Plan of Care Planned Activity Planned Date Details Comments Source Future Scheduled 2022-11-25 [facility] Test 01:09:38 malignant neoplasm of colon (procedure) [code = 386843974] Future Scheduled 2022-11-25 [facility] Test 01:09:38 malignant neoplasm of colon (procedure) [code = 383422773] Future Scheduled 2022-11-25 [facility] Test 01:09:38 malignant neoplasm of colon (procedure) [code = 450173101] Future Scheduled 2022-11-25 COVID-19 VACCINE (#1) [facility] Test 01:09:38 [code = COVID-19 VACCINE (#1)] Future Scheduled 2022-11-25 [facility] Test 01:09:38 malignant neoplasm of colon (procedure) [code = 243718347] Future Scheduled 2022-11-25 [facility] Test 01:09:38 malignant neoplasm of colon (procedure) [code = 122121244] Future Scheduled 2022-11-25 [facility]INGLES [facility]ACCINES ([facility] 01:09:38 of 2) [code = SHINGLES VACCINES (1 of 2)] Future Scheduled 2022-11-25 INFLUENZA VACCINE [facility] 01:09:38 (#1) [code = INFLUENZA VACCINE (#1)] Future Scheduled 2022-09-06 [facility] Test 13:35:33 malignant neoplasm of colon (procedure) [code = 290837531] Future Scheduled 2022-09-06 [facility] Test 13:35:33 malignant neoplasm of colon (procedure) [code = 565458836] Future Scheduled 2022-09-06 [facility] Test 13:35:33 malignant neoplasm of colon (procedure) [code = 465616260] Future Scheduled 2022-09-06 COVID[facility]19 [facility] Test 13:35:33 [code = COVID-19 VACCINE (#1)] Future Scheduled 2022-09-06 [facility] Test 13:35:33 malignant neoplasm of colon (procedure) [code = 222190206] Future Scheduled 2022-09-06 [facility] Test 13:35:33 malignant neoplasm of colon (procedure) [code = 234078810] Future Scheduled 2022-09-06 SHINGLES VACCINES (1 [facility] 13:35:33 of 2) [code = SHINGLES VACCINES (1 of 2)] Future Scheduled 2022-09-06 [facility] VACCINE [facility] 13:35:33 [code = INFLUENZA VACCINE] Future Scheduled 2022-03-08 COVID-19 VACCINE (#1) [facility] Test 02:19:08 [code = COVID-19 VACCINE (#1)] Future Scheduled 2022-03-08 COLONOSCOPY SCREENING [facility] Test 02:19:08 [code = COLONOSCOPY SCREENING] Future Scheduled 2022-03-08 SHINGLES VACCINES (1 [facility] Test 02:19:08 of 2) [code = SHINGLES VACCINES (1 of 2)] Future Scheduled 2022-03-08 INFLUENZA VACCINE [facility] Test 02:19:08 [code = INFLUENZA VACCINE] Future Scheduled 2022-03-08 COVID-19 VACCINE (#1) [facility] Test 02:19:08 [code = COVID-19 VACCINE (#1)] Future Scheduled 2022-03-08 COLONOSCOPY SCREENING [facility] Test 02:19:08 [code = COLONOSCOPY SCREENING] Future Scheduled 2022-03-08 SHINGLES VACCINES (1 [facility] Test 02:19:08 of 2) [code = SHINGLES VACCINES (1 of 2)] Future Scheduled 2022-03-08 INFLUENZA VACCINE [facility] Test 02:19:08 [code = INFLUENZA VACCINE] Encounters Start End Encounter Admission Attending Care Care Encounter Source Date/Time Date/Time Type Type Clinicians Facility Department ID 2022-12-07 2022-12-07 Outpatient KILLIAN DAILY [id number] [facility] 15:15:00 15:15:00 08 chano Jose Manuel 2022-10-11 2022-10-12 Outpatient MHBENITEZ BATRES [id number] [facility]oria 19:00:00 04:59:59 Neurology 07 chano Mignon Richard 2022-10-11 2022-10-11 Outpatient GLORIA Singh [id number] 14:00:00 23:59:59 [facility] 07 Franko 2022-10-11 2022-10-11 Outpatient KILLIAN DAILY [id number] Memoria 14:00:00 14:00:00 07 chano Jose Manuel 2022-09-19 2022-09-20 Outpatient KILLIAN BATRES [id number] [facility]oria 18:30:00 04:59:59 Neurology 06 chano [place] Jose Manuel 2022-09-19 2022-09-19 Outpatient GLORIA Singh [id number] 13:30:00 23:59:59 [facility] 06 Franko 2022-09-19 2022-09-19 Outpatient MHIE MHIE [id number] Memoria 13:30:00 13:30:00 06 chano Richard 2022-08-09 2022-08-09 Ambulatory MHIE MNA [id number] Memoria 14:45:00 14:45:00 Pre-Reg Neurology 05 chano Richard 2022-08-09 2022-08-09 Ambulatory MHIE MNA [id number] Memoria 14:45:00 14:45:00 Pre-Reg Neurology 05 chano Richard 2022-08-09 2022-08-09 Outpatient MHIE MHIE [id number] Memoria 09:45:00 09:45:00 05 chano Richard 2022-08-09 2022-08-09 Outpatient GLORIA Singh MHMISCHER [id number] 09:45:00 09:45:00 [facility] Dk Abdul 2022-06-01 2022-06-01 Ambulatory MHIE MNA [id number] Memoria 16:30:00 16:30:00 Pre-Reg Neurology 03 chano Richard 2022-06-01 2022-06-01 Ambulatory MHIE MNA [id number] Memoria 16:30:00 16:30:00 Pre-Reg Neurology 03 chano Richard 2022-06-01 2022-06-01 Outpatient MHIE MHIE [id number] [facility]oria 10:30:00 10:30:00 03 chano Richard 2022-06-01 2022-06-01 Outpatient GLORIA SinghMISCHER [id number] 10:30:00 10:30:00 [facility] 03 Franko 2022-04-26 2022-04-26 Outpatient TE[facility]AL [facility] [id number] [facility] 11:57:00 11:57:[address] [place] [address] 2022-04-13 2022-04-14 Outpatient MHIE MNA [id number] Memoria 19:15:00 05:59:59 Neurology 04 chano Richard 2022-04-13 2022-04-14 Outpatient MHIE MNA [id number] Memoria 19:15:00 05:59:59 Neurology 04 chano Richard 2022-04-13 2022-04-13 [id number] 13:15:00 23:59:59 [facility] 04 [facility]o 2022-04-13 2022-04-13 Outpatient MHIE IE [id number] Memoria 13:15:00 13:15:00 04 chano Richard 2022-02-01 2022-02-02 Outpatient nullFlavo MNA [id number] [facility] 16:30:00 05:59:59 r Neurology 02 l Mignon Richard 2022-02-01 2022-02-02 Outpatient nullFlavo MNA [id number] [facility] 16:30:00 05:59:59 r Neurology 02 l Mignon Richard 2022-02-01 2022-02-01 [id number] 10:30:00 23:59:59 [facility] 02 [facility]o 2022-02-01 2022-02-01 Outpatient MHIE IE [id number] Memoria 10:30:00 10:30:00 02 chano Richard 2021-11-29 2021-11-30 Outpatient nullFlavo MNA [id number] [facility] 14:00:00 04:59:59 r Neurology 01 l Mignon Richard 2021-11-29 2021-11-30 Outpatient nullFlavo MNA [id number] [facility] 14:00:00 04:59:59 r Neurology 01 l Mignon Richard 2021-11-29 2021-11-29 [id number] 09:00:00 23:59:59 [facility] 01 [facility]o 2021-11-29 2021-11-29 Outpatient MHIE IE [id number] Memoria 09:00:00 09:00:00 01 chano ChristinaJose Manuel 2018-01-17 2018-01-17 Ambulatory nullFlavo MNA [id number] Mem[facility] 14:00:00 14:00:00 Pre-Reg r Neurology 00 l Mignon [place] 2018-01-17 2018-01-17 Ambulatory nullFlavo MNA [id number] [facility] 14:00:00 14:00:00 Pre-Reg r Neurology 00 l [place] Jose Manuel 2018-01-17 2018-01-[address] [id number] 09:00:00 09:00:00 [facility] Nadine Abdul 2015-04-01 2015-04-01 OBS nullFlavo [facility] [id number] Memoria 02:27:00 19:50:00 Observatio r [place] 07 l n Patient Hospital [facility] 2015-04-01 2015-04-01 OBS nullFlavo [facility] [id number] Memoria 02:27:00 19:50:00 Observatio r Jose Manuel 07 l n Patient [facility] 2015-03-31 2015-04-01 Outpatient Ld, [facility] [id number] 20:27:00 13:50:00 [facility] 2015-03-26 2015-03-29 OBS nullFlavo [facility] [id number] Memoria 15:12:00 00:09:00 Observatio r [place] 02 l n Patient [facility] 2015-03-26 2015-03-29 OBS nullFlavo [facility] [id number] Memoria 15:12:00 00:09:00 Observatio r [place] 02 l n Patient Hospital [facility] 2015-03-26 2015-03-28 Outpatient Letty, [facility] [id number] 09:12:00 18:09:00 Brian 02 Ahmed Results Test Description Test Time Test Comments Results Result [facility] e Comments - [place] 2022-04-26 ORBIT/SELLA/IAC WO 00:00:00 [facility] 1960 Sex: M Name: DANII STALEY [facility] : 1960 Age/S: 61 / M [address] [place] [address] Unit #: [id number] Loc: [place] [address] Phys: Yandel Fernandez MD Acct: [id number] Dis Date: Status: REG CLI PHONE #: [phone] Exam Date: 04/26/2022 1229 FAX #: [phone] Reason: 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 EXAMS: CPT CODE: [id number] CT ORBIT/SELLA/[place] [address] PROCEDURE INFORMATION: Exam: CT Temporal Bones Without [...] 1 Signed Report (CONTINUED) Name: DANII STALEY [facility] [place] : 1960 Age/S: 61 / M [address] [place] [address] Blvd Unit #: [id number] Loc: [place] [address] Phys: Yandel Fernandez MD Acct: [id number] Dis Date: Status: REG CLI PHONE #: [phone] Exam Date: 04/26/2022 1229 FAX #: [phone] Reason: 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 EXAMS: CPT CODE: [id number] CT ORBIT/SELLA/[place] [address] (Continued) IMPRESSION: There is normal pneumatization of bilateral middle ear cavity, antrum and mastoid air cells with a left mastoidectomy and and suspected right. at 1312 Reported and signed by: Tl Dacosta M.D. CC: Yandel Fernandez MD; Rayshawn Leon MD Technologist:Juliann Alberto, RT(MR)(CT) CTDI: DLP: Trnscb Date/Time: 04/26/2022 (1312) [email or web address] Orig Print D/T: S: 04/26/2022 (1312) PAGE 2 Signed Report HEMATOLOGY 2022-02-01 17:23:00 Test Item Value Reference Range Interpretation Comme nts Basophils (test code = Basophils) 1.1 [facility]qbktppWBTMFJAHPQ4748-89-86 17:23:00 Test Item Value Reference Range Interpretation Comments Diff Comment (test code = Diff SEE COMMENT Comment) [facility]mpaqidWEKMGUHMD3115-19-33 17:23:00 Test Item Value Reference Range Interpretation Comments TSH (test code = TSH) 2.01 0.40-4.50 [facility] IrvingZgvqfqdBHWROJOME5359-13-67 17:23:00 Test Item Value Reference Range Interpretation Comments Vitamin B12 Lvl (test code = Vitamin 323 976-7505 B12 Lvl) [facility] CenterHqxzjnxHQMGJZDNSE7623-65-39 17:23:00 Test Item Value Reference Range Interpretation Comments Sed Rate (test code = Sed Rate) 2 [facility] CenterTgrovucJBEIJSMBPM3374-06-45 17:23:00 Test Item Value Reference Range Interpretation Comments WBC X 10x3 (test code = WBC X 10x3) 7.0 3.8-10.8 [facility] CenterBsvtbkbBMKKXNUKQP2593-82-75 17:23:00 Test Item Value Reference Range Interpretation Comments RBC X 10x6 (test code = RBC X 10x6) 5.48 4.20-5.80 [facility] CenterAapvdnjKNYPBQZKJU8231-53-04 17:23:00 Test Item Value Reference Range Interpretation Comments Hgb (test code = Hgb) 16.5 13.2-17.1 [facility] CenterNmfjghmHVLKZGWFOK5859-52-23 17:23:00 Test Item Value Reference Range Interpretation Comments Hct (test code = Hct) 48.7 38.5-50.0 [facility] CenterXbcwvfiXYTJJMJHWV6874-75-92 17:23:00 Test Item Value Reference Range Interpretation Comments MCV (test code = MCV) 88.9 80.0-100.0 [facility] CenterNaupgtfXTRGAAOPAF3902-39-69 17:23:00 Test Item Value Reference Range Interpretation Comments MCH (test code = MCH) 30.1 pg 27.0-33.0 [facility] CenterBhjahggHWFXUXNSBY5769-99-67 17:23:00 Test Item Value Reference Range Interpretation Comments MCHC (test code = MCHC) 33.9 32.0-36.0 [facility] CenterOktlwcpBNQWCQIZTF6097-17-46 17:23:00 Test Item Value Reference Range Interpretation Comments RDW (test code = RDW) 13.2 11.0-15.0 [facility] CenterRgulonjVRBKNWQHTG1049-07-07 17:23:00 Test Item Value Reference Range Interpretation Comments Platelet (test code = Platelet) 204 140-400 [facility] CenterPxgrhdgINYBUIDFCP6398-13-80 17:23:00 Test Item Value Reference Range Interpretation Comments MPV (test code = MPV) 9.8 7.5-12.5 [facility] CenterIluhrmuHLGTUKWHDR0517-44-35 17:23:00 Test Item Value Reference Range Interpretation Comments Neutrophils # (test code = Neutrophils 6164 3355-0493 #) [facility] CenterVekexnbWEEKJCAAEM9514-33-63 17:23:00 Test Item Value Reference Range Interpretation Comments Lymphocytes # (test code = Lymphocytes 3580 315-1856 #) [facility] CenterWqdjvknDSKYDCUNNL4677-54-01 17:23:00 Test Item Value Reference Range Interpretation Comments Monocytes # (test code = Monocytes #) 707 200-950 [facility] CenterEivsnssWCJFMHVQSA1246-71-21 17:23:00 Test Item Value Reference Range Interpretation Comments Eosinophils # (test code = Eosinophils 210 15-500 #) [facility] CenterZcstilwUALZPNJIIS7914-79-18 17:23:00 Test Item Value Reference Range Interpretation Comments Basophils # (test code 77 See_Comment [Aut omated message] The = Basophils #) system which generated this result tra nsmitted reference range : <=200. The reference r rafat was not used to int erpret this result as normal/abnormal . [facility] CenterPqxffpnVUVVAJTHXX1890-26-47 17:23:00 Test Item Value Reference Range Interpretation Comments Segs (test code = Segs) 64.2 [facility] CenterKehirpaLQXULIGEFA7940-98-62 17:23:00 Test Item Value Reference Range Interpretation Comments Lymphocytes (test code = Lymphocytes) 21.6 [facility] CenterXxrgehnZUJMPXXSNA2749-21-63 17:23:00 Test Item Value Reference Range Interpretation Comments Monocytes (test code = Monocytes) 10.1 [facility] CenterEjodrvgHQMLEMQKOB7701-27-07 17:23:00 Test Item Value Reference Range Interpretation Comments Eosinophils (test code = Eosinophils) 3.0 [facility] CenterPvgyeduYQHUJMOQPZ7992-28-42 17:23:00 Test Item Value Reference Range Interpretation Comments Basophils (test code = Basophils) 1.1 [facility] CenterCzkslhiRJIUIMQBBS4184-39-49 17:23:00 Test Item Value Reference Range Interpretation Comments Diff Comment (test code = Diff SEE COMMENT Comment) [facility] IrvingKyjrwlxCKIPTOCES5046-02-73 17:23:00 Test Item Value Reference Range Interpretation Comments TSH (test code = TSH) 2.01 0.40-4.50 [facility] IrvingZqfikgaFZDVGEBGT9096-60-00 17:23:00 Test Item Value Reference Range Interpretation Comments Vitamin B12 Lvl (test code = Vitamin 922 018-0417 B12 Lvl) [facility] CenterGcjxijoEPFZNGQXLD9030-34-62 17:23:00 Test Item Value Reference Range Interpretation Comments Sed Rate (test code = Sed Rate) 2 [facility] CenterPnaialhNDAPWVDNEX1550-30-85 17:23:00 Test Item Value Reference Range Interpretation Comments WBC X 10x3 (test code = WBC X 10x3) 7.0 3.8-10.8 [facility] CenterOroqchaYMWSWQERBG8472-37-67 17:23:00 Test Item Value Reference Range Interpretation Comments RBC X 10x6 (test code = RBC X 10x6) 5.48 4.20-5.80 [facility] CenterKfgowibFXVYPXZPHB7277-04-02 17:23:00 Test Item Value Reference Range Interpretation Comments Hgb (test code = Hgb) 16.5 13.2-17.1 [facility] CenterGxovketRJKUWOXPEG6337-54-17 17:23:00 Test Item Value Reference Range Interpretation Comments Hct (test code = Hct) 48.7 38.5-50.0 [facility] CenterKtssqnvSEHHMTIPOS9334-39-52 17:23:00 Test Item Value Reference Range Interpretation Comments MCV (test code = MCV) 88.9 80.0-100.0 [facility] CenterAudjvkoNYENIRNXYW3205-68-60 17:23:00 Test Item Value Reference Range Interpretation Comments MCH (test code = MCH) 30.1 pg 27.0-33.0 [facility] CenterXvrjzpwTDGHXCXCQH1122-03-54 17:23:00 Test Item Value Reference Range Interpretation Comments MCHC (test code = MCHC) 33.9 32.0-36.0 [facility] CenterGqcceqiZIIUPDBOCV0709-58-74 17:23:00 Test Item Value Reference Range Interpretation Comments RDW (test code = RDW) 13.2 11.0-15.0 [facility] CenterRieojmdIZHRARCTJE7680-16-86 17:23:00 Test Item Value Reference Range Interpretation Comments Platelet (test code = Platelet) 204 140-400 [facility] CenterHlxvvcbPGIMNCXXPN7629-43-56 17:23:00 Test Item Value Reference Range Interpretation Comments MPV (test code = MPV) 9.8 7.5-12.5 [facility] CenterUtpvxfoYUUMYLUJFV9735-84-73 17:23:00 Test Item Value Reference Range Interpretation Comments Neutrophils # (test code = Neutrophils 2904 7845-5689 #) [facility] CenterYeqnbssWPUYMBSQZQ7067-26-16 17:23:00 Test Item Value Reference Range Interpretation Comments Lymphocytes # (test code = Lymphocytes 7517 364-4793 #) [facility] CenterCoehlsdYNGCPVQQZL8329-59-84 17:23:00 Test Item Value Reference Range Interpretation Comments Monocytes # (test code = Monocytes #) 707 200-950 [facility] CenterSffoyweSXZVFLQVQL2945-65-72 17:23:00 Test Item Value Reference Range Interpretation Comments Eosinophils # (test code = Eosinophils 210 15-500 #) [facility] CenterOnoirgrCHMBWNQWBC3244-32-70 17:23:00 Test Item Value Reference Range Interpretation Comments Basophils # (test code 77 See_Comment [Aut omated message] The = Basophils #) system which generated this result tra nsmitted reference range : <=200. The reference r rafat was not used to int erpret this result as normal/abnormal . [facility] CenterWvuwvksNZTPOKJZOX1268-64-34 17:23:00 Test Item Value Reference Range Interpretation Comments Segs (test code = Segs) 64.2 [facility] CenterZwnzydzVUWMBNJYMD7316-75-71 17:23:00 Test Item Value Reference Range Interpretation Comments Lymphocytes (test code = Lymphocytes) 21.6 [facility] CenterCywkckkXNOSIABDYL7822-90-90 17:23:00 Test Item Value Reference Range Interpretation Comments Monocytes (test code = Monocytes) 10.1 [facility] CenterZfyunwfUGAHOADFOY6318-46-44 17:23:00 Test Item Value Reference Range Interpretation Comments Eosinophils (test code = Eosinophils) 3.0 [facility] CenterJbschgbXQIOQBEWID5712-31-00 17:23:00 Test Item Value Reference Range Interpretation Comments Basophils (test code = Basophils) 1.1 [facility] CenterKcxwhygUNCCDTJLVN8156-98-53 17:23:00 Test Item Value Reference Range Interpretation Comments Diff Comment (test code = Diff SEE COMMENT Comment) [facility] IrvingKevcjbwWRQFLGZCT3199-78-16 17:23:00 Test Item Value Reference Range Interpretation Comments TSH (test code = TSH) 2.01 0.40-4.50 [facility] IrvingCsofemfMLLTBJIYY8396-55-32 17:23:00 Test Item Value Reference Range Interpretation Comments Vitamin B12 Lvl (test code = Vitamin 939 938-7009 B12 Lvl) [facility] CenterUzmdtfrJAVVYTSLCN5849-18-88 17:23:00 Test Item Value Reference Range Interpretation Comments Sed Rate (test code = Sed Rate) 2 [facility] CenterKgtysaoLTUUAZLYTZ1337-39-43 17:23:00 Test Item Value Reference Range Interpretation Comments WBC X 10x3 (test code = WBC X 10x3) 7.0 3.8-10.8 [facility] CenterNovpmbwZTFSQTNRNN7358-47-98 17:23:00 Test Item Value Reference Range Interpretation Comments RBC X 10x6 (test code = RBC X 10x6) 5.48 4.20-5.80 [facility] CenterAslvefeFLOPDEMCOJ1021-96-93 17:23:00 Test Item Value Reference Range Interpretation Comments Hgb (test code = Hgb) 16.5 13.2-17.1 [facility] CenterOzyikvsTIDUDNPEYQ8399-38-08 17:23:00 Test Item Value Reference Range Interpretation Comments Hct (test code = Hct) 48.7 38.5-50.0 [facility] CenterChoeizyVGXUTMGYFV9752-91-85 17:23:00 Test Item Value Reference Range Interpretation Comments MCV (test code = MCV) 88.9 80.0-100.0 [facility] CenterHrwnrerOIWFHKJHLW8359-94-07 17:23:00 Test Item Value Reference Range Interpretation Comments MCH (test code = MCH) 30.1 pg 27.0-33.0 [facility] CenterDjkmuhmXFWSSXXFZS3538-86-82 17:23:00 Test Item Value Reference Range Interpretation Comments MCHC (test code = MCHC) 33.9 32.0-36.0 [facility] CenterPinkuygKGNWORJSRB9025-88-88 17:23:00 Test Item Value Reference Range Interpretation Comments RDW (test code = RDW) 13.2 11.0-15.0 [facility] CenterLbgcoisKIWZTEZFKS6539-72-98 17:23:00 Test Item Value Reference Range Interpretation Comments Platelet (test code = Platelet) 204 140-400 [facility] CenterOlbibpuFHFCEWZZFG9548-92-94 17:23:00 Test Item Value Reference Range Interpretation Comments MPV (test code = MPV) 9.8 7.5-12.5 [facility] CenterRlnadfuRNXTCWOFPF2408-72-36 17:23:00 Test Item Value Reference Range Interpretation Comments Neutrophils # (test code = Neutrophils 4494 3567-3270 #) [facility] CenterKnmxdqgHSDDNZHOVI2033-29-83 17:23:00 Test Item Value Reference Range Interpretation Comments Lymphocytes # (test code = Lymphocytes 2057 662-7822 #) [facility] CenterQfbxwaiIHMHFBYKGN9684-82-35 17:23:00 Test Item Value Reference Range Interpretation Comments Monocytes # (test code = Monocytes #) 707 200-950 [facility] CenterVzdtbkzQTOPCWPUIG7477-69-95 17:23:00 Test Item Value Reference Range Interpretation Comments Eosinophils # (test code = Eosinophils 210 15-500 #) [facility] CenterWunxvuwEIETJWJPQD7349-89-31 17:23:00 Test Item Value Reference Range Interpretation Comments Basophils # (test code 77 See_Comment [Aut omated message] The = Basophils #) system which generated this result tra nsmitted reference range : <=200. The reference r rafat was not used to int erpret this result as normal/abnormal . [facility] CenterBtazyhqKOGHGAUDJG1539-42-26 17:23:00 Test Item Value Reference Range Interpretation Comments Segs (test code = Segs) 64.2 [place] 872692-11-10 17:23:00 Test Item Value Reference Range Interpretation Comments Lymphocytes (test code = Lymphocytes) 21.6 [facility] CenterAetlyqjWMFKAUNYQW0341-97-26 17:23:00 Test Item Value Reference Range Interpretation Comments Monocytes (test code = Monocytes) 10.1 [place] 872692-11-10 17:23:00 Test Item Value Reference Range Interpretation Comments Eosinophils (test code = Eosinophils) 3.0 [facility]TcwydokRLNVBWSVD1965-65-26 17:23:00 Test Item Value Reference Range Interpretation Comments Vitamin B12 Lvl (test code = Vitamin 345 175-6204 B12 Lvl) [facility] CenterHrjvqdpEXRZYVEBDR4306-61-72 17:23:00 Test Item Value Reference Range Interpretation Comments Sed Rate (test code = Sed Rate) 2 [facility] CenterHcbhqcjOXRLWZYCGZ4519-96-11 17:23:00 Test Item Value Reference Range Interpretation Comments WBC X 10x3 (test code = WBC X 10x3) 7.0 3.8-10.8 [facility] CenterChffjikBRAMZYUJEH9844-30-76 17:23:00 Test Item Value Reference Range Interpretation Comments RBC X 10x6 (test code = RBC X 10x6) 5.48 4.20-5.80 [facility] CenterIeenzuwHSQWYWUGDN9331-37-61 17:23:00 Test Item Value Reference Range Interpretation Comments Hgb (test code = Hgb) 16.5 13.2-17.1 [place] 872692-11-10 17:23:00 Test Item Value Reference Range Interpretation Comments Hct (test code = Hct) 48.7 38.5-50.0 [facility] CenterHbgvdboFKTRVGBWSJ3058-02-03 17:23:00 Test Item Value Reference Range Interpretation Comments MCV (test code = MCV) 88.9 80.0-100.0 [place] 872692-11-10 17:23:00 Test Item Value Reference Range Interpretation Comments MCH (test code = MCH) 30.1 pg 27.0-33.0 [facility] CenterGkvxqzeJCWGJHIESJ2182-28-46 17:23:00 Test Item Value Reference Range Interpretation Comments MCHC (test code = MCHC) 33.9 32.0-36.0 [facility] CenterKthmkoaCGECLWMYQB6860-56-60 17:23:00 Test Item Value Reference Range Interpretation Comments RDW (test code = RDW) 13.2 11.0-15.0 [facility] CenterGdqtluwENHCNGAUEP9535-43-84 17:23:00 Test Item Value Reference Range Interpretation Comments Platelet (test code = Platelet) 204 140-400 [facility] CenterBeyfeyuPHPZLIYGKT8394-68-75 17:23:00 Test Item Value Reference Range Interpretation Comments MPV (test code = MPV) 9.8 7.5-12.5 [facility] CenterJfxgtimNZMQUWGOKG2799-44-57 17:23:00 Test Item Value Reference Range Interpretation Comments Neutrophils # (test code = Neutrophils 4494 4263-7025 #) [facility] CenterHstpkmsWSLKLGGCXA1847-99-83 17:23:00 Test Item Value Reference Range Interpretation Comments Lymphocytes # (test code = Lymphocytes 2709 820-7249 #) [facility] CenterJximzfaGKNVJQFOCS9312-62-79 17:23:00 Test Item Value Reference Range Interpretation Comments Monocytes # (test code = Monocytes #) 707 200-950 [facility] CenterOrqgxctKGRZFXVLTV9261-93-77 17:23:00 Test Item Value Reference Range Interpretation Comments Eosinophils # (test code = Eosinophils 210 15-500 #) [facility] CenterUwjnvzdRCPUTGCWOM4331-29-34 17:23:00 Test Item Value Reference Range Interpretation Comments Basophils # (test code 77 See_Comment [Aut omated message] The = Basophils #) system which generated this result tra nsmitted reference range : <=200. The reference r rafat was not used to int erpret this result as normal/abnormal . [facility] CenterXkgojqbHZKSWZSIKT1582-45-45 17:23:00 Test Item Value Reference Range Interpretation Comments Segs (test code = Segs) 64.2 [facility] CenterWmisxtoJGIMHBMSWH0688-40-38 17:23:00 Test Item Value Reference Range Interpretation Comments Lymphocytes (test code = Lymphocytes) 21.6 [facility] CenterQwxnfbqQSJBBMIQWE9023-78-68 17:23:00 Test Item Value Reference Range Interpretation Comments Monocytes (test code = Monocytes) 10.1 [facility] CenterOtgniquWEDGJFOEXL3423-09-92 17:23:00 Test Item Value Reference Range Interpretation Comments Eosinophils (test code = Eosinophils) 3.0 [facility] CenterYyhaiuuCDRBHNROVL8694-48-72 17:23:00 Test Item Value Reference Range Interpretation Comments Basophils (test code = Basophils) 1.1 [facility] CenterRgendbrBGESATYOFJ5896-10-45 17:23:00 Test Item Value Reference Range Interpretation Comments Diff Comment (test code = Diff SEE COMMENT Comment) [facility] IrvingEjlwivmIBWBCUAXQ2393-57-84 17:23:00 Test Item Value Reference Range Interpretation Comments TSH (test code = TSH) 2.01 0.40-4.50 [facility] CenterNmrrkvrDWKEBYKMKN2465-56-44 12:10:00 Test Item Value Reference Range Interpretation Comments Hct (test code = Hct) 35.8 42.0-54.0 [facility] CenterGpvwgqgAKLVWDYBST9216-28-25 12:10:00 Test Item Value Reference Range Interpretation Comments Hgb (test code = Hgb) 11.9 14.0-18.0 [facility] CenterRghhedoHLMMGYQLOY0154-25-54 12:10:00 Test Item Value Reference Range Interpretation Comments RBC (test code = RBC) 3.99 4.70-6.10 [facility] CenterPupnoglDCDNRPLJYS3728-97-69 12:10:00 Test Item Value Reference Range Interpretation Comments WBC (test code = WBC) 4.6 3.7-10.4 [facility] CenterRpovlbpFIXZBQADLT7216-03-47 12:10:00 Test Item Value Reference Range Interpretation Comments MCHC (test code = MCHC) 33.2 32.0-36.0 [facility] CenterTawoznhNORUHQXZSH3700-31-91 12:10:00 Test Item Value Reference Range Interpretation Comments MPV (test code = MPV) 7.3 7.4-10.4 [facility] CenterUggwhytDKIFJPWUXG4016-69-57 12:10:00 Test Item Value Reference Range Interpretation Comments Platelet (test code = Platelet) 215 133-450 [facility] CenterAhexgapFNVBOQBUXW6315-25-27 12:10:00 Test Item Value Reference Range Interpretation Comments RDW (test code = RDW) 14.0 11.5-14.5 [facility] CenterOqborkgWSZWYLTSGR6025-62-66 12:10:00 Test Item Value Reference Range Interpretation Comments MCH (test code = MCH) 29.9 pg 27.0-31.0 [facility] CenterAocuqcuSBCMMPVDAC9223-94-54 12:10:00 Test Item Value Reference Range Interpretation Comments MCV (test code = MCV) 89.9 80.0-94.0 [facility] CenterPysumcnTDSKUYXXQC0513-92-66 12:10:00 Test Item Value Reference Range Interpretation Comments RBC Morph (test code = Normal (04/01/15 6:10 AM) RBC Morph) [facility] CenterAbsbpcrCWMQJBLPLO2132-25-09 12:10:00 Test Item Value Reference Range Interpretation Comments Segs (test code = Segs) 63.3 45.0-75.0 [facility] CenterBkudceeEBIUGYRDVS5678-92-30 12:10:00 Test Item Value Reference Range Interpretation Comments Plt Morph (test code = Normal (04/01/15 6:10 AM) Plt Morph) [facility] CenterXwwvfctQPLWXVHMTE7992-08-78 12:10:00 Test Item Value Reference Range Interpretation Comments Lymphocytes (test code = Lymphocytes) 21.2 20.0-40.0 [facility] CenterKrgxlpbVKQUQTTOLB1462-43-40 12:10:00 Test Item Value Reference Range Interpretation Comments Eosinophils (test code = 3.3 See_Comment [A utomated message] The Eosinophils) system which ge nerated this result tra nsmitted reference range : <=4.0. The reference r rafat was not used to int erpret this result as normal/abnormal . [facility] CenterCrspnkdSEFRZWFHTI2373-25-02 12:10:00 Test Item Value Reference Range Interpretation Comments Monocytes (test code = Monocytes) 11.5 2.0-12.0 [facility] CenterUfchmjmWERMMVYLDI3687-07-86 12:10:00 Test Item Value Reference Range Interpretation Comments Basophils (test code = 0.7 See_Comment [Aut omated message] The Basophils) system which ge nerated this result tra nsmitted reference range : <=1.0. The reference r rafat was not used to int erpret this result as normal/abnormal . [facility] CenterIizkiomVRNDOXGHAV4622-62-05 12:10:00 Test Item Value Reference Range Interpretation Comments Lymphocytes # (test code = Lymphocytes 1.0 1.0-5.5 #) [facility] CenterMbiqubySVGYECTFRS8109-82-26 12:10:00 Test Item Value Reference Range Interpretation Comments Monocytes # (test code 0.5 See_Comment [Aut omated message] The = Monocytes #) system which generated this result tra nsmitted reference range : <=0.8. The reference r rafat was not used to int erpret this result as normal/abnormal . [facility] CenterCoywfdhYGFGZMAWDW2483-76-35 12:10:00 Test Item Value Reference Range Interpretation Comments Eosinophils # (test code 0.1 See_Comment [A utomated message] The = Eosinophils #) system whic h generated this result tra nsmitted reference range : <=0.5. The reference r rafat was not used to int erpret this result as normal/abnormal . [facility] CenterNzxkwclJGABLTXCVV0627-88-79 12:10:00 Test Item Value Reference Range Interpretation Comments Segs-Bands # (test code = Segs-Bands #) 2.9 1.5-8.1 [facility] CenterZvmzpzkFVOZHQFAXR2293-05-33 12:10:00 Test Item Value Reference Range Interpretation Comments Hct (test code = Hct) 35.8 42.0-54.0 [facility] CenterTvwsuwdXRCFNCHIXR5400-15-57 12:10:00 Test Item Value Reference Range Interpretation Comments Hgb (test code = Hgb) 11.9 14.0-18.0 [facility] CenterHfakzygTUXMTSQOKD3712-59-97 12:10:00 Test Item Value Reference Range Interpretation Comments RBC (test code = RBC) 3.99 4.70-6.10 [facility] CenterIxyxyhhNNJKIJGCUU2069-23-24 12:10:00 Test Item Value Reference Range Interpretation Comments WBC (test code = WBC) 4.6 3.7-10.4 [facility] CenterApsgphjCZYJSSEAGE5960-47-67 12:10:00 Test Item Value Reference Range Interpretation Comments MCHC (test code = MCHC) 33.2 32.0-36.0 [facility] CenterRqdcovjCLFCCHQGYT5576-46-47 12:10:00 Test Item Value Reference Range Interpretation Comments MPV (test code = MPV) 7.3 7.4-10.4 [facility] CenterSoomdguHHSYEENFWS0146-31-25 12:10:00 Test Item Value Reference Range Interpretation Comments Platelet (test code = Platelet) 215 133-450 [facility] CenterFwcifmtVIHAVAHWNF6258-41-31 12:10:00 Test Item Value Reference Range Interpretation Comments RDW (test code = RDW) 14.0 11.5-14.5 [facility] CenterZqgexjbRPVBUFCMFW0795-91-90 12:10:00 Test Item Value Reference Range Interpretation Comments MCH (test code = MCH) 29.9 pg 27.0-31.0 [facility] CenterNuekxchSSWHNBHLAH3301-58-14 12:10:00 Test Item Value Reference Range Interpretation Comments MCV (test code = MCV) 89.9 80.0-94.0 [facility] CenterTjpyqubLYUHAAKUGX4261-86-73 12:10:00 Test Item Value Reference Range Interpretation Comments RBC Morph (test code = Normal (04/01/15 6:10 AM) RBC Morph) [facility] CenterUopjmmvFXBNBNYRZY6454-71-52 12:10:00 Test Item Value Reference Range Interpretation Comments Segs (test code = Segs) 63.3 45.0-75.0 [facility] CenterTbuvgqtPGEAZUMIJT3632-01-71 12:10:00 Test Item Value Reference Range Interpretation Comments Plt Morph (test code = Normal (04/01/15 6:10 AM) Plt Morph) [facility] CenterAtcuhliOKLDURAAEL5385-43-24 12:10:00 Test Item Value Reference Range Interpretation Comments Lymphocytes (test code = Lymphocytes) 21.2 20.0-40.0 [facility] CenterNdcxgmqRAYFYULMNZ7771-23-49 12:10:00 Test Item Value Reference Range Interpretation Comments Eosinophils (test code = 3.3 See_Comment [A utomated message] The Eosinophils) system which ge nerated this result tra nsmitted reference range : <=4.0. The reference r rafat was not used to int erpret this result as normal/abnormal . [facility] CenterJtdecxzALFNJKJAFB3365-55-38 12:10:00 Test Item Value Reference Range Interpretation Comments Monocytes (test code = Monocytes) 11.5 2.0-12.0 [facility] CenterOmuqtivIPBIGQSWRC7776-28-29 12:10:00 Test Item Value Reference Range Interpretation Comments Basophils (test code = 0.7 See_Comment [Aut omated message] The Basophils) system which ge nerated this result tra nsmitted reference range : <=1.0. The reference r rafat was not used to int erpret this result as normal/abnormal . [facility] CenterAvmalirUGWEDCXCRG0098-12-34 12:10:00 Test Item Value Reference Range Interpretation Comments Lymphocytes # (test code = Lymphocytes 1.0 1.0-5.5 #) [facility] CenterArwetjcWDKNARKWTM0281-09-94 12:10:00 Test Item Value Reference Range Interpretation Comments Monocytes # (test code 0.5 See_Comment [Aut omated message] The = Monocytes #) system which generated this result tra nsmitted reference range : <=0.8. The reference r rafat was not used to int erpret this result as normal/abnormal . [facility] CenterGwlxduuBYXOALPHGC4449-27-65 12:10:00 Test Item Value Reference Range Interpretation Comments Eosinophils # (test code 0.1 See_Comment [A utomated message] The = Eosinophils #) system whic h generated this result tra nsmitted reference range : <=0.5. The reference r rafat was not used to int erpret this result as normal/abnormal . [facility] CenterYlwnfnnNMJCTWVSWZ6049-56-59 12:10:00 Test Item Value Reference Range Interpretation Comments Segs-Bands # (test code = Segs-Bands #) 2.9 1.5-8.1 [facility] CenterKtaggalKOYKPZINAO0117-48-35 12:10:00 Test Item Value Reference Range Interpretation Comments Hct (test code = Hct) 35.8 42.0-54.0 [facility] CenterNmpraiiFRLDVWUHOE3815-71-72 12:10:00 Test Item Value Reference Range Interpretation Comments Hgb (test code = Hgb) 11.9 14.0-18.0 [facility] CenterAvfikgfKVDHZXJBZJ3039-54-95 12:10:00 Test Item Value Reference Range Interpretation Comments RBC (test code = RBC) 3.99 4.70-6.10 [facility] CenterSvvucatRUCNLONKBD4903-50-28 12:10:00 Test Item Value Reference Range Interpretation Comments WBC (test code = WBC) 4.6 3.7-10.4 [facility] CenterVuxajmpTFPOGSVMLX4057-90-41 12:10:00 Test Item Value Reference Range Interpretation Comments MCHC (test code = MCHC) 33.2 32.0-36.0 [facility] CenterOkchiesGNRVATGTHI6646-69-52 12:10:00 Test Item Value Reference Range Interpretation Comments MPV (test code = MPV) 7.3 7.4-10.4 [facility] CenterTsahwdmFEYTVXOVFO8851-53-55 12:10:00 Test Item Value Reference Range Interpretation Comments Platelet (test code = Platelet) 215 133-450 [facility] CenterCvahuwxFXIYQHYEQJ1771-15-17 12:10:00 Test Item Value Reference Range Interpretation Comments RDW (test code = RDW) 14.0 11.5-14.5 [facility] CenterFbkaeauMOIFFGKWRK0845-45-06 12:10:00 Test Item Value Reference Range Interpretation Comments MCH (test code = MCH) 29.9 pg 27.0-31.0 [facility] CenterZamflnxCJXZUZIMQI9508-40-95 12:10:00 Test Item Value Reference Range Interpretation Comments MCV (test code = MCV) 89.9 80.0-94.0 [facility] CenterCfkzgrrILZAYMDXWC3812-87-26 12:10:00 Test Item Value Reference Range Interpretation Comments RBC Morph (test code = Normal (04/01/15 6:10 AM) RBC Morph) [facility] CenterNdhhmwxDLADDHFJLT9272-64-94 12:10:00 Test Item Value Reference Range Interpretation Comments Segs (test code = Segs) 63.3 45.0-75.0 [facility] CenterAcccvyyJWSFVUQOLN0938-97-63 12:10:00 Test Item Value Reference Range Interpretation Comments Plt Morph (test code = Normal (04/01/15 6:10 AM) Plt Morph) [facility] CenterOqmeemsHZFAMLEKKS6052-97-90 12:10:00 Test Item Value Reference Range Interpretation Comments Lymphocytes (test code = Lymphocytes) 21.2 20.0-40.0 [facility] CenterYihkjswSECPDQODUR5477-34-56 12:10:00 Test Item Value Reference Range Interpretation Comments Eosinophils (test code = 3.3 See_Comment [A utomated message] The Eosinophils) system which ge nerated this result tra nsmitted reference range : <=4.0. The reference r rafat was not used to int erpret this result as normal/abnormal . [facility] CenterWwqtmhcKZODEAAMKN7123-92-72 12:10:00 Test Item Value Reference Range Interpretation Comments Monocytes (test code = Monocytes) 11.5 2.0-12.0 [facility] CenterHliitaxIRDDMAEIDO1913-84-09 12:10:00 Test Item Value Reference Range Interpretation Comments Basophils (test code = 0.7 See_Comment [Aut omated message] The Basophils) system which ge nerated this result tra nsmitted reference range : <=1.0. The reference r rafat was not used to int erpret this result as normal/abnormal . [facility] CenterPailaorYTAWYEIHKI7098-85-64 12:10:00 Test Item Value Reference Range Interpretation Comments Lymphocytes # (test code = Lymphocytes 1.0 1.0-5.5 #) [facility] CenterGdqypbfMEMPZPWAWA0381-42-38 12:10:00 Test Item Value Reference Range Interpretation Comments Monocytes # (test code 0.5 See_Comment [Aut omated message] The = Monocytes #) system which generated this result tra nsmitted reference range : <=0.8. The reference r rafat was not used to int erpret this result as normal/abnormal . [facility] CenterGilzrvqXHDVQQFOPR8471-72-46 12:10:00 Test Item Value Reference Range Interpretation Comments Eosinophils # (test code 0.1 See_Comment [A utomated message] The = Eosinophils #) system whic h generated this result tra nsmitted reference range : <=0.5. The reference r rafat was not used to int erpret this result as normal/abnormal . [facility] CenterFbodsmsBWJFSPIMYG3040-79-14 12:10:00 Test Item Value Reference Range Interpretation Comments Segs-Bands # (test code = Segs-Bands #) 2.9 1.5-8.1 [facility] CenterAprfnzmXOCYKWZRAL4461-24-66 12:10:00 Test Item Value Reference Range Interpretation Comments Hct (test code = Hct) 35.8 42.0-54.0 [facility] CenterRiyliavYDHYNNPLNI1721-96-51 12:10:00 Test Item Value Reference Range Interpretation Comments Hgb (test code = Hgb) 11.9 14.0-18.0 [facility] CenterGyisagrCCGEABLDDH1264-61-27 12:10:00 Test Item Value Reference Range Interpretation Comments RBC (test code = RBC) 3.99 4.70-6.10 [facility] CenterWclykyaIEZHDREHWD6636-64-64 12:10:00 Test Item Value Reference Range Interpretation Comments WBC (test code = WBC) 4.6 3.7-10.4 [facility] CenterCaqmgtjBXEBOMBSOT1119-73-42 12:10:00 Test Item Value Reference Range Interpretation Comments MCHC (test code = MCHC) 33.2 32.0-36.0 [facility] CenterAoqveznIOOSSZBGJH6853-40-14 12:10:00 Test Item Value Reference Range Interpretation Comments MPV (test code = MPV) 7.3 7.4-10.4 [facility] CenterKernethVJERFWSGRR1100-87-41 12:10:00 Test Item Value Reference Range Interpretation Comments Platelet (test code = Platelet) 215 133-450 [facility] CenterNnhwispFDRQADFYPE8898-80-12 12:10:00 Test Item Value Reference Range Interpretation Comments RDW (test code = RDW) 14.0 11.5-14.5 [facility] CenterKflfzjoFFWHERZRRV3808-13-04 12:10:00 Test Item Value Reference Range Interpretation Comments MCH (test code = MCH) 29.9 pg 27.0-31.0 [facility] CenterEsivgevCLNDHFGMRW1402-98-21 12:10:00 Test Item Value Reference Range Interpretation Comments MCV (test code = MCV) 89.9 80.0-94.0 [facility] CenterOuczgbhZUJCTUHOAV7448-68-16 12:10:00 Test Item Value Reference Range Interpretation Comments RBC Morph (test code = Normal (04/01/15 6:10 AM) RBC Morph) [facility] CenterYaowhtdZQPPNDBKIU5361-34-45 12:10:00 Test Item Value Reference Range Interpretation Comments Segs (test code = Segs) 63.3 45.0-75.0 [facility] CenterAshiaduRSBIMMQSGU1834-21-84 12:10:00 Test Item Value Reference Range Interpretation Comments Plt Morph (test code = Normal (04/01/15 6:10 AM) Plt Morph) [facility] CenterHtjzkihMIRJIUVDNF0069-98-86 12:10:00 Test Item Value Reference Range Interpretation Comments Lymphocytes (test code = Lymphocytes) 21.2 20.0-40.0 [facility] CenterKgkejbdZXAAUHOKPX2497-32-43 12:10:00 Test Item Value Reference Range Interpretation Comments Eosinophils (test code = 3.3 See_Comment [A utomated message] The Eosinophils) system which ge nerated this result tra nsmitted reference range : <=4.0. The reference r rafat was not used to int erpret this result as normal/abnormal . [facility] CenterIbpjtwnKACGRCMHYS7446-67-24 12:10:00 Test Item Value Reference Range Interpretation Comments Monocytes (test code = Monocytes) 11.5 2.0-12.0 [facility] CenterImrgevcVJWLFUAWVJ9815-54-84 12:10:00 Test Item Value Reference Range Interpretation Comments Basophils (test code = 0.7 See_Comment [Aut omated message] The Basophils) system which ge nerated this result tra nsmitted reference range : <=1.0. The reference r rafat was not used to int erpret this result as normal/abnormal . [facility] CenterGvsiaqzTGGXNMRUAE7583-99-63 12:10:00 Test Item Value Reference Range Interpretation Comments Lymphocytes # (test code = Lymphocytes 1.0 1.0-5.5 #) [facility] CenterRsqtuqiBVSLSNAKXB0950-93-22 12:10:00 Test Item Value Reference Range Interpretation Comments Monocytes # (test code 0.5 See_Comment [Aut omated message] The = Monocytes #) system which generated this result tra nsmitted reference range : <=0.8. The reference r rafat was not used to int erpret this result as normal/abnormal . [facility] CenterWyncurzJBKQFDMUAB7977-86-34 12:10:00 Test Item Value Reference Range Interpretation Comments Eosinophils # (test code 0.1 See_Comment [A utomated message] The = Eosinophils #) system whic h generated this result tra nsmitted reference range : <=0.5. The reference r rafat was not used to int erpret this result as normal/abnormal . [facility] CenterAhwniuhCEHGDKUSVG4680-77-32 12:10:00 Test Item Value Reference Range Interpretation Comments Segs-Bands # (test code = Segs-Bands #) 2.9 1.5-8.1 [facility] CenterUckjpaxKGIBVPQBHO1872-87-66 03:53:00 Test Item Value Reference Range Interpretation Comments Hgb (test code = Hgb) 12.0 14.0-18.0 [facility] CenterLbvyuxqDGSDHFCLWM2088-87-21 03:53:00 Test Item Value Reference Range Interpretation Comments Hct (test code = Hct) 37.1 42.0-54.0 [facility] CenterLboojdvUTRKVOICQJ3874-76-96 03:53:00 Test Item Value Reference Range Interpretation Comments Hgb (test code = Hgb) 12.0 14.0-18.0 [facility] CenterLeysjfsUQKCNDTVAQ2611-69-11 03:53:00 Test Item Value Reference Range Interpretation Comments Hct (test code = Hct) 37.1 42.0-54.0 [facility] CenterOmpjugvCUNGANUWLO4747-80-53 03:53:00 Test Item Value Reference Range Interpretation Comments Hgb (test code = Hgb) 12.0 14.0-18.0 [facility] CenterUigvjjyANWFNRJMJD6044-37-88 03:53:00 Test Item Value Reference Range Interpretation Comments Hct (test code = Hct) 37.1 42.0-54.0 [facility] CenterAfcjvlnMMBRIJMWHE1084-88-34 03:53:00 Test Item Value Reference Range Interpretation Comments Hgb (test code = Hgb) 12.0 14.0-18.0 [facility]AofimcdVGTZRIMHSL6955-94-82 03:53:00 Test Item Value Reference Range Interpretation Comments Hct (test code = Hct) 37.1 42.0-54.0 [facility]2016-01-04 09:46:00 Test Item Value Reference Range Interpretation Comments eGFR (test code = eGFR) 82 [facility]2016-01-04 09:46:00 Test Item Value Reference Range Interpretation Comments CO2 (test code = CO2) 26 24-32 [facility]2016-01-04 09:46:00 Test Item Value Reference Range Interpretation Comments Calcium Lvl (test code = Calcium Lvl) 8.1 8.5-10.5 [facility]2016-01-04 09:46:00 Test Item Value Reference Range Interpretation Comments Glucose Lvl (test code = Glucose Lvl) 97 70-99 [facility]2016-01-04 09:46:00 Test Item Value Reference Range Interpretation Comments Potassium Lvl (test code = Potassium 3.8 3.5-5.1 Lvl) [facility] [place]2016-01-04 09:46:00 Test Item Value Reference Range Interpretation Comments Chloride Lvl (test code = Chloride Lvl) 107 95-109 [facility] [place]2016-01-04 09:46:00 Test Item Value Reference Range Interpretation Comments BUN (test code = BUN) 14 7-22 [facility] [place]2016-01-04 09:46:00 Test Item Value Reference Range Interpretation Comments Sodium Lvl (test code = Sodium Lvl) 141 135-145 [facility] [place]2016-01-04 09:46:00 Test Item Value Reference Range Interpretation Comments Creatinine Lvl (test code = Creatinine 1.02 0.50-1.40 Lvl) [facility] [place]2016-01-04 09:46:00 Test Item Value Reference Range Interpretation Comments AGAP (test code = AGAP) 11.8 10.0-20.0 [facility] [place]2016-01-04 09:46:00 Test Item Value Reference Range Interpretation Comments Phosphorus (test code = Phosphorus) 3.3 2.5-4.5 [facility] [place]2016-01-04 09:46:00 Test Item Value Reference Range Interpretation Comments Magnesium Lvl (test code = Magnesium 2.0 1.8-2.4 Lvl) [facility]hq[facility]xcROFWFYBWBY3905-09-43 09:46:00 Test Item Value Reference Range Interpretation Comments Segs-Bands # (test code = Segs-Bands #) 2.3 1.5-8.1 [facility] CenterOtrepwhFPECOKNOHT4173-18-20 09:46:00 Test Item Value Reference Range Interpretation Comments Lymphocytes # (test code = Lymphocytes 1.2 1.0-5.5 #) [facility] CenterOzjsrfjTFDOFWBOML5825-99-96 09:46:00 Test Item Value Reference Range Interpretation Comments Basophils (test code = 0.7 See_Comment [Aut omated message] The Basophils) system which ge nerated this result tra nsmitted reference range : <=1.0. The reference r rafat was not used to int erpret this result as normal/abnormal . [facility] CenterCiveevdCTCPVJOIZM2120-84-66 09:46:00 Test Item Value Reference Range Interpretation Comments Eosinophils # (test code 0.1 See_Comment [A utomated message] The = Eosinophils #) system whic h generated this result tra nsmitted reference range : <=0.5. The reference r rafat was not used to int erpret this result as normal/abnormal . [facility] CenterJccoerhHNLYTIIIJI8343-77-09 09:46:00 Test Item Value Reference Range Interpretation Comments Monocytes # (test code 0.4 See_Comment [Aut omated message] The = Monocytes #) system which generated this result tra nsmitted reference range : <=0.8. The reference r rafat was not used to int erpret this result as normal/abnormal . [facility] CenterMxfqlalRAVIOZPFCN6438-17-73 09:46:00 Test Item Value Reference Range Interpretation Comments Lymphocytes (test code = Lymphocytes) 28.4 20.0-40.0 [facility] CenterQbsrfyhJVSOBEJIJG0347-10-59 09:46:00 Test Item Value Reference Range Interpretation Comments Monocytes (test code = Monocytes) 11.0 2.0-12.0 [facility] CenterUurvqleLHENLXBWFT4784-99-74 09:46:00 Test Item Value Reference Range Interpretation Comments Eosinophils (test code = 3.4 See_Comment [A utomated message] The Eosinophils) system which ge nerated this result tra nsmitted reference range : <=4.0. The reference r rafat was not used to int erpret this result as normal/abnormal . [facility] CenterWqktjzoHSDATJCJXI1587-49-16 09:46:00 Test Item Value Reference Range Interpretation Comments Segs (test code = Segs) 56.5 45.0-75.0 [facility] CenterPyqkagtNIZCRVKDAK4938-60-01 09:46:00 Test Item Value Reference Range Interpretation Comments MCH (test code = MCH) 29.7 pg 27.0-31.0 [facility] CenterZkwqoaoWKNFKNCMWO1788-68-84 09:46:00 Test Item Value Reference Range Interpretation Comments MCV (test code = MCV) 90.0 80.0-94.0 [facility] CenterIixojpqXICHVEKBBO8543-22-78 09:46:00 Test Item Value Reference Range Interpretation Comments Hct (test code = Hct) 39.2 42.0-54.0 [facility] CenterGetwlduKVFQLMKQQO8500-30-04 09:46:00 Test Item Value Reference Range Interpretation Comments Hgb (test code = Hgb) 12.9 14.0-18.0 [facility] CenterCwyfvamISDKSBRKUJ6712-47-09 09:46:00 Test Item Value Reference Range Interpretation Comments RBC (test code = RBC) 4.35 4.70-6.10 [facility] CenterMuaiflcDASKNQHJBJ9553-03-28 09:46:00 Test Item Value Reference Range Interpretation Comments MPV (test code = MPV) 7.7 7.4-10.4 [facility] CenterSgsadkmUNBRKIOZED0004-23-56 09:46:00 Test Item Value Reference Range Interpretation Comments Platelet (test code = Platelet) 172 133-450 [facility] CenterWbxpdlnBIAIVIPOAN8882-45-21 09:46:00 Test Item Value Reference Range Interpretation Comments MCHC (test code = MCHC) 32.9 32.0-36.0 [facility] CenterLvinsoaBATXFWUWLK5890-22-13 09:46:00 Test Item Value Reference Range Interpretation Comments RDW (test code = RDW) 13.9 11.5-14.5 [facility] CenterUwuhonpLEATFPDTYF4865-64-49 09:46:00 Test Item Value Reference Range Interpretation Comments WBC (test code = WBC) 4.1 3.7-10.4 [facility] [place]2016-01-04 09:46:00 Test Item Value Reference Range Interpretation Comments eGFR (test code = eGFR) 82 [facility] [place]2016-01-04 09:46:00 Test Item Value Reference Range Interpretation Comments CO2 (test code = CO2) 26 24-32 [facility] [place]2016-01-04 09:46:00 Test Item Value Reference Range Interpretation Comments Calcium Lvl (test code = Calcium Lvl) 8.1 8.5-10.5 [facility] [place]2016-01-04 09:46:00 Test Item Value Reference Range Interpretation Comments Glucose Lvl (test code = Glucose Lvl) 97 70-99 [facility] [place]2016-01-04 09:46:00 Test Item Value Reference Range Interpretation Comments Potassium Lvl (test code = Potassium 3.8 3.5-5.1 Lvl) [facility] [place]2016-01-04 09:46:00 Test Item Value Reference Range Interpretation Comments Chloride Lvl (test code = Chloride Lvl) 107 95-109 [facility] [place]2016-01-04 09:46:00 Test Item Value Reference Range Interpretation Comments BUN (test code = BUN) 14 7-22 [facility] [place]2016-01-04 09:46:00 Test Item Value Reference Range Interpretation Comments Sodium Lvl (test code = Sodium Lvl) 141 135-145 [facility] [place]2016-01-04 09:46:00 Test Item Value Reference Range Interpretation Comments Creatinine Lvl (test code = Creatinine 1.02 0.50-1.40 Lvl) [facility] [place]2016-01-04 09:46:00 Test Item Value Reference Range Interpretation Comments AGAP (test code = AGAP) 11.8 10.0-20.0 [facility] [place]2016-01-04 09:46:00 Test Item Value Reference Range Interpretation Comments Phosphorus (test code = Phosphorus) 3.3 2.5-4.5 [facility] [place]2016-01-04 09:46:00 Test Item Value Reference Range Interpretation Comments Magnesium Lvl (test code = Magnesium 2.0 1.8-2.4 Lvl) [facility]UY[facility]FBDG6514[facility]-90 09:46:00 Test Item Value Reference Range Interpretation Comments Segs-Bands # (test code = Segs-Bands #) 2.3 1.5-8.1 [facility] CenterMpdtbcnWIVBMNLZFE3904-70-89 09:46:00 Test Item Value Reference Range Interpretation Comments Lymphocytes # (test code = Lymphocytes 1.2 1.0-5.5 #) [facility] CenterHfcuhvzUAPYUGRXKX3996-93-80 09:46:00 Test Item Value Reference Range Interpretation Comments Basophils (test code = 0.7 See_Comment [Aut omated message] The Basophils) system which ge nerated this result tra nsmitted reference range : <=1.0. The reference r rafat was not used to int erpret this result as normal/abnormal . [facility] CenterEfznmpgQVBHXNCRKZ7192-25-42 09:46:00 Test Item Value Reference Range Interpretation Comments Eosinophils # (test code 0.1 See_Comment [A utomated message] The = Eosinophils #) system whic h generated this result tra nsmitted reference range : <=0.5. The reference r rafat was not used to int erpret this result as normal/abnormal . [facility] CenterRjbwyleWUUNTEPLVG3273-25-70 09:46:00 Test Item Value Reference Range Interpretation Comments Monocytes # (test code 0.4 See_Comment [Aut omated message] The = Monocytes #) system which generated this result tra nsmitted reference range : <=0.8. The reference r rafat was not used to int erpret this result as normal/abnormal . [facility] CenterRlhxpgwXJZNMQKSZD1984-80-18 09:46:00 Test Item Value Reference Range Interpretation Comments Lymphocytes (test code = Lymphocytes) 28.4 20.0-40.0 [facility] CenterFpcqwrvYVGSBDSLWX0195-65-93 09:46:00 Test Item Value Reference Range Interpretation Comments Monocytes (test code = Monocytes) 11.0 2.0-12.0 [facility] CenterYwwfgvhNDUJNSUYHU3273-55-21 09:46:00 Test Item Value Reference Range Interpretation Comments Eosinophils (test code = 3.4 See_Comment [A utomated message] The Eosinophils) system which ge nerated this result tra nsmitted reference range : <=4.0. The reference r rafat was not used to int erpret this result as normal/abnormal . [facility] CenterXuwdrubJHTADQJNSW7771-40-69 09:46:00 Test Item Value Reference Range Interpretation Comments Segs (test code = Segs) 56.5 45.0-75.0 [facility] CenterZjcluuqXTUQQKZYJW0253-65-79 09:46:00 Test Item Value Reference Range Interpretation Comments MCH (test code = MCH) 29.7 pg 27.0-31.0 [facility] CenterWburuanOWTVVCNOTU8591-45-96 09:46:00 Test Item Value Reference Range Interpretation Comments MCV (test code = MCV) 90.0 80.0-94.0 [facility] CenterKmubsjmVHFRUCZUKY5351-57-42 09:46:00 Test Item Value Reference Range Interpretation Comments Hct (test code = Hct) 39.2 42.0-54.0 [facility] CenterTpfetraRYFTYOBIBQ1268-36-21 09:46:00 Test Item Value Reference Range Interpretation Comments Hgb (test code = Hgb) 12.9 14.0-18.0 [facility] CenterUyshcmhYKSWDJRGPB1359-53-30 09:46:00 Test Item Value Reference Range Interpretation Comments RBC (test code = RBC) 4.35 4.70-6.10 [facility] CenterJryzmoqUFEZAGLIED2869-05-58 09:46:00 Test Item Value Reference Range Interpretation Comments MPV (test code = MPV) 7.7 7.4-10.4 [facility] CenterLnnkirkQJEARVUIEZ7412-28-43 09:46:00 Test Item Value Reference Range Interpretation Comments Platelet (test code = Platelet) 172 133-450 [facility] CenterWasgyvsSOZTDMDMSY2897-82-63 09:46:00 Test Item Value Reference Range Interpretation Comments MCHC (test code = MCHC) 32.9 32.0-36.0 [facility] CenterVexyresDXMKSVNQNZ2097-84-20 09:46:00 Test Item Value Reference Range Interpretation Comments RDW (test code = RDW) 13.9 11.5-14.5 [facility] CenterHnxxhecZWFFGWNNKM3027-58-15 09:46:00 Test Item Value Reference Range Interpretation Comments WBC (test code = WBC) 4.1 3.7-10.4 [facility] [place]2016-01-04 09:46:00 Test Item Value Reference Range Interpretation Comments eGFR (test code = eGFR) 82 [facility] [place]2016-01-04 09:46:00 Test Item Value Reference Range Interpretation Comments CO2 (test code = CO2) 26 24-32 [facility] [place]2016-01-04 09:46:00 Test Item Value Reference Range Interpretation Comments Calcium Lvl (test code = Calcium Lvl) 8.1 8.5-10.5 [facility] [place]2016-01-04 09:46:00 Test Item Value Reference Range Interpretation Comments Glucose Lvl (test code = Glucose Lvl) 97 70-99 [facility] [place]2016-01-04 09:46:00 Test Item Value Reference Range Interpretation Comments Potassium Lvl (test code = Potassium 3.8 3.5-5.1 Lvl) [facility] [place]2016-01-04 09:46:00 Test Item Value Reference Range Interpretation Comments Chloride Lvl (test code = Chloride Lvl) 107 95-109 [place] 715436-01-04 09:46:00 Test Item Value Reference Range Interpretation Comments BUN (test code = BUN) 14 7-22 [facility] [place]2016-01-04 09:46:00 Test Item Value Reference Range Interpretation Comments Sodium Lvl (test code = Sodium Lvl) 141 135-145 [facility] [place]2016-01-04 09:46:00 Test Item Value Reference Range Interpretation Comments Creatinine Lvl (test code = Creatinine 1.02 0.50-1.40 Lvl) [facility] [place]2016-01-04 09:46:00 Test Item Value Reference Range Interpretation Comments AGAP (test code = AGAP) 11.8 10.0-20.0 [facility] [place]2016-01-04 09:46:00 Test Item Value Reference Range Interpretation Comments Phosphorus (test code = Phosphorus) 3.3 2.5-4.5 [facility] [place]2016-01-04 09:46:00 Test Item Value Reference Range Interpretation Comments Magnesium Lvl (test code = Magnesium 2.0 1.8-2.4 Lvl) [facility] CenterFvojhloOLCAAXFOZC1887-97-07 09:46:00 Test Item Value Reference Range Interpretation Comments Segs-Bands # (test code = Segs-Bands #) 2.3 1.5-8.1 [facility] CenterEidebbxEPRHMXXSVH6876-35-41 09:46:00 Test Item Value Reference Range Interpretation Comments Lymphocytes # (test code = Lymphocytes 1.2 1.0-5.5 #) [facility] CenterAaeibmuRAHCABKLIR0249-13-25 09:46:00 Test Item Value Reference Range Interpretation Comments Basophils (test code = 0.7 See_Comment [Aut omated message] The Basophils) system which ge nerated this result tra nsmitted reference range : <=1.0. The reference r rafat was not used to int erpret this result as normal/abnormal . [facility] CenterSlekladPCGEBVYSXO1782-71-66 09:46:00 Test Item Value Reference Range Interpretation Comments Eosinophils # (test code 0.1 See_Comment [A utomated message] The = Eosinophils #) system whic h generated this result tra nsmitted reference range : <=0.5. The reference r rafat was not used to int erpret this result as normal/abnormal . [facility] CenterYjjruonJAFNFKJRMC5493-15-97 09:46:00 Test Item Value Reference Range Interpretation Comments Monocytes # (test code 0.4 See_Comment [Aut omated message] The = Monocytes #) system which generated this result tra nsmitted reference range : <=0.8. The reference r rafat was not used to int erpret this result as normal/abnormal . [facility] CenterOptxqeqOMFCTTHHTT2063-68-63 09:46:00 Test Item Value Reference Range Interpretation Comments Lymphocytes (test code = Lymphocytes) 28.4 20.0-40.0 [facility] CenterPrlkgzkGWDWHVXICZ1560-52-06 09:46:00 Test Item Value Reference Range Interpretation Comments Monocytes (test code = Monocytes) 11.0 2.0-12.0 [facility] CenterZatjoxeWURZZBKDZB1516-93-73 09:46:00 Test Item Value Reference Range Interpretation Comments Eosinophils (test code = 3.4 See_Comment [A utomated message] The Eosinophils) system which ge nerated this result tra nsmitted reference range : <=4.0. The reference r rafat was not used to int erpret this result as normal/abnormal . [facility] CenterVhjgfhuDZOSNOHXYI8120-16-72 09:46:00 Test Item Value Reference Range Interpretation Comments Segs (test code = Segs) 56.5 45.0-75.0 [facility] CenterFbycifwPWDCNEPNZL2644-10-00 09:46:00 Test Item Value Reference Range Interpretation Comments MCH (test code = MCH) 29.7 pg 27.0-31.0 [facility] CenterGlxspzwMFYRAPUVMH2705-38-32 09:46:00 Test Item Value Reference Range Interpretation Comments MCV (test code = MCV) 90.0 80.0-94.0 [facility] CenterMcqjelzEJDOQJMGAR1318-37-49 09:46:00 Test Item Value Reference Range Interpretation Comments Hct (test code = Hct) 39.2 42.0-54.0 [facility] CenterMwbvlusIGWWZHZIVE5989-13-60 09:46:00 Test Item Value Reference Range Interpretation Comments Hgb (test code = Hgb) 12.9 14.0-18.0 [facility] CenterCgakjniAVAJGYICIH1616-93-23 09:46:00 Test Item Value Reference Range Interpretation Comments RBC (test code = RBC) 4.35 4.70-6.10 [facility] CenterXwykgroRIJDGQRVLW5953-51-15 09:46:00 Test Item Value Reference Range Interpretation Comments MPV (test code = MPV) 7.7 7.4-10.4 [facility] CenterGwimcrlHTAIIUGCQU0695-29-78 09:46:00 Test Item Value Reference Range Interpretation Comments Platelet (test code = Platelet) 172 133-450 [facility] CenterEcuignhFAUQXPOHID3112-20-68 09:46:00 Test Item Value Reference Range Interpretation Comments MCHC (test code = MCHC) 32.9 32.0-36.0 [facility] CenterAddykwkYHIMGOFMXQ2059-33-63 09:46:00 Test Item Value Reference Range Interpretation Comments RDW (test code = RDW) 13.9 11.5-14.5 [facility] CenterAlwyoneXCCKRKDPRG6504-40-27 09:46:00 Test Item Value Reference Range Interpretation Comments WBC (test code = WBC) 4.1 3.7-10.4 [facility] [place]2016-01-04 09:46:00 Test Item Value Reference Range Interpretation Comments eGFR (test code = eGFR) 82 [facility] [place]2016-01-04 09:46:00 Test Item Value Reference Range Interpretation Comments CO2 (test code = CO2) 26 24-32 [facility] [place]2016-01-04 09:46:00 Test Item Value Reference Range Interpretation Comments Calcium Lvl (test code = Calcium Lvl) 8.1 8.5-10.5 [facility] [place]2016-01-04 09:46:00 Test Item Value Reference Range Interpretation Comments Glucose Lvl (test code = Glucose Lvl) 97 70-99 [facility] [place]2016-01-04 09:46:00 Test Item Value Reference Range Interpretation Comments Potassium Lvl (test code = Potassium 3.8 3.5-5.1 Lvl) [facility] [place]2016-01-04 09:46:00 Test Item Value Reference Range Interpretation Comments Chloride Lvl (test code = Chloride Lvl) 107 95-109 [facility] [place]2016-01-04 09:46:00 Test Item Value Reference Range Interpretation Comments BUN (test code = BUN) 14 7-22 [facility] [place]2016-01-04 09:46:00 Test Item Value Reference Range Interpretation Comments Sodium Lvl (test code = Sodium Lvl) 141 135-145 [facility] [place]2016-01-04 09:46:00 Test Item Value Reference Range Interpretation Comments Creatinine Lvl (test code = Creatinine 1.02 0.50-1.40 Lvl) [facility] [place]2016-01-04 09:46:00 Test Item Value Reference Range Interpretation Comments AGAP (test code = AGAP) 11.8 10.0-20.0 [facility] [place]2016-01-04 09:46:00 Test Item Value Reference Range Interpretation Comments Phosphorus (test code = Phosphorus) 3.3 2.5-4.5 [facility] [place]2016-01-04 09:46:00 Test Item Value Reference Range Interpretation Comments Magnesium Lvl (test code = Magnesium 2.0 1.8-2.4 Lvl) [facility] CenterGjuxvcoNMCSFIXHBK6536-27-04 09:46:00 Test Item Value Reference Range Interpretation Comments Segs-Bands # (test code = Segs-Bands #) 2.3 1.5-8.1 [facility] CenterUcfmpmgOEHMTLVHDF2919-46-24 09:46:00 Test Item Value Reference Range Interpretation Comments Lymphocytes # (test code = Lymphocytes 1.2 1.0-5.5 #) [facility] CenterQtlorplSSRVTCIQLY2130-79-39 09:46:00 Test Item Value Reference Range Interpretation Comments Basophils (test code = 0.7 See_Comment [Aut omated message] The Basophils) system which ge nerated this result tra nsmitted reference range : <=1.0. The reference r rafat was not used to int erpret this result as normal/abnormal . [facility] CenterDkqhzdwDRYIEQGEMC2671-29-11 09:46:00 Test Item Value Reference Range Interpretation Comments Eosinophils # (test code 0.1 See_Comment [A utomated message] The = Eosinophils #) system whic h generated this result tra nsmitted reference range : <=0.5. The reference r rafat was not used to int erpret this result as normal/abnormal . [facility] CenterIppecqsRBELTKTVQG4408-78-49 09:46:00 Test Item Value Reference Range Interpretation Comments Monocytes # (test code 0.4 See_Comment [Aut omated message] The = Monocytes #) system which generated this result tra nsmitted reference range : <=0.8. The reference r rafat was not used to int erpret this result as normal/abnormal . [facility] CenterOogdzwiVOYYSPRRMA8593-66-44 09:46:00 Test Item Value Reference Range Interpretation Comments Lymphocytes (test code = Lymphocytes) 28.4 20.0-40.0 [facility] CenterBmqskmtRBTXHGWUZM2823-92-69 09:46:00 Test Item Value Reference Range Interpretation Comments Monocytes (test code = Monocytes) 11.0 2.0-12.0 [facility] CenterJpyvzkqKAVAFTADOB5809-61-92 09:46:00 Test Item Value Reference Range Interpretation Comments Eosinophils (test code = 3.4 See_Comment [A utomated message] The Eosinophils) system which ge nerated this result tra nsmitted reference range : <=4.0. The reference r rafat was not used to int erpret this result as normal/abnormal . [facility] CenterOnqmuueUEJBDWAKLM1609-77-92 09:46:00 Test Item Value Reference Range Interpretation Comments Segs (test code = Segs) 56.5 45.0-75.0 [facility] CenterEqvshtxGGMXWJIFQE3942-61-08 09:46:00 Test Item Value Reference Range Interpretation Comments MCH (test code = MCH) 29.7 pg 27.0-31.0 [facility] CenterWopgxuoQSZQKFPCYQ6456-56-90 09:46:00 Test Item Value Reference Range Interpretation Comments MCV (test code = MCV) 90.0 80.0-94.0 [facility] CenterPhgziuaGDFFFNVZIJ7635-04-47 09:46:00 Test Item Value Reference Range Interpretation Comments Hct (test code = Hct) 39.2 42.0-54.0 [facility] CenterDuzuhjdGXBCUAASLJ1963-43-88 09:46:00 Test Item Value Reference Range Interpretation Comments Hgb (test code = Hgb) 12.9 14.0-18.0 [facility] CenterVxgryhxDIHQPSUBQX9173-04-83 09:46:00 Test Item Value Reference Range Interpretation Comments RBC (test code = RBC) 4.35 4.70-6.10 [facility] CenterIfjbbygFGCKMDFBXU2990-46-26 09:46:00 Test Item Value Reference Range Interpretation Comments MPV (test code = MPV) 7.7 7.4-10.4 [facility] CenterVgjudeaKNSRHGKEED2526-94-45 09:46:00 Test Item Value Reference Range Interpretation Comments Platelet (test code = Platelet) 172 133-450 [facility] CenterUwxckxzYKRGMXATGB3636-78-44 09:46:00 Test Item Value Reference Range Interpretation Comments MCHC (test code = MCHC) 32.9 32.0-36.0 [facility] CenterWcsxtelSCEGWDNKFZ6058-91-46 09:46:00 Test Item Value Reference Range Interpretation Comments RDW (test code = RDW) 13.9 11.5-14.5 [facility] CenterWfcxqcrJITMZMHHHI7506-56-32 09:46:00 Test Item Value Reference Range Interpretation Comments WBC (test code = WBC) 4.1 3.7-10.4 [facility] CenterCzujfarJERTFUMVYN0239-31-17 08:13:00 Test Item Value Reference Range Interpretation Comments Basophils (test code = 0.7 See_Comment [Aut omated message] The Basophils) system which ge nerated this result tra nsmitted reference range : <=1.0. The reference r rafat was not used to int erpret this result as normal/abnormal . [facility] CenterQtynvmiZXCWIYWEQX8843-92-58 08:13:00 Test Item Value Reference Range Interpretation Comments Monocytes (test code = Monocytes) 12.9 2.0-12.0 [facility] CenterPdwguyoZTADPFBCSM7249-44-51 08:13:00 Test Item Value Reference Range Interpretation Comments Segs-Bands # (test code = Segs-Bands #) 3.4 1.5-8.1 [facility] CenterUmomtabTVPUOZIIGQ0179-37-09 08:13:00 Test Item Value Reference Range Interpretation Comments Eosinophils (test code = 1.7 See_Comment [A utomated message] The Eosinophils) system which ge nerated this result tra nsmitted reference range : <=4.0. The reference r rafat was not used to int erpret this result as normal/abnormal . [facility] CenterHqwaffmVVKLEMQGCA5168-70-16 08:13:00 Test Item Value Reference Range Interpretation Comments Segs (test code = Segs) 65.8 45.0-75.0 [facility] CenterYxhmrfvXPMBDWQCXO4305-47-48 08:13:00 Test Item Value Reference Range Interpretation Comments Lymphocytes (test code = Lymphocytes) 18.9 20.0-40.0 [facility] CenterFinmyqpSMNGWCCGWE5048-03-55 08:13:00 Test Item Value Reference Range Interpretation Comments Monocytes # (test code 0.7 See_Comment [Aut omated message] The = Monocytes #) system which generated this result tra nsmitted reference range : <=0.8. The reference r rafat was not used to int erpret this result as normal/abnormal . [facility] [facility]pxiktjYDMXGUADMT4093-39-97 08:13:00 Test Item Value Reference Range Interpretation Comments Eosinophils # (test code 0.1 See_Comment [A utomated message] The = Eosinophils #) system whic h generated this result tra nsmitted reference range : <=0.5. The reference r rafat was not used to int erpret this result as normal/abnormal . [facility]DdujapvWDDQQDDYAR2264-91-15 08:13:00 Test Item Value Reference Range Interpretation Comments Lymphocytes # (test code = Lymphocytes 1.0 1.0-5.5 #) [facility] CenterOxlmfciVUVXRPREEG6401-76-34 08:13:00 Test Item Value Reference Range Interpretation Comments Hgb (test code = Hgb) 13.0 14.0-18.0 [facility] CenterZiwzmrmWXCVPKPYPB8280-57-27 08:13:00 Test Item Value Reference Range Interpretation Comments Hct (test code = Hct) 39.4 42.0-54.0 [facility] CenterNrpsluuSLGMKWXKFS1004-33-81 08:13:00 Test Item Value Reference Range Interpretation Comments MPV (test code = MPV) 7.8 7.4-10.4 [facility] CenterQfhrtniQNTXTJCYIZ3326-00-29 08:13:00 Test Item Value Reference Range Interpretation Comments RDW (test code = RDW) 14.2 11.5-14.5 [facility] CenterEcolneiEGDCAVKIBS3268-80-58 08:13:00 Test Item Value Reference Range Interpretation Comments Platelet (test code = Platelet) 168 133-450 [facility] CenterEgtoomrWMVXIXNZMX9917-44-72 08:13:00 Test Item Value Reference Range Interpretation Comments MCHC (test code = MCHC) 32.8 32.0-36.0 [place] 466436-01-03 08:13:00 Test Item Value Reference Range Interpretation Comments MCV (test code = MCV) 90.1 80.0-94.0 [facility] CenterExvatyeYEMYDSUJCJ7028-37-88 08:13:00 Test Item Value Reference Range Interpretation Comments MCH (test code = MCH) 29.6 pg 27.0-31.0 [facility] CenterJmqorwzKOVWHGCVAB8722-69-46 08:13:00 Test Item Value Reference Range Interpretation Comments WBC (test code = WBC) 5.1 3.7-10.4 [facility] CenterVzexzhoDNQHADKOVB7406-76-05 08:13:00 Test Item Value Reference Range Interpretation Comments RBC (test code = RBC) 4.38 4.70-6.10 [facility]2016-01-03 08:13:00 Test Item Value Reference Range Interpretation Comments Phosphorus (test code = Phosphorus) 3.3 2.5-4.5 [facility]2016-01-03 08:13:00 Test Item Value Reference Range Interpretation Comments Magnesium Lvl (test code = Magnesium 1.8 1.8-2.4 Lvl) [facility]2016-01-03 08:13:00 Test Item Value Reference Range Interpretation Comments BUN (test code = BUN) 13 7-22 [facility]2016-01-03 08:13:00 Test Item Value Reference Range Interpretation Comments Glucose Lvl (test code = Glucose Lvl) 98 70-99 [facility]2016-01-03 08:13:00 Test Item Value Reference Range Interpretation Comments Potassium Lvl (test code = Potassium 3.7 3.5-5.1 Lvl) [facility]2016-01-03 08:13:00 Test Item Value Reference Range Interpretation Comments Sodium Lvl (test code = Sodium Lvl) 140 135-145 [facility]2016-01-03 08:13:00 Test Item Value Reference Range Interpretation Comments Creatinine Lvl (test code = Creatinine 0.95 0.50-1.40 Lvl) [facility]2016-01-03 08:13:00 Test Item Value Reference Range Interpretation Comments CO2 (test code = CO2) 27 24-32 [facility]2016-01-03 08:13:00 Test Item Value Reference Range Interpretation Comments Chloride Lvl (test code = Chloride Lvl) 105 95-109 [facility]2016-01-03 08:13:00 Test Item Value Reference Range Interpretation Comments eGFR (test code = eGFR) 89 [facility]2016-01-03 08:13:00 Test Item Value Reference Range Interpretation Comments AGAP (test code = AGAP) 11.7 10.0-20.0 [facility]2016-01-03 08:13:00 Test Item Value Reference Range Interpretation Comments Calcium Lvl (test code = Calcium Lvl) 8.4 8.5-10.5 [facility] CenterMheamguLKGYITIIGK3409-77-68 08:13:00 Test Item Value Reference Range Interpretation Comments Basophils (test code = 0.7 See_Comment [Aut omated message] The Basophils) system which ge nerated this result tra nsmitted reference range : <=1.0. The reference r rafat was not used to int erpret this result as normal/abnormal . [facility] CenterAuifrycBRUMXHAZSS1561-20-33 08:13:00 Test Item Value Reference Range Interpretation Comments Monocytes (test code = Monocytes) 12.9 2.0-12.0 [facility] CenterFntkanjRYYEWXGHTB6959-00-41 08:13:00 Test Item Value Reference Range Interpretation Comments Segs-Bands # (test code = Segs-Bands #) 3.4 1.5-8.1 [facility] CenterVeqhwvuEAESODEMQH1263-51-54 08:13:00 Test Item Value Reference Range Interpretation Comments Eosinophils (test code = 1.7 See_Comment [A utomated message] The Eosinophils) system which ge nerated this result tra nsmitted reference range : <=4.0. The reference r rafat was not used to int erpret this result as normal/abnormal . [facility] CenterYupcvjyITGGLGKIRF1233-92-26 08:13:00 Test Item Value Reference Range Interpretation Comments Segs (test code = Segs) 65.8 45.0-75.0 [facility] CenterLqofnagYWTWLVPPJK3795-55-83 08:13:00 Test Item Value Reference Range Interpretation Comments Lymphocytes (test code = Lymphocytes) 18.9 20.0-40.0 [facility] CenterWzjywvaTNSFVGDYIE3344-82-02 08:13:00 Test Item Value Reference Range Interpretation Comments Monocytes # (test code 0.7 See_Comment [Aut omated message] The = Monocytes #) system which generated this result tra nsmitted reference range : <=0.8. The reference r rafat was not used to int erpret this result as normal/abnormal . [facility] CenterFnofkrjAGIVNHVNFH8464-21-42 08:13:00 Test Item Value Reference Range Interpretation Comments Eosinophils # (test code 0.1 See_Comment [A utomated message] The = Eosinophils #) system whic h generated this result tra nsmitted reference range : <=0.5. The reference r rafat was not used to int erpret this result as normal/abnormal . [facility] CenterTmbonlmUGPMPFKKHY9518-02-14 08:13:00 Test Item Value Reference Range Interpretation Comments Lymphocytes # (test code = Lymphocytes 1.0 1.0-5.5 #) [facility] CenterJkigormHILZFLYCTV5240-95-71 08:13:00 Test Item Value Reference Range Interpretation Comments Hgb (test code = Hgb) 13.0 14.0-18.0 [facility] CenterZwywrtyCRRMREZILR8993-91-23 08:13:00 Test Item Value Reference Range Interpretation Comments Hct (test code = Hct) 39.4 42.0-54.0 [facility] CenterLdnpdgbBJNBWPVHAN1585-42-95 08:13:00 Test Item Value Reference Range Interpretation Comments MPV (test code = MPV) 7.8 7.4-10.4 [facility] CenterLovhqtpDFZIOEHUIG6564-15-38 08:13:00 Test Item Value Reference Range Interpretation Comments RDW (test code = RDW) 14.2 11.5-14.5 [facility] CenterOhbvllqMRNHQXNUYV8075-95-83 08:13:00 Test Item Value Reference Range Interpretation Comments Platelet (test code = Platelet) 168 133-450 [facility] CenterSvsvfauGUHRBROTXU2999-69-74 08:13:00 Test Item Value Reference Range Interpretation Comments MCHC (test code = MCHC) 32.8 32.0-36.0 [facility] CenterVkpwmwcKJVXMLLXPZ0313-75-22 08:13:00 Test Item Value Reference Range Interpretation Comments MCV (test code = MCV) 90.1 80.0-94.0 [facility] CenterMavioxcWDTOMAJJFR2238-20-17 08:13:00 Test Item Value Reference Range Interpretation Comments MCH (test code = MCH) 29.6 pg 27.0-31.0 [place] 466436-01-03 08:13:00 Test Item Value Reference Range Interpretation Comments WBC (test code = WBC) 5.1 3.7-10.4 [facility] CenterJcbycxdNSJOLCGSKX4397-79-11 08:13:00 Test Item Value Reference Range Interpretation Comments RBC (test code = RBC) 4.38 4.70-6.10 [place] 715436-01-03 08:13:00 Test Item Value Reference Range Interpretation Comments Phosphorus (test code = Phosphorus) 3.3 2.5-4.5 [place] 715436-01-03 08:13:00 Test Item Value Reference Range Interpretation Comments Magnesium Lvl (test code = Magnesium 1.8 1.8-2.4 Lvl) [place] 715436-01-03 08:13:00 Test Item Value Reference Range Interpretation Comments BUN (test code = BUN) 13 7-22 [place] 715436-01-03 08:13:00 Test Item Value Reference Range Interpretation Comments Glucose Lvl (test code = Glucose Lvl) 98 70-99 [facility]2016-01-03 08:13:00 Test Item Value Reference Range Interpretation Comments Potassium Lvl (test code = Potassium 3.7 3.5-5.1 Lvl) [facility]2016-01-03 08:13:00 Test Item Value Reference Range Interpretation Comments Sodium Lvl (test code = Sodium Lvl) 140 135-145 [facility]2016-01-03 08:13:00 Test Item Value Reference Range Interpretation Comments Creatinine Lvl (test code = Creatinine 0.95 0.50-1.40 Lvl) [facility]2016-01-03 08:13:00 Test Item Value Reference Range Interpretation Comments CO2 (test code = CO2) 27 24-32 [facility]2016-01-03 08:13:00 Test Item Value Reference Range Interpretation Comments Chloride Lvl (test code = Chloride Lvl) 105 95-109 [facility]2016-01-03 08:13:00 Test Item Value Reference Range Interpretation Comments eGFR (test code = eGFR) 89 [facility]2016-01-03 08:13:00 Test Item Value Reference Range Interpretation Comments AGAP (test code = AGAP) 11.7 10.0-20.0 [facility]2016-01-03 08:13:00 Test Item Value Reference Range Interpretation Comments Calcium Lvl (test code = Calcium Lvl) 8.4 8.5-10.5 [facility] CenterGqqqkdhMCVVZMLLTB0009-18-84 08:13:00 Test Item Value Reference Range Interpretation Comments Basophils (test code = 0.7 See_Comment [Aut omated message] The Basophils) system which ge nerated this result tra nsmitted reference range : <=1.0. The reference r rafat was not used to int erpret this result as normal/abnormal . [facility] CenterDmkirknVGTOSQTRLF8397-29-32 08:13:00 Test Item Value Reference Range Interpretation Comments Monocytes (test code = Monocytes) 12.9 2.0-12.0 [facility] CenterUwldidvHWLWAYWXAN6434-63-74 08:13:00 Test Item Value Reference Range Interpretation Comments Segs-Bands # (test code = Segs-Bands #) 3.4 1.5-8.1 [facility] CenterQubmyeaNMJQXYNIBQ8349-35-90 08:13:00 Test Item Value Reference Range Interpretation Comments Eosinophils (test code = 1.7 See_Comment [A utomated message] The Eosinophils) system which ge nerated this result tra nsmitted reference range : <=4.0. The reference r rafat was not used to int erpret this result as normal/abnormal . [facility] CenterMiegewbMHRUGHBDGQ9187-50-51 08:13:00 Test Item Value Reference Range Interpretation Comments Segs (test code = Segs) 65.8 45.0-75.0 [facility] CenterLmvsdoqBKMWZJZLQT8822-00-69 08:13:00 Test Item Value Reference Range Interpretation Comments Lymphocytes (test code = Lymphocytes) 18.9 20.0-40.0 [facility] CenterBramdslVJCODOSWKD0042-41-89 08:13:00 Test Item Value Reference Range Interpretation Comments Monocytes # (test code 0.7 See_Comment [Aut omated message] The = Monocytes #) system which generated this result tra nsmitted reference range : <=0.8. The reference r rafat was not used to int erpret this result as normal/abnormal . [facility] CenterDhkoqcqALJZOSHVSM2264-99-42 08:13:00 Test Item Value Reference Range Interpretation Comments Eosinophils # (test code 0.1 See_Comment [A utomated message] The = Eosinophils #) system whic h generated this result tra nsmitted reference range : <=0.5. The reference r rafat was not used to int erpret this result as normal/abnormal . [facility] CenterZqkzjqdUXIUDKIZVK8622-34-71 08:13:00 Test Item Value Reference Range Interpretation Comments Lymphocytes # (test code = Lymphocytes 1.0 1.0-5.5 #) [facility] CenterDwzysjmDNROFTYEMI0269-27-44 08:13:00 Test Item Value Reference Range Interpretation Comments Hgb (test code = Hgb) 13.0 14.0-18.0 [facility] CenterQkwczdeEOBLJMIFTE2742-39-37 08:13:00 Test Item Value Reference Range Interpretation Comments Hct (test code = Hct) 39.4 42.0-54.0 [facility] CenterYjewwmzNKBLADDLLE4956-06-33 08:13:00 Test Item Value Reference Range Interpretation Comments MPV (test code = MPV) 7.8 7.4-10.4 [facility] CenterKbxhrkvPKPLHEMMNO6773-95-99 08:13:00 Test Item Value Reference Range Interpretation Comments RDW (test code = RDW) 14.2 11.5-14.5 [facility]Yuy[facility]xulTIKXOCVVVA6704-91-39 08:13:00 Test Item Value Reference Range Interpretation Comments Platelet (test code = Platelet) 168 133-450 [facility] CenterTbuyrpqFWVJDGJAYO0296-87-46 08:13:00 Test Item Value Reference Range Interpretation Comments MCHC (test code = MCHC) 32.8 32.0-36.0 [facility] CenterTfwrjjnJQMTMKJSSM0728-47-13 08:13:00 Test Item Value Reference Range Interpretation Comments MCV (test code = MCV) 90.1 80.0-94.0 [facility]GoavlmpGDERWAUYCD0826-21-09 08:13:00 Test Item Value Reference Range Interpretation Comments MCH (test code = MCH) 29.6 pg 27.0-31.0 [facility] CenterNgemakpWVUAAKXLDB5007-13-10 08:13:00 Test Item Value Reference Range Interpretation Comments WBC (test code = WBC) 5.1 3.7-10.4 [facility]QiyttqhOLTLVKPGBT0820-96-25 08:13:00 Test Item Value Reference Range Interpretation Comments RBC (test code = RBC) 4.38 4.70-6.10 [facility]2016-01-03 08:13:00 Test Item Value Reference Range Interpretation Comments Phosphorus (test code = Phosphorus) 3.3 2.5-4.5 [facility]2016-01-03 08:13:00 Test Item Value Reference Range Interpretation Comments Magnesium Lvl (test code = Magnesium 1.8 1.8-2.4 Lvl) [facility]2016-01-03 08:13:00 Test Item Value Reference Range Interpretation Comments BUN (test code = BUN) 13 7-22 [facility]2016-01-03 08:13:00 Test Item Value Reference Range Interpretation Comments Glucose Lvl (test code = Glucose Lvl) 98 70-99 [facility]2016-01-03 08:13:00 Test Item Value Reference Range Interpretation Comments Potassium Lvl (test code = Potassium 3.7 3.5-5.1 Lvl) [facility]2016-01-03 08:13:00 Test Item Value Reference Range Interpretation Comments Sodium Lvl (test code = Sodium Lvl) 140 135-145 [facility]2016-01-03 08:13:00 Test Item Value Reference Range Interpretation Comments Creatinine Lvl (test code = Creatinine 0.95 0.50-1.40 Lvl) [facility]2016-01-03 08:13:00 Test Item Value Reference Range Interpretation Comments CO2 (test code = CO2) 27 24-32 [facility]2016-01-03 08:13:00 Test Item Value Reference Range Interpretation Comments Chloride Lvl (test code = Chloride Lvl) 105 95-109 [facility]2016-01-03 08:13:00 Test Item Value Reference Range Interpretation Comments eGFR (test code = eGFR) 89 [facility]2016-01-03 08:13:00 Test Item Value Reference Range Interpretation Comments AGAP (test code = AGAP) 11.7 10.0-20.0 [facility]2016-01-03 08:13:00 Test Item Value Reference Range Interpretation Comments Calcium Lvl (test code = Calcium Lvl) 8.4 8.5-10.5 [facility]IpgwmceAYGQRPNCDO2206-96-59 08:13:00 Test Item Value Reference Range Interpretation Comments Basophils (test code = 0.7 See_Comment [Aut omated message] The Basophils) system which ge nerated this result tra nsmitted reference range : <=1.0. The reference r rafat was not used to int erpret this result as normal/abnormal . [facility] CenterQtsrrtiIRBJOQFQXE8727-01-97 08:13:00 Test Item Value Reference Range Interpretation Comments Monocytes (test code = Monocytes) 12.9 2.0-12.0 [facility] CenterDlipnvdXNREWQQQZK7910-06-46 08:13:00 Test Item Value Reference Range Interpretation Comments Segs-Bands # (test code = Segs-Bands #) 3.4 1.5-8.1 [facility] CenterGfvbgqnEIUFXCDEXY2672-62-05 08:13:00 Test Item Value Reference Range Interpretation Comments Eosinophils (test code = 1.7 See_Comment [A utomated message] The Eosinophils) system which ge nerated this result tra nsmitted reference range : <=4.0. The reference r rafat was not used to int erpret this result as normal/abnormal . [facility] CenterPfurpuuEUMEOWAKXP8193-20-33 08:13:00 Test Item Value Reference Range Interpretation Comments Segs (test code = Segs) 65.8 45.0-75.0 [facility] CenterGhiuciiKXYTMLTULS6436-13-00 08:13:00 Test Item Value Reference Range Interpretation Comments Lymphocytes (test code = Lymphocytes) 18.9 20.0-40.0 [facility] CenterLcvsappYQQBAIVDHI9387-54-87 08:13:00 Test Item Value Reference Range Interpretation Comments Monocytes # (test code 0.7 See_Comment [Aut omated message] The = Monocytes #) system which generated this result tra nsmitted reference range : <=0.8. The reference r rafat was not used to int erpret this result as normal/abnormal . [facility] CenterGbkbszmWIBKUFLTMA6048-86-36 08:13:00 Test Item Value Reference Range Interpretation Comments Eosinophils # (test code 0.1 See_Comment [A utomated message] The = Eosinophils #) system ic h generated this result tra nsmitted reference range : <=0.5. The reference r rafat was not used to int erpret this result as normal/abnormal . [facility] CenterElntqtmZSYERQWFEN2122-95-63 08:13:00 Test Item Value Reference Range Interpretation Comments Lymphocytes # (test code = Lymphocytes 1.0 1.0-5.5 #) [facility] CenterHvtcxkdCDZFMETNIC4900-47-57 08:13:00 Test Item Value Reference Range Interpretation Comments Hgb (test code = Hgb) 13.0 14.0-18.0 [facility] CenterYrxyqfpEHCRVDIKDS6270-35-02 08:13:00 Test Item Value Reference Range Interpretation Comments Hct (test code = Hct) 39.4 42.0-54.0 [facility] CenterNiwtehgCUUTPCUDZD9429-92-47 08:13:00 Test Item Value Reference Range Interpretation Comments MPV (test code = MPV) 7.8 7.4-10.4 [facility] CenterUzephxzUZBQPZXLUI9187-85-36 08:13:00 Test Item Value Reference Range Interpretation Comments RDW (test code = RDW) 14.2 11.5-14.5 [facility] CenterFdejqapVHIIFSMKLF3694-19-17 08:13:00 Test Item Value Reference Range Interpretation Comments Platelet (test code = Platelet) 168 133-450 [facility] CenterJsxpfqiAVKRUNEYDN6254-77-00 08:13:00 Test Item Value Reference Range Interpretation Comments MCHC (test code = MCHC) 32.8 32.0-36.0 [facility] CenterDpqdbvxAOLSRACAER9559-29-92 08:13:00 Test Item Value Reference Range Interpretation Comments MCV (test code = MCV) 90.1 80.0-94.0 [facility] CenterYzeasvuWIJZAKAVFS5291-58-68 08:13:00 Test Item Value Reference Range Interpretation Comments MCH (test code = MCH) 29.6 pg 27.0-31.0 [facility] CenterSvtngspGKGXRMDDUP4908-18-26 08:13:00 Test Item Value Reference Range Interpretation Comments WBC (test code = WBC) 5.1 3.7-10.4 [facility] CenterZywgglwZECWXZRCSP5677-83-27 08:13:00 Test Item Value Reference Range Interpretation Comments RBC (test code = RBC) 4.38 4.70-6.10 [facility]2016-01-03 08:13:00 Test Item Value Reference Range Interpretation Comments Phosphorus (test code = Phosphorus) 3.3 2.5-4.5 [facility]2016-01-03 08:13:00 Test Item Value Reference Range Interpretation Comments Magnesium Lvl (test code = Magnesium 1.8 1.8-2.4 Lvl) [facility]2016-01-03 08:13:00 Test Item Value Reference Range Interpretation Comments BUN (test code = BUN) 13 7-22 [facility]2016-01-03 08:13:00 Test Item Value Reference Range Interpretation Comments Glucose Lvl (test code = Glucose Lvl) 98 70-99 [facility]2016-01-03 08:13:00 Test Item Value Reference Range Interpretation Comments Potassium Lvl (test code = Potassium 3.7 3.5-5.1 Lvl) [facility]2016-01-03 08:13:00 Test Item Value Reference Range Interpretation Comments Sodium Lvl (test code = Sodium Lvl) 140 135-145 [facility]2016-01-03 08:13:00 Test Item Value Reference Range Interpretation Comments Creatinine Lvl (test code = Creatinine 0.95 0.50-1.40 Lvl) [facility]2016-01-03 08:13:00 Test Item Value Reference Range Interpretation Comments CO2 (test code = CO2) 27 24-32 [facility]2016-01-03 08:13:00 Test Item Value Reference Range Interpretation Comments Chloride Lvl (test code = Chloride Lvl) 105 95-109 [facility]2016-01-03 08:13:00 Test Item Value Reference Range Interpretation Comments eGFR (test code = eGFR) 89 [facility]2016-01-03 08:13:00 Test Item Value Reference Range Interpretation Comments AGAP (test code = AGAP) 11.7 10.0-20.0 [facility]2016-01-03 08:13:00 Test Item Value Reference Range Interpretation Comments Calcium Lvl (test code = Calcium Lvl) 8.4 8.5-10.5 [facility]2016-01-02 18:52:00 Test Item Value Reference Range Interpretation Comments Micro? (test code = Not Indicated *NA*(03/26/15 Micro?) 12:52 PM) [facility] [id number] 18:52:00 Test Item Value Reference Range Interpretation Comments UA Bili (test code = Negative *NA*(03/26/15 UA Bili) 12:52 PM) [facility] [id number] 18:52:00 Test Item Value Reference Range Interpretation Comments UA Nitrite (test code Negative (03/26/15 12:52 = UA Nitrite) PM) [facility] [id number] 18:52:00 Test Item Value Reference Range Interpretation Comments UA Leuk Est (test Negative (03/26/15 12:52 code = UA Leuk Est) PM) [facility] [id number] 18:52:00 Test Item Value Reference Range Interpretation Comments UA Urobilinogen (test code = UA 0.2 0.1-1.0 Urobilinogen) [facility] [id number] 18:52:00 Test Item Value Reference Range Interpretation Comments UA Blood (test code = Negative (03/26/15 12:52 UA Blood) PM) [facility] [id number] 18:52:00 Test Item Value Reference Range Interpretation Comments UA pH (test code = UA pH) 6.0 1 5.0-8.0 [facility] [id number] 18:52:00 Test Item Value Reference Range Interpretation Comments UA Protein (test code = UA Negative mg/dL Protein) [facility] [id number] 18:52:00 Test Item Value Reference Range Interpretation Comments UA Glucose (test code = UA Negative mg/dL Glucose) [facility] [id number] 18:52:00 Test Item Value Reference Range Interpretation Comments UA Ketones (test code = UA Trace mg/dL Ketones) [facility] [id number] 18:52:00 Test Item Value Reference Range Interpretation Comments UA Turbidity (test code = Clear (03/26/15 12:52 UA Turbidity) PM) [facility] [id number] 18:52:00 Test Item Value Reference Range Interpretation Comments UA Spec Grav (test code = UA Spec 1.010 1 Grav) [facility] [id number] 18:52:00 Test Item Value Reference Range Interpretation Comments UA Color (test code = Yellow *NA*(03/26/15 UA Color) 12:52 PM) [facility] [id number] 18:52:00 Test Item Value Reference Range Interpretation Comments Micro? (test code = Not Indicated *NA*(03/26/15 Micro?) 12:52 PM) [facility] [id number] 18:52:00 Test Item Value Reference Range Interpretation Comments UA Bili (test code = Negative *NA*(03/26/15 UA Bili) 12:52 PM) [facility] [id number] 18:52:00 Test Item Value Reference Range Interpretation Comments UA Nitrite (test code Negative (03/26/15 12:52 = UA Nitrite) PM) [facility] [id number] 18:52:00 Test Item Value Reference Range Interpretation Comments UA Leuk Est (test Negative (03/26/15 12:52 code = UA Leuk Est) PM) [facility] [facility] [id number] 18:52:00 Test Item Value Reference Range Interpretation Comments UA Urobilinogen (test code = UA 0.2 0.1-1.0 Urobilinogen) [facility] AND [id number] 18:52:00 Test Item Value Reference Range Interpretation Comments UA Blood (test code = Negative (03/26/15 12:52 UA Blood) PM) [facility] AND [id number] 18:52:00 Test Item Value Reference Range Interpretation Comments UA pH (test code = UA pH) 6.0 1 5.0-8.0 [facility] AND [id number] 18:52:00 Test Item Value Reference Range Interpretation Comments UA Protein (test code = UA Negative mg/dL Protein) [facility] AND [id number] 18:52:00 Test Item Value Reference Range Interpretation Comments UA Glucose (test code = UA Negative mg/dL Glucose) [facility] AND [id number] 18:52:00 Test Item Value Reference Range Interpretation Comments UA Ketones (test code = UA Trace mg/dL Ketones) [facility] AND [id number] 18:52:00 Test Item Value Reference Range Interpretation Comments UA Turbidity (test code = Clear (03/26/15 12:52 UA Turbidity) PM) [facility] AND [id number] 18:52:00 Test Item Value Reference Range Interpretation Comments UA Spec Grav (test code = UA Spec 1.010 1 Grav) [facility] AND [id number] 18:52:00 Test Item Value Reference Range Interpretation Comments UA Color (test code = Yellow *NA*(03/26/15 UA Color) 12:52 PM) [facility] AND [id number] 18:52:00 Test Item Value Reference Range Interpretation Comments Micro? (test code = Not Indicated *NA*(03/26/15 Micro?) 12:52 PM) [facility] AND [id number] 18:52:00 Test Item Value Reference Range Interpretation Comments UA Bili (test code = Negative *NA*(03/26/15 UA Bili) 12:52 PM) [facility] AND [id number] 18:52:00 Test Item Value Reference Range Interpretation Comments UA Nitrite (test code Negative (03/26/15 12:52 = UA Nitrite) PM) [facility] AND [id number] 18:52:00 Test Item Value Reference Range Interpretation Comments UA Leuk Est (test Negative (03/26/15 12:52 code = UA Leuk Est) PM) [facility] AND [id number] 18:52:00 Test Item Value Reference Range Interpretation Comments UA Urobilinogen (test code = UA 0.2 0.1-1.0 Urobilinogen) [facility] AND [id number] 18:52:00 Test Item Value Reference Range Interpretation Comments UA Blood (test code = Negative (03/26/15 12:52 UA Blood) PM) [facility] AND [id number] 18:52:00 Test Item Value Reference Range Interpretation Comments UA pH (test code = UA pH) 6.0 1 5.0-8.0 [facility] AND [id number] 18:52:00 Test Item Value Reference Range Interpretation Comments UA Protein (test code = UA Negative mg/dL Protein) [facility] AND [id number] 18:52:00 Test Item Value Reference Range Interpretation Comments UA Glucose (test code = UA Negative mg/dL Glucose) [facility] AND [id number] 18:52:00 Test Item Value Reference Range Interpretation Comments UA Ketones (test code = UA Trace mg/dL Ketones) [facility] AND [id number] 18:52:00 Test Item Value Reference Range Interpretation Comments UA Turbidity (test code = Clear (03/26/15 12:52 UA Turbidity) PM) [facility] AND [id number] 18:52:00 Test Item Value Reference Range Interpretation Comments UA Spec Grav (test code = UA Spec 1.010 1 Grav) [facility] AND [id number] 18:52:00 Test Item Value Reference Range Interpretation Comments UA Color (test code = Yellow *NA*(03/26/15 UA Color) 12:52 PM) [facility] AND [id number] 18:52:00 Test Item Value Reference Range Interpretation Comments Micro? (test code = Not Indicated *NA*(03/26/15 Micro?) 12:52 PM) [facility] AND [id number] 18:52:00 Test Item Value Reference Range Interpretation Comments UA Bili (test code = Negative *NA*(03/26/15 UA Bili) 12:52 PM) [facility] AND [id number] 18:52:00 Test Item Value Reference Range Interpretation Comments UA Nitrite (test code Negative (03/26/15 12:52 = UA Nitrite) PM) [facility] AND [id number] 18:52:00 Test Item Value Reference Range Interpretation Comments UA Leuk Est (test Negative (03/26/15 12:52 code = UA Leuk Est) PM) [facility] AND [id number] 18:52:00 Test Item Value Reference Range Interpretation Comments UA Urobilinogen (test code = UA 0.2 0.1-1.0 Urobilinogen) [facility] AND [id number] 18:52:00 Test Item Value Reference Range Interpretation Comments UA Blood (test code = Negative (03/26/15 12:52 UA Blood) PM) [facility] AND [id number] 18:52:00 Test Item Value Reference Range Interpretation Comments UA pH (test code = UA pH) 6.0 1 5.0-8.0 [facility] AND [id number] 18:52:00 Test Item Value Reference Range Interpretation Comments UA Protein (test code = UA Negative mg/dL Protein) [facility] AND [id number] 18:52:00 Test Item Value Reference Range Interpretation Comments UA Glucose (test code = UA Negative mg/dL Glucose) [facility] AND [id number] 18:52:00 Test Item Value Reference Range Interpretation Comments UA Ketones (test code = UA Trace mg/dL Ketones) [facility] AND [id number] 18:52:00 Test Item Value Reference Range Interpretation Comments UA Turbidity (test code = Clear (03/26/15 12:52 UA Turbidity) PM) [facility] AND [id number] 18:52:00 Test Item Value Reference Range Interpretation Comments UA Spec Grav (test code = UA Spec 1.010 1 Grav) [facility] AND [id number] 18:52:00 Test Item Value Reference Range Interpretation Comments UA Color (test code = Yellow *NA*(03/26/15 UA Color) 12:52 PM) [facility] [employer] [id number] 16:36:00 Test Item Value Reference Range Interpretation Comments Antibody Scrn (test Negative (03/26/15 10:36 code = Antibody Scrn) AM) [facility] [employer] [id number] 16:36:00 Test Item Value Reference Range Interpretation Comments ABO/Rh (test code = ABO/Rh) O POS [facility] [employer] [id number] 16:36:00 Test Item Value Reference Range Interpretation Comments ALT (test code = ALT) 26 See_Comment [Auto mated message] The system which ge nerated this result transmit nurys reference range : <=65. The reference range was not used to interpr et this result as sujey l/abnormal. [employer] [id number] 16:36:00 Test Item Value Reference Range Interpretation Comments AST (test code = AST) 19 See_Comment [Auto mated message] The system which ge nerated this result transmit nurys reference range : <=37. The reference range was not used to interpr et this result as sujey l/abnormal. [employer] [id number] 16:36:00 Test Item Value Reference Range Interpretation Comments Bili Total (test code = Bili Total) 1.5 0.2-1.3 [facility] [employer] [id number] 16:36:00 Test Item Value Reference Range Interpretation Comments Alk Phos (test code = Alk Phos) 74 39-136 [facility]2016-01-02 16:36:00 Test Item Value Reference Range Interpretation Comments Bili Direct (test code 0.3 See_Comment [Aut omated message] The = Bili Direct) system which generated this result tra nsmitted reference range : <=0.3. The reference r rafat was not used to int erpret this result as sujey l/abnormal. [facility]2016-01-02 16:36:00 Test Item Value Reference Range Interpretation Comments Total Protein (test code = Total 7.2 6.4-8.4 Protein) [facility]2016-01-02 16:36:00 Test Item Value Reference Range Interpretation Comments Albumin Lvl (test code = Albumin Lvl) 3.9 3.5-5.0 [facility]2016-01-02 16:36:00 Test Item Value Reference Range Interpretation Comments Bili Indirect (test 1.2 See_Comment [Automa nurys message] The code = Bili Indirect) system which generated this result tra nsmitted reference range : <=1.0. The reference r rafat was not used to int erpret this result as normal/abnormal . [facility]2016-01-02 16:36:00 Test Item Value Reference Range Interpretation Comments A/G Ratio (test code = A/G Ratio) 1.2 0.7-1.6 [facility]2016-01-02 16:36:00 Test Item Value Reference Range Interpretation Comments Globulin (test code = Globulin) 3.3 2.0-4.0 [facility]2016-01-02 16:36:00 Test Item Value Reference Range Interpretation Comments Lipase Lvl (test code = Lipase Lvl) 178 73-393 [facility]2016-01-02 16:36:00 Test Item Value Reference Range Interpretation Comments eGFR (test code = eGFR) 71 [facility]2016-01-02 16:36:00 Test Item Value Reference Range Interpretation Comments Calcium Lvl (test code = Calcium Lvl) 9.2 8.5-10.5 [facility]2016-01-02 16:36:00 Test Item Value Reference Range Interpretation Comments CO2 (test code = CO2) 32 24-32 [facility]2016-01-02 16:36:00 Test Item Value Reference Range Interpretation Comments Chloride Lvl (test code = Chloride Lvl) 101 95-109 [facility]2016-01-02 16:36:00 Test Item Value Reference Range Interpretation Comments Potassium Lvl (test code = Potassium 3.7 3.5-5.1 Lvl) [facility]2016-01-02 16:36:00 Test Item Value Reference Range Interpretation Comments Sodium Lvl (test code = Sodium Lvl) 139 135-145 [facility]2016-01-02 16:36:00 Test Item Value Reference Range Interpretation Comments Creatinine Lvl (test code = Creatinine 1.15 0.50-1.40 Lvl) [facility]2016-01-02 16:36:00 Test Item Value Reference Range Interpretation Comments BUN (test code = BUN) 16 7-22 [facility]2016-01-02 16:36:00 Test Item Value Reference Range Interpretation Comments Glucose Lvl (test code = Glucose Lvl) 105 70-99 [facility]2016-01-02 16:36:00 Test Item Value Reference Range Interpretation Comments AGAP (test code = AGAP) 9.7 10.0-20.0 [id number] 16:36:00 Test Item Value Reference Range Interpretation Comments PTT (test code = PTT) 36.8 s 22.9-35.8 [facility] [id number] 16:36:00 Test Item Value Reference Range Interpretation Comments INR (test code = INR) 1.31 0.85-1.17 [facility] [id number] 16:36:00 Test Item Value Reference Range Interpretation Comments PT (test code = PT) 16.6 s 12.0-14.7 [facility] [id number] 16:36:00 Test Item Value Reference Range Interpretation Comments RDW (test code = RDW) 14.3 11.5-14.5 [facility] [id number] 16:36:00 Test Item Value Reference Range Interpretation Comments Platelet (test code = Platelet) 167 133-450 [facility] CenterTnfmxepTUJJVKEKEV8723-07-68 16:36:00 Test Item Value Reference Range Interpretation Comments MPV (test code = MPV) 7.6 7.4-10.4 [place] [id number] 16:36:00 Test Item Value Reference Range Interpretation Comments MCV (test code = MCV) 90.5 80.0-94.0 [facility] CenterFkgxlefQZAZEOBTCM8739-65-15 16:36:00 Test Item Value Reference Range Interpretation Comments Hgb (test code = Hgb) 14.4 14.0-18.0 [facility] [id number] 16:36:00 Test Item Value Reference Range Interpretation Comments Hct (test code = Hct) 43.5 42.0-54.0 [facility] Cent[id number] 16:36:00 Test Item Value Reference Range Interpretation Comments MCH (test code = MCH) 30.0 pg 27.0-31.0 [facility] [id number] 16:36:00 Test Item Value Reference Range Interpretation Comments MCHC (test code = MCHC) 33.1 32.0-36.0 [facility] Cent[id number] 16:36:00 Test Item Value Reference Range Interpretation Comments RBC (test code = RBC) 4.80 4.70-6.10 [facility] CenterRuhakywKHYOQATJTV4242-35-30 16:36:00 Test Item Value Reference Range Interpretation Comments WBC (test code = WBC) 6.0 3.7-10.4 [facility] [id number] 16:36:00 Test Item Value Reference Range Interpretation Comments Monocytes (test code = Monocytes) 11.9 2.0-12.0 [facility] CenterIpjhyowVWPAGUICKU7947-98-57 16:36:00 Test Item Value Reference Range Interpretation Comments Lymphocytes (test code = Lymphocytes) 14.9 20.0-40.0 [facility] Cent[id number] 16:36:00 Test Item Value Reference Range Interpretation Comments Segs (test code = Segs) 71.5 45.0-75.0 [facility] CenterEvscoxiAZQGWGSFXR7349-48-43 16:36:00 Test Item Value Reference Range Interpretation Comments Lymphocytes # (test code = Lymphocytes 0.9 1.0-5.5 #) [facility] [id number] 16:36:00 Test Item Value Reference Range Interpretation Comments Monocytes # (test code 0.7 See_Comment [Aut omated message] The = Monocytes #) system which generated this result tra nsmitted reference range : <=0.8. The reference r rafat was not used to int erpret this result as normal/abnormal . [facility] CenterChsfsbiOHPOBXFDDT0688-51-09 16:36:00 Test Item Value Reference Range Interpretation Comments Eosinophils # (test code 0.1 See_Comment [A utomated message] The = Eosinophils #) system whic h generated this result tra nsmitted reference range : <=0.5. The reference r rafat was not used to int erpret this result as normal/abnormal . [facility] Cent[id number] 16:36:00 Test Item Value Reference Range Interpretation Comments Eosinophils (test code = 1.2 See_Comment [A utomated message] The Eosinophils) system which ge nerated this result tra nsmitted reference range : <=4.0. The reference r rafat was not used to int erpret this result as normal/abnormal . [facility] CenterOhoiessWEKIHRPRKV9058-04-90 16:36:00 Test Item Value Reference Range Interpretation Comments Basophils (test code = 0.5 See_Comment [Aut omated message] The Basophils) system which ge nerated this result tra nsmitted reference range : <=1.0. The reference r rafat was not used to int erpret this result as normal/abnormal . [facility] CenterCxbmwviEQZNIPAILS2611-44-40 16:36:00 Test Item Value Reference Range Interpretation Comments Segs-Bands # (test code = Segs-Bands #) 4.3 1.5-8.1 [facility] [id number] 16:36:00 Test Item Value Reference Range Interpretation Comments CDC HIV 4th GEN (test Negative (03/26/15 10:36 code = CDC HIV 4th AM) GEN) [facility] Cent[id number] 16:36:00 Test Item Value Reference Range Interpretation Comments [place]-Hep C Ab (test Negative *NA*(03/26/15 code = [place]-Hep C 10:36 AM) Ab) [facility] [employer] [id number] 16:36:00 Test Item Value Reference Range Interpretation Comments Antibody Scrn (test Negative (03/26/15 10:36 code = Antibody Scrn) AM) [facility] [employer] [id number] 16:36:00 Test Item Value Reference Range Interpretation Comments ABO/Rh (test code = ABO/Rh) O POS [facility]2016-01-02 16:36:00 Test Item Value Reference Range Interpretation Comments ALT (test code = ALT) 26 See_Comment [Auto mated message] The system which ge nerated this result transmit nurys reference range : <=65. The reference range was not used to interpr et this result as sujey l/abnormal. [facility]2016-01-02 16:36:00 Test Item Value Reference Range Interpretation Comments AST (test code = AST) 19 See_Comment [Auto mated message] The system which ge nerated this result transmit nurys reference range : <=37. The reference range was not used to interpr et this result as sujey l/abnormal. [facility]2016-01-02 16:36:00 Test Item Value Reference Range Interpretation Comments Bili Total (test code = Bili Total) 1.5 0.2-1.3 [facility]2016-01-02 16:36:00 Test Item Value Reference Range Interpretation Comments Alk Phos (test code = Alk Phos) 74 39-136 [facility]2016-01-02 16:36:00 Test Item Value Reference Range Interpretation Comments Bili Direct (test code 0.3 See_Comment [Aut omated message] The = Bili Direct) system which generated this result tra nsmitted reference range : <=0.3. The reference r rafat was not used to int erpret this result as sujey l/abnormal. [facility]2016-01-02 16:36:00 Test Item Value Reference Range Interpretation Comments Total Protein (test code = Total 7.2 6.4-8.4 Protein) [facility]2016-01-02 16:36:00 Test Item Value Reference Range Interpretation Comments Albumin Lvl (test code = Albumin Lvl) 3.9 3.5-5.0 [facility]2016-01-02 16:36:00 Test Item Value Reference Range Interpretation Comments Bili Indirect (test 1.2 See_Comment [Automa nurys message] The code = Bili Indirect) system which generated this result tra nsmitted reference range : <=1.0. The reference r rafat was not used to int erpret this result as normal/abnormal . [facility]2016-01-02 16:36:00 Test Item Value Reference Range Interpretation Comments A/G Ratio (test code = A/G Ratio) 1.2 0.7-1.6 [facility]2016-01-02 16:36:00 Test Item Value Reference Range Interpretation Comments Globulin (test code = Globulin) 3.3 2.0-4.0 [facility]2016-01-02 16:36:00 Test Item Value Reference Range Interpretation Comments Lipase Lvl (test code = Lipase Lvl) 178 73-393 [facility]2016-01-02 16:36:00 Test Item Value Reference Range Interpretation Comments eGFR (test code = eGFR) 71 [facility]2016-01-02 16:36:00 Test Item Value Reference Range Interpretation Comments Calcium Lvl (test code = Calcium Lvl) 9.2 8.5-10.5 [facility]2016-01-02 16:36:00 Test Item Value Reference Range Interpretation Comments CO2 (test code = CO2) 32 24-32 [facility]2016-01-02 16:36:00 Test Item Value Reference Range Interpretation Comments Chloride Lvl (test code = Chloride Lvl) 101 95-109 [facility]2016-01-02 16:36:00 Test Item Value Reference Range Interpretation Comments Potassium Lvl (test code = Potassium 3.7 3.5-5.1 Lvl) [facility]2016-01-02 16:36:00 Test Item Value Reference Range Interpretation Comments Sodium Lvl (test code = Sodium Lvl) 139 135-145 [facility]2016-01-02 16:36:00 Test Item Value Reference Range Interpretation Comments Creatinine Lvl (test code = Creatinine 1.15 0.50-1.40 Lvl) [facility]2016-01-02 16:36:00 Test Item Value Reference Range Interpretation Comments BUN (test code = BUN) 16 7-22 [facility]2016-01-02 16:36:00 Test Item Value Reference Range Interpretation Comments Glucose Lvl (test code = Glucose Lvl) 105 70-99 [facility]2016-01-02 16:36:00 Test Item Value Reference Range Interpretation Comments AGAP (test code = AGAP) 9.7 10.0-20.0 [facility] CenterXdqderiIUWHGCLLPI0349-40-03 16:36:00 Test Item Value Reference Range Interpretation Comments PTT (test code = PTT) 36.8 s 22.9-35.8 [facility] CenterStzstnuIYDYIVDTRU6508-50-32 16:36:00 Test Item Value Reference Range Interpretation Comments INR (test code = INR) 1.31 0.85-1.17 [facility] CenterIpmcnipQNVZMRPKNF1178-83-94 16:36:00 Test Item Value Reference Range Interpretation Comments PT (test code = PT) 16.6 s 12.0-14.7 [facility] CenterEsmqtemZLQPZSGKWK4174-36-80 16:36:00 Test Item Value Reference Range Interpretation Comments RDW (test code = RDW) 14.3 11.5-14.5 [facility] CenterSadqysiBUXAWSKHNB7654-53-90 16:36:00 Test Item Value Reference Range Interpretation Comments Platelet (test code = Platelet) 167 133-450 [facility] CenterYwcpihoWJISAZZPAL3299-02-82 16:36:00 Test Item Value Reference Range Interpretation Comments MPV (test code = MPV) 7.6 7.4-10.4 [facility] CenterXpbxqekYILOICIFBG7095-00-18 16:36:00 Test Item Value Reference Range Interpretation Comments MCV (test code = MCV) 90.5 80.0-94.0 [facility] CenterVieunjtOSIWHZVLBP6192-56-05 16:36:00 Test Item Value Reference Range Interpretation Comments Hgb (test code = Hgb) 14.4 14.0-18.0 [facility] CenterSkdyvesMUDOIJSXDM2168-78-21 16:36:00 Test Item Value Reference Range Interpretation Comments Hct (test code = Hct) 43.5 42.0-54.0 [facility] CenterEsghhmgKKTCLTFCNR9590-71-56 16:36:00 Test Item Value Reference Range Interpretation Comments MCH (test code = MCH) 30.0 pg 27.0-31.0 [facility] CenterLmmvpfdCYBEDZASFG8722-67-19 16:36:00 Test Item Value Reference Range Interpretation Comments MCHC (test code = MCHC) 33.1 32.0-36.0 [facility] CenterXvixvjsUPUGCOSLHK6809-20-50 16:36:00 Test Item Value Reference Range Interpretation Comments RBC (test code = RBC) 4.80 4.70-6.10 [facility] CenterNfkgywbUDUHAOPFXU0642-39-70 16:36:00 Test Item Value Reference Range Interpretation Comments WBC (test code = WBC) 6.0 3.7-10.4 [facility] CenterWpmllnrDAPGVERXKZ6355-92-76 16:36:00 Test Item Value Reference Range Interpretation Comments Monocytes (test code = Monocytes) 11.9 2.0-12.0 [facility] CenterXudvkadAFJCQOHVHW7576-74-92 16:36:00 Test Item Value Reference Range Interpretation Comments Lymphocytes (test code = Lymphocytes) 14.9 20.0-40.0 [facility] CenterGuepwdmRHWMGSLTZU7196-05-83 16:36:00 Test Item Value Reference Range Interpretation Comments Segs (test code = Segs) 71.5 45.0-75.0 [facility] CenterGwfvnseKKXPIULSST3790-66-97 16:36:00 Test Item Value Reference Range Interpretation Comments Lymphocytes # (test code = Lymphocytes 0.9 1.0-5.5 #) [facility] CenterFtypzkvDWJYNYDYKG6256-19-44 16:36:00 Test Item Value Reference Range Interpretation Comments Monocytes # (test code 0.7 See_Comment [Aut omated message] The = Monocytes #) system which generated this result tra nsmitted reference range : <=0.8. The reference r rafat was not used to int erpret this result as normal/abnormal . [facility] CenterNgqwdnrAARBCEPMBY1652-85-86 16:36:00 Test Item Value Reference Range Interpretation Comments Eosinophils # (test code 0.1 See_Comment [A utomated message] The = Eosinophils #) system [facility] h generated this result tra nsmitted reference range : <=0.5. The reference r rafat was not used to int erpret this result as normal/abnormal . [facility] CenterYbnfhwhSGOLLPRHWJ6854-34-27 16:36:00 Test Item Value Reference Range Interpretation Comments Eosinophils (test code = 1.2 See_Comment [A utomated message] The Eosinophils) system which ge nerated this result tra nsmitted reference range : <=4.0. The reference r rafat was not used to int erpret this result as normal/abnormal . [facility] CenterIugkgxfQLAOFVXFWV4952-27-25 16:36:00 Test Item Value Reference Range Interpretation Comments Basophils (test code = 0.5 See_Comment [Aut omated message] The Basophils) system which ge nerated this result tra nsmitted reference range : <=1.0. The reference r rafat was not used to int erpret this result as normal/abnormal . [facility] VmfyqcyUOXOLARHQR9622-28-09 16:36:00 Test Item Value Reference Range Interpretation Comments Segs-Bands # (test code = Segs-Bands #) 4.3 1.5-8.1 [facility] BjpuovbHAHTFXUXCQ2868-29-25 16:36:00 Test Item Value Reference Range Interpretation Comments CDC HIV 4th GEN (test Negative (03/26/15 10:36 code = CDC HIV 4th AM) GEN) [facility] CenterSikefyhHKOVHFDYQU2275-35-74 16:36:00 Test Item Value Reference Range Interpretation Comments [place]-Hep C Ab (test Negative *NA*(03/26/15 code = [place]-Hep C 10:36 AM) Ab) [facility] [employer] [id number] 16:36:00 Test Item Value Reference Range Interpretation Comments Antibody Scrn (test Negative (03/26/15 10:36 code = Antibody Scrn) AM) [facility] [employer] [id number] 16:36:00 Test Item Value Reference Range Interpretation Comments ABO/Rh (test code = ABO/Rh) O POS [facility] [employer] [id number] 16:36:00 Test Item Value Reference Range Interpretation Comments ALT (test code = ALT) 26 See_Comment [Auto mated message] The system which ge nerated this result transmit nurys reference range : <=65. The reference range was not used to interpr et this result as sujey l/abnormal. [facility] [employer] [id number] 16:36:00 Test Item Value Reference Range Interpretation Comments AST (test code = AST) 19 See_Comment [Auto mated message] The system which ge nerated this result transmit nurys reference range : <=37. The reference range was not used to interpr et this result as sujey l/abnormal. [facility] [employer] [id number] 16:36:00 Test Item Value Reference Range Interpretation Comments Bili Total (test code = Bili Total) 1.5 0.2-1.3 [facility] [employer] [id number] 16:36:00 Test Item Value Reference Range Interpretation Comments Alk Phos (test code = Alk Phos) 74 39-136 [facility]2016-01-02 16:36:00 Test Item Value Reference Range Interpretation Comments Bili Direct (test code 0.3 See_Comment [Aut omated message] The = Bili Direct) system which generated this result tra nsmitted reference range : <=0.3. The reference r rafat was not used to int erpret this result as sujey l/abnormal. [facility]2016-01-02 16:36:00 Test Item Value Reference Range Interpretation Comments Total Protein (test code = Total 7.2 6.4-8.4 Protein) [facility]2016-01-02 16:36:00 Test Item Value Reference Range Interpretation Comments Albumin Lvl (test code = Albumin Lvl) 3.9 3.5-5.0 [facility]2016-01-02 16:36:00 Test Item Value Reference Range Interpretation Comments Bili Indirect (test 1.2 See_Comment [Automa nurys message] The code = Bili Indirect) system which generated this result tra nsmitted reference range : <=1.0. The reference r rafat was not used to int erpret this result as normal/abnormal . [facility]2016-01-02 16:36:00 Test Item Value Reference Range Interpretation Comments A/G Ratio (test code = A/G Ratio) 1.2 0.7-1.6 [facility]2016-01-02 16:36:00 Test Item Value Reference Range Interpretation Comments Globulin (test code = Globulin) 3.3 2.0-4.0 [facility]2016-01-02 16:36:00 Test Item Value Reference Range Interpretation Comments Lipase Lvl (test code = Lipase Lvl) 178 73-393 [facility]2016-01-02 16:36:00 Test Item Value Reference Range Interpretation Comments eGFR (test code = eGFR) 71 [facility]2016-01-02 16:36:00 Test Item Value Reference Range Interpretation Comments Calcium Lvl (test code = Calcium Lvl) 9.2 8.5-10.5 [facility]2016-01-02 16:36:00 Test Item Value Reference Range Interpretation Comments CO2 (test code = CO2) 32 24-32 [facility]2016-01-02 16:36:00 Test Item Value Reference Range Interpretation Comments Chloride Lvl (test code = Chloride Lvl) 101 95-109 [facility]2016-01-02 16:36:00 Test Item Value Reference Range Interpretation Comments Potassium Lvl (test code = Potassium 3.7 3.5-5.1 Lvl) [facility]2016-01-02 16:36:00 Test Item Value Reference Range Interpretation Comments Sodium Lvl (test code = Sodium Lvl) 139 135-145 [facility]2016-01-02 16:36:00 Test Item Value Reference Range Interpretation Comments Creatinine Lvl (test code = Creatinine 1.15 0.50-1.40 Lvl) [facility]2016-01-02 16:36:00 Test Item Value Reference Range Interpretation Comments BUN (test code = BUN) 16 7-22 [facility]2016-01-02 16:36:00 Test Item Value Reference Range Interpretation Comments Glucose Lvl (test code = Glucose Lvl) 105 70-99 [facility]2016-01-02 16:36:00 Test Item Value Reference Range Interpretation Comments AGAP (test code = AGAP) 9.7 10.0-20.0 [facility]hegxqCWACZGMYRN4870-11-30 16:36:00 Test Item Value Reference Range Interpretation Comments PTT (test code = PTT) 36.8 s 22.9-35.8 [facility] CenterUpqfbryPTDRCGUVEV8730-08-10 16:36:00 Test Item Value Reference Range Interpretation Comments INR (test code = INR) 1.31 0.85-1.17 [facility] CenterFykbjncPPMRNSRDRJ8204-54-95 16:36:00 Test Item Value Reference Range Interpretation Comments PT (test code = PT) 16.6 s 12.0-14.7 [facility] CenterQonxktiCDAAKYWRBD7114-18-20 16:36:00 Test Item Value Reference Range Interpretation Comments RDW (test code = RDW) 14.3 11.5-14.5 [facility] CenterLrvzrhiZUOAKQBDUI2129-16-04 16:36:00 Test Item Value Reference Range Interpretation Comments Platelet (test code = Platelet) 167 133-450 [facility] CenterQdkjthgUXGCULZWLE4879-76-39 16:36:00 Test Item Value Reference Range Interpretation Comments MPV (test code = MPV) 7.6 7.4-10.4 [facility] CenterCxvssqyQJJGLIEHIZ3202-37-02 16:36:00 Test Item Value Reference Range Interpretation Comments MCV (test code = MCV) 90.5 80.0-94.0 [facility] CenterCgvauhgNVPQXPZEVM8257-92-46 16:36:00 Test Item Value Reference Range Interpretation Comments Hgb (test code = Hgb) 14.4 14.0-18.0 [facility] CenterVtszifzJDHUEVZEIY0110-03-50 16:36:00 Test Item Value Reference Range Interpretation Comments Hct (test code = Hct) 43.5 42.0-54.0 [facility] CenterImexhdxNKPQGSIMFJ6894-36-81 16:36:00 Test Item Value Reference Range Interpretation Comments MCH (test code = MCH) 30.0 pg 27.0-31.0 [facility] CenterFbhsvypBSJQPYHRZC1715-42-34 16:36:00 Test Item Value Reference Range Interpretation Comments MCHC (test code = MCHC) 33.1 32.0-36.0 [facility] CenterDsobixiLRWKZCTNJL9834-26-09 16:36:00 Test Item Value Reference Range Interpretation Comments RBC (test code = RBC) 4.80 4.70-6.10 [facility] CenterBbztwoqRCSRSWHNOI5877-22-99 16:36:00 Test Item Value Reference Range Interpretation Comments WBC (test code = WBC) 6.0 3.7-10.4 [facility] CenterCeupxccFVPTZJLGGA7825-77-24 16:36:00 Test Item Value Reference Range Interpretation Comments Monocytes (test code = Monocytes) 11.9 2.0-12.0 [facility] CenterNqgnnvzRIMVMTCUHE5295-54-60 16:36:00 Test Item Value Reference Range Interpretation Comments Lymphocytes (test code = Lymphocytes) 14.9 20.0-40.0 [facility] CenterKkmpaawOTRZCIPRJR7148-63-36 16:36:00 Test Item Value Reference Range Interpretation Comments Segs (test code = Segs) 71.5 45.0-75.0 [facility] CenterZlgeyfcQMNMUNQARR4716-70-78 16:36:00 Test Item Value Reference Range Interpretation Comments Lymphocytes # (test code = Lymphocytes 0.9 1.0-5.5 #) [facility] CenterYnuugcwMEGZLELDWH6933-67-44 16:36:00 Test Item Value Reference Range Interpretation Comments Monocytes # (test code 0.7 See_Comment [Aut omated message] The = Monocytes #) system which generated this result tra nsmitted reference range : <=0.8. The reference r rafat was not used to int erpret this result as normal/abnormal . [facility] CenterRiqgiguENYVQOASBO1683-74-56 16:36:00 Test Item Value Reference Range Interpretation Comments Eosinophils # (test code 0.1 See_Comment [A utomated message] The = Eosinophils #) system whic h generated this result tra nsmitted reference range : <=0.5. The reference r rafat was not used to int erpret this result as normal/abnormal . [facility] CenterQsowhqfDICWRCDDDE4211-28-17 16:36:00 Test Item Value Reference Range Interpretation Comments Eosinophils (test code = 1.2 See_Comment [A utomated message] The Eosinophils) system which ge nerated this result tra nsmitted reference range : <=4.0. The reference r rafat was not used to int erpret this result as normal/abnormal . [facility] CenterIslxbauKGVXLVYTQZ8804-36-52 16:36:00 Test Item Value Reference Range Interpretation Comments Basophils (test code = 0.5 See_Comment [Aut omated message] The Basophils) system which ge nerated this result tra nsmitted reference range : <=1.0. The reference r rafat was not used to int erpret this result as normal/abnormal . [facility] CenterLxjogalWOGLCIXGVM6672-47-62 16:36:00 Test Item Value Reference Range Interpretation Comments Segs-Bands # (test code = Segs-Bands #) 4.3 1.5-8.1 [facility] CenterKbljembNJYODWZKML8949-08-45 16:36:00 Test Item Value Reference Range Interpretation Comments CDC HIV 4th GEN (test Negative (03/26/15 10:36 code = CDC HIV 4th AM) GEN) [facility] CenterOzwdtlaCUFUVOYETZ8095-80-65 16:36:00 Test Item Value Reference Range Interpretation Comments [place]-Hep C Ab (test Negative *NA*(03/26/15 code = [place]-Hep C 10:36 AM) Ab) [facility] [id number] 16:36:00 Test Item Value Reference Range Interpretation Comments Antibody Scrn (test Negative (03/26/15 10:36 code = Antibody Scrn) AM) [facility] [employer] [id number] 16:36:00 Test Item Value Reference Range Interpretation Comments ABO/Rh (test code = ABO/Rh) O POS [facility]2016-01-02 16:36:00 Test Item Value Reference Range Interpretation Comments ALT (test code = ALT) 26 See_Comment [Auto mated message] The system which ge nerated this result transmit nurys reference range : <=65. The reference range was not used to interpr et this result as sujey l/abnormal. [facility]2016-01-02 16:36:00 Test Item Value Reference Range Interpretation Comments AST (test code = AST) 19 See_Comment [Auto mated message] The system which ge nerated this result transmit nurys reference range : <=37. The reference range was not used to interpr et this result as sujey l/abnormal. [facility]2016-01-02 16:36:00 Test Item Value Reference Range Interpretation Comments Bili Total (test code = Bili Total) 1.5 0.2-1.3 [facility]2016-01-02 16:36:00 Test Item Value Reference Range Interpretation Comments Alk Phos (test code = Alk Phos) 74 39-136 [facility]2016-01-02 16:36:00 Test Item Value Reference Range Interpretation Comments Bili Direct (test code 0.3 See_Comment [Aut omated message] The = Bili Direct) system which generated this result tra nsmitted reference range : <=0.3. The reference r rafat was not used to int erpret this result as sujey l/abnormal. [facility]2016-01-02 16:36:00 Test Item Value Reference Range Interpretation Comments Total Protein (test code = Total 7.2 6.4-8.4 Protein) [facility]2016-01-02 16:36:00 Test Item Value Reference Range Interpretation Comments Albumin Lvl (test code = Albumin Lvl) 3.9 3.5-5.0 [facility]2016-01-02 16:36:00 Test Item Value Reference Range Interpretation Comments Bili Indirect (test 1.2 See_Comment [Automa nurys message] The code = Bili Indirect) system which generated this result tra nsmitted reference range : <=1.0. The reference r rafat was not used to int erpret this result as normal/abnormal . [facility]2016-01-02 16:36:00 Test Item Value Reference Range Interpretation Comments A/G Ratio (test code = A/G Ratio) 1.2 0.7-1.6 [facility]2016-01-02 16:36:00 Test Item Value Reference Range Interpretation Comments Globulin (test code = Globulin) 3.3 2.0-4.0 [facility]2016-01-02 16:36:00 Test Item Value Reference Range Interpretation Comments Lipase Lvl (test code = Lipase Lvl) 178 73-393 [facility]2016-01-02 16:36:00 Test Item Value Reference Range Interpretation Comments eGFR (test code = eGFR) 71 [facility]2016-01-02 16:36:00 Test Item Value Reference Range Interpretation Comments Calcium Lvl (test code = Calcium Lvl) 9.2 8.5-10.5 [facility]2016-01-02 16:36:00 Test Item Value Reference Range Interpretation Comments CO2 (test code = CO2) 32 24-32 [facility]2016-01-02 16:36:00 Test Item Value Reference Range Interpretation Comments Chloride Lvl (test code = Chloride Lvl) 101 95-109 [facility]2016-01-02 16:36:00 Test Item Value Reference Range Interpretation Comments Potassium Lvl (test code = Potassium 3.7 3.5-5.1 Lvl) [facility]2016-01-02 16:36:00 Test Item Value Reference Range Interpretation Comments Sodium Lvl (test code = Sodium Lvl) 139 135-145 [facility]2016-01-02 16:36:00 Test Item Value Reference Range Interpretation Comments Creatinine Lvl (test code = Creatinine 1.15 0.50-1.40 Lvl) [facility]2016-01-02 16:36:00 Test Item Value Reference Range Interpretation Comments BUN (test code = BUN) 16 7-22 [facility]2016-01-02 16:36:00 Test Item Value Reference Range Interpretation Comments Glucose Lvl (test code = Glucose Lvl) 105 70-99 [facility]2016-01-02 16:36:00 Test Item Value Reference Range Interpretation Comments AGAP (test code = AGAP) 9.7 10.0-20.0 [facility] CenterYdsfaveSGGNHCMXZF2755-28-05 16:36:00 Test Item Value Reference Range Interpretation Comments PTT (test code = PTT) 36.8 s 22.9-35.8 [facility] CenterRyhchysAQUUMKUEBC6377-82-29 16:36:00 Test Item Value Reference Range Interpretation Comments INR (test code = INR) 1.31 0.85-1.17 [facility] CenterFmuodhuQEHRGPRRMA1969-46-00 16:36:00 Test Item Value Reference Range Interpretation Comments PT (test code = PT) 16.6 s 12.0-14.7 [facility] CenterJwfxjhnTPSQLGLXPJ4311-52-65 16:36:00 Test Item Value Reference Range Interpretation Comments RDW (test code = RDW) 14.3 11.5-14.5 [facility] CenterEyjbcjnHBYWHMVWDH5861-55-51 16:36:00 Test Item Value Reference Range Interpretation Comments Platelet (test code = Platelet) 167 133-450 [facility] CenterCialwsoQQMJBBSSHF2865-54-07 16:36:00 Test Item Value Reference Range Interpretation Comments MPV (test code = MPV) 7.6 7.4-10.4 [facility] CenterAsqdpqmWCCKROBATF3469-47-87 16:36:00 Test Item Value Reference Range Interpretation Comments MCV (test code = MCV) 90.5 80.0-94.0 [facility] CenterItvzycuKOUWWMDPYQ1891-32-56 16:36:00 Test Item Value Reference Range Interpretation Comments Hgb (test code = Hgb) 14.4 14.0-18.0 [facility] CenterYdbtsenDMDSFHVNIT3335-19-64 16:36:00 Test Item Value Reference Range Interpretation Comments Hct (test code = Hct) 43.5 42.0-54.0 [facility] CenterRwepyvxQFEHDQSZZB1489-19-60 16:36:00 Test Item Value Reference Range Interpretation Comments MCH (test code = MCH) 30.0 pg 27.0-31.0 [facility] CenterNayxpbxWOUFRFOHEX2592-94-29 16:36:00 Test Item Value Reference Range Interpretation Comments MCHC (test code = MCHC) 33.1 32.0-36.0 [facility] CenterLvqniasGBYZYULKRW1117-41-89 16:36:00 Test Item Value Reference Range Interpretation Comments RBC (test code = RBC) 4.80 4.70-6.10 [place] [id number] 16:36:00 Test Item Value Reference Range Interpretation Comments WBC (test code = WBC) 6.0 3.7-10.4 [facility] CenterGlrnkscOZNVNSTHOM6032-05-74 16:36:00 Test Item Value Reference Range Interpretation Comments Monocytes (test code = Monocytes) 11.9 2.0-12.0 [facility] CenterNvlbqlpCWDXALZEGG6859-63-15 16:36:00 Test Item Value Reference Range Interpretation Comments Lymphocytes (test code = Lymphocytes) 14.9 20.0-40.0 [facility] CenterQbxhjxoTJRZIEIPLA3889-83-88 16:36:00 Test Item Value Reference Range Interpretation Comments Segs (test code = Segs) 71.5 45.0-75.0 [facility] CenterUqkgjekBPASMBUZZF5685-86-08 16:36:00 Test Item Value Reference Range Interpretation Comments Lymphocytes # (test code = Lymphocytes 0.9 1.0-5.5 #) [facility] CenterQswiwzvWSWNAFSBDO3181-64-55 16:36:00 Test Item Value Reference Range Interpretation Comments Monocytes # (test code 0.7 See_Comment [Aut omated message] The = Monocytes #) system which generated this result tra nsmitted reference range : <=0.8. The reference r rafat was not used to int erpret this result as normal/abnormal . [facility] CenterBpyahxpGLIUXOEKYV4667-28-21 16:36:00 Test Item Value Reference Range Interpretation Comments Eosinophils # (test code 0.1 See_Comment [A utomated message] The = Eosinophils #) system wh h generated this result tra nsmitted reference range : <=0.5. The reference r rafat was not used to int erpret this result as normal/abnormal . [facility] CenterTspgkldZTXKPRZEFA3563-11-16 16:36:00 Test Item Value Reference Range Interpretation Comments Eosinophils (test code = 1.2 See_Comment [A utomated message] The Eosinophils) system which ge nerated this result tra nsmitted reference range : <=4.0. The reference r rafat was not used to int erpret this result as normal/abnormal . [facility] CenterOdnesepOROOEXTPGU5614-42-36 16:36:00 Test Item Value Reference Range Interpretation Comments Basophils (test code = 0.5 See_Comment [Aut omated message] The Basophils) system which ge nerated this result tra nsmitted reference range : <=1.0. The reference r rafat was not used to int erpret this result as normal/abnormal . [facility] CenterKgqytmvAUEKIHYHFP4737-73-88 16:36:00 Test Item Value Reference Range Interpretation Comments Segs-Bands # (test code = Segs-Bands #) 4.3 1.5-8.1 [facility] CenterEimkzymEABSCPQMCK2755-79-54 16:36:00 Test Item Value Reference Range Interpretation Comments CDC HIV 4th GEN (test Negative (03/26/15 10:36 code = CDC HIV 4th AM) GEN) [facility] CenterDvxgcdlGRTNUXDZRH9707-61-32 16:36:00 Test Item Value Reference Range Interpretation Comments [place]-Hep C Ab (test Negative *NA*(03/26/15 code = [place]-Hep C 10:36 AM) Ab) [facility] Notes Date/Time Note Provider Source 2015-03-26 10:10:00-00:00 EXAM: Gall Bladder US [facility] DATE: Mar 26, 2015 09:36:00 AM INDICATION: [...] can be done. 2. Multiple hepatic cysts. 2015-03-26 10:10:00-00:00 EXAM: Gall Bladder US [facility] DATE: Mar 26, 2015 09:36:00 AM INDICATION: [...]
--- NOTE | 2022-11-26 13:25 | EDPHYS ---
Physician Documentation [facility] Name: Shlomo Humphrey Age: 62 yrs Sex: Male : 1960 Arrival Date: 11/26/2022 Time: 12:56 Bed 12 Private MD: ED Physician Rigo Escudero HPI: 11/26 13:22 This 62 yrs old Male presents to ER via Ambulatory with complaints of Rash. rn 13:22 The patient's rash thought to be caused by an unknown cause. The rash is located on the rn pelvis. Onset: The symptoms/episode began/occurred at an unknown time. Associated signs and symptoms: Pertinent positives: itching, Pertinent negatives: fever. Severity of symptoms: At their worst the symptoms were mild in the emergency department the symptoms are unchanged. The patient has experienced similar episodes in the past. Patient reports has rash in groin, attributes it to jock itch, unknown when it started. Has had before. Recently diagnosed with COVID and wanted to make sure the medication could be taken with COVID. No fever.. Historical: - Allergies: 13:04 No Known Allergies; ll1 - PMHx: 13:04 Atrial Fib; Hypertension; pleurisy; ll1 - PSHx: 13:04 Cholecystectomy; double hernia repair; heart surgery; ll1 - Immunization history:: Client reports having NOT received the Covid vaccine. - Social history:: Smoking status: Patient denies any tobacco usage or history of. - Family history:: not pertinent. - Hospitalizations: : No recent hospitalization is reported. ROS: 13:22 Constitutional: Negative for fever, chills, and weight loss, Skin: Positive for redness rn and rash to groin Exam: 13:22 Constitutional: This is a well developed, well nourished patient who is awake, alert, rn and in no acute distress. Cardiovascular: Regular rate and rhythm. No pulse deficits. Skin: Positive for beefy red erythema with satellite lesions in the groin bilaterally. No petechiae. No purpura. No fluctuance. Vital Signs: 13:03 BP 153 / 94; Pulse 64; Resp 16; Temp 97.9; Pulse Ox 99% ; Weight 115.67 kg; Height 5 ll1 ft. 10 in. ; Pain 0/10; 13:03 Body Mass Index 36.59 (115.67 kg, 177.8 cm) ll1 13:03 Pain Scale: Adult ll1 MDM: 13:09 Patient medically screened. rn 13:22 Differential diagnosis: Fungal infection of groin, Milka. Data reviewed: vital signs, rn nurses notes, and as a result, I will discharge patient. Counseling: I had a detailed discussion with the patient and/or guardian regarding the historical points, exam findings, and any diagnostic results supporting the discharge/admit diagnosis, the need for outpatient follow up, to return to the emergency department if symptoms worsen or persist or if there are any questions or concerns that arise at home. Special discussion: I discussed with the patient/guardian in detail that at this point there is no indication for admission to the hospital. It is understood, however, that if the symptoms persist or worsen the patient needs to return immediately for re-evaluation. Administered Medications: 13:30 Drug: Fluconazole PO 200 mg Route: PO; kc6 13:35 Follow up: Response: No adverse reaction kc6 Disposition Summary: 11/26/22 13:25 Discharge Ordered Location: Home rn Problem: new rn Symptoms: are unchanged rn Condition: Stable rn Diagnosis - Candidiasis of other urogenital sites rn Followup: rn - With: Private Physician - When: As needed - Reason: Recheck today's complaints, Re-evaluation by your physician Discharge Instructions: - Discharge Summary Sheet rn Forms: - Medication Reconciliation Form rn - Thank You Letter rn - Antibiotic learning coach - Prescription Opioid Use rn - Patient Portal Instructions rn - Leadership Thank You Letter rn Prescriptions: - Diflucan 150 mg Oral Tablet - take 1 tablet by ORAL route one time for 3 days; 3 tablet; Refills: 0, Product rn Selection Permitted - Nystatin-Triamcinolone 100,000-0.1 unit/g-% Topical Cream - apply 1 application by TOPICAL route 2 times per day; 2 unit; Refills: 0, rn Product Selection Permitted Signatures: Rigo Escudero MD MD rn Lewis, Lynsay, RN RN ll1 Eleanor Najera RN RN kc6
--- NOTE | 2022-11-26 13:25 | ER ---
Nurse's Notes [facility] Name: Shlomo Humphrey Age: 62 yrs Sex: Male : 1960 Arrival Date: 11/26/2022 Time: 12:56 Bed 12 Private MD: Diagnosis: Candidiasis of other urogenital sites Presentation: 11/26 13:03 Chief complaint: Patient states: Rash, redness, itching to groin area for 2-3 days. ll1 Tested positive for covid Saturday out of state. Coronavirus screen: Client denies travel out of the [place] in the last 14 days. fatigue, sore throat. Ebola Screen: Patient denies travel to an Ebola-affected area in the 21 days before illness onset. Initial Sepsis Screen: Does the patient meet any 2 criteria? No. Patient's initial sepsis screen is negative. Does the patient have a suspected source of infection? Yes: Skin breakdown/wound. Risk Assessment: Do you want to hurt yourself or someone else? Patient reports no desire to harm self or others. Onset of symptoms was November 24, 2022. 13:03 Method Of Arrival: Ambulatory ll1 13:03 Acuity: EBER 4 ll1 Triage Assessment: 13:08 General: Appears in no apparent distress. Behavior is calm, cooperative, appropriate ll1 for age. Pain: Denies pain. Derm: Reports rash to groin area. Historical: - Allergies: 13:04 No Known Allergies; ll1 - PMHx: 13:04 Atrial Fib; Hypertension; pleurisy; ll1 - PSHx: 13:04 Cholecystectomy; double hernia repair; heart surgery; ll1 - Immunization history:: Client reports having NOT received the Covid vaccine. - Social history:: Smoking status: Patient denies any tobacco usage or history of. - Family history:: not pertinent. - Hospitalizations: : No recent hospitalization is reported. Screenin:30 [facility] ED Fall Risk Assessment (Adult) History of falling in the last 3 months, kc6 including since admission No falls in past 3 months (0 pts) Confusion or Disorientation No (0 pts) Intoxicated or Sedated No (0 pts) Impaired Gait No (0 pts) Mobility Assist Device Used No (0 pt) Altered Elimination No (0 pt) Score/Fall Risk Level 0 - 2 = Low Risk. Abuse screen: Denies threats or abuse. Denies injuries from another. Nutritional screening: No deficits noted. Tuberculosis screening: No symptoms or risk factors identified. Assessment: 13:30 General: Appears in no apparent distress. comfortable, Behavior is calm, cooperative, kc6 appropriate for age. Pain: Denies pain. Neuro: Level of Consciousness is awake, alert, obeys commands, Oriented to person, place, time, situation, Appropriate for age. Cardiovascular: Capillary refill < 3 seconds. Respiratory: Airway is patent Trachea midline Respiratory effort is even, unlabored, Respiratory pattern is regular, symmetrical. GI: No signs and/or symptoms were reported involving the gastrointestinal system. : No signs and/or symptoms were reported regarding the genitourinary system. EENT: No signs and/or symptoms were reported regarding the EENT system. Derm: Skin is intact, is healthy with good turgor, Skin is pink, warm \T\ dry. Rash noted that is red, on pelvis. Musculoskeletal: No signs and/or symptoms reported regarding the musculoskeletal system. Circulation, motion, and sensation intact. Capillary refill < 3 seconds, Range of motion: intact in all extremities. Vital Signs: 13:03 BP 153 / 94; Pulse 64; Resp 16; Temp 97.9; Pulse Ox 99% ; Weight 115.67 kg; Height 5 ll1 ft. 10 in. ; Pain 0/10; 13:03 Body Mass Index 36.59 (115.67 kg, 177.8 cm) ll1 13:03 Pain Scale: Adult ll1 ED Course: 12:58 Patient arrived in ED. rg4 13:04 Triage completed. ll1 13:05 Arm band placed on. ll1 13:07 Eleanor Najera, DHEERAJ is Primary Nurse. kc6 13:09 Rigo Escudero MD is Attending Physician. rn 13:30 Patient has correct armband on for positive identification. Bed in low position. Call kc6 light in reach. Side rails up X 1. 13:35 No provider procedures requiring assistance completed. Patient did not have IV access kc6 during this emergency room visit. Administered Medications: 13:30 Drug: Fluconazole PO 200 mg Route: PO; kc6 13:35 Follow up: Response: No adverse reaction kc6 Medication: 13:36 VIS not applicable for this client. kc6 Outcome: 13:25 Discharge ordered by . rn 13:36 Discharged to home ambulatory. kc6 13:36 Condition: stable 13:36 Discharge instructions given to patient, Instructed on discharge instructions, follow up and referral plans. medication usage, Demonstrated understanding of instructions, follow-up care, medications, Prescriptions given X 2. 13:36 Patient left the ED. kc6 Signatures: Rigo Escudero MD MD rn Garcia, Rubi rg4 Lesley Pepper RN RN ll1 Eleanor Najera RN RN kc6
[2022-11-26] MEDS ORDERED: FLUCONAZOLE 100 MG TAB ONE (13:38)
[2022-11-26 14:08] VITALS: BP 153/94; TEMP 97.9; O2SAT 99
== END 2022-11-26 13:36 | disposition home or self-care (01) ==
LOC: ER 12:56
DX: B37.49 Other urogenital candidiasis (principal)
CPT/HCPCS: 99283

== ENCOUNTER 2023-08-18 09:27 | Emergency (ER) | payer OTHER ==
[2023-08-18 10:17] LABS: Specific Gravity 1.006 (1.005-1.030); Sqamous Epithelial None Seen /HPF (None Seen); Urine Bacteria None Seen /HPF (<20); Urine Bilirubin NEGATIVE (Negative); Urine Blood Negative (Negative); Urine Clarity Clear (Clear); Urine Color Light-Yellow (Yellow); Urine Culture Reflex Order NOT NEEDED; Urine Glucose NEGATIVE (Negative); Urine Ketones NEGATIVE (Negative); Urine Micro Reflex YN NO BILL MICROSCOPIC; Urine Nitrite NEGATIVE (Negative); Urine Protein NEGATIVE (Negative); Urine RBC None Seen /HPF (None Seen); Urine Urobilinogen Normal (Normal); Urine WBC <5 /HPF (<5)
--- NOTE | 2023-08-18 11:11 | ER ---
Nurse's Notes [facility] Name: Shlomo Humphrey Age: 63 yrs Sex: Male : 1960 Arrival Date: 08/18/2023 Time: 09:27 Bed 19 Private MD: Diagnosis: Urinary frequency Presentation: 08/17 09:47 Chief complaint: Dysuria x 3 days. Coronavirus screen: At this time, the client does hb not indicate any symptoms associated with coronavirus-19. Ebola Screen: No symptoms or risks identified at this time. Initial Sepsis Screen: Does the patient meet any 2 criteria? No. Patient's initial sepsis screen is negative. Does the patient have a suspected source of infection? No. Patient's initial sepsis screen is negative. Risk Assessment: Do you want to hurt yourself or someone else? Patient reports no desire to harm self or others. Onset of symptoms was August 15, 2023. 09:47 Method Of Arrival: Ambulatory hb 09:47 Acuity: EBER 4 hb Triage Assessment: 09:50 General: Appears uncomfortable, Behavior is cooperative, appropriate for age, anxious. bp Pain: Complains of pain in pelvis. Neuro: Level of Consciousness is awake, alert, obeys commands, Oriented to Appropriate for age. : Reports burning with urination. Historical: - Allergies: 09:50 No Known Allergies; hb - PMHx: 09:50 Atrial Fib; Hypertension; pleurisy; hb - PSHx: 09:50 Cholecystectomy; Cholecystectomy; double hernia repair; heart surgery; hb - Immunization history:: Adult Immunizations up to date. - Infectious Disease History:: Denies. - Social history:: Smoking status: Patient denies any tobacco usage or history of. - Family history:: not pertinent. Screenin:50 [facility] ED Fall Risk Assessment (Adult) History of falling in the last 3 months, bp including since admission No falls in past 3 months (0 pts). Abuse screen: Denies threats or abuse. Denies injuries from another. Nutritional screening: No deficits noted. Tuberculosis screening: No symptoms or risk factors identified. Assessment: 09:50 General: Appears uncomfortable, Behavior is cooperative, appropriate for age, anxious. bp Pain: Complains of pain in pelvis. Vital Signs: 09:47 BP 117 / 91; Pulse 80; Resp 16; Temp 98.4; Pulse Ox 99% ; Weight 90.72 kg; Height 5 ft. hb 10 in. ; Pain 4/10; 10:54 BP 105 / 72; Pulse 73; Resp 16; Pulse Ox 98% ; bp 09:47 Body Mass Index 28.70 (90.72 kg, 177.8 cm) hb 09:47 Pain Scale: Adult hb ED Course: 09:34 Patient arrived in ED. mg5 09:38 Juan Burnett MD is Attending Physician. rt 09:39 Rashad Gore RN is Primary Nurse. bp 09:49 Triage completed. hb 09:50 Arm band placed on. hb 09:50 Patient has correct armband on for positive identification. Call light in reach. bp 10:00 Urine collected: clean catch specimen, cloudy. bp 10:54 Bladder scan completed. 476 ML. bp 11:10 Tashi Sanabria MD is Referral Physician. rt 11:17 Provided Education on: N/A. bp 11:17 No provider procedures requiring assistance completed. Patient did not have IV access bp during this emergency room visit. Administered Medications: No medications were administered Medication: 11:17 VIS not applicable for this client. bp Outcome: 11:10 Discharge ordered by . rt 11:17 Discharged to home ambulatory, bp 11:17 Condition: stable 11:17 Discharge instructions given to patient, Instructed on discharge instructions, follow up and referral plans. medication usage, Demonstrated understanding of instructions, follow-up care, medications, Prescriptions given X 1, 11:18 Patient left the ED. bp Signatures: Laura Abernathy RN RN Rashad Gore, RN RN Juan Burnett MD MD rt Belkis Felton mg5
--- NOTE | 2023-08-18 11:11 | EDPHYS ---
Physician Documentation [facility] Name: Shlomo Humphrey Age: 63 yrs Sex: Male : 1960 Arrival Date: 08/18/2023 Time: 09: Bed 19 Private MD: ED Physician Juan Burnett HPI: 08/17 10:01 This 63 yrs old Male presents to ER via Ambulatory with complaints of Urinary Problem. rt 10:01 Patient presents to the ED with dysuria, burning with urination, urinary frequency for rt about 3 days. States that he believes that he is emptying his bladder. Denies other acute complaints at this time, symptoms are mild in severity, no other aggravating or alleviating factors.. Historical: - Allergies: :50 No Known Allergies; hb - PMHx: 09:50 Atrial Fib; Hypertension; pleurisy; hb - PSHx: 09:50 Cholecystectomy; Cholecystectomy; double hernia repair; heart surgery; hb - Immunization history:: Adult Immunizations up to date. - Infectious Disease History:: Denies. - Social history:: Smoking status: Patient denies any tobacco usage or history of. - Family history:: not pertinent. ROS: 10:01 Constitutional: Negative for fever, chills, and weight loss, Cardiovascular: Negative rt for chest pain, palpitations, and edema, Respiratory: Negative for shortness of breath, cough, wheezing, and pleuritic chest pain, Abdomen/GI: Negative for abdominal pain, nausea, vomiting, diarrhea, and constipation, MS/Extremity: Negative for injury and deformity, Skin: Negative for injury, rash, and discoloration, Neuro: Negative for headache, weakness, numbness, tingling, and seizure, 10:01 : Positive for urinary symptoms, urinary frequency, burning with urination, Exam: 10:01 Constitutional: This is a well developed, well nourished patient who is awake, alert, rt and in no acute distress. Head/Face: Normocephalic, atraumatic. Chest/axilla: Normal chest wall appearance and motion. Nontender with no deformity. No lesions are appreciated. Cardiovascular: Regular rate and rhythm with a normal S1 and S2. No gallops, murmurs, or rubs. Normal PMI, no JVD. No pulse deficits. Respiratory: Lungs have equal breath sounds bilaterally, clear to auscultation and percussion. No rales, rhonchi or wheezes noted. No increased work of breathing, no retractions or nasal flaring. Abdomen/GI: Soft, non-tender, with normal bowel sounds. No distension or tympany. No guarding or rebound. No evidence of tenderness throughout. Skin: Warm, dry with normal turgor. Normal color with no rashes, no lesions, and no evidence of cellulitis. MS/ Extremity: Pulses equal, no cyanosis. Neurovascular intact. Full, normal range of motion. Neuro: Awake and alert, GCS 15, oriented to person, place, time, and situation. Cranial nerves II-XII grossly intact. Motor strength 5/5 in all extremities. Sensory grossly intact. Cerebellar exam normal. Normal gait. Vital Signs: 09:47 BP 117 / 91; Pulse 80; Resp 16; Temp 98.4; Pulse Ox 99% ; Weight 90.72 kg; Height 5 ft. hb 10 in. ; Pain 4/10; 10:54 BP 105 / 72; Pulse 73; Resp 16; Pulse Ox 98% ; bp 09:47 Body Mass Index 28.70 (90.72 kg, 177.8 cm) hb 09:47 Pain Scale: Adult hb MDM: 09:42 Patient medically screened. rt 13:51 Differential Diagnosis UTI, BPH. rt 13:51 Data reviewed: vital signs, nurses notes, lab test result(s). Care significantly rt affected by the following chronic conditions: Hypertension. Response to treatment: the patient's symptoms have mildly improved after treatment. ED course: Patient with postvoid of about 400 cc. Do not believe this complete retention requiring catheter placement however, will start on Flomax, will have him follow-up with urology, or return to the hospital for worsening symptoms.. 08/17 09:47 Order name: UAM; Complete Time: 10:21 rt 08/17 09:47 Order name: Bladder Scanner; Complete Time: 10:55 rt Administered Medications: No medications were administered Disposition Summary: 08/18/23 11:10 Discharge Ordered Notes: Location: Home rt Problem: new rt Symptoms: are unchanged rt Condition: Stable rt Diagnosis - Urinary frequency rt Followup: rt - With: Tashi Sanabria MD - When: 10 - 14 days - Reason: Discharge Instructions: - Discharge Summary Sheet rt - Urinary Frequency, Adult rt - Benign Prostatic Hyperplasia rt Forms: - Medication Reconciliation Form rt - Antibiotic Education rt - Prescription Opioid Use rt - Patient Portal Instructions rt - Leadership Thank You Letter rt Prescriptions: - Flomax 0.4 mg Oral capsule - take 1 capsule ORAL route daily; 30 capsule; Refills: 0, Product Selection rt Permitted Signatures: Dispatcher [employer] Laura Case RN RN hb [place], Ryan, MD MD rt Corrections: (The following items were deleted from the chart) 13:52 13:51 Differential Diagnosis Patient presents to the ED with reported urinary rt frequency.. rt
[2023-08-18 11:38] VITALS: BP 105/72; TEMP 98.4; O2SAT 98
== END 2023-08-18 11:18 | disposition home or self-care (01) ==
LOC: ER 09:27
DX: R35.0 Frequency of micturition (principal); R30.0 Dysuria
CPT/HCPCS: 81001; 99283

== ENCOUNTER 2023-12-31 06:07 | Day surgery (SDC) | payer OTHER ==
[2023-12-26 10:45] LABS: Absolute Eosinophils 0.2 K/uL (0-0.5); Absolute Lymphocytes (CBC) 1.2 K/uL (0.7-4.9); Absolute Monocytes 0.5 K/uL (0.1-1.3); Absolute Neutrophil 3.7 K/uL (1.8-8.0); Basophils % 0.4 % (0-1.3); Eosinophils % 2.9 % (0-4.4); Hematocrit 40.4 % (39.6-49.0); Hemoglobin 13.5 g/dL (13.6-17.9); Lymphocytes % 21.6 % (15.3-44.8); MCH 31.3 pg (27.0-35.0); MCHC 33.5 g/dL (32.0-36.0); MCV 93.6 fL (80-100); MPV 7.9 fL (7.6-11.3); Monocytes % 9.1 % (3.3-12.3); Nucleated Red Blood Cells % 0.2 % (0-0); Platelets 195 thou/uL (152-406); RBC Red Blood Cell Count 4.32 M/uL (4.33-5.43); Red Cell Distribution Width 14.6 % (12.1-15.2)
[2023-12-26 10:53] LABS: PT Prothrombin Time 11.2 SECONDS (9.4-12.5)
[2023-12-26 10:55] LABS: Anion Gap 6.3 mEq/L (5.0-15.0); Potassium 4.3 mEq/L (3.5-5.1)
--- NOTE | 2023-12-27 16:37 | EKG ---
Test Date: 2023-12-26 Test Time: 09:42:22 [employer]ipe [employer]: HARD MEASUREMENT RESULTS: Intervals: Rate: 58 SD: 214 QRSD: 92 QT: 412 QTc: 404 [place]: P: 51 SD: 214 QRS: 63 T: 45 INTERPRETIVE STATEMENTS: Sinus bradycardia with 1st degree AV block Otherwise normal ECG Compared to ECG 09/06/2022 13:51:51 First degree AV block now present Sinus rhythm no longer present Electronically Signed On 12-27-23 16:33:04 CDT by Brian Franco
[2023-12-31] MEDS: Ringers Lactate 1,000 ML IV ONE (06:30)
[2023-12-31] MEDS ORDERED: propofoL 200 MG/20 ML VIAL IV ONE (06:59)
[2023-12-31] MEDS ORDERED: ONDANSETRON 4 MG/2 ML VIAL ONE (06:59)
[2023-12-31] MEDS ORDERED: LIDOCAINE 1% MPF 5 ML VIAL ONE (06:59)
[2023-12-31] MEDS ORDERED: KETOROLAC 30 MG/ML INJ ONE (06:59)
[2023-12-31] MEDS ORDERED: MIDAZOLAM HCL 2 MG/2 ML INJ ONE (07:00)
[2023-12-31] MEDS ORDERED: FENTANYL CITR 100 MCG/2 ML ONE (07:00)
[2023-12-31] MEDS: CEFAZOLIN SODIUM 2 GM/VIAL ONE (07:50)
[2023-12-31 08:18] VITALS: O2SAT 99
--- NOTE | 2023-12-31 08:19 | P.OP ---
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 He underwent cystoscopic evaluation revealing the incidental presence of a small papillary urothelial lesion and was counseled on the need for biopsy. Initially, he expressed an interest in proceeding with definitive surgical management of his obstructive LUTS, but and final clearance for the procedure, he apparently denied wishing to proceed with the procedure suggesting he was voiding well on Flomax 0.8 mg daily. Procedure note: The patient was consented in the preoperative holding area before being transferred to the operative suite where general anesthesia was induced. He was given Ancef 2 g IV antimicrobial prophylaxis, and pneumoboots were provided for DVT prophylaxis. He was placed in the lithotomy position, padded and secured to the table appropriately, and his genitalia was prepped with Hibiclens before being draped in standard fashion. The case was begun using a 22 Indonesian rigid cystoscope to traverse the urethra and into the bladder with ease. As it previously been observed, there was an elevated median bar with mild intravesical projection of the small median lobe with a large lateral sulcus. The bladder was surveyed in its entirety using both a 30 and a 70 degree lens, and no additional papillary mucosal lesions, foreign bodies or stones were noted throughout other than the lesion lateral to the right ureteral orifice. I then switched to narrowband imaging and surveyed the entirety of the bladder. Only the previously observed papillary mucosal lesion was observed with no surrounding changes suggestive of peripheral extension of the tumor. The lesion itself did have a stippled blue appearance within each of the papillae of the tumor as seen on narrowband imaging. As a result, I used a cold cup biopsy forcep and directly sampled and removed the majority of the tumor before replacing the cold cup biopsy forcep and removing a sub mm papillary extension visible associated with the main tumor mass. This was sent for pathologic analysis. I then utilized cold cup biopsy forceps and fulgurated the base of the lesion using cautery anticoagulation setting of 30 and sterile water. I then decompressed his bladder of fluid and urine and ensure no additional bleeding before removing the cystoscope. He was then taken out of the lithotomy position, awakened from general anesthesia, transferred to a stretcher, and then transferred to the recovery room in good condition. Complications: None Discharge disposition: Follow-up should be established to discuss the pathology of the biopsy. This could potentially be done as a virtual visit at the patient's discretion. Subsequent reconsideration of his potential desire or need for surgical management of his obstructive LUTS may also be made in the future.
[2023-12-31] MEDS ORDERED: PHENAZOPYRIDINE 100MG TAB PO ONE ×2 (09:14)
[2023-12-31] MEDS: PHENAZOPYRIDINE 100MG TAB PO ONE (09:19)
[2023-12-31 10:16] VITALS: BP 100/69; TEMP 97.5
== END 2023-12-31 09:50 | disposition home or self-care (01) ==
LOC: OR 06:07
PROVIDERS: ATTEND Urology
PROC: 0TBB8ZX Excision of Bladder, Via Natural or Artificial Opening Endoscopic, Diagnostic (ICD-10-PCS; principal; 2023-12-31 07:30)
DX: D41.21 Neoplasm of uncertain behavior of right ureter (principal); N40.1 Benign prostatic hyperplasia with lower urinary tract symptoms
CPT/HCPCS: 52204; 93005; 87088; 85025; 87086; 80048; 36415; 85610; 88305; J2704; J2001; J2250; J3010; J2405; J7120